=== PATIENT | male | born 1945 | race Caucasian/White ===

== ENCOUNTER 2016-07-19 15:25 | Emergency (ER) | payer MEDICARE, OTHER ==
[2016-07-19] MEDS ORDERED: Hydromorphone 1 mg/ml Ampule IV ONE (15:50)
[2016-07-19] MEDS ORDERED: DUONEB 0.5-3 MG/3 ml Neb IH ONE ×2 (15:51→15:59)
--- NOTE | 2016-07-19 15:55 | ERPHSYRPT ---
- History of Present Illness Time Seen by Provider: 07/19/16 15:41 Source: patient, family (jerrell) Patient Subjective Stated Complaint: Pt states he fell onto his back 3 days ago. Ever since, he has been more short of breath than normal and it is continuing to get worse. He is complaining of pain in the entire right side of his body. He states that the pain moves all over the right side from the upper side to the lower side. Denies hitting his head or any neck pain. Triage Nursing Assessment: Pt alert and oriented x3. skin pink warm and dry. afebrile. no bruising noted to right side. pt moans in pain with movement. expiratory wheezes noted throughout Physician History: CC: right rib injury Hx: 70 y/o patient of Dr Bradshaw on coumadin for prior PE and DVT. He fell a couple of days ago. No head or neck injury. Pain in right posterior lateral ribs. More short of breath than normal. No cough. No hematuria. No abd pain. He has used nebs without help. Worried he has another blood clot or injury. Timing/Duration: day(s) (3) Severity: moderate Allergies/Adverse Reactions: pineapple [Pineapple] Adverse Reaction (Verified 11/20/15 07:22) VOMITING clothe tape Allergy (Uncoded 11/20/15 07:22) Home Medications: Atorvastatin Calcium 80 mg PO HS 10/30/14 [History] Bumetanide 1 mg [Bumex 1 mg] 1 mg PO DAILY 10/30/14 [History] Carvedilol 3.125 mg [Coreg 3.125 MG] 3.125 mg PO BID 10/30/14 [History] Insulin Detemir [Levemir] 50 unit SQ HS 10/30/14 [History] Isosorbide Mononitrate 30 mg [Imdur 30 MG] 30 mg PO DAILY 10/30/14 [History ] Metformin HCl 500 mg [Glucophage 500 MG] 1,000 mg PO BIDAC 10/30/14 [ History] Nitroglycerin 0.4 mg Tablet [Nitrostat 0.4 MG Tablet] 0.4 mg SL UD PRN [History] Lisinopril 5 mg [Zestril 5 MG] 5 mg PO DAILY 10/29/15 [History] Pantoprazole 20 mg [Protonix 20MG Tablet] 40 mg PO DAILY 10/29/15 [History ] Aspirin 81 gm Chew [Baby Aspirin 81 mg Chew] 81 mg PO DAILY 12/08/15 [ History] Magnesium Oxide 400 mg [Mag-Ox 400] 400 mg PO DAILY 12/08/15 [History] Oxycodone HCl/Acetaminophen [Percocet 10-325 mg Tablet] 1 each PO Q6H 12/08/15 [ History] Sucralfate 1 gm [Carafate 1 GM] 1 tab PO DAILY 12/08/15 [History] Warfarin Sodium 5 mg [Coumadin 5 MG] 7.5 mg PO 1800 02/22/16 [History] Hx Tetanus, Diphtheria Vaccination/Date Given: Yes Hx Influenza Vaccination/Date Given: Yes Hx Pneumococcal Vaccination/Date Given: Yes - Review of Systems Constitutional: No Symptoms Respiratory: Dyspnea, No Cough Cardiac: Chest Pain (right ribs) Abdominal/Gastrointestinal: No Abdominal Pain, No Nausea, No Vomiting, No Diarrhea Genitourinary Symptoms: No Hematuria Musculoskeletal: Back Pain, No Neck Pain Neurological: No Focal Weakness, No Headache, No Parasthesia All Other Systems: Reviewed and Negative - Past Medical History Pertinent Past Medical History: Yes Neurological History: No Pertinent History ENT History: No Pertinent History Cardiac History: Coronary Artery Disease, Deep Vein Thrombosis, High Cholesterol , Hypertension, Myocardial Infarction ([place]) Respiratory History: CHF, COPD, Pulmonary Embolism Endocrine Medical History: Diabetes Type II Musculoskeletal History: Osteoarthritis GI Medical History: Gallbladder Disease History: No Pertinent History Psycho-Social History: No Pertinent History Male Reproductive Disorders: No Pertinent History Other Medical History: 4 VESSEL BYPAS. MULTIPLE STENTS SINCE THE BYPASS. hx of DVT - Past Surgical History Past Surgical History: Yes Neuro Surgical History: No Pertinent History Cardiac: CABG, Cardiac Catheterization, Cardiac Stent Respiratory: No Pertinent History Gastrointestinal: Cholecystectomy Genitourinary: No Pertinent History Musculoskeletal: Joint Replacement, Orthopedic Surgery Male Surgical History: No Pertinent History Other Surgical History: LEFT HIP REPLACEMENT. LITTLE FINGER RIGHT HAND-STATES HAD SURGERY AND IT FROZE UP. 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 SEVERAL HEART CATHS AND 4 STEND PLACED. 4 BIPASS - Social History Smoking Status: Former smoker How long have you smoked: 10 Exposure to second hand smoke: No Drug Use: none Patient Lives Alone: No - Nursing Vital Signs Nursing Vital Signs: Initial Vital Signs Temperature 98.4 F Temperature Source Oral Pulse Rate 80 Respiratory Rate 18 Blood Pressure [Right Arm] 149/93 Pain Intensity 5 - Physical Exam General Appearance: alert, obese Eye Exam: PERRL/EOMI Ears, Nose, Throat Exam: moist mucous membranes Neck Exam: normal inspection, non-tender, supple, No midline tenderness Respiratory Exam: diminished breath sounds, other (tender right lateral ribs) Cardiovascular Exam: regular rate/rhythm Gastrointestinal/Abdomen Exam: soft, No tenderness, No distention, No mass, No guarding Male Genitalia Exam: normal genitalia Back Exam: CVA tenderness (right) Extremity Exam: normal range of motion, pedal edema Neurologic Exam: alert, oriented x 3, cooperative, No motor deficits Skin Exam: warm, dry, No rash SpO2 Interpretation: normal SpO2: 96 Oxygen Delivery: Room Air - Course Nursing assessment & vital signs reviewed: Yes EKG Interpreted by Me: RATE (74), Sinus Rhythm, NORMAL AXIS, NORMAL INTERVALS, Non-specific ST Changes - CT Exams chest CT Interpretation: Tele-radiologist Report (No PE, nondisplaced right 5th rib fracture) Ordered Tests: Active Orders 24 hr Category Date Time Status Clean Catch Urine Specimen STAT Care 07/19/16 15:50 Active EKG-ER Only STAT Care 07/19/16 15:50 Active IV Insertion STAT Care 07/19/16 15:50 Active CHEST WITH CONTRAST [CT] Stat Exams 07/19/16 15:51 Completed CBC W DIFF Stat Lab 07/19/16 16:04 Completed CMP Stat Lab 07/19/16 16:04 Completed Manual Differential NC Stat Lab 07/19/16 16:04 Completed PROTIME WITH INR Stat Lab 07/19/16 16:04 Completed UA W/ MICROSCOPIC Stat Lab 07/19/16 15:23 Completed Respiratory Nebulizer STAT RT 07/19/16 15:52 Completed Medication Summary Discontinued Medications Generic Name Dose Route Start Last Admin Trade Name Freq PRN Reason Stop Dose Admin Albuterol/Ipratropium 3 ml 07/19/16 15:51 07/19/16 16:02 Duoneb 0.5-3 Mg/3 Ml Neb IH 07/19/16 15:52 3 ml STAT ONE Administration Albuterol/Ipratropium Confirm 07/19/16 15:59 Duoneb 0.5-3 Mg/3 Ml Neb Administered 07/19/16 16:00 Dose 3 ml IH .STK-MED ONE Hydromorphone HCl 0.5 mg 07/19/16 15:50 07/19/16 16:08 Hydromorphone 1 Mg/Ml Ampule IV 07/19/16 15:51 0.5 mg STAT ONE Administration Hydromorphone HCl Confirm 07/19/16 16:07 Hydromorphone 1 Mg/Ml Ampule Administered 07/19/16 16:08 Dose 1 mg .ROUTE .STK-MED ONE Lab/Rad Data: Laboratory Result Diagrams 07/19/16 16:04 07/19/16 16:04 Laboratory Results 07/19/16 07/19/16 07/19/16 Range/Units 16:04 16:04 16:04 WBC 8.4 (4.0-10.5) K/mm3 RBC 4.82 (4.1-5.6) M/mm3 Hgb 14.3 (12.5-18.0) gm/dl Hct 42.4 (42-50) % MCV 88.0 (78-100) fl MCH 29.7 (26-32) pg MCHC 33.7 (32-36) g/dl RDW 13.1 (11.5-14.0) % Plt Count 206 (150-450) K/mm3 MPV 9.9 H (6-9.5) fl Segmented Neutrophils 74 H (36.-66.) % Lymphocytes (Manual) 18 L (24-44) % Monocytes (Manual) 3 (0.0-12.0) % Eosinophils (Manual) 4 H (0.00-3.0) % Basophils (Manual) 1 (0.0-1.0) % Differential Comment ABNORMAL Platelet Estimate NORMAL (NORMAL) Anisocytosis 1+ INR 2.80 (0.8-3.0) Sodium 136 (136-145) mEq/L Potassium 4.1 (3.5-5.1) mEq/L Chloride 100 (98-107) mEq/L Carbon Dioxide 24.3 (21-32) mEq/L Anion Gap 15.3 H (5-15) MEQ/L BUN 26 H (9-20) mg/dL Creatinine 1.10 (0.55-1.30) mg/dl Estimated GFR > 60 ML/MIN Glucose 292 H (70-110) MG/DL Calcium 8.5 (8.5-10.1) mg/dL Total Bilirubin 0.5 (0.2-1.0) mg/dL AST 19 (15-37) U/L ALT 35 (12-78) U/L Alkaline Phosphatase 114 (46-116) U/L Serum Total Protein 6.8 (6.4-8.2) gm/dL Albumin 3.3 L (3.4-5.0) g/dL Ur Collection Type Urine Color (YELLOW) Urine Appearance (CLEAR) Urine pH (5-6) Ur Specific [place] (1.005-1.025) Urine Protein (Negative) Urine Glucose (UA) (NEGATIVE) mg/dL Urine Ketones (NEGATIVE) Urine Nitrite (NEGATIVE) Urine Bilirubin (NEGATIVE) Urine Urobilinogen (0-1) mg/dL Urine WBC (Auto) (NEGATIVE) Urine RBC (Auto) (0-5) Miguel A/ul Urine Microscopic RBC (0-2) /HPF Urine Microscopic WBC (0-5) /HPF Ur Epithelial Cells (FEW) /HPF Urine Bacteria (NEGATIVE) /HPF Specimen Received 07/19/16 Range/Units 15:23 WBC (4.0-10.5) K/mm3 RBC (4.1-5.6) M/mm3 Hgb (12.5-18.0) gm/dl Hct (42-50) % MCV (78-100) fl MCH (26-32) pg MCHC (32-36) g/dl RDW (11.5-14.0) % Plt Count (150-450) K/mm3 MPV (6-9.5) fl Segmented Neutrophils (36.-66.) % Lymphocytes (Manual) (24-44) % Monocytes (Manual) (0.0-12.0) % Eosinophils (Manual) (0.00-3.0) % Basophils (Manual) (0.0-1.0) % Differential Comment Platelet Estimate (NORMAL) Anisocytosis INR (0.8-3.0) Sodium (136-145) mEq/L Potassium (3.5-5.1) mEq/L Chloride (98-107) mEq/L Carbon Dioxide (21-32) mEq/L Anion Gap (5-15) MEQ/L BUN (9-20) mg/dL Creatinine (0.55-1.30) mg/dl Estimated GFR ML/MIN Glucose (70-110) MG/DL Calcium (8.5-10.1) mg/dL Total Bilirubin (0.2-1.0) mg/dL AST (15-37) U/L ALT (12-78) U/L Alkaline Phosphatase (46-116) U/L Serum Total Protein (6.4-8.2) gm/dL Albumin (3.4-5.0) g/dL Ur Collection Type CLEAN CATCH Urine Color YELLOW (YELLOW) Urine Appearance CLEAR (CLEAR) Urine pH 5.0 (5-6) Ur Specific [place] 1.025 (1.005-1.025) Urine Protein >=300 (Negative) Urine Glucose (UA) >=1000 (NEGATIVE) mg/dL Urine Ketones TRACE (NEGATIVE) Urine Nitrite NEGATIVE (NEGATIVE) Urine Bilirubin NEGATIVE (NEGATIVE) Urine Urobilinogen 0.2 (0-1) mg/dL Urine WBC (Auto) NEGATIVE (NEGATIVE) Urine RBC (Auto) TRACE-LYSED (0-5) Miguel A/ul Urine Microscopic RBC 0-2 (0-2) /HPF Urine Microscopic WBC 2-5 (0-5) /HPF Ur Epithelial Cells FEW (FEW) /HPF Urine Bacteria RARE (NEGATIVE) /HPF Specimen Received 07/19/16 1551 - Progress Progress Note: 07/19/16 17:47 Pt stable. He has percocet at home for pain in addition to oxygen and nebs. Will release to follow up with Dr Bradshaw. He was advised no metformin for 48 hours. Counseled pt/family regarding: lab results, diagnosis, need for follow-up, rad results - Departure Time of Disposition: 17:48 Departure Disposition: Home Clinical Impression: Warfarin anticoagulation Rib fracture Qualifiers: Encounter type: initial encounter Rib fracture type: single rib Fracture type: closed Laterality: right Qualified Code(s): S22.31XA - Fracture of one rib, right side, initial encounter for closed fracture Condition: Stable Critical Care Time: No Referrals: SATINDER ACEVEDO [Primary Care Provider] - MONSE BRADSHAW MD [ACTIVE STAFF] - Instructions: Prevent Falls, Rib Fracture Additional Instructions: Ice packs off and on. Use your percocet as already directed for pain. Use your nebs, deep breathing, and oxygen. Follow up this week with Dr Bradshaw.
[2016-07-19 16:07] LABS: Mean Corpuscular Hemoglobin 29.7 pg (26-32); Mean Platelet Volume 9.9 fl (6-9.5); Platelet Count 206 K/mm3 (150-450); Red Blood Count 4.82 M/mm3 (4.1-5.6); Red Cell Distribution Width 13.1 % (11.5-14.0); White Blood Count 8.4 K/mm3 (4.0-10.5)
[2016-07-19] MEDS ORDERED: Hydromorphone 1 mg/ml Ampule ONE (16:07)
[2016-07-19 16:20] LABS: INR 2.8 (0.8-3.0); PROTIME 30.4 SECONDS (8.83-12.87)
[2016-07-19 16:30] LABS: ALBUMIN 3.3 g/dL (3.4-5.0); ALKALINE PHOSPHATASE 114 U/L (46-116); ANION GAP 15.3 MEQ/L (5-15); BILIRUBIN,TOTAL 0.5 mg/dL (0.2-1.0); BLOOD UREA NITROGEN 26 mg/dL (9-20); CHLORIDE 100 mEq/L (98-107); Carbon Dioxide 24.3 mEq/L (21-32); Glucose 292 MG/DL (70-110); Potassium 4.1 mEq/L (3.5-5.1); SGOT/AST 19 U/L (15-37); SGPT/ALT 35 U/L (12-78); SODIUM 136 mEq/L (136-145); Total Protein 6.8 gm/dL (6.4-8.2)
[2016-07-19 16:54] LABS: Collection Type CLEAN CATCH
[2016-07-19 16:55] LABS: Bacteria RARE /HPF (NEGATIVE); COMPLETE URINE MICROSCOPIC? YES; Epithelial Cells FEW /HPF (FEW)
[2016-07-19 17:07] LABS: Basophil 1 % (0.0-1.0); Eosinophil 4 % (0.00-3.0); Total Cells Counted 100
[2016-07-19 17:09] LABS: ANISOCYTOSIS 1+; Platelet Estimate NORMAL (NORMAL)
--- NOTE | 2016-07-19 17:21 | XRAY ---
Indication: Right-sided pain following fall. History of PE. Multiple contiguous axial images obtained through the chest using 80 cc Isovue-370 contrast and PE protocol. Comparison: August 21, 2014 There is good opacification of the pulmonary arteries to include the lobar and segmental branches. Again no filling defect or pulmonary embolus. Heart is not enlarged and again demonstrates previous CABG surgery. Aorta is normal in course and caliber. No pathologic mediastinal/hilar lymphadenopathy. Examination of the lung parenchyma again demonstrates chronic right hemidiaphragm elevation with right base subsegmental atelectasis/scarring. Stable left upper lobe fibrosis/scarring and calcified granuloma. No new pulmonary mass/nodule, infiltrate, consolidation, or effusion. Bony thorax intact again demonstrates mild degenerative changes throughout the spine. New nondisplaced right lateral 5th rib fracture Limited upper abdomen again demonstrates fatty liver, subcentimeter right adrenal adenoma, and previous cholecystectomy. Impression: 1. Again negative for pulmonary embolus. 2. Stable chronic right hemidiaphragm elevation with adjacent atelectasis. 3. No new/acute cardiopulmonary abnormalities. 4. New nondisplaced right 5th rib fracture without pneumo/hemothorax. 5. Stable fatty liver and right adrenal adenoma. CTDI 27.99
[2016-07-19 17:57] VITALS: BP 140/72; PULSE 88; O2SAT 95
== END 2016-07-19 17:57 | disposition home or self-care (01) ==
LOC: ED 15:25
DX: S22.31XA Fracture of one rib, right side, initial encounter for closed fracture (principal); Z79.01 Long term (current) use of anticoagulants; R07.9 Chest pain, unspecified; W19.XXXA Unspecified fall, initial encounter; Z79.899 Other long term (current) drug therapy; Z79.82 Long term (current) use of aspirin; Z79.84 Long term (current) use of oral hypoglycemic drugs; I25.10 Atherosclerotic heart disease of native coronary artery without angina pectoris; E78.00 Pure hypercholesterolemia, unspecified; I10 Essential (primary) hypertension; I50.9 Heart failure, unspecified; J44.9 Chronic obstructive pulmonary disease, unspecified; Z86.711 Personal history of pulmonary embolism; I25.2 Old myocardial infarction
CPT/HCPCS: 36000; 36415; 71260; 80053; 81000; 85025; 85610; 93005; 94640; 96374; 99283; 99284; J1170

== ENCOUNTER 2016-09-19 17:13 | Observation (INO) | payer MEDICARE, OTHER ==
--- NOTE | 2016-09-19 17:34 | ERPHSYRPT ---
- History of Present Illness Time Seen by Provider: 09/19/16 17:27 Historian: patient Exam Limitations: no limitations Patient Subjective Stated Complaint: pt arrived per amb for chest pain to center of chest since 2pm today nonradiating, no vomiting sob but pt states is normal for him, Triage Nursing Assessment: pt alert, resp easy,skin w/d elaina renya in er 251, cheast clear, no edema noted, Physician History: The patient is a 71-year-old male with his complaining of central chest pain without shortness of breath, nausea, or sweating. That began about 4 hours ago when the patient was mowing the yard. He has known cardiac history with several CABG surgeries. He did not take nitroglycerin. He's had several MIs in the past. He states his usual heart problems such as MIs do not produce any abnormal EKGs that do have chest pain on the left side. This has chest pain in this middle. He states he's had a cough all day. He's had reflux before. His past medical history is significant for DC. Hypertension. Diabetes. Pulmonary embolism. COPD. Palpitations. And cholecystitis. Timing/Duration: today, hour(s) (4) Activities at Onset: activity Quality: sharpness Location: central Chest Pain Radiation: no radiation Severity of Pain-Max: moderate Severity of Pain-Current: moderate Modifying Factors: Improves With: nothing Associated Symptoms: cough Prior Chest Pain/Cardiac Workup: cardiac cath, heart attack, pulmonary embolism Nitro Today/Relief: no nitro taken today Aspirin Treatment Today: 81 mg x 1 Allergies/Adverse Reactions: pineapple [Pineapple] Adverse Reaction (Verified 09/19/16 17:25) VOMITING clothe tape Allergy (Uncoded 09/19/16 17:25) Home Medications: Atorvastatin Calcium 80 mg PO HS 10/30/14 [History] Bumetanide 1 mg [Bumex 1 mg] 1 mg PO DAILY 10/30/14 [History] Carvedilol 3.125 mg [Coreg 3.125 MG] 3.125 mg PO BID 10/30/14 [History] Insulin Detemir [Levemir] 50 unit SQ HS 10/30/14 [History] Isosorbide Mononitrate 30 mg [Imdur 30 MG] 30 mg PO DAILY 10/30/14 [History ] Metformin HCl 500 mg [Glucophage 500 MG] 1,000 mg PO BIDAC 10/30/14 [ History] Nitroglycerin 0.4 mg Tablet [Nitrostat 0.4 MG Tablet] 0.4 mg SL UD PRN [History] Lisinopril 5 mg [Zestril 5 MG] 5 mg PO DAILY 10/29/15 [History] Pantoprazole 20 mg [Protonix 20MG Tablet] 40 mg PO DAILY 10/29/15 [History ] Aspirin 81 gm Chew [Baby Aspirin 81 mg Chew] 81 mg PO DAILY 12/08/15 [ History] Magnesium Oxide 400 mg [Mag-Ox 400] 400 mg PO DAILY 12/08/15 [History] Oxycodone HCl/Acetaminophen [Percocet 10-325 mg Tablet] 1 each PO Q6H 12/08/15 [ History] Sucralfate 1 gm [Carafate 1 GM] 1 tab PO DAILY 12/08/15 [History] Warfarin Sodium 5 mg [Coumadin 5 MG] 7.5 mg PO 1800 02/22/16 [History] Hx Tetanus, Diphtheria Vaccination/Date Given: Yes Hx Influenza Vaccination/Date Given: Yes Hx Pneumococcal Vaccination/Date Given: Yes - Review of Systems Constitutional: No Fever, No Chills Eyes: No Symptoms Ears, Nose, & Throat: No Symptoms Respiratory: No Cough, No Dyspnea Cardiac: No Chest Pain, No Edema, No Syncope Abdominal/Gastrointestinal: No Abdominal Pain, No Nausea, No Vomiting, No Diarrhea Genitourinary Symptoms: No Symptoms Musculoskeletal: No Back Pain, No Neck Pain Skin: No Rash Neurological: No Dizziness, No Focal Weakness, No Sensory Changes Psychological: No Symptoms Endocrine: No Symptoms Hematologic/Lymphatic: No Symptoms Immunological/Allergic: No Symptoms All Other Systems: Reviewed and Negative - Past Medical History Pertinent Past Medical History: Yes Neurological History: No Pertinent History ENT History: No Pertinent History Cardiac History: Coronary Artery Disease, Deep Vein Thrombosis, High Cholesterol , Hypertension, Myocardial Infarction ([place]) Respiratory History: CHF, COPD, Pulmonary Embolism Endocrine Medical History: Diabetes Type II Musculoskeletal History: Osteoarthritis GI Medical History: Gallbladder Disease History: No Pertinent History Psycho-Social History: No Pertinent History Male Reproductive Disorders: No Pertinent History Other Medical History: 4 VESSEL BYPAS. MULTIPLE STENTS SINCE THE BYPASS. hx of DVT - Past Surgical History Past Surgical History: Yes Neuro Surgical History: No Pertinent History Cardiac: CABG, Cardiac Catheterization, Cardiac Stent Respiratory: No Pertinent History Gastrointestinal: Cholecystectomy Genitourinary: No Pertinent History Musculoskeletal: Joint Replacement, Orthopedic Surgery Male Surgical History: No Pertinent History Other Surgical History: LEFT HIP REPLACEMENT. LITTLE FINGER RIGHT HAND-STATES HAD SURGERY AND IT FROZE UP. 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 SEVERAL HEART CATHS AND 4 STEND PLACED. 4 BIPASS - Social History Smoking Status: Former smoker How long have you smoked: 10 Exposure to second hand smoke: No Drug Use: none Patient Lives Alone: No - Nursing Vital Signs Temperature: 97 F Temperature Source: Oral Pulse Rate: 104 Respiratory Rate: 16 Pain Intensity: 7 - Physical Exam General Appearance: moderate distress Eye Exam: PERRL/EOMI, eyes nml inspection Ears, Nose, Throat Exam: normal ENT inspection, moist mucous membranes Neck Exam: normal inspection, non-tender, supple, full range of motion Respiratory Exam: normal breath sounds, lungs clear, No respiratory distress Cardiovascular Exam: regular rate/rhythm, normal heart sounds Gastrointestinal/Abdomen Exam: soft, No tenderness, No mass Rectal Exam: not done Back Exam: normal inspection, No CVA tenderness, No vertebral tenderness Extremity Exam: normal inspection, normal range of motion Neurologic Exam: alert, oriented x 3, cooperative, normal mood/affect, sensation nml, No motor deficits Skin Exam: normal color, warm, dry SpO2 Interpretation: normal SpO2: 94 Oxygen Delivery: Room Air - Course EKG Interpreted by Me: Sinus Rhythm, NORMAL AXIS, NORMAL INTERVALS, NORMAL ST-T - Radiology Exams Chest X-ray Interpretation: Interpreted by me, Negative (nonacute chest. comp cxr 05/19) Ordered Tests: Active Orders 24 hr Category Date Time Status Assistant Media Buyer STAT Care 09/19/16 17:36 Active EKG-ER Only STAT Care 09/19/16 17:34 Active IV Insertion STAT Care 09/19/16 17:34 Active Oxygen-ED Only NASAL CANNULA 2 lpm Care 09/19/16 17:36 Active Pulse Oximetry (ED) STAT Care 09/19/16 17:36 Active CHEST 2 VIEWS (PA AND LAT) Stat Exams 09/19/16 17:35 Taken CBC W DIFF Stat Lab 09/19/16 17:39 Completed CMP Stat Lab 09/19/16 17:39 Completed Manual Differential NC Stat Lab 09/19/16 17:39 Completed TROPONIN Stat Lab 09/19/16 17:39 Completed Medication Summary Discontinued Medications Generic Name Dose Route Start Last Admin Trade Name Freq PRN Reason Stop Dose Admin Al Hydrox/Mg Hydrox/Simethicone Confirm 09/19/16 18:20 Maalox Es 30 Ml Unit Dose Administered 09/19/16 18:21 Dose 30 ml .ROUTE .STK-MED ONE Aspirin 324 mg 09/19/16 17:41 09/19/16 17:46 Baby Aspirin 81 Mg Chew PO 09/19/16 17:42 324 mg STAT ONE Administration Aspirin Confirm 09/19/16 17:49 Baby Aspirin 81 Mg Chew Administered 09/19/16 17:50 Dose 324 mg .ROUTE .STK-MED ONE Belladonna Alkaloids/Phenobarbital 60 ml 09/19/16 18:16 09/19/16 18:22 Gi Cocktail 60ml (Belladonn/Phenobarb/Lidoc* PO 09/19/16 18:17 60 ml STAT ONE Administration Belladonna Alkaloids/Phenobarbital Confirm 09/19/16 18:20 Donnatol Liquid Administered 09/19/16 18:21 Dose 64.8 mg .ROUTE .STK-MED ONE Lidocaine HCl Confirm 09/19/16 18:20 Xylocaine Hcl Viscous * Administered 09/19/16 18:21 Dose 20 ml .ROUTE .STK-MED ONE Nitroglycerin 0.4 mg 09/19/16 17:36 09/19/16 17:47 Nitrostat 0.4 Mg (Ed) SL 09/19/16 17:37 0.4 mg STAT ONE Administration Nitroglycerin Confirm 09/19/16 17:49 Nitrostat 0.4 Mg (Ed) Administered 09/19/16 17:50 Dose 0.4 mg SL .STK-MED ONE Nitroglycerin 0.4 mg 09/19/16 18:38 09/19/16 18:46 Nitrostat 0.4 Mg (Ed) SL 09/19/16 18:39 0.4 mg STAT ONE Administration Nitroglycerin Confirm 09/19/16 18:44 Nitrostat 0.4 Mg (Ed) Administered 09/19/16 18:45 Dose 0.4 mg SL .STK-MED ONE Nitroglycerin 0.4 mg 09/19/16 18:51 09/19/16 18:57 Nitrostat 0.4 Mg (Ed) SL 09/19/16 18:52 0.4 mg STAT ONE Administration Nitroglycerin Confirm 09/19/16 18:52 Nitrostat 0.4 Mg (Ed) Administered 09/19/16 18:53 Dose 0.4 mg SL .STK-MED ONE Lab/Rad Data: Laboratory Result Diagrams 09/19/16 17:39 09/19/16 17:39 Laboratory Results 09/19/16 09/19/16 Range/Units 17:39 17:39 WBC 10.4 (4.0-10.5) K/mm3 RBC 5.24 (4.1-5.6) M/mm3 Hgb 15.6 (12.5-18.0) gm/dl Hct 45.7 (42-50) % MCV 87.2 (78-100) fl MCH 29.8 (26-32) pg MCHC 34.1 (32-36) g/dl RDW 12.9 (11.5-14.0) % Plt Count 231 (150-450) K/mm3 MPV 9.9 H (6-9.5) fl Segmented Neutrophils 85 H (36.-66.) % Band Neutrophils 1 (0.0-2.0) % Lymphocytes (Manual) 11 L (24-44) % Monocytes (Manual) 3 (0.0-12.0) % Differential Comment NORMAL Platelet Estimate NORMAL (NORMAL) Sodium 135 L (136-145) mEq/L Potassium 4.3 (3.5-5.1) mEq/L Chloride 99 (98-107) mEq/L Carbon Dioxide 23.6 (21-32) mEq/L Anion Gap 16.4 H (5-15) MEQ/L BUN 29 H (9-20) mg/dL Creatinine 1.37 H (0.55-1.30) mg/dl Estimated GFR 54 ML/MIN Glucose 259 H (70-110) MG/DL Calcium 8.8 (8.5-10.1) mg/dL Total Bilirubin 0.5 (0.2-1.0) mg/dL AST 34 (15-37) U/L ALT 54 (12-78) U/L Alkaline Phosphatase 118 H (46-116) U/L Troponin I < 0.017 (0.000-0.056) ng/ml Serum Total Protein 7.1 (6.4-8.2) gm/dL Albumin 3.6 (3.4-5.0) g/dL - Progress Progress: unchanged Air Movement: good Progress Note: 09/19/16 19:05 The patient was given nitroglycerin 0.4 mg sublingual 3 and a GI cocktail without any change in the chest pain. Blood Culture(s) Obtained: No Antibiotics given: No Discussed with : Ruth Will see patient in: hospital (observation) Counseled pt/family regarding: lab results, diagnosis, rad results - Departure Time of Disposition: 19:17 Departure Disposition: Observation Clinical Impression: Chest pain Condition: Stable Critical Care Time: No
[2016-09-19] MEDS ORDERED: Nitrostat 0.4 MG (ED) SL ONE ×6 (17:36→18:52)
[2016-09-19] MEDS ORDERED: BABY ASPIRIN 81 MG CHEW PO ONE (17:41)
[2016-09-19 17:43] LABS: Mean Cell Volume 87.2 fl (78-100); Mean Corpuscular Hemoglobin 29.8 pg (26-32); Mean Platelet Volume 9.9 fl (6-9.5); Platelet Count 231 K/mm3 (150-450); Red Blood Count 5.24 M/mm3 (4.1-5.6); Red Cell Distribution Width 12.9 % (11.5-14.0); White Blood Count 10.4 K/mm3 (4.0-10.5)
[2016-09-19] MEDS ORDERED: BABY ASPIRIN 81 MG CHEW ONE (17:49)
[2016-09-19 17:58] LABS: ALBUMIN 3.6 g/dL (3.4-5.0); ALKALINE PHOSPHATASE 118 U/L (46-116); ANION GAP 16.4 MEQ/L (5-15); BILIRUBIN,TOTAL 0.5 mg/dL (0.2-1.0); BLOOD UREA NITROGEN 29 mg/dL (9-20); CHLORIDE 99 mEq/L (98-107); Carbon Dioxide 23.6 mEq/L (21-32); Glucose 259 MG/DL (70-110); Potassium 4.3 mEq/L (3.5-5.1); SGOT/AST 34 U/L (15-37); SGPT/ALT 54 U/L (12-78); SODIUM 135 mEq/L (136-145); Total Protein 7.1 gm/dL (6.4-8.2)
[2016-09-19 18:00] LABS: TROPONIN < 0.017 ng/ml (0.000-0.056)
[2016-09-19] MEDS ORDERED: GI COCKTAIL 60ML (Belladonn/Phenobarb/Lidoc PO ONE (18:16)
[2016-09-19] MEDS ORDERED: XYLOCAINE HCl Viscous ONE (18:20)
[2016-09-19] MEDS ORDERED: Donnatol Liquid ONE (18:20)
[2016-09-19] MEDS ORDERED: MAALOX ES 30 ML UNIT DOSE ONE (18:20)
[2016-09-19 18:42] LABS: BAND 1 % (0.0-2.0); Total Cells Counted 100
[2016-09-19 18:43] LABS: Platelet Estimate NORMAL (NORMAL)
[2016-09-19] MEDS ORDERED: MILK OF MAGNESIA 30 ML PO PRN (20:09)
[2016-09-19] MEDS ORDERED: TYLENOL 325 MG PO PRN (20:09)
[2016-09-19] MEDS ORDERED: Senokot-S Tablet PO PRN (20:09)
[2016-09-19] MEDS ORDERED: MAALOX ES 30 ML UNIT DOSE PO PRN (20:09)
[2016-09-19] MEDS ORDERED: Zofran 4 MG/2 ML VIAL IV PRN (20:09)
[2016-09-19] MEDS ORDERED: PROVENTIL 2.5 MG/3 ML NEB IH ONE (20:12)
[2016-09-19 20:16] LABS: INR 3.02 (0.8-3.0); PROTIME 32.7 SECONDS (8.83-12.87)
[2016-09-19] MEDS: PROVENTIL 2.5 MG/3 ML NEB IH SCH (20:38)
[2016-09-19] MEDS ORDERED: PROVENTIL 2.5 MG/3 ML NEB IH PRN (20:59)
[2016-09-19] MEDS: MORPHINE SULFATE 2 MG INJ IV PRN (21:28)
[2016-09-19] MEDS ORDERED: Nitrostat 0.4 MG Tablet SL PRN (21:39)
[2016-09-19] MEDS ORDERED: OXYCODONE-ACETAMINOPHEN 10-325 PO PRN (21:42)
[2016-09-19] MEDS ORDERED: Coumadin 5 MG*** 5 MG, Coumadin 2.5 MG*** 2.5 MG PO SCH ×2 (22:00)
[2016-09-19] MEDS ORDERED: BUMEX 1 MG PO SCH (22:00)
[2016-09-19] MEDS ORDERED: LIPITOR 40MG PO SCH (22:00)
[2016-09-19] MEDS ORDERED: ZOCOR 20MG PO SCH (22:00)
[2016-09-19] MEDS ORDERED: Protonix 40MG Tablet PO SCH (22:00)
[2016-09-19] MEDS ORDERED: Lantus Insulin ONE (22:15)
[2016-09-19] MEDS ORDERED: Coumadin 2.5 MG ONE (22:16)
[2016-09-19] MEDS ORDERED: Coumadin 5 MG ONE (22:16)
[2016-09-19] MEDS ORDERED: ZOCOR 20MG ONE (22:16)
[2016-09-19] MEDS ORDERED: BUMEX 1 MG ONE (22:16)
[2016-09-19] MEDS: Coreg 3.125 MG PO SCH (22:19)
[2016-09-19] MEDS: Glucophage 500 MG PO SCH (22:30)
[2016-09-20] MEDS: MORPHINE SULFATE 2 MG INJ IV PRN (02:18)
[2016-09-20] MEDS ORDERED: PROVENTIL 2.5 MG/3 ML NEB IH ONE (06:28)
[2016-09-20] MEDS: PROVENTIL 2.5 MG/3 ML NEB IH SCH ×2 (06:30→10:40)
[2016-09-20] MEDS ORDERED: Carafate 1 GM PO SCH (07:30)
[2016-09-20] MEDS: Glucophage 500 MG PO SCH (07:36)
--- NOTE | 2016-09-20 08:45 | XRAY ---
Indication: Chest pain. Comparison: May 19, 2016. 2 view chest unchanged again demonstrating chronic right hemidiaphragm elevation with adjacent atelectasis/scarring, CABG surgery, osteopenia, and bony degenerative changes. Heart is not enlarged. No new/acute findings.
[2016-09-20 08:47] LABS: ANION GAP 13.3 MEQ/L (5-15); BLOOD UREA NITROGEN 24 mg/dL (9-20); CHLORIDE 95 mEq/L (98-107); Carbon Dioxide 28.4 mEq/L (21-32); Glucose 233 MG/DL (70-110); Potassium 3.2 mEq/L (3.5-5.1); SODIUM 134 mEq/L (136-145)
[2016-09-20] MEDS: Coreg 3.125 MG PO SCH (09:14)
[2016-09-20] MEDS ORDERED: MAG-OX 400 PO SCH (10:00)
[2016-09-20] MEDS ORDERED: BABY ASPIRIN 81 MG CHEW PO SCH (10:00)
[2016-09-20] MEDS ORDERED: Ecotrin 325 MG PO SCH (10:00)
[2016-09-20] MEDS ORDERED: DELTASONE 5 MG PO SCH (10:00)
[2016-09-20] MEDS ORDERED: BUMEX 1 MG PO SCH (10:00)
[2016-09-20] MEDS ORDERED: Imdur 30 MG PO SCH (10:00)
[2016-09-20] MEDS ORDERED: Zestril 5 MG PO SCH (10:00)
[2016-09-20] MEDS ORDERED: ECOTRIN 81 MG PO SCH (10:00)
[2016-09-20 10:47] VITALS: O2SAT 95
[2016-09-20 11:12] VITALS: BP 138/85; PULSE 78
--- NOTE | 2016-09-20 11:40 | PCM.SSS ---
History of Present Illness - Chief Complaint Chief Complaint: chest pain for 1 day History of Present Illness: The patient is a 71-year-old male with his complaining of central chest pain without shortness of breath, nausea, or sweating. That began about 4 hours ago when the patient was mowing the yard. He has known cardiac history with several CABG surgeries. He did not take nitroglycerin. He's had several MIs in the past. He states his usual heart problems such as MIs do not produce any abnormal EKGs that do have chest pain on the left side. This has chest pain in this middle. He states he's had a cough all day. He's had reflux before. His past medical history is significant for [place]. Hypertension. Diabetes. Pulmonary embolism. COPD. Palpitations. And cholecystitis. - Review of Systems Constitutional: No Fever, No Chills Eyes: No Symptoms Ears, Nose, & Throat: No Symptoms Respiratory: No Cough, No Short Of Breath Cardiac: Chest Pain, No Edema, No Syncope Abdominal/Gastrointestinal: No Abdominal Pain, No Nausea, No Vomiting, No Diarrhea Genitourinary Symptoms: No Dysuria Musculoskeletal: No Back Pain, No Neck Pain Skin: No Rash Neurological: No Dizziness, No Focal Weakness, No Sensory Changes Psychological: No Symptoms Endocrine: No Symptoms Hematologic/Lymphatic: No Symptoms Immunological/Allergic: No Symptoms Medications & Allergies Home Medications: Home Medication List Atorvastatin Calcium 80 mg PO HS 10/30/14 [History Confirmed 09/19/16] Bumetanide 1 mg [Bumex 1 mg] 0.5 mg PO BID 10/30/14 [History Confirmed 04/28] Carvedilol 3.125 mg [Coreg 3.125 MG] 3.125 mg PO BID 10/30/14 [History Confirmed 09/19/16] Insulin Detemir [Levemir] 50 unit SQ HS 10/30/14 [History Confirmed 09/19/16] Isosorbide Mononitrate 30 mg [Imdur 30 MG] 30 mg PO DAILY 10/30/14 [ History Confirmed 09/19/16] Metformin HCl 500 mg [Glucophage 500 MG] 1,000 mg PO BIDAC 10/30/14 [ History Confirmed 09/19/16] Nitroglycerin 0.4 mg Tablet [Nitrostat 0.4 MG Tablet] 0.4 mg SL UD PRN [History Confirmed 09/19/16] Lisinopril 5 mg [Zestril 5 MG] 5 mg PO DAILY 10/29/15 [History Confirmed 09/19/16] Pantoprazole 20 mg [Protonix 20MG Tablet] 40 mg PO HS 10/29/15 [History Confirmed 09/19/16] Aspirin 81 gm Chew [Baby Aspirin 81 mg Chew] 81 mg PO DAILY 12/08/15 [ History Confirmed 09/19/16] Magnesium Oxide 400 mg [Mag-Ox 400] 400 mg PO DAILY 12/08/15 [History Confirmed 09/19/16] Oxycodone HCl/Acetaminophen [Percocet 10-325 mg Tablet] 1 each PO Q6H 12/08/15 [ History Confirmed 09/19/16] Sucralfate 1 gm [Carafate 1 GM] 1 tab PO DAILY 12/08/15 [History Confirmed 09/19/16] Albuterol 2.5 mg/3 ml Neb [Proventil 2.5 mg/3 ml Neb] 1 aer IH Q4H #0 [Rx Confirmed 09/19/16] Warfarin Sodium 5 mg [Coumadin 5 MG] 7.5 mg PO 1800 02/22/16 [History Confirmed 09/19/16] Prednisone 5 mg PO DAILY #30 tablet 05/20/16 [Rx Confirmed 09/19/16] Allergies/Adverse Reactions: Allergies Allergy/AdvReac Type Severity Reaction Status Date / Time pineapple [Pineapple] AdvReac Verified 09/19/16 17:25 clothe tape Allergy Uncoded 09/19/16 17:25 - Past Medical History Past Medical History: Yes Neurological History: No Pertinent History ENT History: No Pertinent History Cardiac History: Coronary Artery Disease, Deep Vein Thrombosis, High Cholesterol , Hypertension, Myocardial Infarction ([place]) Respiratory History: CHF, COPD, Pulmonary Embolism Endocrine Medical History: Diabetes Type II Musculoskelatal History: Osteoarthritis GI Medical History: GERD, Gallbladder Disease History: No Pertinent History Pyscho-Social History: No Pertinent History Male Reproductive Disorders: No Pertinent History Comment: 4 VESSEL BYPAS. MULTIPLE STENTS SINCE THE [place]PASS. hx of DVT - Past Surgical History Past Surgical History: Yes Neuro Surgical History: No Pertinent History Cardiac History: CABG, Cardiac Catheterization, Cardiac Stent Respiratory Surgery: No Pertinent History GI Surgical History: Cholecystectomy Genitourinary Surgical Hx: No Pertinent History Musculskeletal Surgical Hx: Joint Replacement, Orthopedic Surgery Male Surgical History: No Pertinent History Other Surgical History: LEFT HIP REPLACEMENT. L[place]ING[place] RIGHT [employer]-STATES HAD SURGERY AND IT FROZE UP. 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 SEVERAL HEART CATHS AND 4 STEND PLACED. 4 BIPASS - Social History Smoking Status: Former smoker How long have you smoked: 10 Exposure to second hand smoke: No Alcohol: None Drug Use: none - Physical Exam Vital Signs: Vital Signs - 24 hr Temp Pulse Pulse Resp BP Pulse Ox 09/20/16 11:10 97.9 F 78 20 138/85 95 09/20/16 10:44 86 18 95 09/20/16 07:39 97.7 F 82 19 140/88 92 L 09/20/16 06:30 78 20 97 09/20/16 04:00 97.7 F 82 20 123/89 94 L 09/20/16 00:00 98.1 F 85 20 139/84 95 09/19/16 20:38 78 20 95 09/19/16 20:25 97.9 F 91 H 18 145/66 92 L 09/19/16 19:21 97 F 104 H 16 94 L 09/19/16 18:27 90 16 129/73 97 09/19/16 17:40 97 09/19/16 17:24 100 H 09/19/16 17:14 97 F 104 H 16 118/80 94 L Oxygen-Last 24 hours O2 Percentage 2 Liters = 28% O2 Percentage 2 Liters = 28% O2 Percentage 2 Liters = 28% General Appearance: no apparent distress, alert Neurologic Exam: alert, oriented x 3, cooperative, normal mood/affect, nml cerebellar function, nml station & gait, sensation nml, No motor deficits Eye Exam: PERRL/EOMI, eyes nml inspection Ears, Nose, Throat Exam: normal ENT inspection, TMs normal, pharynx normal, moist mucous membranes Neck Exam: normal inspection, non-tender, supple, full range of motion Respiratory Exam: normal breath sounds, lungs clear, No respiratory distress Cardiovascular Exam: regular rate/rhythm, normal heart sounds, normal peripheral pulses Gastrointestinal/Abdomen Exam: soft, normal bowel sounds, No tenderness, No mass Back Exam: normal inspection, normal range of motion, No CVA tenderness, No vertebral tenderness Extremity Exam: normal inspection, normal range of motion, pelvis stable Skin Exam: normal color, warm, dry, No rash Lymphatic Exam: No adenopathy Results - Labs Lab/Micro Results: Accuchecks Date 09/20/16 Time 07:07 Accucheck Value: 258 Accucheck Value: 195 Lab Results-Last 24 Hours 09/19/16 09/20/16 09/20/16 Range/Units 20:20 05:00 05:16 Sodium (136-145) mEq/L Potassium (3.5-5.1) mEq/L Chloride (98-107) mEq/L Carbon Dioxide (21-32) mEq/L Anion Gap (5-15) MEQ/L BUN (9-20) mg/dL Creatinine (0.55-1.30) mg/dl Estimated GFR ML/MIN Glucose (70-110) MG/DL Hemoglobin A1c 8.7 H (4.5-6.2) Calcium (8.5-10.1) mg/dL Troponin I < 0.017 (0.000-0.056) ng/ml Triglycerides 545 H (30-200) mg/dL Cholesterol 231 H (100-200) mg/dL LDL Cholesterol 111 H (5-99) mg/dL HDL Cholesterol 46 (35-60) mg/dL Heart Disease Risk Ratio 5.0 09/20/16 Range/Units 08:16 Sodium 134 L (136-145) mEq/L Potassium 3.2 L (3.5-5.1) mEq/L Chloride 95 L (98-107) mEq/L Carbon Dioxide 28.4 (21-32) mEq/L Anion Gap 13.3 (5-15) MEQ/L BUN 24 H (9-20) mg/dL Creatinine 1.24 (0.55-1.30) mg/dl Estimated GFR > 60 ML/MIN Glucose 233 H (70-110) MG/DL Hemoglobin A1c (4.5-6.2) Calcium 8.5 (8.5-10.1) mg/dL Troponin I (0.000-0.056) ng/ml Triglycerides (30-200) mg/dL Cholesterol (100-200) mg/dL LDL Cholesterol (5-99) mg/dL HDL Cholesterol (35-60) mg/dL Heart Disease Risk Ratio Accuchecks Date 09/20/16 Time 07:07 Accucheck Value: 258 Accucheck Value: 195 - Other Procedures and Tests Respiratory Therapy 09/19/16 19:00 Respiratory Nebulizer QID 09/19/16 21:00 Oxygen NASAL CANNULA 2 lpm Respiratory Nebulizer 09/21/16 05:00 EKG DAILY 09/22/16 05:00 EKG DAILY 09/23/16 05:00 EKG DAILY Assessment/Plan (1) Chest pain Current Visit: Yes Status: Acute Qualifiers: Ischemic chest pain type: stable angina pectoris Code(s): R07.9 - CHEST PAIN, UNSPECIFIED (2) COPD (chronic obstructive pulmonary disease) Current Visit: Yes Status: Chronic Qualifiers: COPD type: chronic bronchitis Chronic bronchitis type: simple Qualified Code(s): J41.0 - Simple chronic bronchitis (3) Coronary artery disease Current Visit: Yes Status: Chronic Qualifiers: Coronary Disease-Associated Artery/Lesion type: bypass graft [place] vs. transplanted heart: [place] heart Associated angina: with stable angina Qualified Code(s): I25.708 - Atherosclerosis of coronary artery bypass graft(s) , unspecified, with other forms of angina pectoris Code(s): I25.10 - ATHSCL HEART DISEASE OF [place] CORONARY ARTERY W/O ANG PCTRS (4) Diabetes Current Visit: Yes Status: Chronic Qualifiers: Diabetes mellitus type: type 2 Diabetes mellitus complication status: with diabetic arthropathy Diabetes mellitus complication detail: with neuropathic arthropathy Diabetes mellitus [place] insulin use: without fpc use Qualified Code(s): E11.610 - Type 2 diabetes mellitus with diabetic neuropathic arthropathy Code(s): E11.9 - TYPE 2 DIABETES MELLITUS WITHOUT COMPLICATIONS (5) History of DVT (deep vein thrombosis) Current Visit: No Status: Chronic Code(s): Z86.718 - PERSONAL HISTORY OF OTHER VENOUS THROMBOSIS AND EMBOLISM (6) Hypertension Current Visit: No Status: Chronic Code(s): I10 - ESSENTIAL (PRIMARY) HYPERTENSION (7) Pulmonary hypertension Current Visit: No Status: Chronic Code(s): I27.2 - OTHER SECONDARY PULMONARY HYPERTENSION (8) Warfarin anticoagulation Current Visit: No Status: Chronic Code(s): Z79.01 - [employer] (CURRENT) USE OF ANTICOAGULANTS Hospital Summary - Hospital Course Hospital Course: Chief Complaint Diagnosis chest pain for 1 day Allergies Allergy/AdvReac Type Severity Reaction Status Date / Time pineapple [Pineapple] AdvReac Verified 09/19/16 17:25 clothe tape Allergy Uncoded 09/19/16 17:25 Vital Signs (Last 24 hours) Temp Pulse Pulse Resp BP Pulse Ox 09/20/16 11:10 97.9 F 78 20 138/85 95 09/20/16 10:44 86 18 95 09/20/16 07:39 97.7 F 82 19 140/88 92 L 09/20/16 06:30 78 20 97 09/20/16 04:00 97.7 F 82 20 123/89 94 L 09/20/16 00:00 98.1 F 85 20 139/84 95 09/19/16 20:38 78 20 95 09/19/16 20:25 97.9 F 91 H 18 145/66 92 L 09/19/16 19:21 97 F 104 H 16 94 L 09/19/16 18:27 90 16 129/73 97 09/19/16 17:40 97 09/19/16 17:24 100 H 09/19/16 17:14 97 F 104 H 16 118/80 94 L Current Medications Generic Name Dose Route Start Last Admin Trade Name Freq PRN Reason Stop Dose Admin Acetaminophen 650 mg 09/19/16 20:09 Tylenol 325 Mg PO 10/19/16 20:08 Q4H PRN PRN PAIN AND/OR FEVER Al Hydrox/Mg Hydrox/Simethicone 30 ml 09/19/16 20:09 Maalox Es 30 Ml Unit Dose PO 10/19/16 20:08 Q4H PRN PRN INDIGESTION Albuterol Sulfate 2.5 mg 09/19/16 19:00 09/20/16 10:40 Proventil 2.5 Mg/3 Ml Neb IH 10/19/16 18:59 2.5 mg QIDRT BENJA Administration Albuterol Sulfate 2.5 mg 09/19/16 20:59 Proventil 2.5 Mg/3 Ml Neb IH 10/19/16 20:58 Q4H PRN PRN SHORTNESS OF BREATH/WHEEZING Aspirin 81 mg 09/20/16 10:00 09/20/16 09:14 Ecotrin 81 Mg PO 10/20/16 09:59 81 mg DAILY BENJA Administration Bumetanide 0.5 mg 09/20/16 10:00 09/20/16 09:09 Bumex 1 Mg PO 10/20/16 09:59 Not Given BID DIURETIC [facility] Carvedilol 3.125 mg 09/19/16 22:00 09/20/16 09:14 Coreg 3.125 Mg PO 10/19/16 21:59 3.125 mg BID BENJA Administration Insulin Glargine 50 unit 09/20/16 22:00 09/19/16 22:20 Lantus Insulin SQ 10/20/16 21:59 50 unit HS BENJA Administration Isosorbide Mononitrate 30 mg 09/20/16 10:00 09/20/16 09:14 Imdur 30 Mg PO 10/20/16 09:59 30 mg DAILY BENJA Administration Lisinopril 5 mg 09/20/16 10:00 09/20/16 09:14 Zestril 5 Mg PO 10/20/16 09:59 5 mg DAILY BENJA Administration Magnesium Hydroxide 30 - 60 ml 09/19/16 20:09 Milk Of Magnesia 30 Ml PO 10/19/16 20:08 QDP PRN CONSTIPATION Magnesium Oxide 400 mg 09/20/16 10:00 09/20/16 09:14 Mag-Ox 400 PO 10/20/16 09:59 400 mg DAILY BENJA Administration Metformin HCl 1,000 mg 09/19/16 22:00 09/20/16 07:36 Glucophage 500 Mg PO 10/19/16 21:59 1,000 mg BIDAC BENJA Administration Morphine Sulfate 2 mg 09/19/16 21:11 09/20/16 02:18 Morphine Sulfate 2 Mg Inj IV 09/24/16 21:10 2 mg Q4H PRN PRN Administration PAIN Nitroglycerin 0.4 mg 09/19/16 21:39 Nitrostat 0.4 Mg Tablet SL 10/19/16 21:38 Q5MIN PRN MR X 3 PRN CHEST PAIN Ondansetron HCl 4 mg 09/19/16 20:09 Zofran 4 Mg/2 Ml Vial IV 10/19/16 20:08 Q4H PRN PRN NAUSEA/VOMITING Oxycodone/Acetaminophen 1 tab 09/19/16 21:42 Oxycodone-Acetaminophen 10-325 PO 09/24/16 21:41 Q6H PRN PRN PAIN Pantoprazole Sodium 40 mg 09/19/16 22:00 09/19/16 22:19 Protonix 40mg Tablet PO 10/19/16 21:59 40 mg HS BENJA Administration Prednisone 5 mg 09/20/16 10:00 09/20/16 09:14 Deltasone 5 Mg PO 10/20/16 09:59 5 mg DAILY BENJA Administration Senna/Docusate Sodium 2 udtab 09/19/16 20:09 Senokot-S Tablet PO 10/19/16 20:08 BID PRN PRN CONSTIPATION Simvastatin 80 mg 09/19/16 22:00 09/19/16 22:34 Zocor 20mg PO 10/19/16 21:59 80 mg HS BENJA Administration Sucralfate 1 g 09/20/16 07:30 09/20/16 07:36 Carafate 1 Gm PO 10/20/16 07:29 1 g QDAC BENJA Administration Warfarin Sodium 5 mg/ Warfarin 7.5 mg 09/19/16 22:00 09/19/16 22:19 Sodium 2.5 mg PO 10/19/16 21:59 7.5 mg COU BENJA Administration Discontinued Medications Generic Name Dose Route Start Last Admin Trade Name Freq PRN Reason Stop Dose Admin Al Hydrox/Mg Hydrox/Simethicone Confirm 09/19/16 18:20 Maalox Es 30 Ml Unit Dose Administered 09/19/16 18:21 Dose 30 ml .ROUTE .STK-MED ONE Albuterol Sulfate Confirm 09/19/16 20:12 Proventil 2.5 Mg/3 Ml Neb Administered 09/19/16 20:13 Dose 2.5 mg IH .STK-MED ONE Albuterol Sulfate Confirm 09/20/16 06:28 Proventil 2.5 Mg/3 Ml Neb Administered 09/20/16 06:29 Dose 2.5 mg IH .STK-MED ONE Aspirin 324 mg 09/19/16 17:41 09/19/16 17:46 Baby Aspirin 81 Mg Chew PO 09/19/16 17:42 324 mg STAT ONE Administration Aspirin Confirm 09/19/16 17:49 Baby Aspirin 81 Mg Chew Administered 09/19/16 17:50 Dose 324 mg .ROUTE .STK-MED ONE Aspirin 325 mg 09/20/16 10:00 Ecotrin 325 Mg PO 10/20/16 09:59 DAILY BENJA Atorvastatin Calcium 80 mg 09/19/16 22:00 09/19/16 23:53 Lipitor 40mg PO 10/19/16 21:59 Not Given HS BENJA Belladonna Alkaloids/Phenobarbital 60 ml 09/19/16 18:16 09/19/16 18:22 Gi Cocktail 60ml (Belladonn/Phenobarb/Lidoc* PO 09/19/16 18:17 60 ml STAT ONE Administration Belladonna Alkaloids/Phenobarbital Confirm 09/19/16 18:20 Donnatol Liquid Administered 09/19/16 18:21 Dose 64.8 mg .ROUTE .STK-MED ONE Bumetanide 5 mg 09/19/16 22:00 09/19/16 22:19 Bumex 1 Mg PO 10/19/16 21:59 5 mg BID DIURETIC BENJA Administration Bumetanide Confirm 09/19/16 22:16 Bumex 1 Mg Administered 09/19/16 22:17 Dose 5 mg .ROUTE .STK-MED ONE Insulin Glargine Confirm 09/19/16 22:15 Lantus Insulin Administered 09/19/16 22:16 Dose 50 unit .ROUTE .STK-MED ONE Lidocaine HCl Confirm 09/19/16 18:20 Xylocaine Hcl Viscous * Administered 09/19/16 18:21 Dose 20 ml .ROUTE .STK-MED ONE Nitroglycerin 0.4 mg 09/19/16 17:36 09/19/16 17:47 Nitrostat 0.4 Mg (Ed) SL 09/19/16 17:37 0.4 mg STAT ONE Administration Nitroglycerin Confirm 09/19/16 17:49 Nitrostat 0.4 Mg (Ed) Administered 09/19/16 17:50 Dose 0.4 mg SL .STK-MED ONE Nitroglycerin 0.4 mg 09/19/16 18:38 09/19/16 18:46 Nitrostat 0.4 Mg (Ed) SL 09/19/16 18:39 0.4 mg STAT ONE Administration Nitroglycerin Confirm 09/19/16 18:44 Nitrostat 0.4 Mg (Ed) Administered 09/19/16 18:45 Dose 0.4 mg SL .STK-MED ONE Nitroglycerin 0.4 mg 09/19/16 18:51 09/19/16 18:57 Nitrostat 0.4 Mg (Ed) SL 09/19/16 18:52 0.4 mg STAT ONE Administration Nitroglycerin Confirm 09/19/16 18:52 Nitrostat 0.4 Mg (Ed) Administered 09/19/16 18:53 Dose 0.4 mg SL .STK-MED ONE Simvastatin Confirm 09/19/16 22:16 Zocor 20mg Administered 09/19/16 22:17 Dose 80 mg .ROUTE .STK-MED ONE Warfarin Sodium Confirm 09/19/16 22:16 Coumadin 2.5 Mg Administered 09/19/16 22:17 Dose 2.5 mg .ROUTE .STK-MED ONE Warfarin Sodium Confirm 09/19/16 22:16 Coumadin 5 Mg Administered 09/19/16 22:17 Dose 5 mg .ROUTE .STK-MED ONE Intake & Output (Last 24 hours) 09/17/16 09/18/16 09/19/16 09/20/16 11:59 11:59 11:59 11:59 Intake Total 2580 Balance 2580 Weight 103.963 kg Laboratory Results (Last 24 hours) 09/20/16 09/20/16 09/20/16 08:16 05:16 05:00 WBC RBC Hgb Hct MCV MCH MCHC RDW Plt Count MPV Segmented Neutrophils Band Neutrophils Lymphocytes (Manual) Monocytes (Manual) Differential Comment Platelet Estimate INR Sodium 134 L Potassium 3.2 L Chloride 95 L Carbon Dioxide 28.4 Anion Gap 13.3 BUN 24 H Creatinine 1.24 Estimated GFR > 60 Glucose 233 H Hemoglobin A1c 8.7 H Calcium 8.5 Total Bilirubin AST ALT Alkaline Phosphatase Troponin I Serum Total Protein Albumin Triglycerides 545 H Cholesterol 231 H LDL Cholesterol 111 H HDL Cholesterol 46 Heart Disease Risk Ratio 5.0 09/19/16 09/19/16 09/19/16 20:20 17:39 17:39 WBC RBC Hgb Hct MCV MCH MCHC RDW Plt Count MPV Segmented Neutrophils Band Neutrophils Lymphocytes (Manual) Monocytes (Manual) Differential Comment Platelet Estimate INR 3.02 H Sodium 135 L Potassium 4.3 Chloride 99 Carbon Dioxide 23.6 Anion Gap 16.4 H BUN 29 H Creatinine 1.37 H Estimated GFR 54 Glucose 259 H Hemoglobin A1c Calcium 8.8 Total Bilirubin 0.5 AST 34 ALT 54 Alkaline Phosphatase 118 H Troponin I < 0.017 < 0.017 Serum Total Protein 7.1 Albumin 3.6 Triglycerides Cholesterol LDL Cholesterol HDL Cholesterol Heart Disease Risk Ratio 09/19/16 17:39 WBC 10.4 RBC 5.24 Hgb 15.6 Hct 45.7 MCV 87.2 MCH 29.8 MCHC 34.1 RDW 12.9 Plt Count 231 MPV 9.9 H Segmented Neutrophils 85 H Band Neutrophils 1 Lymphocytes (Manual) 11 L Monocytes (Manual) 3 Differential Comment NORMAL Platelet Estimate NORMAL INR Sodium Potassium Chloride Carbon Dioxide Anion Gap BUN Creatinine Estimated GFR Glucose Hemoglobin A1c Calcium Total Bilirubin AST ALT Alkaline Phosphatase Troponin I Serum Total Protein Albumin Triglycerides Cholesterol LDL Cholesterol HDL Cholesterol Heart Disease Risk Ratio Orders (Last 24 hours) Category Date Time Status Bedrest with BRP/BSC ROUTINE Activity 09/19/16 20:09 Active Admission/Status Order ROUTINE Care 09/19/16 20:09 Active Chemistry Tutor STAT Care 09/19/16 17:36 Active Code Status Order ROUTINE Care 09/19/16 20:09 Active EKG-ER Only STAT Care 09/19/16 17:34 Completed IV Care Q6H Care 09/19/16 20:09 Active IV Insertion STAT Care 09/19/16 17:34 Active Implement Chest Pain Pathway ROUTINE Care 09/19/16 20:09 Active Oxygen-ED Only NASAL CANNULA 2 lpm Care 09/19/16 17:36 Active Pulse Oximetry (ED) STAT Care 09/19/16 17:36 Completed [place], Apply ROUTINE Care 09/19/16 20:09 Active Telemetry ROUTINE Care 09/19/16 20:09 Completed Weight,Daily 0600 Care 09/19/16 20:09 Active Cardio-Pulmonary Rehab .as ordered Cons 09/19/16 20:25 Active Nutritional Admission Screen Diet 09/19/16 20:48 Active CHEST 2 VIEWS (PA AND LAT) Stat Exams 09/19/16 17:35 Completed BMP Stat Lab 09/20/16 08:16 Completed BMP Urgent Lab 09/20/16 12:00 Ordered CBC W DIFF Stat Lab 09/19/16 17:39 Completed CMP Stat Lab 09/19/16 17:39 Completed HEMOGLOBIN A1C Routine Lab 09/20/16 05:00 Completed LIPID PROFILE AM.LAB Lab 09/20/16 05:16 Completed Manual Differential NC Stat Lab 09/19/16 17:39 Completed PT INR [PROTIME WITH INR] Stat Lab 09/19/16 17:39 Completed TROPONIN Routine Lab 09/19/16 20:20 Completed TROPONIN Stat Lab 09/19/16 17:39 Completed Acetaminophen 325 mg [Tylenol 325 mg] Med 09/19/16 20:09 Active 650 mg PO Q4H PRN PRN Albuterol 2.5 mg/3 ml Neb [Proventil 2.5 mg/3 ml Neb Med 09/19/16 20:12 Discontinued ] 2.5 mg IH .STK-MED ONE Albuterol 2.5 mg/3 ml Neb [Proventil 2.5 mg/3 ml Neb Med 09/20/16 06:28 Discontinued ] 2.5 mg IH .STK-MED ONE Albuterol 2.5 mg/3 ml Neb [Proventil 2.5 mg/3 ml Neb Med 09/19/16 20:59 Active ] 2.5 mg IH Q4H PRN PRN Albuterol 2.5 mg/3 ml Neb [Proventil 2.5 mg/3 ml Neb Med 09/19/16 19:00 Active ] 2.5 mg IH QIDRT Aspirin 81 gm Chew [Baby Aspirin 81 mg Chew] Med 09/19/16 17:49 Discontinued 324 mg .ROUTE .STK-MED ONE Aspirin 81 gm Chew [Baby Aspirin 81 mg Chew] Med 09/19/16 17:41 Discontinued 324 mg PO STAT ONE Aspirin EC 325 mg [Ecotrin 325 MG] Med 09/20/16 10:00 Discontinued 325 mg PO DAILY Aspirin EC 81 mg [Ecotrin 81 mg] Med 09/20/16 10:00 Active 81 mg PO DAILY Atorvastatin Calcium [Lipitor 40Mg] Med 09/19/16 22:00 Discontinued 80 mg PO HS Belladonna Alkaloids/Phenobar* [Donnatol Liquid] Med 09/19/16 18:20 Discontinued 64.8 mg .ROUTE .STK-MED ONE Bumetanide 1 mg [Bumex 1 mg] Med 09/20/16 10:00 Active 0.5 mg PO BID DIURETIC Bumetanide 1 mg [Bumex 1 mg] Med 09/19/16 22:16 Discontinued 5 mg .ROUTE .STK-MED ONE Bumetanide 1 mg [Bumex 1 mg] Med 09/19/16 22:00 Discontinued 5 mg PO BID DIURETIC Carvedilol 3.125 mg [Coreg 3.125 MG] Med 09/19/16 22:00 Active 3.125 mg PO BID GI COCKTAIL 60 ml [GI COCKTAIL 60ML (Belladonn/ Med 09/19/16 18:16 Discontinued Phenobarb/Lidoc*] 60 ml PO STAT ONE Insulin Glargine [Lantus Insulin] Med 09/19/16 22:15 Discontinued 50 unit .ROUTE .STK-MED ONE Insulin Glargine [Lantus Insulin] Med 09/20/16 22:00 Active 50 unit SQ HS Isosorbide Mononitrate 30 mg [Imdur 30 MG] Med 09/20/16 10:00 Active 30 mg PO DAILY Lidocaine HCl Viscous [XYLOCAINE HCl Viscous *] Med 09/19/16 18:20 Discontinued 20 ml .ROUTE .STK-MED ONE Lisinopril 5 mg [Zestril 5 MG] Med 09/20/16 10:00 Active 5 mg PO DAILY Mag Hydrox/Al Hydrox/Simeth [Maalox Es 30 ml Unit Med 09/19/16 18:20 Discontinued Dose] 30 ml .ROUTE .STK-MED ONE Mag Hydrox/Al Hydrox/Simeth [Maalox Es 30 ml Unit Med 09/19/16 20:09 Active Dose] 30 ml PO Q4H PRN PRN Magnesium Hydroxide 30 ml [Milk of Magnesia 30 ml Med 09/19/16 20:09 Active ] 30 - 60 ml PO QDP PRN Magnesium Oxide 400 mg [Mag-Ox 400] Med 09/20/16 10:00 Active 400 mg PO DAILY Metformin HCl 500 mg [Glucophage 500 MG] Med 09/19/16 22:00 Active 1,000 mg PO BIDAC Morphine Sulfate 2 mg Inj Med 09/19/16 21:11 Active 2 mg IV Q4H PRN PRN Nitroglycerin 0.4 mg (Ed) [Nitrostat 0.4 MG (ED)] Med 09/19/16 17:49 Discontinued 0.4 mg SL .STK-MED ONE Nitroglycerin 0.4 mg (Ed) [Nitrostat 0.4 MG (ED)] Med 09/19/16 18:44 Discontinued 0.4 mg SL .STK-MED ONE Nitroglycerin 0.4 mg (Ed) [Nitrostat 0.4 MG (ED)] Med 09/19/16 18:52 Discontinued 0.4 mg SL .STK-MED ONE Nitroglycerin 0.4 mg (Ed) [Nitrostat 0.4 MG (ED)] Med 09/19/16 17:36 Discontinued 0.4 mg SL STAT ONE Nitroglycerin 0.4 mg (Ed) [Nitrostat 0.4 MG (ED)] Med 09/19/16 18:38 Discontinued 0.4 mg SL STAT ONE Nitroglycerin 0.4 mg (Ed) [Nitrostat 0.4 MG (ED)] Med 09/19/16 18:51 Discontinued 0.4 mg SL STAT ONE Nitroglycerin 0.4 mg Tablet [Nitrostat 0.4 MG Tablet Med 09/19/16 21:39 Active ] 0.4 mg SL Q5MIN PRN MR X 3 PRN Ondansetron HCl 4 mg/2 ml [Zofran 4 MG/2 ML VIAL] Med 09/19/16 20:09 Active 4 mg IV Q4H PRN PRN Oxycodone / APAP 10/325 mg [Oxycodone-Acetaminophen Med 09/19/16 21:42 Active 10-325] 1 tab PO Q6H PRN PRN PANTOPRAZOLE 40 mg Tablet [Protonix 40MG Tablet] Med 09/19/16 22:00 Active 40 mg PO HS Prednisone 5 mg [Deltasone 5 mg] Med 09/20/16 10:00 Active 5 mg PO DAILY Senna/Docusate Sodium Tab [Senokot-S Tablet] Med 09/19/16 20:09 Active 2 udtab PO BID PRN PRN Simvastatin 20Mg [Zocor 20Mg] Med 09/19/16 22:16 Discontinued 80 mg .ROUTE .STK-MED ONE Simvastatin 20Mg [Zocor 20Mg] Med 09/19/16 22:00 Active 80 mg PO HS Sucralfate 1 gm [Carafate 1 GM] Med 09/20/16 07:30 Active 1 g PO QDAC WARFARIN SODIUM 5 MG 7.5 MG Med 09/19/16 22:00 Active 7.5 mg PO COU Warfarin Sodium 2.5 mg [Coumadin 2.5 MG] Med 09/19/16 22:16 Discontinued 2.5 mg .ROUTE .STK-MED ONE Warfarin Sodium 5 mg [Coumadin 5 MG] Med 09/19/16 22:16 Discontinued 5 mg .ROUTE .STK-MED ONE EKG DAILY RT 09/21/16 05:00 Active EKG DAILY RT 09/22/16 05:00 Active EKG DAILY RT 09/23/16 05:00 Active EKG Q8HX2,QAMX3,PRN RT 09/19/16 20:09 Completed EKG ROUTINE RT 09/20/16 01:16 Completed Oxygen NASAL CANNULA 2 lpm RT 09/19/16 21:00 Active Pulse Oximetry Q4H RT 09/19/16 20:09 Completed RT Screen per Nursing Assess ONCE RT 09/19/16 20:48 Completed Respiratory Nebulizer RT 09/19/16 21:00 Active Respiratory Nebulizer QID RT 09/19/16 19:00 Active Respiratory Therapy Consult ROUTINE RT 09/19/16 21:00 Completed Transfer Order Routine Transfer 09/19/16 19:17 Completed Patient Care Notes (Last 24 hours) 09/20/16 08:55 Nursing Note by Neris Kruger dr. made aware of patient's bumex dose last pm and this am's lab results.given orders to hold bumex this am. Initialized on 09/20/16 08:55 - END OF NOTE - Vitals & Intake/Output Vital Signs: Vital Signs Temperature 97.9 F 09/20/16 11:10 Pulse Rate 78 09/20/16 11:10 Respiratory Rate 20 09/20/16 11:10 Blood Pressure 138/85 09/20/16 11:10 O2 Sat by Pulse Oximetry 95 09/20/16 11:10 Oxygen-Last Documented O2 Percentage 2 Liters = 28% Intake & Output: Intake & Output 09/17/16 09/18/16 09/19/16 09/20/16 11:59 11:59 11:59 11:59 Intake Total 2580 Balance 2580 Weight 103.963 kg - Lab Result Diagrams: 09/19/16 17:39 09/20/16 08:16 Lab Results-Last 24 Hrs: Accuchecks Date 09/20/16 Time 07:07 Accucheck Value: 258 Accucheck Value: 195 Lab Results-Last 24 Hours 09/19/16 09/20/16 09/20/16 Range/Units 20:20 05:00 05:16 Sodium (136-145) mEq/L Potassium (3.5-5.1) mEq/L Chloride (98-107) mEq/L Carbon Dioxide (21-32) mEq/L Anion Gap (5-15) MEQ/L BUN (9-20) mg/dL Creatinine (0.55-1.30) mg/dl Estimated GFR ML/MIN Glucose (70-110) MG/DL Hemoglobin A1c 8.7 H (4.5-6.2) Calcium (8.5-10.1) mg/dL Troponin I < 0.017 (0.000-0.056) ng/ml Triglycerides 545 H (30-200) mg/dL Cholesterol 231 H (100-200) mg/dL LDL Cholesterol 111 H (5-99) mg/dL HDL Cholesterol 46 (35-60) mg/dL Heart Disease Risk Ratio 5.0 09/20/16 Range/Units 08:16 Sodium 134 L (136-145) mEq/L Potassium 3.2 L (3.5-5.1) mEq/L Chloride 95 L (98-107) mEq/L Carbon Dioxide 28.4 (21-32) mEq/L Anion Gap 13.3 (5-15) MEQ/L BUN 24 H (9-20) mg/dL Creatinine 1.24 (0.55-1.30) mg/dl Estimated GFR > 60 ML/MIN Glucose 233 H (70-110) MG/DL Hemoglobin A1c (4.5-6.2) Calcium 8.5 (8.5-10.1) mg/dL Troponin I (0.000-0.056) ng/ml Triglycerides (30-200) mg/dL Cholesterol (100-200) mg/dL LDL Cholesterol (5-99) mg/dL HDL Cholesterol (35-60) mg/dL Heart Disease Risk Ratio Micro Results-Entire Visit: Accuchecks Date 09/20/16 Time 07:07 Accucheck Value: 258 Accucheck Value: 195 - Procedures and Test Procedures and Tests throughout Hospitalization: Therapy Orders & Screens 09/19/16 19:00 Respiratory Nebulizer QID Comment: ALBUTEROL QID Diagnosis: chest pain rule out 09/19/16 20:48 RT Screen per Nursing Assess ONCE Comment: Protocol Order Physician Instructions: Greater than 3 points order RT Admission Screen Reason For Exam: Triggered on Admission Diagnosis: chest pain rule out Diagnosis: chest pain rule out Pneumonia: No Home O2: Yes Asthma: No CHF: Yes Home CPAP/BIPAP: No Home Nebs/MDI: No Total Points: 8 09/19/16 21:00 Oxygen NASAL CANNULA 2 lpm Comment: 2L PER PT'S HOME USE Diagnosis: chest pain rule out Respiratory Nebulizer Comment: ALBUTEROL Q4PRN FOR SOB/WHEEZING Diagnosis: chest pain rule out Respiratory Therapy Consult ROUTINE Comment: Reason For Exam: Diagnosis: chest pain rule out 09/20/16 01:16 EKG ROUTINE Comment: Diagnosis: chest pain rule out 09/21/16 05:00 EKG DAILY Comment: Diagnosis: chest pain rule out 09/22/16 05:00 EKG DAILY Comment: Diagnosis: chest pain rule out 09/23/16 05:00 EKG DAILY Comment: Diagnosis: chest pain rule out - Discharge Discharge Date: 09/20/16 Disposition: Home, Self-Care Condition: Stable Prescriptions: No Action Nitroglycerin 0.4 mg Tablet [Nitrostat 0.4 MG Tablet] 0.4 mg SL UD PRN PRN Reason: Chest Pain Metformin HCl 500 mg [Glucophage 500 MG] 1,000 mg PO BIDAC Isosorbide Mononitrate 30 mg [Imdur 30 MG] 30 mg PO DAILY Insulin Detemir [Levemir] 50 unit SQ HS Carvedilol 3.125 mg [Coreg 3.125 MG] 3.125 mg PO BID Bumetanide 1 mg [Bumex 1 mg] 0.5 mg PO BID Atorvastatin Calcium 80 mg PO HS Pantoprazole 20 mg [Protonix 20MG Tablet] 40 mg PO HS Lisinopril 5 mg [Zestril 5 MG] 5 mg PO DAILY Sucralfate 1 gm [Carafate 1 GM] 1 tab PO DAILY Oxycodone HCl/Acetaminophen [Percocet 10-325 mg Tablet] 1 each PO Q6H Aspirin 81 gm Chew [Baby Aspirin 81 mg Chew] 81 mg PO DAILY Magnesium Oxide 400 mg [Mag-Ox 400] 400 mg PO DAILY Albuterol 2.5 mg/3 ml Neb [Proventil 2.5 mg/3 ml Neb] 1 aer IH Q4H #0 Warfarin Sodium 5 mg [Coumadin 5 MG] 7.5 mg PO 1800 Prednisone 5 mg PO DAILY #30 tablet Follow up with: MONSE BRADSHAW MD [ACTIVE STAFF] - 1 Week
[2016-09-20] MEDS ORDERED: Klor Con 10 MEQ PO SCH (12:00)
[2016-09-20 12:23] LABS: ANION GAP 16.3 MEQ/L (5-15); Carbon Dioxide 27.5 mEq/L (21-32); Potassium 4.5 mEq/L (3.5-5.1)
[2016-09-20] MEDS ORDERED: Lantus Insulin SQ SCH (22:00)
[2016-09-21] MEDS ORDERED: BUMEX 1 MG PO SCH (10:00)
== END 2016-09-20 12:25 | disposition home or self-care (01) ==
LOC: ED 17:13 → MED SURG 20:08
PROVIDERS: ADMIT General Practice; ATTEND General Practice
DX: R07.9 Chest pain, unspecified (principal); J41.0 Simple chronic bronchitis; I25.709 Atherosclerosis of coronary artery bypass graft(s), unspecified, with unspecified angina pectoris; I10 Essential (primary) hypertension; J44.9 Chronic obstructive pulmonary disease, unspecified; E11.9 Type 2 diabetes mellitus without complications; Z79.4 Long term (current) use of insulin; Z79.01 Long term (current) use of anticoagulants; Z79.899 Other long term (current) drug therapy; I25.2 Old myocardial infarction; Z86.711 Personal history of pulmonary embolism
CPT/HCPCS: 36000; 36415; 71020; 80048; 80053; 80061; 82962; 83036; 83721; 84484; 85025; 85610; 93005; 93041; 93268; 94640; 94760; 99285; G0378; J2270; A9270-GY; J7506

== ENCOUNTER 2017-04-18 17:32 | Emergency (ER) | payer MEDICARE, OTHER ==
[2017-04-18] MEDS ORDERED: MORPHINE SULFATE 2 MG INJ IV ONE (17:40)
[2017-04-18] MEDS ORDERED: Nitrostat 0.4 MG (ED) SL ONE ×4 (17:40→18:04)
--- NOTE | 2017-04-18 17:40 | ERPHSYRPT ---
- History of Present Illness Time Seen by Provider: 04/18/17 17:35 Historian: patient, family Exam Limitations: no limitations Physician History: The patient is a 71-year-old male with his complaining of the sudden onset of chest pain that began 45 minutes ago. The pain was a 6 out of 10. He took his first nitroglycerin and the pain reduced to a 2 out of 10. Within 10 minutes the pain came back to a once again 6 out of 10. He took the second nitroglycerin and the pain reduced to a 2 out of 10. Within a few more minutes the pain returned and he took the third nitroglycerin without any relief. He has been having short episodes of chest pain over the last several weeks that has not required nitroglycerin for resolution. He has mild shortness of breath. He denies nausea or vomiting. He has a past medical history of CABG, cardiac stents, coronary artery disease, pulmonary hypertension, hypertension, high cholesterol, diabetes, DVT, pulmonary embolism, and COPD. Timing/Duration: today, hour(s) (3/4), sudden Activities at Onset: none Quality: stabbing Location: substernal Chest Pain Radiation: no radiation Severity of Pain-Max: moderate Severity of Pain-Current: moderate Modifying Factors: Improves With: nitroglycerin Associated Symptoms: shortness of breath Prior Chest Pain/Cardiac Workup: angina, cardiac cath, pulmonary embolism Nitro Today/Relief: 0.4 mg x 3, provided at home, mild relief Aspirin Treatment Today: 81 mg x 1, provided at home Allergies/Adverse Reactions: pineapple [Pineapple] Adverse Reaction (Verified 04/18/17 17:50) VOMITING clothe tape Allergy (Uncoded 09/19/16 17:25) Home Medications: Atorvastatin Calcium 80 mg PO HS 10/30/14 [History] Carvedilol 3.125 mg [Coreg 3.125 MG] 3.125 mg PO BID 10/30/14 [History] Insulin Detemir [Levemir] 50 unit SQ HS 10/30/14 [History] Isosorbide Mononitrate 30 mg [Imdur 30 MG] 30 mg PO DAILY 10/30/14 [History ] Metformin HCl 500 mg [Glucophage 500 MG] 1,000 mg PO BIDAC 10/30/14 [ History] Nitroglycerin 0.4 mg Tablet [Nitrostat 0.4 MG Tablet] 0.4 mg SL UD PRN [History] Lisinopril 5 mg [Zestril 5 MG] 5 mg PO DAILY 10/29/15 [History] Pantoprazole 20 mg [Protonix 20MG Tablet] 40 mg PO HS 10/29/15 [History] Aspirin 81 gm Chew [Baby Aspirin 81 mg Chew] 81 mg PO DAILY 12/08/15 [ History] Magnesium Oxide 400 mg [Mag-Ox 400] 400 mg PO DAILY 12/08/15 [History] Oxycodone HCl/Acetaminophen [Percocet 10-325 mg Tablet] 1 each PO Q6H 12/08/15 [ History] Sucralfate 1 gm [Carafate 1 GM] 1 tab PO DAILY 12/08/15 [History] Warfarin Sodium 5 mg [Coumadin 5 MG] 7.5 mg PO 1800 02/22/16 [History] Amlodipine Besylate 5 mg [Norvasc 5 mg] 5 mg PO DAILY 04/18/17 [History] Famotidine [Pepcid] 40 mg PO HS 04/18/17 [History] Tamsulosin HCl 0.4 mg [Flomax 0.4 MG] 0.4 mg PO DAILY 04/18/17 [History] Hx Tetanus, Diphtheria Vaccination/Date Given: Yes Hx Influenza Vaccination/Date Given: Yes Hx Pneumococcal Vaccination/Date Given: Yes - Review of Systems Constitutional: No Fever, No Chills Eyes: No Symptoms Ears, Nose, & Throat: No Symptoms Respiratory: Dyspnea, No Cough Cardiac: Chest Pain Abdominal/Gastrointestinal: No Abdominal Pain, No Nausea, No Vomiting, No Diarrhea Genitourinary Symptoms: No Dysuria Musculoskeletal: No Back Pain, No Neck Pain Skin: No Rash Neurological: No Dizziness, No Focal Weakness, No Sensory Changes Psychological: No Symptoms Endocrine: No Symptoms Hematologic/Lymphatic: No Symptoms Immunological/Allergic: No Symptoms All Other Systems: Reviewed and Negative - Past Medical History Pertinent Past Medical History: Yes Neurological History: No Pertinent History ENT History: No Pertinent History Cardiac History: Coronary Artery Disease, Deep Vein Thrombosis, High Cholesterol , Hypertension, Myocardial Infarction ([place]) Respiratory History: CHF, COPD, Pulmonary Embolism Endocrine Medical History: Diabetes Type II Musculoskeletal History: Osteoarthritis GI Medical History: GERD, Gallbladder Disease History: No Pertinent History Psycho-Social History: No Pertinent History Male Reproductive Disorders: No Pertinent History Other Medical History: 4 VESSEL BYPAS. MULTIPLE STENTS SINCE THE [place]PASS. hx of DVT - Past Surgical History Past Surgical History: Yes Neuro Surgical History: No Pertinent History Cardiac: CABG, Cardiac Catheterization, Cardiac Stent Respiratory: No Pertinent History Gastrointestinal: Cholecystectomy Genitourinary: No Pertinent History Musculoskeletal: Joint Replacement, Orthopedic Surgery Male Surgical History: No Pertinent History Other Surgical History: LEFT HIP REPLACEMENT. LITTLE FINGER RIGHT HAND-STATES HAD SURGERY AND IT FROZE UP. 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 SEVERAL HEART CATHS AND 4 STEND PLACED. 4 BIPASS - Social History Smoking Status: Former smoker How long have you smoked: 10 Exposure to second hand smoke: No Drug Use: none Patient Lives Alone: No - Nursing Vital Signs Nursing Vital Signs: Initial Vital Signs Temperature 98.5 F 04/18/17 17:33 Pulse Rate 96 H 04/18/17 17:33 Respiratory Rate 18 04/18/17 17:33 Blood Pressure 115/76 04/18/17 17:33 O2 Sat by Pulse Oximetry 93 L 04/18/17 17:33 Pain Scale Pain Intensity 4 - Physical Exam General Appearance: mild distress, anxiety Eye Exam: PERRL/EOMI, eyes nml inspection Ears, Nose, Throat Exam: normal ENT inspection, moist mucous membranes Neck Exam: normal inspection, non-tender, supple, full range of motion Respiratory Exam: normal breath sounds, lungs clear, No respiratory distress Cardiovascular Exam: regular rate/rhythm, normal heart sounds Gastrointestinal/Abdomen Exam: soft, No tenderness, No mass Rectal Exam: not done Back Exam: normal inspection, No CVA tenderness, No vertebral tenderness Extremity Exam: normal inspection, normal range of motion Neurologic Exam: alert, oriented x 3, cooperative, normal mood/affect, sensation nml, No motor deficits Skin Exam: normal color, warm, dry SpO2 Interpretation: normal - Course EKG Interpreted by Me: RATE, Sinus Rhythm, NORMAL AXIS, NORMAL INTERVALS, NORMAL QRS, NORMAL ST-T Ordered Tests: Active Orders 24 hr Category Date Time Status 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 Care 04/18/17 17:41 Active EKG-ER Only STAT Care 04/18/17 17:40 Active IV Insertion STAT Care 04/18/17 17:40 Active Oxygen-ED Only NASAL CANNULA 2 lpm Care 04/18/17 17:40 Active Pulse Oximetry (ED) STAT Care 04/18/17 17:40 Active CHEST 2 VIEWS (PA AND LAT) Stat Exams 04/18/17 17:40 Taken CBC W DIFF Stat Lab 04/18/17 17:56 Completed CMP Stat Lab 04/18/17 17:56 Completed PROTIME WITH INR Stat Lab 04/18/17 17:56 Completed PTT Stat Lab 04/18/17 17:56 Completed TROPONIN Q3H Lab 04/18/17 18:12 Completed TROPONIN Q3H Lab 04/18/17 20:45 Ordered TROPONIN Q3H Lab 04/18/17 23:45 Ordered TROPONIN Q3H Lab 04/19/17 02:45 Ordered TROPONIN Q3H Lab 04/19/17 05:45 Ordered Medication Summary Discontinued Medications Generic Name Dose Route Start Last Admin Trade Name Tamirq PRN Reason Stop Dose Admin Morphine Sulfate 2 mg 04/18/17 17:40 04/18/17 17:52 Morphine Sulfate 2 Mg Inj IV 04/18/17 17:41 2 mg STAT ONE Administration Morphine Sulfate Confirm 04/18/17 17:50 Morphine Sulfate 2 Mg Inj Administered 04/18/17 17:51 Dose 2 mg .ROUTE .STK-MED ONE Nitroglycerin 0.4 mg 04/18/17 17:40 04/18/17 17:40 Nitrostat 0.4 Mg (Ed) SL 04/18/17 17:41 0.4 mg STAT ONE Administration Nitroglycerin Confirm 04/18/17 17:50 Nitrostat 0.4 Mg (Ed) Administered 04/18/17 17:51 Dose 0.4 mg SL .STK-MED ONE Nitroglycerin 0.4 mg 04/18/17 17:53 04/18/17 17:54 Nitrostat 0.4 Mg (Ed) SL 04/18/17 17:54 0.4 mg STAT ONE Administration Nitroglycerin 0.4 mg 04/18/17 18:04 04/18/17 18:05 Nitrostat 0.4 Mg (Ed) SL 04/18/17 18:05 0.4 mg STAT ONE Administration Lab/Rad Data: Laboratory Result Diagrams 04/18/17 17:56 04/18/17 17:56 Laboratory Results 04/18/17 04/18/17 04/18/17 Range/Units 18:12 17:56 17:56 WBC (4.0-10.5) K/mm3 RBC (4.1-5.6) M/mm3 Hgb (12.5-18.0) gm/dl Hct (42-50) % MCV (78-100) fl MCH (26-32) pg MCHC (32-36) g/dl RDW (11.5-14.0) % Plt Count (150-450) K/mm3 MPV (6-9.5) fl Gran % (36.0-66.0) % Lymphocytes % (24.0-44.0) % Monocytes % (0.0-12.0) % Eosinophils % (0.00-5.0) % Basophils % (0.0-0.4) % Basophils # (0-0.4) INR 2.86 (0.8-3.0) APTT 46.2 H (24.1-36.1) SECONDS Sodium 135 L (136-145) mEq/L Potassium 4.4 (3.5-5.1) mEq/L Chloride 97 L (98-107) mEq/L Carbon Dioxide 26.3 (21-32) mEq/L Anion Gap 15.8 H (5-15) MEQ/L BUN 29 H (9-20) mg/dL Creatinine 1.50 H (0.55-1.30) mg/dl Estimated GFR 49 ML/MIN Glucose 360 H (70-110) MG/DL Calcium 8.7 (8.5-10.1) mg/dL Total Bilirubin 0.40 (0.2-1.0) mg/dL AST 19 (15-37) U/L ALT 39 (12-78) U/L Alkaline Phosphatase 109 (46-116) U/L Troponin I < 0.017 (0.000-0.056) ng/ml Serum Total Protein 7.0 (6.4-8.2) gm/dL Albumin 3.5 (3.4-5.0) g/dL 04/18/17 Range/Units 17:56 WBC 8.4 (4.0-10.5) K/mm3 RBC 4.89 (4.1-5.6) M/mm3 Hgb 14.6 (12.5-18.0) gm/dl Hct 43.1 (42-50) % MCV 88.1 (78-100) fl MCH 29.9 (26-32) pg MCHC 33.9 (32-36) g/dl RDW 12.9 (11.5-14.0) % Plt Count 251 (150-450) K/mm3 MPV 10.1 H (6-9.5) fl Gran % 69.6 H (36.0-66.0) % Lymphocytes % 21.2 L (24.0-44.0) % Monocytes % 7.3 (0.0-12.0) % Eosinophils % 1.4 (0.00-5.0) % Basophils % 0.5 (0.0-0.4) % Basophils # 0.04 (0-0.4) INR (0.8-3.0) APTT (24.1-36.1) SECONDS Sodium (136-145) mEq/L Potassium (3.5-5.1) mEq/L Chloride (98-107) mEq/L Carbon Dioxide (21-32) mEq/L Anion Gap (5-15) MEQ/L BUN (9-20) mg/dL Creatinine (0.55-1.30) mg/dl Estimated GFR ML/MIN Glucose (70-110) MG/DL Calcium (8.5-10.1) mg/dL Total Bilirubin (0.2-1.0) mg/dL AST (15-37) U/L ALT (12-78) U/L Alkaline Phosphatase (46-116) U/L Troponin I (0.000-0.056) ng/ml Serum Total Protein (6.4-8.2) gm/dL Albumin (3.4-5.0) g/dL - Progress Progress: improved Blood Culture(s) Obtained: No Antibiotics given: No Discussed with : Other (Dr Smith at [facility]) Counseled pt/family regarding: lab results, diagnosis, rad results - Departure Time of Disposition: 19:22 Departure Disposition: Transfer (Transfer to [facility] ER per Dr Smith) Clinical Impression: Chest pain Condition: Stable Critical Care Time: No Referrals: SATINDER ACEVEDO [ACTIVE STAFF] -
[2017-04-18] MEDS ORDERED: MORPHINE SULFATE 2 MG INJ ONE (17:50)
[2017-04-18 18:04] LABS: BASOPHIL % 0.5 % (0.0-0.4); Eosinophil % 1.4 % (0.00-5.0); Granulocytes % 69.6 % (36.0-66.0); Lymphocytes % 21.2 % (24.0-44.0); Mean Cell Volume 88.1 fl (78-100); Mean Corpuscular Hemoglobin 29.9 pg (26-32); Mean Platelet Volume 10.1 fl (6-9.5); Monocytes % 7.3 % (0.0-12.0); Platelet Count 251 K/mm3 (150-450); Red Blood Count 4.89 M/mm3 (4.1-5.6); Red Cell Distribution Width 12.9 % (11.5-14.0); White Blood Count 8.4 K/mm3 (4.0-10.5)
[2017-04-18 18:20] VITALS: BP 110/74; PULSE 83; O2SAT 95
[2017-04-18 18:24] LABS: ALBUMIN 3.5 g/dL (3.4-5.0); ANION GAP 15.8 MEQ/L (5-15); BILIRUBIN,TOTAL 0.4 mg/dL (0.2-1.0); Carbon Dioxide 26.3 mEq/L (21-32); Potassium 4.4 mEq/L (3.5-5.1)
[2017-04-18 18:46] LABS: INR 2.86 (0.8-3.0); PROTIME 32.1 SECONDS (8.83-12.87)
[2017-04-18 18:49] LABS: PTT 46.2 SECONDS (24.1-36.1)
[2017-04-19] MEDS ORDERED: Nitrostat 0.4 MG (ED) SL ONE (00:54)
--- NOTE | 2017-04-19 08:42 | XRAY ---
Indication: Chest pain. Comparison: September 19, 2016. PA/lateral chest unchanged again demonstrating chronic right hemidiaphragm elevation with bibasilar atelectasis/scarring. No focal infiltrate, consolidation, or large effusion. Heart is not enlarged again demonstrating CABG surgery. Bony thorax intact again with mild osteopenia and degenerative changes. Impression: Stable nonacute chest with chronic features.
== END 2017-04-18 20:14 | disposition short-term general hospital (02) ==
LOC: ED 17:32
DX: R07.89 Other chest pain (principal); Z95.1 Presence of aortocoronary bypass graft; I25.10 Atherosclerotic heart disease of native coronary artery without angina pectoris; I27.20 Pulmonary hypertension, unspecified; E78.00 Pure hypercholesterolemia, unspecified; I10 Essential (primary) hypertension; Z86.711 Personal history of pulmonary embolism; Z86.718 Personal history of other venous thrombosis and embolism; Z79.01 Long term (current) use of anticoagulants; Z79.84 Long term (current) use of oral hypoglycemic drugs; Z79.82 Long term (current) use of aspirin
CPT/HCPCS: 36000; 36415; 71020; 80053; 84484; 85025; 85610; 85730; 93005; 93041; 96374; 99285; J2270; A9270-GY

== ENCOUNTER 2017-06-26 15:38 | Observation (INO) | payer MEDICARE, OTHER ==
[2017-06-26] MEDS: PROVENTIL 2.5 MG/3 ML NEB IH SCH ×2 (17:18→22:41)
[2017-06-26] MEDS ORDERED: PROVENTIL 2.5 MG/3 ML NEB IH ONE (17:49)
[2017-06-26] MEDS ORDERED: Nitrostat 0.4 MG Tablet SL PRN (17:59)
[2017-06-26] MEDS ORDERED: OXYCODONE-ACETAMINOPHEN 10-325 PO PRN (18:00)
[2017-06-26 18:03] LABS: Granulocyte Absolute (ANC) 3.68 (1.4-6.9); Hematocrit 42.3 % (42-50); Hemoglobin 13.8 gm/dl (12.5-18.0); Mean Cell Volume 89.4 fl (78-100); Mean Corpuscular Hemoglobin 29.2 pg (26-32); Mean Corpuscular Hgb Concent. 32.6 g/dl (32-36); Mean Platelet Volume 9.5 fl (6-9.5); Platelet Count 223 K/mm3 (150-450); Red Blood Count 4.73 M/mm3 (4.1-5.6); Red Cell Distribution Width 13.3 % (11.5-14.0); White Blood Count 5.9 K/mm3 (4.0-10.5)
[2017-06-26] MEDS: solu-MEDROL 40 MG IV SCH (18:03)
[2017-06-26] MEDS: ROCEPHIN 1 Gm-D5w 50 ml Bag** 1 G/50 ML IVPB IV SCH (18:03)
[2017-06-26] MEDS: Sodium Chloride 0.9% 1000 ML 1,000 ML IV SCH (18:03)
[2017-06-26] MEDS: NovoLOG Insulin SQ PRN ×2 (18:04→22:57)
[2017-06-26] MEDS ORDERED: Coumadin 5 MG ONE (18:07)
[2017-06-26] MEDS ORDERED: Coumadin 2.5 MG ONE (18:07)
[2017-06-26] MEDS ORDERED: BUMEX 1 MG ONE (18:08)
[2017-06-26] MEDS: BUMEX 1 MG PO SCH (18:12)
[2017-06-26 18:33] LABS: ALBUMIN 3.6 g/dL (3.4-5.0); ANION GAP 15.2 MEQ/L (5-15); BILIRUBIN,TOTAL 0.3 mg/dL (0.2-1.0); Calcium 8.9 mg/dL (8.5-10.1); Carbon Dioxide 24.5 mEq/L (21-32); Creatinine 1 1.3 mg/dl (0.55-1.30); Potassium 3.8 mEq/L (3.5-5.1); Total Protein 7.1 gm/dL (6.4-8.2)
[2017-06-26] MEDS: Zithromax 500 MG/ 250 ML NaCl Premix 500 MG/250 ML IVPB IV SCH (18:48)
[2017-06-26 19:40] LABS: INFLUENZA A NEGATIVE (NEGATIVE); INFLUENZA B NEGATIVE (NEGATIVE); RESPIRATORY SYNCTIAL VIRUS NEGATIVE (Negative)
[2017-06-26] MEDS: OXYCODONE-ACETAMINOPHEN 10-325 PO SCH (20:06)
[2017-06-26] MEDS ORDERED: ZOCOR 20MG ONE (21:32)
[2017-06-26] MEDS: Lantus Insulin SQ SCH (21:57)
[2017-06-26] MEDS: Klor Con 10 MEQ PO SCH (21:59)
[2017-06-26] MEDS: Pepcid 20 MG PO SCH (21:59)
[2017-06-26] MEDS: Ambien 10 MG PO SCH (21:59)
[2017-06-26] MEDS: Coreg 3.125 MG PO SCH (21:59)
[2017-06-26] MEDS ORDERED: LIPITOR 40MG PO SCH (22:00)
[2017-06-26 23:52] LABS: Total Cells Counted 100
[2017-06-26 23:53] LABS: BAND 1 % (0.0-2.0); Eosinophil 3 % (0.00-3.0); Lymphocytes 23 % (24-44); Monocyte 7 % (0.0-12.0); Neutrophils 66 % (36.-66.); Platelet Estimate NORMAL (NORMAL)
[2017-06-27] MEDS: solu-MEDROL 40 MG IV SCH ×3 (02:30→22:17)
[2017-06-27] MEDS: OXYCODONE-ACETAMINOPHEN 10-325 PO SCH ×5 (02:31→23:11)
[2017-06-27] MEDS: PROVENTIL 2.5 MG/3 ML NEB IH SCH ×3 (02:59→11:15)
[2017-06-27] MEDS ORDERED: PROVENTIL Solution 2.5 MG/0.5 ML IH ONE (06:43)
[2017-06-27] MEDS ORDERED: Atrovent 0.5MG NEBULE IH SCH (07:00)
[2017-06-27] MEDS: Sodium Chloride 0.9% 1000 ML 1,000 ML IV SCH (07:26)
[2017-06-27] MEDS: NovoLOG Insulin SQ PRN ×3 (07:28→16:40)
[2017-06-27] MEDS ORDERED: Coumadin 5 MG PO SCH ×2 (07:45)
[2017-06-27] MEDS ORDERED: NON-FORMULARY ITEM (Cholecalciferol (Vitamin D3) [Vitamin D3] 5,000 UNIT) PO SCH (07:45)
--- NOTE | 2017-06-27 08:59 | XRAY ---
Indication: Pneumonia. Cough. COPD exacerbation. Comparison: April 18, 2017. PA/lateral chest again demonstrates chronic right hemidiaphragm elevation with adjacent atelectasis. Remaining lungs clear. Heart is not enlarged again demonstrating previous CABG surgery. Bony thorax intact. Impression: Stable nonacute chest with chronic features.
[2017-06-27] MEDS: ROCEPHIN 1 Gm-D5w 50 ml Bag** 1 G/50 ML IVPB IV SCH (09:09)
[2017-06-27] MEDS: NORVASC 5 MG PO SCH (09:10)
[2017-06-27] MEDS: BUMEX 1 MG PO SCH ×2 (09:10→16:41)
[2017-06-27] MEDS: Glucophage 500 MG PO SCH ×2 (09:10→16:41)
[2017-06-27] MEDS: Imdur 30 MG PO SCH (09:10)
[2017-06-27] MEDS: PLAVIX 75 MG Tablet PO SCH (09:10)
[2017-06-27] MEDS: ECOTRIN 81 MG PO SCH (09:11)
[2017-06-27] MEDS: Lantus Insulin SQ SCH ×2 (09:11→21:20)
[2017-06-27] MEDS: Zestril 5 MG PO SCH (09:11)
[2017-06-27] MEDS: DELTASONE 5 MG PO SCH (09:11)
[2017-06-27] MEDS: Flomax 0.4 MG PO SCH (09:11)
[2017-06-27] MEDS: Klor Con 10 MEQ PO SCH ×2 (09:11→21:20)
[2017-06-27] MEDS: Coreg 3.125 MG PO SCH ×2 (09:11→21:20)
[2017-06-27 10:16] LABS: INR 2.64 (0.8-3.0)
[2017-06-27] MEDS ORDERED: NovoLOG Insulin SQ ONE (11:45)
--- NOTE | 2017-06-27 11:50 | PCM.NOTE ---
Date and Time: 06/27/17 1147 Subjective Assessment: doing better - Review of Systems Constitutional: No Fever, No Chills Eyes: No Symptoms Ears, Nose, & Throat: No Symptoms Respiratory: No Cough, No Short Of Breath Cardiac: No Chest Pain, No Edema, No Syncope Abdominal/Gastrointestinal: No Abdominal Pain, No Nausea, No Vomiting, No Diarrhea Genitourinary Symptoms: No Dysuria Musculoskeletal: No Back Pain, No Neck Pain Skin: No Rash Neurological: No Dizziness, No Focal Weakness, No Sensory Changes Psychological: No Symptoms Endocrine: No Symptoms Hematologic/Lymphatic: No Symptoms Immunological/Allergic: No Symptoms Objective Exam General Appearance: no apparent distress, alert Neurologic Exam: alert, oriented x 3, cooperative, normal mood/affect, nml cerebellar function, sensation nml, No motor deficits Skin Exam: normal color, warm, dry Eye Exam: PERRL, EOMI, eyes nml inspection Ears, Nose, Throat Exam: normal ENT inspection, pharynx normal, moist mucous membranes Neck Exam: normal inspection, non-tender, supple, full range of motion Respiratory Exam: normal breath sounds, lungs clear, No respiratory distress Cardiovascular Exam: regular rate/rhythm, normal heart sounds Gastrointestinal/Abdomen Exam: soft, No tenderness, No mass Extremity Exam: normal inspection, normal range of motion Back Exam: normal inspection, normal range of motion, No CVA tenderness, No vertebral tenderness Male Genitalia Exam: deferred Rectal Exam: deferred OBJECTIVE DATA Vital Signs: Vital Signs - 24 hr Temp Pulse Resp BP BP BP Pulse Ox 06/27/17 11:16 98.6 F 85 20 139/71 95 06/27/17 11:15 80 22 06/27/17 06:55 98.4 F 73 24 125/60 94 L 06/27/17 04:00 98.3 F 86 20 144/87 95 06/27/17 02:59 19 06/27/17 00:00 98.3 F 73 16 117/67 94 L 06/26/17 22:41 91 H 22 98 06/26/17 20:34 97 06/26/17 20:00 97.7 F 80 22 138/99 24 L 06/26/17 17:18 94 H 20 94 L 06/26/17 16:46 97.6 F 77 22 142/81 142/81 96 Oxygen-Last 24 hours O2 Percentage 3 Liters = 32% O2 Percentage 3 Liters = 32% O2 Percentage 2 Liters = 28% O2 Percentage 2 Liters = 28% O2 Percentage 2 Liters = 28% O2 Percentage 3 Liters = 32% O2 Percentage 2 Liters = 28% Pain Assessment - Last Documented Pain Intensity 2 Pain Scale Used 0-10 Pain Scale Intake and Output: Intake & Output 06/24/17 06/25/17 06/26/17 06/27/17 11:59 11:59 11:59 11:59 Intake Total 1493 Output Total 1700 Balance -207 Weight 102.5 kg Lab Results: Accuchecks Date 06/27/17 Date 06/26/17 Time 07:30 Time 22:00 Accucheck Value: 301 Accucheck Value: 295 Lab Results-Last 24 Hours 06/26/17 06/26/17 06/26/17 Range/Units 17:45 17:45 17:45 WBC 5.9 (4.0-10.5) K/mm3 RBC 4.73 (4.1-5.6) M/mm3 Hgb 13.8 (12.5-18.0) gm/dl Hct 42.3 (42-50) % MCV 89.4 (78-100) fl MCH 29.2 (26-32) pg MCHC 32.6 (32-36) g/dl RDW 13.3 (11.5-14.0) % Plt Count 223 (150-450) K/mm3 MPV 9.5 (6-9.5) fl Segmented Neutrophils 66 (36.-66.) % Band Neutrophils 1 (0.0-2.0) % Lymphocytes (Manual) 23 L (24-44) % Monocytes (Manual) 7 (0.0-12.0) % Eosinophils (Manual) 3 (0.00-3.0) % Differential Comment NORMAL Platelet Estimate NORMAL (NORMAL) INR (0.8-3.0) D-Dimer < 215 (0-500) ng/mL Sodium (136-145) mEq/L Potassium (3.5-5.1) mEq/L Chloride (98-107) mEq/L Carbon Dioxide (21-32) mEq/L Anion Gap (5-15) MEQ/L BUN (9-20) mg/dL Creatinine (0.55-1.30) mg/dl Estimated GFR ML/MIN Glucose (70-110) MG/DL Hemoglobin A1c (4.5-6.2) Calcium (8.5-10.1) mg/dL Total Bilirubin (0.2-1.0) mg/dL AST (15-37) U/L ALT (12-78) U/L Alkaline Phosphatase (46-116) U/L Serum Total Protein (6.4-8.2) gm/dL Albumin (3.4-5.0) g/dL Influenza Type A Ag NEGATIVE (NEGATIVE) Influenza Type B Ag NEGATIVE (NEGATIVE) RSV (PCR) NEGATIVE (Negative) 06/26/17 06/26/17 06/27/17 Range/Units 17:45 17:45 09:56 WBC (4.0-10.5) K/mm3 RBC (4.1-5.6) M/mm3 Hgb (12.5-18.0) gm/dl Hct (42-50) % MCV (78-100) fl MCH (26-32) pg MCHC (32-36) g/dl RDW (11.5-14.0) % Plt Count (150-450) K/mm3 MPV (6-9.5) fl Segmented Neutrophils (36.-66.) % Band Neutrophils (0.0-2.0) % Lymphocytes (Manual) (24-44) % Monocytes (Manual) (0.0-12.0) % Eosinophils (Manual) (0.00-3.0) % Differential Comment Platelet Estimate (NORMAL) INR 2.64 (0.8-3.0) D-Dimer (0-500) ng/mL Sodium 139 (136-145) mEq/L Potassium 3.8 (3.5-5.1) mEq/L Chloride 103 (98-107) mEq/L Carbon Dioxide 24.5 (21-32) mEq/L Anion Gap 15.2 H (5-15) MEQ/L BUN 28 H (9-20) mg/dL Creatinine 1.30 (0.55-1.30) mg/dl Estimated GFR 58 ML/MIN Glucose 232 H (70-110) MG/DL Hemoglobin A1c 9.3 H (4.5-6.2) Calcium 8.9 (8.5-10.1) mg/dL Total Bilirubin 0.30 (0.2-1.0) mg/dL AST 29 (15-37) U/L ALT 50 (12-78) U/L Alkaline Phosphatase 102 (46-116) U/L Serum Total Protein 7.1 (6.4-8.2) gm/dL Albumin 3.6 (3.4-5.0) g/dL Influenza Type A Ag (NEGATIVE) Influenza Type B Ag (NEGATIVE) RSV (PCR) (Negative) 06/27/17 Range/Units 11:23 WBC (4.0-10.5) K/mm3 RBC (4.1-5.6) M/mm3 Hgb (12.5-18.0) gm/dl Hct (42-50) % MCV (78-100) fl MCH (26-32) pg MCHC (32-36) g/dl RDW (11.5-14.0) % Plt Count (150-450) K/mm3 MPV (6-9.5) fl Segmented Neutrophils (36.-66.) % Band Neutrophils (0.0-2.0) % Lymphocytes (Manual) (24-44) % Monocytes (Manual) (0.0-12.0) % Eosinophils (Manual) (0.00-3.0) % Differential Comment Platelet Estimate (NORMAL) INR (0.8-3.0) D-Dimer (0-500) ng/mL Sodium (136-145) mEq/L Potassium (3.5-5.1) mEq/L Chloride (98-107) mEq/L Carbon Dioxide (21-32) mEq/L Anion Gap (5-15) MEQ/L BUN (9-20) mg/dL Creatinine (0.55-1.30) mg/dl Estimated GFR ML/MIN Glucose 503 H* (70-110) MG/DL Hemoglobin A1c (4.5-6.2) Calcium (8.5-10.1) mg/dL Total Bilirubin (0.2-1.0) mg/dL AST (15-37) U/L ALT (12-78) U/L Alkaline Phosphatase (46-116) U/L Serum Total Protein (6.4-8.2) gm/dL Albumin (3.4-5.0) g/dL Influenza Type A Ag (NEGATIVE) Influenza Type B Ag (NEGATIVE) RSV (PCR) (Negative) Radiology Exams: Radiology Procedures Category Date Time Status CHEST 2 VIEWS (PA AND LAT) Stat Exams 06/26/17 17:18 Completed Assessment/Plan (1) COPD exacerbation Current Visit: Yes Status: Acute Code(s): J44.1 - CHRONIC OBSTRUCTIVE PULMONARY DISEASE W (ACUTE) EXACERBATION (2) Coronary artery disease Current Visit: Yes Status: Chronic Qualifiers: Code(s): I25.10 - ATHSCL HEART DISEASE OF [place] CORONARY ARTERY W/O ANG PCTRS (3) Diabetes Current Visit: Yes Status: Chronic Qualifiers: Diabetes mellitus type: type 2 Diabetes mellitus complication status: with unspecified complications Diabetes mellitus skilled nursing insulin use: with skilled nursing use Qualified Code(s): E11.8 - Type 2 diabetes mellitus with unspecified complications; Z79.4 - director long term care (current) use of insulin; Z79.4 - alf ( current) use of insulin; Z79.4 - director long term care (current) use of insulin; Z79.4 - alf (current) use of insulin Code(s): E11.9 - TYPE 2 DIABETES MELLITUS WITHOUT COMPLICATIONS (4) Hx of pulmonary embolus Current Visit: No Status: Chronic (5) Hypertension Current Visit: No Status: Chronic Code(s): I10 - ESSENTIAL (PRIMARY) HYPERTENSION (6) Pulmonary hypertension Current Visit: No Status: Chronic Code(s): I27.2 - OTHER SECONDARY PULMONARY HYPERTENSION * DO NOT USE *
[2017-06-27] MEDS: DUONEB 0.5-3 MG/3 ml Neb IH SCH ×2 (15:12→19:10)
[2017-06-27] MEDS: Zithromax 500 MG/ 250 ML NaCl Premix 500 MG/250 ML IVPB IV SCH (16:44)
[2017-06-27] MEDS ORDERED: Coumadin 5 MG*** 5 MG, Coumadin 2.5 MG*** 2.5 MG PO SCH ×2 (18:00)
[2017-06-27] MEDS ORDERED: Coumadin 5 MG*** 5 MG, Coumadin 2.5 MG*** 2.5 MG PO ONE ×2 (18:30)
[2017-06-27] MEDS: Ambien 10 MG PO SCH (21:20)
[2017-06-27] MEDS: Pepcid 20 MG PO SCH (21:20)
[2017-06-27] MEDS ORDERED: ZOCOR 20MG PO SCH (22:00)
[2017-06-28] MEDS: DUONEB 0.5-3 MG/3 ml Neb IH SCH ×4 (00:21→10:28)
[2017-06-28] MEDS: Sodium Chloride 0.9% 1000 ML 1,000 ML IV SCH (04:30)
[2017-06-28] MEDS: OXYCODONE-ACETAMINOPHEN 10-325 PO SCH ×2 (06:17→11:18)
[2017-06-28] MEDS: Glucophage 500 MG PO SCH (08:08)
[2017-06-28] MEDS: NovoLOG Insulin SQ PRN ×2 (08:08→11:18)
[2017-06-28] MEDS: ROCEPHIN 1 Gm-D5w 50 ml Bag** 1 G/50 ML IVPB IV SCH (10:02)
[2017-06-28] MEDS: Coreg 3.125 MG PO SCH (10:04)
[2017-06-28] MEDS: PLAVIX 75 MG Tablet PO SCH (10:04)
[2017-06-28] MEDS: Flomax 0.4 MG PO SCH (10:04)
[2017-06-28] MEDS: Lantus Insulin SQ SCH (10:05)
[2017-06-28] MEDS: ECOTRIN 81 MG PO SCH (10:05)
[2017-06-28] MEDS: Klor Con 10 MEQ PO SCH (10:05)
[2017-06-28] MEDS: Zestril 5 MG PO SCH (10:05)
[2017-06-28] MEDS: Imdur 30 MG PO SCH (10:05)
[2017-06-28] MEDS: NORVASC 5 MG PO SCH (10:05)
[2017-06-28] MEDS: DELTASONE 5 MG PO SCH (10:05)
[2017-06-28] MEDS: BUMEX 1 MG PO SCH (10:05)
[2017-06-28] MEDS: solu-MEDROL 40 MG IV SCH (10:08)
[2017-06-28 11:20] VITALS: BP 143/68; PULSE 70; O2SAT 99
[2017-06-29] MEDS ORDERED: Coumadin 5 MG PO SCH (18:00)
[2017-07-02] MEDS ORDERED: VITAMIN D PO SCH (10:00)
== END 2017-06-28 12:00 | disposition home or self-care (01) ==
LOC: MED SURG 16:19
PROVIDERS: ADMIT General Practice; ATTEND General Practice
DX: J44.1 Chronic obstructive pulmonary disease with (acute) exacerbation (principal); I25.10 Atherosclerotic heart disease of native coronary artery without angina pectoris; E11.8 Type 2 diabetes mellitus with unspecified complications; Z79.4 Long term (current) use of insulin; Z86.711 Personal history of pulmonary embolism; I10 Essential (primary) hypertension; I27.20 Pulmonary hypertension, unspecified
CPT/HCPCS: 36415; 71046; 80053; 82947; 82962; 83036; 85025; 85379; 85610; 87040; 87631; 94640; 94760; G0378; J0456; J0696; J2920; A9270-GY; J7506

== ENCOUNTER 2017-07-04 08:30 | Inpatient (IN) | payer MEDICARE, OTHER ==
[2017-07-04] MEDS ORDERED: Zofran 4 MG/2 ML VIAL IV ONE (08:35)
[2017-07-04] MEDS ORDERED: Zofran 4 MG/2 ML VIAL ONE (08:40)
--- NOTE | 2017-07-04 08:42 | ERPHSYRPT ---
- History of Present Illness Time Seen by Provider: 07/04/17 08:35 Source: patient Exam Limitations: no limitations Patient Subjective Stated Complaint: pt here for a cough, nausea, shortness of breath, chills,aches all over for a couple days Triage Nursing Assessment: pt arrived per ambulance, alert, resp easy, cough, vomitedx1 , chest with wheezes, had solumederol and duo neb in ambulance Physician History: 71 year old male reports to the ER by ambulance complaining of cough productive of green sputum, shortness of breath and generally feeling poorly. His was diagnosed with influenza last week. he has a cardiac history and is on warfarin. He started vomiting and wheezing more severely this morning so called for ambulance. He has had subjective fever and chills. Allergies/Adverse Reactions: gemfibrozil Allergy (Verified 07/04/17 08:38) pineapple [Pineapple] Adverse Reaction (Verified 07/04/17 08:38) VOMITING Home Medications: Atorvastatin Calcium 80 mg PO HS 10/30/14 [History] Carvedilol 3.125 mg [Coreg 3.125 MG] 3.125 mg PO BID 10/30/14 [History] Isosorbide Mononitrate 30 mg [Imdur 30 MG] 30 mg PO DAILY 10/30/14 [History ] Metformin HCl 500 mg [Glucophage 500 MG] 1,000 mg PO BIDAC 10/30/14 [ History] Nitroglycerin 0.4 mg Tablet [Nitrostat 0.4 MG Tablet] 0.4 mg SL UD PRN [History] Lisinopril 5 mg [Zestril 5 MG] 5 mg PO DAILY 10/29/15 [History] Oxycodone HCl/Acetaminophen [Percocet 10-325 mg Tablet] 1 each PO Q6H 12/08/15 [ History] Warfarin Sodium 5 mg [Coumadin 5 MG] 7.5 mg PO UD 02/22/16 [History] Amlodipine Besylate 5 mg [Norvasc 5 mg] 5 mg PO DAILY 04/18/17 [History] Famotidine [Pepcid] 40 mg PO HS 04/18/17 [History] Tamsulosin HCl 0.4 mg [Flomax 0.4 MG] 0.4 mg PO DAILY 04/18/17 [History] Aspirin EC 81 mg [Ecotrin 81 mg] 81 mg PO DAILY 06/26/17 [History] Cholecalciferol (Vitamin D3) [Vitamin D3] 5,000 unit PO WEEKLY 06/26/17 [History ] Clopidogrel Bisulfate 75 mg [PLAVIX 75 MG Tablet] 75 mg PO DAILY 06/26/17 [History] Insulin Glargine [Lantus Insulin] 20 unit SQ BID 06/26/17 [History] Ipratropium [place] 0.5 mg [Atrovent 0.5MG NEBULE] 1 neb IH QID 06/26/17 [ History] Warfarin Sodium 5 mg [Coumadin 5 MG] 5 mg PO UD 06/26/17 [History] Zolpidem Tartrate [Ambien] 10 mg PO HS 06/26/17 [History] Hx Tetanus, Diphtheria Vaccination/Date Given: Yes Hx Influenza Vaccination/Date Given: Yes Hx Pneumococcal Vaccination/Date Given: Yes Immunizations Up to Date: Yes - Review of Systems Constitutional: Fever, Chills Respiratory: Cough, Dyspnea Cardiac: No Chest Pain, No Edema, No Syncope Genitourinary Symptoms: No Dysuria Skin: No Rash All Other Systems: Reviewed and Negative - Past Medical History Pertinent Past Medical History: Yes Neurological History: No Pertinent History ENT History: No Pertinent History Cardiac History: Coronary Artery Disease, Deep Vein Thrombosis, High Cholesterol , Hypertension, Myocardial Infarction ([place]) Respiratory History: CHF, COPD, Pulmonary Embolism Endocrine Medical History: Diabetes Type II Musculoskeletal History: Osteoarthritis GI Medical History: GERD History: No Pertinent History Psycho-Social History: No Pertinent History Male Reproductive Disorders: No Pertinent History Other Medical History: 4 VESSEL BYPAS. MULTIPLE STENTS SINCE THE [place]PASS. hx of DVT - Past Surgical History Past Surgical History: Yes Neuro Surgical History: No Pertinent History Cardiac: CABG, Cardiac Catheterization, Cardiac Stent Respiratory: No Pertinent History Gastrointestinal: Cholecystectomy Genitourinary: No Pertinent History Musculoskeletal: Joint Replacement, Orthopedic Surgery Male Surgical History: No Pertinent History Other Surgical History: LEFT HIP REPLACEMENT. LITTLE FINGER RIGHT HAND-STATES HAD SURGERY AND IT FROZE UP. 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 SEVERAL HEART CATHS AND 4 STEND PLACED. 4 BIPASS - Social History Smoking Status: Never smoker How long have you smoked: 10 Exposure to second hand smoke: Yes Drug Use: none Patient Lives Alone: No - Nursing Vital Signs Nursing Vital Signs: Initial Vital Signs Temperature 97.6 F 07/04/17 08:32 Pulse Rate 111 H 07/04/17 08:32 Respiratory Rate 22 07/04/17 08:32 O2 Sat by Pulse Oximetry 94 L 07/04/17 08:32 Pain Scale Pain Intensity 8 - Physical Exam General Appearance: no apparent distress, alert Respiratory Exam: rhonchi, wheezing Cardiovascular/Chest Exam: normal heart sounds, regular rate/rhythm Abdominal/Gastrointestinal Exam: soft, No tenderness, No distention, No mass Extremity Exam: non-tender, normal range of motion, normal inspection, no calf tenderness, no pedal edema Skin Exam: normal color, warm, No dry SpO2 Interpretation: normal SpO2: 94 Oxygen Delivery: Room Air - Course EKG Interpreted by Me: RATE (100), Sinus Tach, NORMAL AXIS, NORMAL INTERVALS, NORMAL QRS, Non-specific ST Changes Ordered Tests: Active Orders 24 hr Category Date Time Status Certified Orthotist/Pedorthist STAT Care 07/04/17 08:37 Active EKG-ER Only STAT Care 07/04/17 08:35 Active IV Insertion STAT Care 07/04/17 08:35 Active Oxygen-ED Only NASAL CANNULA 2 lpm Care 07/04/17 08:35 Active CHEST 1 VIEW (PORTABLE) Stat Exams 07/04/17 08:36 Completed BLOOD CULTURE Stat Lab 07/04/17 08:45 Received CBC W DIFF Stat Lab 07/04/17 08:35 Completed CMP Stat Lab 07/04/17 08:45 Completed Lactic Acid Stat Lab 07/04/17 09:20 Completed Lactic Acid Stat Lab 07/04/17 11:20 Ordered Manual Differential NC Stat Lab 07/04/17 08:35 Completed PROTIME WITH INR Stat Lab 07/04/17 08:45 Completed Respiratory Nebulizer STAT RT 07/04/17 09:54 Active Medication Summary Generic Name Dose Route Start Last Admin Trade Name Freq PRN Reason Stop Dose Admin Lactated Ringer's 1,000 mls @ 999 mls/hr 07/04/17 10:00 07/04/17 10:06 Lactated Ringers IV 07/04/17 12:00 999 mls/hr .Q1H1M BENJA Administration Discontinued Medications Generic Name Dose Route Start Last Admin Trade Name Juan Pablo PRN Reason Stop Dose Admin Albuterol/Ipratropium 3 ml 07/04/17 09:54 07/04/17 10:35 Duoneb 0.5-3 Mg/3 Ml Neb IH 07/04/17 09:55 3 ml STAT ONE Administration Albuterol/Ipratropium Confirm 07/04/17 09:57 Duoneb 0.5-3 Mg/3 Ml Neb Administered 07/04/17 09:58 Dose 3 ml IH .STK-MED ONE Ceftriaxone Sodium/Dextrose 1 g in 50 mls @ 100 mls/hr 07/04/17 09:47 10:07 Rocephin 1 Gm-D5w 50 Ml Bag IV 07/04/17 10:16 100 mls/hr STAT STA Administration Azithromycin 500 mg in 250 mls @ 250 mls/hr 07/04/17 09:47 07/04/17 10:06 Zithromax 500 Mg/ 250 Ml Nacl Premix IV 07/04/17 10:46 250 mls/hr STAT STA Administration Azithromycin Confirm 07/04/17 09:58 Zithromax 500 Mg/ 250 Ml Nacl Premix Administered 07/04/17 09:59 Dose 500 mg in 250 mls @ ud IV .STK-MED ONE Ceftriaxone Sodium/Dextrose Confirm 07/04/17 09:59 Rocephin 1 Gm-D5w 50 Ml Bag Administered 07/04/17 10:00 Dose 1 g in 50 mls @ ud IV .STK-MED ONE Ondansetron HCl 4 mg 07/04/17 08:35 07/04/17 08:42 Zofran 4 Mg/2 Ml Vial IV 07/04/17 08:36 4 mg STAT ONE Administration Ondansetron HCl Confirm 07/04/17 08:40 Zofran 4 Mg/2 Ml Vial Administered 07/04/17 08:41 Dose 4 mg .ROUTE .STK-MED ONE Lab/Rad Data: Laboratory Result Diagrams 07/04/17 08:35 07/04/17 08:45 Laboratory Results 07/04/17 07/04/17 07/04/17 Range/Units 09:20 08:45 08:45 WBC (4.0-10.5) K/mm3 RBC (4.1-5.6) M/mm3 Hgb (12.5-18.0) gm/dl Hct (42-50) % MCV (78-100) fl MCH (26-32) pg MCHC (32-36) g/dl RDW (11.5-14.0) % Plt Count (150-450) K/mm3 MPV (6-9.5) fl Segmented Neutrophils (36.-66.) % Band Neutrophils (0.0-2.0) % Lymphocytes (Manual) (24-44) % Monocytes (Manual) (0.0-12.0) % Eosinophils (Manual) (0.00-3.0) % Metamyelocytes % Differential Comment Platelet Estimate (NORMAL) INR 2.66 (0.8-3.0) Sodium (136-145) mEq/L Potassium (3.5-5.1) mEq/L Chloride (98-107) mEq/L Carbon Dioxide (21-32) mEq/L Anion Gap (5-15) MEQ/L BUN (9-20) mg/dL Creatinine (0.55-1.30) mg/dl Estimated GFR ML/MIN Glucose (70-110) MG/DL Lactic Acid 3.0 H (0.4-2.0) Calcium (8.5-10.1) mg/dL Total Bilirubin (0.2-1.0) mg/dL AST (15-37) U/L ALT (12-78) U/L Alkaline Phosphatase (46-116) U/L Serum Total Protein (6.4-8.2) gm/dL Albumin (3.4-5.0) g/dL Influenza Type A Ag NEGATIVE (NEGATIVE) Influenza Type B Ag NEGATIVE (NEGATIVE) RSV (PCR) NEGATIVE (Negative) 07/04/17 07/04/17 Range/Units 08:45 08:35 WBC 19.4 H (4.0-10.5) K/mm3 RBC 5.43 (4.1-5.6) M/mm3 Hgb 15.8 (12.5-18.0) gm/dl Hct 47.9 (42-50) % MCV 88.2 (78-100) fl MCH 29.1 (26-32) pg MCHC 33.0 (32-36) g/dl RDW 13.0 (11.5-14.0) % Plt Count 275 (150-450) K/mm3 MPV 9.7 H (6-9.5) fl Segmented Neutrophils 75 H (36.-66.) % Band Neutrophils 7 H (0.0-2.0) % Lymphocytes (Manual) 11 L (24-44) % Monocytes (Manual) 5 (0.0-12.0) % Eosinophils (Manual) 1 (0.00-3.0) % Metamyelocytes 1 % Differential Comment NORMAL Platelet Estimate NORMAL (NORMAL) INR (0.8-3.0) Sodium 135 L (136-145) mEq/L Potassium 4.8 (3.5-5.1) mEq/L Chloride 99 (98-107) mEq/L Carbon Dioxide 26.0 (21-32) mEq/L Anion Gap 14.6 (5-15) MEQ/L BUN 34 H (9-20) mg/dL Creatinine 1.34 H (0.55-1.30) mg/dl Estimated GFR 56 ML/MIN Glucose 325 H (70-110) MG/DL Lactic Acid (0.4-2.0) Calcium 8.6 (8.5-10.1) mg/dL Total Bilirubin 0.80 (0.2-1.0) mg/dL AST 31 (15-37) U/L ALT 47 (12-78) U/L Alkaline Phosphatase 101 (46-116) U/L Serum Total Protein 7.5 (6.4-8.2) gm/dL Albumin 3.6 (3.4-5.0) g/dL Influenza Type A Ag (NEGATIVE) Influenza Type B Ag (NEGATIVE) RSV (PCR) (Negative) - Progress Progress: improved, re-examined Air Movement: fair Progress Note: 07/04/17 09:55 patient rechecked, breathing more comfortably. still wheezing audibly, will give another duoneb elevated white blood cell count and lactic acid noted, initiated sepsis protocol. has had blood cultures drawn, will start IV abx and bolus 2L due to cardiac history then re-evaluate at this time. his bp is stable at this time. 07/04/17 11:26 patient feeling better, no more nausea and breathing comfortably now. discussed with Dr Bradshaw, will admit for COPD exacerbation and repeat lactic acid after fluids - Departure Time of Disposition: 11:26 Departure Disposition: In-patient Admission Clinical Impression: COPD with exacerbation, Sepsis Condition: Fair Critical Care Time: Yes Critical Care Time(excluding separately billable procedures): 30-74 minutes Referrals: MONSE BRADSHAW MD [Primary Care Provider] - Instructions: Chronic Obstructive Pulmonary Disease
[2017-07-04 09:06] LABS: Hematocrit 47.9 % (42-50); Hemoglobin 15.8 gm/dl (12.5-18.0); Mean Cell Volume 88.2 fl (78-100); Mean Corpuscular Hemoglobin 29.1 pg (26-32); Mean Platelet Volume 9.7 fl (6-9.5); Platelet Count 275 K/mm3 (150-450); Red Blood Count 5.43 M/mm3 (4.1-5.6); White Blood Count 19.4 K/mm3 (4.0-10.5)
[2017-07-04 09:16] LABS: INR 2.66 (0.8-3.0)
--- NOTE | 2017-07-04 09:24 | XRAY ---
Indication: Cough and short of breath. Comparison: June 26, 2017. Portable chest unchanged again with chronic right hemidiaphragm elevation and adjacent discoid atelectasis. Remaining lungs clear. Heart and mediastinal structures within normal limits for portable technique again demonstrating CABG surgery. No new/acute findings. Impression: Stable nonacute chest with chronic features.
[2017-07-04 09:25] LABS: ALBUMIN 3.6 g/dL (3.4-5.0); ANION GAP 14.6 MEQ/L (5-15); BILIRUBIN,TOTAL 0.8 mg/dL (0.2-1.0); Calcium 8.6 mg/dL (8.5-10.1); Creatinine 1 1.34 mg/dl (0.55-1.30); Potassium 4.8 mEq/L (3.5-5.1); Total Protein 7.5 gm/dL (6.4-8.2)
[2017-07-04 09:28] LABS: BAND 7 % (0.0-2.0); Eosinophil 1 % (0.00-3.0); Lymphocytes 11 % (24-44); Metamyelocyte 1 %; Monocyte 5 % (0.0-12.0); Neutrophils 75 % (36.-66.); Platelet Estimate NORMAL (NORMAL); Total Cells Counted 100
[2017-07-04] MEDS ORDERED: Zithromax 500 MG/ 250 ML NaCl Premix 500 MG/250 ML IVPB IV STA (09:47)
[2017-07-04] MEDS ORDERED: ROCEPHIN 1 Gm-D5w 50 ml Bag** 1 G/50 ML IVPB IV STA (09:47)
[2017-07-04] MEDS ORDERED: DUONEB 0.5-3 MG/3 ml Neb IH ONE ×2 (09:54→09:57)
[2017-07-04] MEDS ORDERED: Zithromax 500 MG/ 250 ML NaCl Premix 500 MG/250 ML IVPB IV ONE (09:58)
[2017-07-04] MEDS ORDERED: ROCEPHIN 1 Gm-D5w 50 ml Bag** 1 G/50 ML IVPB IV ONE (09:59)
[2017-07-04] MEDS: Lactated Ringers 1,000 ML IV SCH ×2 (10:06→11:48)
[2017-07-04 10:48] LABS: INFLUENZA A NEGATIVE (NEGATIVE); INFLUENZA B NEGATIVE (NEGATIVE); RESPIRATORY SYNCTIAL VIRUS NEGATIVE (Negative)
[2017-07-04] MEDS: solu-MEDROL 125 MG IV SCH ×3 (13:21→23:44)
[2017-07-04 14:33] LABS: Lactic Acid 2.9 (0.4-2.0)
[2017-07-04] MEDS: DUONEB 0.5-3 MG/3 ml Neb IH SCH ×3 (15:25→23:17)
[2017-07-04] MEDS ORDERED: Nitrostat 0.4 MG Tablet SL PRN (15:34)
[2017-07-04] MEDS ORDERED: NON-FORMULARY ITEM (Cholecalciferol (Vitamin D3) [Vitamin D3] 5,000 UNIT) PO SCH (15:45)
[2017-07-04] MEDS ORDERED: KEFLEX 500 MG PO SCH (17:00)
[2017-07-04] MEDS: Glucophage 500 MG PO SCH (18:00)
[2017-07-04] MEDS: BUMEX 1 MG PO SCH ×2 (18:00→18:31)
[2017-07-04] MEDS: OXYCODONE-ACETAMINOPHEN 10-325 PO SCH ×2 (18:01→23:48)
[2017-07-04] MEDS: ECOTRIN 81 MG PO SCH (18:29)
[2017-07-04] MEDS: PLAVIX 75 MG Tablet PO SCH (18:30)
[2017-07-04] MEDS: Flomax 0.4 MG PO SCH (18:30)
[2017-07-04] MEDS: Zestril 5 MG PO SCH (18:30)
[2017-07-04] MEDS: Imdur 30 MG PO SCH (18:30)
[2017-07-04] MEDS: WARFARIN PO SCH ×2 (18:30)
[2017-07-04] MEDS: NORVASC 5 MG PO SCH (18:30)
[2017-07-04] MEDS ORDERED: NON-FORMULARY ITEM (Atorvastatin Calcium [Atorvastatin Calcium] 80 MG) PO SCH (22:00)
[2017-07-04] MEDS ORDERED: NON-FORMULARY ITEM (Famotidine [Pepcid] 40 MG) PO SCH (22:00)
[2017-07-04] MEDS: Lantus Insulin SQ SCH (23:46)
[2017-07-04] MEDS: NovoLOG Insulin SQ PRN (23:47)
[2017-07-04] MEDS: Pepcid 20 MG PO SCH (23:51)
[2017-07-04] MEDS: Coreg 3.125 MG PO SCH (23:51)
[2017-07-04] MEDS: Ambien 10 MG PO SCH (23:51)
[2017-07-04] MEDS: ZOCOR 20MG PO SCH (23:51)
[2017-07-04] MEDS: Klor Con 10 MEQ PO SCH (23:52)
[2017-07-05] MEDS: DUONEB 0.5-3 MG/3 ml Neb IH SCH ×6 (03:33→22:59)
[2017-07-05] MEDS: OXYCODONE-ACETAMINOPHEN 10-325 PO SCH ×3 (05:36→18:10)
[2017-07-05] MEDS: solu-MEDROL 125 MG IV SCH ×3 (05:37→18:11)
[2017-07-05] MEDS: Glucophage 500 MG PO SCH ×2 (08:20→17:00)
[2017-07-05] MEDS: Zestril 5 MG PO SCH (08:21)
[2017-07-05] MEDS: Imdur 30 MG PO SCH (08:21)
[2017-07-05] MEDS: Flomax 0.4 MG PO SCH (08:21)
[2017-07-05] MEDS: PLAVIX 75 MG Tablet PO SCH (08:21)
[2017-07-05] MEDS: Coreg 3.125 MG PO SCH ×2 (08:21→21:58)
[2017-07-05] MEDS: NORVASC 5 MG PO SCH (08:21)
[2017-07-05] MEDS: Klor Con 10 MEQ PO SCH ×2 (08:21→21:59)
[2017-07-05] MEDS: ECOTRIN 81 MG PO SCH (08:21)
[2017-07-05] MEDS: ROCEPHIN 1 Gm-D5w 50 ml Bag** 1 G/50 ML IVPB IV SCH (08:22)
[2017-07-05] MEDS: Zithromax 500 MG/ 250 ML NaCl Premix 500 MG/250 ML IVPB IV SCH (08:22)
[2017-07-05] MEDS: NovoLOG Insulin SQ PRN ×4 (08:30→22:01)
[2017-07-05] MEDS: Lantus Insulin SQ SCH ×2 (08:30→21:59)
[2017-07-05 09:54] LABS: Hematocrit 38.6 % (42-50); Hemoglobin 12.7 gm/dl (12.5-18.0); Mean Cell Volume 88.9 fl (78-100); Mean Corpuscular Hemoglobin 29.3 pg (26-32); Mean Corpuscular Hgb Concent. 32.9 g/dl (32-36); Mean Platelet Volume 10.1 fl (6-9.5); Platelet Count 213 K/mm3 (150-450); Red Blood Count 4.34 M/mm3 (4.1-5.6); Red Cell Distribution Width 12.9 % (11.5-14.0); White Blood Count 15.4 K/mm3 (4.0-10.5)
[2017-07-05] MEDS ORDERED: Coumadin 5 MG PO SCH (10:00)
[2017-07-05] MEDS ORDERED: DELTASONE 5 MG PO SCH (10:00)
[2017-07-05 10:10] LABS: INR 2.82 (0.8-3.0)
[2017-07-05 10:17] LABS: ANION GAP 14.1 MEQ/L (5-15); BLOOD UREA NITROGEN 30 mg/dL (9-20); CHLORIDE 99 mEq/L (98-107); Calcium 7.6 mg/dL (8.5-10.1); Carbon Dioxide 23.8 mEq/L (21-32); Creatinine 1 1.23 mg/dl (0.55-1.30); EST GLOMERULAR FILTRATION RATE > 60 ML/MIN; Glucose 411 MG/DL (70-110); Potassium 4.2 mEq/L (3.5-5.1); SODIUM 133 mEq/L (136-145)
--- NOTE | 2017-07-05 12:12 | PCM.HP ---
History of Present Illness - Chief Complaint Chief Complaint: COPD Exac./Sepsis History of Present Illness: 71 year old male reports to the ER by ambulance complaining of cough productive of green sputum, shortness of breath and generally feeling poorly. His was diagnosed with influenza last week. he has a cardiac history and is on warfarin. He started vomiting and wheezing more severely this morning so called for ambulance. He has had subjective fever and chills. . - Review of Systems Constitutional: No Fever, No Chills Eyes: No Symptoms Ears, Nose, & Throat: No Symptoms Respiratory: No Cough, No Short Of Breath Cardiac: No Chest Pain, No Edema, No Syncope Abdominal/Gastrointestinal: No Abdominal Pain, No Nausea, No Vomiting, No Diarrhea Genitourinary Symptoms: No Dysuria Musculoskeletal: No Back Pain, No Neck Pain Skin: No Rash Neurological: No Dizziness, No Focal Weakness, No Sensory Changes Psychological: No Symptoms Endocrine: No Symptoms Hematologic/Lymphatic: No Symptoms Immunological/Allergic: No Symptoms Medications & Allergies Home Medications: Home Medication List Atorvastatin Calcium 80 mg PO HS 10/30/14 [History Confirmed 07/04/17] Carvedilol 3.125 mg [Coreg 3.125 MG] 3.125 mg PO BID 10/30/14 [History Confirmed 07/04/17] Isosorbide Mononitrate 30 mg [Imdur 30 MG] 30 mg PO DAILY 10/30/14 [ History Confirmed 07/04/17] Metformin HCl 500 mg [Glucophage 500 MG] 1,000 mg PO BIDAC 10/30/14 [ History Confirmed 07/04/17] Nitroglycerin 0.4 mg Tablet [Nitrostat 0.4 MG Tablet] 0.4 mg SL UD PRN [History Confirmed 07/04/17] Lisinopril 5 mg [Zestril 5 MG] 5 mg PO DAILY 10/29/15 [History Confirmed 07/04/17] Oxycodone HCl/Acetaminophen [Percocet 10-325 mg Tablet] 1 each PO Q6H 12/08/15 [ History Confirmed 07/04/17] Warfarin Sodium 5 mg [Coumadin 5 MG] 7.5 mg PO DAILY 02/22/16 [History Confirmed 07/04/17] Prednisone 5 mg PO DAILY #30 tablet 05/20/16 [Rx Confirmed 07/04/17] Bumetanide 1 mg [Bumex 1 mg] 1 mg PO BID DIURETIC #0 tablet 09/20/16 [Rx Confirmed 07/04/17] Potassium Chloride 10 Meq Tab* [Klor Con 10 MEQ] 10 meq PO BID #0 tab [Rx Confirmed 07/04/17] Amlodipine Besylate 5 mg [Norvasc 5 mg] 5 mg PO DAILY 04/18/17 [History Confirmed 07/04/17] Famotidine [Pepcid] 40 mg PO HS 04/18/17 [History Confirmed 07/04/17] Tamsulosin HCl 0.4 mg [Flomax 0.4 MG] 0.4 mg PO DAILY 04/18/17 [History Confirmed 07/04/17] Aspirin EC 81 mg [Ecotrin 81 mg] 81 mg PO DAILY 06/26/17 [History Confirmed 07/04/17] Cholecalciferol (Vitamin D3) [Vitamin D3] 5,000 unit PO WEEKLY 06/26/17 [ History Confirmed 07/04/17] Clopidogrel Bisulfate 75 mg [PLAVIX 75 MG Tablet] 75 mg PO DAILY 06/26/17 [History Confirmed 07/04/17] Insulin Glargine [Lantus Insulin] 20 unit SQ BID 06/26/17 [History Confirmed 07/04/17] Ipratropium [place] 0.5 mg [Atrovent 0.5MG NEBULE] 1 neb IH QID 06/26/17 [ History Confirmed 07/04/17] Zolpidem Tartrate [Ambien] 10 mg PO HS 06/26/17 [History Confirmed 07/04/17] Cephalexin Mh 500 mg [Keflex 500 mg] 500 mg PO QID 7 Days #28 capsule [Rx Confirmed 07/04/17] Allergies/Adverse Reactions: Allergies Allergy/AdvReac Type Severity Reaction Status Date / Time gemfibrozil Allergy Verified 07/04/17 08:38 pineapple [Pineapple] AdvReac Verified 07/04/17 08:38 - Past Medical History Past Medical History: Yes Neurological History: No Pertinent History ENT History: No Pertinent History Cardiac History: Coronary Artery Disease, Deep Vein Thrombosis, High Cholesterol , Hypertension, Myocardial Infarction ([place]) Respiratory History: CHF, COPD, Pulmonary Embolism Endocrine Medical History: Diabetes Type II Musculoskelatal History: Osteoarthritis GI Medical History: GERD History: No Pertinent History Pyscho-Social History: No Pertinent History Male Reproductive Disorders: No Pertinent History Comment: 4 VESSEL BYPAS. MULTIPLE STENTS SINCE THE [place]. hx of DVT - Past Surgical History Past Surgical History: Yes Neuro Surgical History: No Pertinent History Cardiac History: CABG, Cardiac Catheterization, Cardiac Stent Respiratory Surgery: No Pertinent History GI Surgical History: Cholecystectomy Genitourinary Surgical Hx: No Pertinent History Musculskeletal Surgical Hx: Joint Replacement, Orthopedic Surgery Male Surgical History: No Pertinent History Other Surgical History: LEFT HIP REPLACEMENT. LITTLE FINGER RIGHT HAND-STATES HAD SURGERY AND IT FROZE UP. 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 SEVERAL HEART CATHS AND 4 STEND PLACED. 4 BIPASS - Social History Smoking Status: Former smoker How long have you smoked: 10 yrs Exposure to second hand smoke: Yes ( - pack a day) Alcohol: None Drug Use: none - Physical Exam Vital Signs: Vital Signs - 24 hr Temp Pulse Resp BP Pulse Ox 07/05/17 11:35 97.8 F 98 H 22 114/64 94 L 07/05/17 10:39 95 H 18 93 L 07/05/17 07:46 97.9 F 98 H 20 131/67 94 L 07/05/17 07:13 85 16 94 L 07/05/17 04:00 98.4 F 99 H 22 139/72 93 L 07/05/17 03:33 99 H 22 93 L 07/05/17 00:00 97.5 F 95 H 17 122/77 94 L 07/04/17 23:17 95 H 17 94 L 07/04/17 20:00 97.5 F 96 H 26 H 116/67 94 L 07/04/17 19:50 87 22 94 L 07/04/17 16:33 99 F 88 18 145/81 95 07/04/17 15:15 88 20 95 07/04/17 13:30 98.4 F 96 H 22 160/80 96 Oxygen-Last 24 hours O2 Percentage 2 Liters = 28% O2 Percentage 2 Liters = 28% O2 Percentage 2 Liters = 28% O2 Percentage 3 Liters = 32% O2 Percentage 2 Liters = 28% O2 Percentage 2 Liters = 28% General Appearance: no apparent distress, alert Neurologic Exam: alert, oriented x 3, cooperative, normal mood/affect, nml cerebellar function, nml station & gait, sensation nml, No motor deficits Eye Exam: PERRL/EOMI, eyes nml inspection Ears, Nose, Throat Exam: normal ENT inspection, TMs normal, pharynx normal, moist mucous membranes Neck Exam: normal inspection, non-tender, supple, full range of motion Respiratory Exam: diminished breath sounds, crackles/rales, rhonchi, No respiratory distress Cardiovascular Exam: tachycardia Gastrointestinal/Abdomen Exam: soft, normal bowel sounds, No tenderness, No mass Back Exam: normal inspection, normal range of motion, No CVA tenderness, No vertebral tenderness Extremity Exam: normal inspection, normal range of motion, pelvis stable Skin Exam: normal color, warm, dry, No rash Lymphatic Exam: No adenopathy Results - Labs Lab/Micro Results: Accuchecks Date 07/04/17 Date 07/04/17 Time 22:00 Time 16:30 Accucheck Value: 334 Accucheck Value: 282 Lab Results-Last 24 Hours 07/04/17 07/05/17 07/05/17 Range/Units 14:29 09:25 09:25 WBC 15.4 H (4.0-10.5) K/mm3 RBC 4.34 (4.1-5.6) M/mm3 Hgb 12.7 (12.5-18.0) gm/dl Hct 38.6 L (42-50) % MCV 88.9 (78-100) fl MCH 29.3 (26-32) pg MCHC 32.9 (32-36) g/dl RDW 12.9 (11.5-14.0) % Plt Count 213 (150-450) K/mm3 MPV 10.1 H (6-9.5) fl INR (0.8-3.0) Sodium 133 L (136-145) mEq/L Potassium 4.2 (3.5-5.1) mEq/L Chloride 99 (98-107) mEq/L Carbon Dioxide 23.8 (21-32) mEq/L Anion Gap 14.1 (5-15) MEQ/L BUN 30 H (9-20) mg/dL Creatinine 1.23 (0.55-1.30) mg/dl Estimated GFR > 60 ML/MIN Glucose 411 H (70-110) MG/DL Lactic Acid 2.9 H (0.4-2.0) Calcium 7.6 L (8.5-10.1) mg/dL 07/05/17 Range/Units 09:25 WBC (4.0-10.5) K/mm3 RBC (4.1-5.6) M/mm3 Hgb (12.5-18.0) gm/dl Hct (42-50) % MCV (78-100) fl MCH (26-32) pg MCHC (32-36) g/dl RDW (11.5-14.0) % Plt Count (150-450) K/mm3 MPV (6-9.5) fl INR 2.82 (0.8-3.0) Sodium (136-145) mEq/L Potassium (3.5-5.1) mEq/L Chloride (98-107) mEq/L Carbon Dioxide (21-32) mEq/L Anion Gap (5-15) MEQ/L BUN (9-20) mg/dL Creatinine (0.55-1.30) mg/dl Estimated GFR ML/MIN Glucose (70-110) MG/DL Lactic Acid (0.4-2.0) Calcium (8.5-10.1) mg/dL Accuchecks Date 07/04/17 Date 07/04/17 Time 22:00 Time 16:30 Accucheck Value: 334 Accucheck Value: 282 - Other Procedures and Tests Respiratory Therapy 07/04/17 19:00 Respiratory Nebulizer Q4H Assessment/Plan (1) COPD with exacerbation Current Visit: Yes Status: Acute Code(s): J44.1 - CHRONIC OBSTRUCTIVE PULMONARY DISEASE W (ACUTE) EXACERBATION (2) Failure of outpatient treatment Current Visit: Yes Status: Acute Code(s): Z78.9 - OTHER SPECIFIED HEALTH STATUS (3) Coronary artery disease Current Visit: No Status: Chronic Qualifiers: Code(s): I25.10 - ATHSCL HEART DISEASE OF [place] CORONARY ARTERY W/O ANG PCTRS (4) Diabetes Current Visit: No Status: Chronic Qualifiers: Code(s): E11.9 - TYPE 2 DIABETES MELLITUS WITHOUT COMPLICATIONS (5) History of DVT (deep vein thrombosis) Current Visit: No Status: Chronic Code(s): Z86.718 - PERSONAL HISTORY OF OTHER VENOUS THROMBOSIS AND EMBOLISM
[2017-07-05] MEDS: BUMEX 1 MG PO SCH (17:00)
[2017-07-05] MEDS: WARFARIN PO SCH ×2 (18:10)
[2017-07-05] MEDS: Ambien 10 MG PO SCH (21:58)
[2017-07-05] MEDS: ZOCOR 20MG PO SCH (21:59)
[2017-07-06] MEDS: Pepcid 20 MG PO SCH (00:50)
[2017-07-06] MEDS: OXYCODONE-ACETAMINOPHEN 10-325 PO SCH ×3 (00:51→11:57)
[2017-07-06] MEDS: solu-MEDROL 125 MG IV SCH ×4 (00:51→11:57)
[2017-07-06] MEDS: DUONEB 0.5-3 MG/3 ml Neb IH SCH ×3 (03:35→10:46)
[2017-07-06] MEDS: Glucophage 500 MG PO SCH (08:30)
[2017-07-06] MEDS: Flomax 0.4 MG PO SCH (08:31)
[2017-07-06] MEDS: NORVASC 5 MG PO SCH (08:31)
[2017-07-06] MEDS: ECOTRIN 81 MG PO SCH (08:31)
[2017-07-06] MEDS: BUMEX 1 MG PO SCH (08:31)
[2017-07-06] MEDS: Coreg 3.125 MG PO SCH (08:31)
[2017-07-06] MEDS: Klor Con 10 MEQ PO SCH (08:32)
[2017-07-06] MEDS: Zestril 5 MG PO SCH (08:32)
[2017-07-06] MEDS: PLAVIX 75 MG Tablet PO SCH (08:32)
[2017-07-06] MEDS: Imdur 30 MG PO SCH (08:32)
[2017-07-06] MEDS: NovoLOG Insulin SQ PRN ×2 (08:33→12:44)
[2017-07-06] MEDS: Lantus Insulin SQ SCH (08:34)
[2017-07-06] MEDS: Zithromax 500 MG/ 250 ML NaCl Premix 500 MG/250 ML IVPB IV SCH (09:24)
[2017-07-06 09:54] LABS: Hematocrit 37.9 % (42-50); Hemoglobin 12.4 gm/dl (12.5-18.0); Mean Cell Volume 89.8 fl (78-100); Mean Corpuscular Hgb Concent. 32.7 g/dl (32-36); Platelet Count 223 K/mm3 (150-450); Red Blood Count 4.22 M/mm3 (4.1-5.6); Red Cell Distribution Width 13.1 % (11.5-14.0); White Blood Count 18.7 K/mm3 (4.0-10.5)
[2017-07-06 10:01] LABS: Mean Corpuscular Hemoglobin 29.3 pg (26-32)
[2017-07-06 10:03] LABS: ANION GAP 14.9 MEQ/L (5-15); BLOOD UREA NITROGEN 33 mg/dL (9-20); CHLORIDE 103 mEq/L (98-107); Calcium 7.9 mg/dL (8.5-10.1); Carbon Dioxide 23.9 mEq/L (21-32); Creatinine 1 1.16 mg/dl (0.55-1.30); EST GLOMERULAR FILTRATION RATE > 60 ML/MIN; Glucose 368 MG/DL (70-110); Potassium 4.8 mEq/L (3.5-5.1); SODIUM 137 mEq/L (136-145)
[2017-07-06] MEDS: ROCEPHIN 1 Gm-D5w 50 ml Bag** 1 G/50 ML IVPB IV SCH (11:52)
[2017-07-06 11:58] VITALS: BP 138/75; PULSE 90; O2SAT 95
[2017-07-09] MEDS ORDERED: VITAMIN D PO SCH (10:00)
== END 2017-07-06 13:55 | disposition home or self-care (01) | DRG 191 ==
LOC: ED 08:30 → OBSVTOIN 12:22 → MED SURG 12:22
PROVIDERS: ADMIT General Practice; ATTEND General Practice
DX: J44.1 Chronic obstructive pulmonary disease with (acute) exacerbation (principal); A41.9 Sepsis, unspecified organism; I25.810 Atherosclerosis of coronary artery bypass graft(s) without angina pectoris; Z78.9 Other specified health status; E11.9 Type 2 diabetes mellitus without complications; Z79.4 Long term (current) use of insulin; I10 Essential (primary) hypertension; I25.2 Old myocardial infarction; E78.00 Pure hypercholesterolemia, unspecified; I50.9 Heart failure, unspecified; M19.90 Unspecified osteoarthritis, unspecified site; K21.9 Gastro-esophageal reflux disease without esophagitis; Z86.718 Personal history of other venous thrombosis and embolism; Z86.711 Personal history of pulmonary embolism; Z79.01 Long term (current) use of anticoagulants; Z79.899 Other long term (current) drug therapy; Z87.891 Personal history of nicotine dependence
CPT/HCPCS: 36000; 36415; 71045; 80048; 80053; 82962; 83605; 85025; 85027; 85610; 87040; 87631; 93005; 93041; 94640; 94760; 96374; 99285; J0456; J0696; J2405; J2930; A9270-GY

== ENCOUNTER 2017-08-01 09:33 | Emergency (ER) | payer MEDICARE, OTHER ==
--- NOTE | 2017-08-01 09:51 | ERPHSYRPT ---
- History of Present Illness Time Seen by Provider: 08/01/17 09:42 Source: patient Physician History: CC: right hip pain Hx: 71 y/o patient of Dr Bradshaw with right hip pain for a week. Severe. No fall or injury. He can not walk but drove himself here. Taking hydrcocodone without relief. No abd pain. No back pain. Lives in a trailer and using a walker. Timing/Duration: week(s) (1) Hip Pain Location: hip (R) Severity of Pain-Max: severe Severity of Pain-Current: severe Allergies/Adverse Reactions: gemfibrozil Allergy (Verified 07/04/17 08:38) pineapple [Pineapple] Adverse Reaction (Verified 07/04/17 08:38) VOMITING Home Medications: Atorvastatin Calcium 80 mg PO HS 10/30/14 [History] Carvedilol 3.125 mg [Coreg 3.125 MG] 3.125 mg PO BID 10/30/14 [History] Isosorbide Mononitrate 30 mg [Imdur 30 MG] 30 mg PO DAILY 10/30/14 [History ] Metformin HCl 500 mg [Glucophage 500 MG] 1,000 mg PO BIDAC 10/30/14 [ History] Nitroglycerin 0.4 mg Tablet [Nitrostat 0.4 MG Tablet] 0.4 mg SL UD PRN [History] Lisinopril 5 mg [Zestril 5 MG] 5 mg PO DAILY 10/29/15 [History] Oxycodone HCl/Acetaminophen [Percocet 10-325 mg Tablet] 1 each PO Q6H 12/08/15 [ History] Warfarin Sodium 5 mg [Coumadin 5 MG] 7.5 mg PO DAILY 02/22/16 [History] Amlodipine Besylate 5 mg [Norvasc 5 mg] 5 mg PO DAILY 04/18/17 [History] Famotidine [Pepcid] 40 mg PO HS 04/18/17 [History] Tamsulosin HCl 0.4 mg [Flomax 0.4 MG] 0.4 mg PO DAILY 04/18/17 [History] Aspirin EC 81 mg [Ecotrin 81 mg] 81 mg PO DAILY 06/26/17 [History] Cholecalciferol (Vitamin D3) [Vitamin D3] 5,000 unit PO WEEKLY 06/26/17 [History ] Clopidogrel Bisulfate 75 mg [PLAVIX 75 MG Tablet] 75 mg PO DAILY 06/26/17 [History] Insulin Glargine [Lantus Insulin] 20 unit SQ BID 06/26/17 [History] Ipratropium Noble 0.5 mg [Atrovent 0.5MG NEBULE] 1 neb IH QID 06/26/17 [ History] Zolpidem Tartrate [Ambien] 10 mg PO HS 06/26/17 [History] Hx Tetanus, Diphtheria Vaccination/Date Given: Yes Hx Influenza Vaccination/Date Given: Yes Hx Pneumococcal Vaccination/Date Given: Yes - Review of Systems Constitutional: No Fever, No Chills Respiratory: No Dyspnea Cardiac: No Chest Pain Abdominal/Gastrointestinal: No Abdominal Pain Genitourinary Symptoms: No Dysuria Musculoskeletal: Joint Pain (right hip), No Back Pain, No Injury, No Joint Redness Skin: No Rash Neurological: No Focal Weakness, No Headache, No Parasthesia All Other Systems: Reviewed and Negative - Past Medical History Pertinent Past Medical History: Yes Neurological History: No Pertinent History ENT History: No Pertinent History Cardiac History: Coronary Artery Disease, Deep Vein Thrombosis, High Cholesterol , Hypertension, Myocardial Infarction ([place]) Respiratory History: CHF, COPD, Pulmonary Embolism Endocrine Medical History: Diabetes Type II Musculoskeletal History: Osteoarthritis GI Medical History: GERD History: No Pertinent History Psycho-Social History: No Pertinent History Male Reproductive Disorders: No Pertinent History Other Medical History: CABG. Coronary stenting. DVT - Past Surgical History Past Surgical History: Yes Neuro Surgical History: No Pertinent History Cardiac: CABG, Cardiac Catheterization, Cardiac Stent Respiratory: No Pertinent History Gastrointestinal: Cholecystectomy Genitourinary: No Pertinent History Musculoskeletal: Joint Replacement, Orthopedic Surgery Male Surgical History: No Pertinent History Other Surgical History: LEFT HIP REPLACEMENT. LITTLE FINGER RIGHT HAND-STATES HAD SURGERY AND IT FROZE UP. 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 CABG and Coronary Stenting - Social History Smoking Status: Former smoker How long have you smoked: 10 yrs Exposure to second hand smoke: Yes ( - pack a day) Drug Use: none Patient Lives Alone: No - Nursing Vital Signs Nursing Vital Signs: Initial Vital Signs Temperature 97.1 F 08/01/17 09:40 Pulse Rate 82 08/01/17 09:40 Respiratory Rate 20 08/01/17 09:40 Blood Pressure 120/72 08/01/17 09:40 O2 Sat by Pulse Oximetry 92 L 08/01/17 09:40 Pain Scale Pain Intensity 10 - Physical Exam General Appearance: alert, other (pleasant man, talkative) Eye Exam: PERRL/EOMI Ears, Nose, Throat Exam: moist mucous membranes Neck Exam: normal inspection, non-tender, supple Respiratory Exam: normal breath sounds Cardiovascular Exam: regular rate/rhythm Gastrointestinal Exam: soft, No tenderness, No distention Male Genetalia Exam: normal genitalia Extremity Exam: normal inspection, limited range of motion (right hip painful to palpation laterally and he can not raise due to pain, some right inguinal area pain.) Neurologic Exam: alert, oriented x 3, cooperative, No motor deficits Skin Exam: warm, dry, No rash Procedures - Additional Procedures Progress: Right trochanteric bursitis: injected right trachanteric bursa with 30mg depo medrol and 3ml 1% plain lidocaine. Tolerated well. - Course Nursing assessment & vital signs reviewed: Yes - Radiology Exams right hip/pelvis X-ray Interpretation: Teleradiologist Report, No Fracture (osteopenia, advanced DJD) Ordered Tests: Active Orders 24 hr Category Date Time Status HIP UNI (2V) INCL PEL IF DONE Stat Exams 08/01/17 09:46 Completed Medication Summary Discontinued Medications Generic Name Dose Route Start Last Admin Trade Name Juan Pablo PRN Reason Stop Dose Admin Lidocaine HCl Confirm 08/01/17 10:26 Xylocaine 1% Hcl 20 Ml Mdv Administered 08/01/17 10:27 Dose 1 ml .ROUTE .STK-MED ONE Methylprednisolone Acetate Confirm 08/01/17 10:26 Depo-Medrol 80 Mg/Ml Administered 08/01/17 10:27 Dose 80 mg .ROUTE .STK-MED ONE - Progress Progress Note: 08/01/17 10:35 Xray neg for fracture. He chose trochanteric bursitis injection. He has hydrocodone at home. He has a walker. He takes warfarin but gets [facility] and does not want it checked today. Will release with instr. Counseled pt/family regarding: diagnosis, need for follow-up, rad results - Departure Time of Disposition: 10:36 Departure Disposition: Home Clinical Impression: Trochanteric bursitis of right hip Condition: Stable Critical Care Time: No Referrals: MONSE BRADSHAW MD [Primary Care Provider] - Instructions: Hip Bursitis Exercises, Bursitis Additional Instructions: Follow up with Dr bradshaw. Use walker and take care not to fall. Ice packs or warm packs.
--- NOTE | 2017-08-01 10:19 | XRAY ---
Indication: Pain 3 days. No known injury. Comparison: None AP pelvis and 2 views of the right hip demonstrates osteopenia, moderate/advanced right hip degenerative changes, left hip arthroplasty with intact bipolar prosthesis, and moderate lumbar degenerative changes. No other bony, articular, or soft tissue abnormalities.
[2017-08-01] MEDS ORDERED: Depo-Medrol 80 MG/ML ONE (10:26)
[2017-08-01] MEDS ORDERED: XYLOCAINE 1% HCL 20 ML MDV ONE (10:26)
[2017-08-01 10:43] VITALS: BP 116/68; PULSE 76; O2SAT 98
== END 2017-08-01 10:56 | disposition home or self-care (01) ==
LOC: ED 09:33
DX: M70.61 Trochanteric bursitis, right hip (principal); I25.810 Atherosclerosis of coronary artery bypass graft(s) without angina pectoris; Z86.718 Personal history of other venous thrombosis and embolism; E78.00 Pure hypercholesterolemia, unspecified; I10 Essential (primary) hypertension; I50.9 Heart failure, unspecified; J44.9 Chronic obstructive pulmonary disease, unspecified; Z86.711 Personal history of pulmonary embolism; E11.9 Type 2 diabetes mellitus without complications; Z79.4 Long term (current) use of insulin; M19.90 Unspecified osteoarthritis, unspecified site; K21.9 Gastro-esophageal reflux disease without esophagitis
CPT/HCPCS: 73502; 99284; J1040

== ENCOUNTER 2017-09-13 12:27 | Day surgery (SDC) | payer MEDICARE, OTHER ==
[~2017-09-13 12:27] MED LIST: XYLOCAINE-MPF 1% 5ML SDV ONE
[2017-09-13] MEDS ORDERED: Marcaine 0.5% SDV 10 ML IJ ONE (12:28)
[2017-09-13] MEDS ORDERED: XYLOCAINE-MPF 1% 5ML SDV IJ ONE (12:28)
--- NOTE | 2017-09-13 14:19 | XRAY ---
Indication: Right SI joint injection. Intraoperative fluoroscopy was provided for 16 seconds. Single digital spot image submitted for interpretation demonstrates single posterior spinal needle tip projecting over the inferior right SI joint. Correlate with intraoperative findings/report.
--- NOTE | 2017-09-13 15:04 | XRAY ---
Indication: Progressive worsening right hip pain. Multiple contiguous axial images obtained through the pelvis with special attention to the osseous structures. Two-dimensional sagittal and coronal reformatted images obtained. Comparison: None Age-related osteopenia. There has been left total hip arthroplasty with intact bipolar prosthesis and 2 acetabular screws. The more anterior screw tip penetrates through the bony cortex into the left pelvic cavity. Right hip demonstrates advanced degenerative changes as evidenced by weightbearing joint space loss, femoral head remodeling, and acetabular spurring with subcortical cysts. Mild degenerative changes of both SI joints and moderate degenerative changes of the visualized lower lumbar spine. No acute fracture or suspicious bony lesions. Visualized noncontrasted soft tissues demonstrates heavy aortoiliac calcifications, prostate calcifications, and small fatty umbilical hernia. No intrapelvic free fluid/air. Impression: 1. Osteopenia and advanced right hip degenerative osteoarthritis. 2. Lower lumbar degenerative spondylosis. 3. Total left hip arthroplasty with intact prosthesis as detailed. 4. Incidental soft tissue findings. CT DI 50.33
--- NOTE | 2017-09-13 15:18 | XRAY ---
16 seconds fluoroscopy time in surgery for SI joint injection
[2017-09-13 15:23] LABS: BASOPHIL % 0.3 % (0.0-0.4); Basophil (Absolute #) 0.03 (0-0.4); Eosinophil % 0.4 % (0.00-5.0); Eosinophil (Absolute #) 0.04 (0-0.5); Granulocyte Absolute (ANC) 8.05 (1.4-6.9); Granulocytes % 76.7 % (36.0-66.0); Hematocrit 44.3 % (42-50); Hemoglobin 14.8 gm/dl (12.5-18.0); Lymphocyte (Absolute #) 1.64 (1.0-4.6); Lymphocytes % 15.6 % (24.0-44.0); Mean Cell Volume 88.8 fl (78-100); Mean Corpuscular Hemoglobin 29.7 pg (26-32); Mean Corpuscular Hgb Concent. 33.4 g/dl (32-36); Mean Platelet Volume 9.5 fl (6-9.5); Monocyte (Absolute #) 0.73 (0.0-1.3); Platelet Count 311 K/mm3 (150-450); Red Blood Count 4.99 M/mm3 (4.1-5.6); Red Cell Distribution Width 13.9 % (11.5-14.0); White Blood Count 10.5 K/mm3 (4.0-10.5)
--- NOTE | 2017-09-15 11:01 | OP ---
DATE OF PROCEDURE: 09/13/2017 SURGEON: Tenzin Chávez D.O. 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 Status post peripheral joint of hip injection three weeks ago. 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 Status post peripheral joint of hip injection three weeks ago. 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 PROCEDURES PERFORMED: Right sacroiliac joint non-steroid injection with lidocaine and Marcaine under fluoroscopic guidance. DESCRIPTION OF PROCEDURE: The patient was taken to the operating room and laid in the prone position on the table. The skin over the injection site was prepped and draped in sterile fashion. Under fluoroscope bony anatomy at the targeted injection site was visualized. Local anesthesia agent was given by me (Dr. Chávez). This procedure was done under fluoroscopic guidance. This injection was not given steroid. Vital signs were monitored. Local anesthetic agent was introduced to anesthetize the skin in the subcutaneous tissue through injection site. Under fluoroscopic guidance a standard spinal needle was advanced into the target SI joint through an oblique approach and 0.5 cc of 1% lidocaine plus 0.5% Marcaine 0.5 cc without steroid was injected into the SI joint accordingly. While the needle was being removed normal saline was simultaneously infiltrated to avoid sterile needle tract. Skin was cleansed with alcohol and then a bandage was applied. No complications or adverse consequences were observed. The patient was returned to the holding area until stabilized before discharge to home. The preoperative pain level was 9 to 10 out of 10 and postoperative pain level was 1 to 2 out of 10. The patient will be followed up within ten days after the injection for re-evaluation. This is a 71 year-old gentleman who was seen by nurse practitioner today with severe right side low back pain with right hip pain with severe tenderness at right hip joint and right sacroiliac joint area. The patient stated when he saw his doctor in [place] three weeks ago, he was given steroid injection for right hip, and since then the patient stated his right hip pain did not get better. 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 The patient's right hip and right low back appears to be slightly swollen with discoloration at the injection site. The injection site appeared to be at hip joint, right sacroiliac joint. Due to the high risk of bleeding based on the medications of Coumadin and Plavix that the patient is currently taking, it is possible that the patient's severe right hip and right low back pain is due to hematoma. The patient stated he does not have acute muscle strength changes. No saddle anesthesia. No abdominal pain. Denies fever or chills. No chest pain, headache, muscle paralysis. The patient underwent right sacroiliac joint non-steroid injection today. The patient stated his low back pain level has sharply dropped from 9 to 10 out of 10 to currently 1 to 2 out of 10. The patient will have a STAT CT of the right hip and right pelvis to rule out hematoma. The patient will need to follow up as soon as the CT imaging results become available.
== END 2017-09-13 14:06 | disposition home or self-care (01) ==
LOC: SDC-PAIN 12:27
PROVIDERS: ATTEND Internal Medicine
DX: M46.1 Sacroiliitis, not elsewhere classified (principal); M46.96 Unspecified inflammatory spondylopathy, lumbar region; M47.817 Spondylosis without myelopathy or radiculopathy, lumbosacral region; M51.36 Other intervertebral disc degeneration, lumbar region
CPT/HCPCS: 27096; 36415; 72020; 72192; 76000; 85025; G0260

== ENCOUNTER 2017-10-11 07:50 | Day surgery (SDC) | payer MEDICARE, OTHER ==
[2017-10-11] MEDS ORDERED: Marcaine 0.5% SDV 10 ML IJ ONE (07:51)
[2017-10-11] MEDS ORDERED: solu-MEDROL 40 MG IV ONE (07:51)
[2017-10-11] MEDS ORDERED: LIDOCAINE HCL 1% AMPUL 5 ML IJ ONE (07:51)
[2017-10-11] MEDS ORDERED: Sodium Chloride 0.9(Preservative Free) 10 ML IJ ONE (07:51)
[2017-10-11] MEDS ORDERED: DIPRIVAN 200 MG/20 ML IV ONE (07:51)
[2017-10-11] MEDS ORDERED: Xylocaine-Mpf 2% 5 Ml Vial IJ ONE (07:51)
[2017-10-11] MEDS ORDERED: Lactated Ringers 1,000 ML IV ONE (10:27)
--- NOTE | 2017-10-11 11:20 | XRAY ---
Indication: Right hip articular branch block. Intraoperative fluoroscopy was provided for 29 seconds. 3 digital spot images submitted for interpretation with last image demonstrating single spinal needle tip projecting over the subcapital femur. Correlate with intraoperative findings/report.
--- NOTE | 2017-10-12 09:51 | OP ---
DATE: 10/11/2017929 SURGEON: Tenzin Chávez D.O. PREOPERATIVE DIAGNOSIS: Right hip joint degenerative changes, osteoarthritis, right hip pain. POSTOPERATIVE DIAGNOSIS: Right hip joint degenerative changes, osteoarthritis, right hip pain. PROCEDURES PERFORMED: Right hip joint steroid injection under fluoroscopic guidance with anesthesia. DESCRIPTION OF PROCEDURE: After consent was obtained, the patient was taken to the procedure room and laid in the prone position on the table. The skin over the injection site was prepped and draped in sterile fashion. And bony anatomy at the targeted injection site was visualized. Local anesthetic agent was introduced to anesthetize the skin in the subcutaneous tissue through injection site. A standard 25 Gauge needle was advanced into the target site with preservative-free medication of Solu-Medrol 40 mg was injected. Skin was cleansed with alcohol and then a bandage was applied. No complications or adverse consequences were observed. Preoperative pain level 10 out of 10 and postoperative pain level 0 out of 10. The patient will be followed up at the next visit for reevaluation.
== END 2017-10-11 10:20 | disposition home or self-care (01) ==
LOC: SDC-PAIN 07:50
PROVIDERS: ATTEND Internal Medicine
DX: M16.11 Unilateral primary osteoarthritis, right hip (principal); M46.1 Sacroiliitis, not elsewhere classified; M47.817 Spondylosis without myelopathy or radiculopathy, lumbosacral region; M51.36 Other intervertebral disc degeneration, lumbar region
CPT/HCPCS: 20610; 73501; 77002; 77003; 82962; J2704; J2920

== ENCOUNTER 2018-08-06 05:20 | Emergency (ER) | payer MEDICARE, OTHER ==
[2018-08-06] MEDS ORDERED: Sodium Chloride 0.9% 1000 ML 1,000 ML IV STA (05:46)
--- NOTE | 2018-08-06 06:14 | ERPHSYRPT ---
- History of Present Illness Source: patient Exam Limitations: no limitations Patient Subjective Stated Complaint: pt is alert and oriented. pt comes in with c/o hematuria. pt states he started having blood in his urine on monday night. pt states he has "pain not burning" with urination, frequency. pt states it looks like "watered down urine". pt states he has right groin tenderness but that it is chronic. pt denies any flank pain. no tenderness until palpation. Triage Nursing Assessment: see above Timing/Duration: day(s) Activites at Onset: none Quality: cramping Onset Location: RLQ, urethral Pain Radiation: none Severity of Pain-Max: moderate Severity of Pain-Current: moderate Modifying Factors: Improves With: nothing, analgesics, urinating Associated Symptoms: denies symptoms Prior abdominal problems: none Hx Tetanus, Diphtheria Vaccination/Date Given: Yes Hx Influenza Vaccination/Date Given: Yes Hx Pneumococcal Vaccination/Date Given: Yes Immunizations Up to Date: Yes <CHEYENNE DAVID - Last Filed: 08/06/18 06:54> <FAUSTINA JUAREZ - Last Filed: 08/06/18 08:18> - History of Present Illness Time Seen by Provider: 08/06/18 08:10 Physician History: Pt is a 72 y/o male that had a couple of days pain in the right groin with urinatiion. Pt states, he did not have any hematuria, so he never thought about coming to the ER. Tonight he had several episodes of hematuria, so he decided to come to the ED. Pt denies F/C/S. No cough or SOB. No chest pain or palpitations. No N/V/D. No CVA pain. (CHEYENNE DAVID) Allergies/Adverse Reactions: gemfibrozil Allergy (Verified 07/04/17 08:38) pineapple [Pineapple] Adverse Reaction (Verified 07/04/17 08:38) VOMITING Home Medications: Atorvastatin Calcium 80 mg PO HS 10/30/14 [History] Isosorbide Mononitrate 30 mg [Imdur 30 MG] 30 mg PO DAILY 10/30/14 [History ] Metformin HCl 500 mg [Glucophage 500 MG] 1,000 mg PO BIDAC 10/30/14 [ History] Lisinopril 5 mg [Zestril 5 MG] 5 mg PO DAILY 10/29/15 [History] Amlodipine Besylate 5 mg [Norvasc 5 mg] 5 mg PO DAILY 04/18/17 [History] Famotidine [Pepcid] 40 mg PO HS 04/18/17 [History] Tamsulosin HCl 0.4 mg [Flomax 0.4 MG] 0.4 mg PO DAILY 04/18/17 [History] Aspirin EC 81 mg [Ecotrin 81 mg] 81 mg PO DAILY 06/26/17 [History] Cholecalciferol (Vitamin D3) [Vitamin D3] 5,000 unit PO WEEKLY 06/26/17 [History ] Insulin Glargine [Lantus Insulin] 20 unit SQ BID 06/26/17 [History] Zolpidem Tartrate [Ambien] 10 mg PO HS 06/26/17 [History] Gabapentin [Neurontin] 300 mg PO TID 10/03/17 [History] Apixaban [Eliquis 2.5 mg Tablet] 2.5 mg PO BID 08/06/18 [History] Bumetanide 1 mg [Bumex 1 mg] 1 mg PO DAILY 08/06/18 [History] Magnesium Oxide [Magnesium] 400 mg PO DAILY 08/06/18 [History] Oxybutynin Chloride [Oxybutynin Chloride ER] 10 mg PO DAILY 08/06/18 [History] Oxycodone HCl/Acetaminophen [Oxycodone-Acetaminophen 5-325] 1 each PO Q6H PRN [History] Potassium Chloride 10 Meq Tab* [Klor Con 10 MEQ] 10 meq PO DAILY 08/06/18 [ History] - Past Medical History Pertinent Past Medical History: Yes Neurological History: No Pertinent History ENT History: No Pertinent History Cardiac History: Coronary Artery Disease, Deep Vein Thrombosis, High Cholesterol , Hypertension, Myocardial Infarction ([place]) Respiratory History: CHF, COPD, Pulmonary Embolism Endocrine Medical History: Diabetes Type II Musculoskeletal History: Osteoarthritis GI Medical History: GERD History: No Pertinent History Psycho-Social History: No Pertinent History Male Reproductive Disorders: No Pertinent History Other Medical History: CABG. Coronary stenting. DVT - Past Surgical History Past Surgical History: Yes Neuro Surgical History: No Pertinent History Cardiac: CABG, Cardiac Catheterization, Cardiac Stent Respiratory: No Pertinent History Gastrointestinal: Cholecystectomy Genitourinary: No Pertinent History Musculoskeletal: Joint Replacement, Orthopedic Surgery Male Surgical History: No Pertinent History Other Surgical History: LEFT HIP REPLACEMENT. [employer] RIGHT [employer]-STATES HAD SURGERY AND IT FROZE UP. 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 CABG and Coronary Stenting - Social History Smoking Status: Former smoker How long have you smoked: 10 yrs Exposure to second hand smoke: Yes ( - pack a day) Drug Use: none Patient Lives Alone: No <CHEYENNE DAVID - Last Filed: 08/06/18 06:54> - Review of Systems Constitutional: No Fever, No Chills Eyes: No Symptoms Ears, Nose, & Throat: No Symptoms Respiratory: No Cough, No Dyspnea Cardiac: No Chest Pain, No Edema, No Syncope Abdominal/Gastrointestinal: No Abdominal Pain, No Nausea, No Vomiting, No Diarrhea Genitourinary Symptoms: Dysuria, Hematuria Musculoskeletal: No Back Pain, No Neck Pain Neurological: No Dizziness, No Focal Weakness, No Sensory Changes Psychological: No Symptoms <CHEYENNE DAVID - Last Filed: 08/06/18 06:54> - Physical Exam General Appearance: no apparent distress, alert Eye Exam: PERRL/EOMI Ears, Nose, Throat Exam: pharynx normal, moist mucous membranes Neck Exam: normal inspection, supple Respiratory Exam: normal breath sounds, lungs clear Cardiovascular Exam: regular rate/rhythm, No edema Gastrointestinal/Abdomen Exam: soft, No tenderness Male Genital Exam: inguinal tenderness (On the R) Extremity Exam: normal inspection, normal range of motion, No pedal edema Neurologic Exam: alert, oriented x 3, cooperative, sensation nml, No motor deficits SpO2: 96 <CHEYENNE DAVID - Last Filed: 08/06/18 06:54> - Nursing Vital Signs Nursing Vital Signs: Initial Vital Signs Temperature 97.8 F 08/06/18 05:27 Pulse Rate 81 08/06/18 05:27 Respiratory Rate 24 08/06/18 05:27 Blood Pressure 140/87 08/06/18 05:27 O2 Sat by Pulse Oximetry 96 08/06/18 05:27 Pain Scale Pain Intensity 0 - Course Nursing assessment & vital signs reviewed: Yes - CT Exams Abdomen/Pelvis CT Interpretation: Tele-radiologist Report (No hydronephrosis, No uretral calculi. Avascular necrosis of the R femoral head.) <CHEYENNE DAVID - Last Filed: 08/06/18 06:54> Ordered Tests: Active Orders 24 hr Category Date Time Status IV Insertion STAT Care 08/06/18 05:46 Active ABDOMEN AND PELVIS W/0 CONTRAS [CT] Stat Exams 08/06/18 05:46 Taken CBC W DIFF Stat Lab 08/06/18 06:45 Completed CMP Stat Lab 08/06/18 06:45 Completed CULTURE,URINE Stat Lab 08/06/18 Received UA W/RFX UR CULTURE Stat Lab 08/06/18 Completed Medication Summary Discontinued Medications Generic Name Dose Route Start Last Admin Trade Name Freq PRN Reason Stop Dose Admin Sodium Chloride 1,000 mls @ 999 mls/hr 08/06/18 05:46 08/06/18 07:06 Sodium Chloride 0.9% 1000 Ml IV 08/06/18 06:46 999 mls/hr .Q1H1M STA Administration Sodium Chloride Confirm 08/06/18 06:56 Sodium Chloride 0.9% 1000 Ml Administered 08/06/18 06:57 Dose 1,000 mls @ ud .ROUTE .STK-MED ONE Lab/Rad Data: Laboratory Result Diagrams 08/06/18 06:45 08/06/18 06:45 Laboratory Results 08/06/18 08/06/18 08/06/18 Range/Units Unknown 06:45 06:45 WBC 8.3 (4.0-10.5) K/mm3 RBC 4.34 (4.1-5.6) M/mm3 Hgb 12.3 L (12.5-18.0) gm/dl Hct 37.9 L (42-50) % MCV 87.3 (78-100) fl MCH 28.3 (26-32) pg MCHC 32.5 (32-36) g/dl RDW 13.4 (11.5-14.0) % Plt Count 177 (150-450) K/mm3 MPV 10.3 H (6-9.5) fl Gran % 71.9 H (36.0-66.0) % Eos # (Auto) 0.16 (0-0.5) Absolute Lymphs (auto) 1.43 (1.0-4.6) Absolute Monos (auto) 0.71 (0.0-1.3) Lymphocytes % 17.2 L (24.0-44.0) % Monocytes % 8.6 (0.0-12.0) % Eosinophils % 1.9 (0.00-5.0) % Basophils % 0.4 (0.0-0.4) % Absolute Granulocytes 5.96 (1.4-6.9) Basophils # 0.03 (0-0.4) Sodium 138 (137-145) mmol/L Potassium 4.3 (3.5-5.1) mmol/L Chloride 103 (98-107) mmol/L Carbon Dioxide 26 (22-30) mmol/L Anion Gap 13.0 (5-15) MEQ/L BUN 24 H (9-20) mg/dL Creatinine 0.82 (0.66-1.25) mg/dL Estimated GFR > 60.0 ML/MIN Glucose 213 H (74-106) mg/dL Calcium 8.9 (8.4-10.2) mg/dL Total Bilirubin 0.50 (0.2-1.3) mg/dL AST 23 (17-59) U/L ALT 27 (0-50) U/L Alkaline Phosphatase 109 (38-126) U/L Serum Total Protein 6.6 (6.3-8.2) g/dL Albumin 3.9 (3.5-5.0) g/dL Urine Color BROWN (YELLOW) Urine Appearance CLOUDY (CLEAR) Urine pH 6.0 (5-6) Ur Specific [place] 1.023 (1.005-1.025) Urine Protein >=500 (Negative) Urine Ketones NEGATIVE (NEGATIVE) Urine Blood LARGE (0-5) Miguel A/ul Urine Nitrite NEGATIVE (NEGATIVE) Urine Bilirubin NEGATIVE (NEGATIVE) Urine Urobilinogen NEGATIVE (0-1) mg/dL Ur Leukocyte Esterase SMALL (NEGATIVE) Urine WBC (Auto) 11-15 (0-5) /HPF Urine RBC (Auto) >101 (0-2) /HPF U Epithel Cells (Auto) FEW (FEW) /HPF Urine Bacteria (Auto) FEW (NEGATIVE) /HPF Unidentified Crystals 10-25 (NEGATIVE) /HPF Urine Culture Reflexed YES (NO) Urine Glucose >=500 (NEGATIVE) mg/dL - Progress Progress: unchanged <CHEYENNE DAVID - Last Filed: 08/06/18 06:54> <RAULFAUSTINA ENCARNACION - Last Filed: 08/06/18 08:18> - Progress Progress Note: 08/06/18 06:14 Pt presented to the ED with pain and hematuria. Labs, UA and CT were ordered. CT showes no ureteral calculi, or hydronephrosis. 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 Pt was signed out to Dr Juarez. 08/06/18 06:55 (CHEYENNE DAVID) 08/06/18 08:10 This is a 72-year-old white male initially seen by Dr. David with history of coronary artery disease, DVT, hyperlipidemia, hypertension, myocardial infarction, congestive heart failure, COPD, pulmonary embolism, diabetes type 2 , osteoarthritis, GERD, CABG, coronary artery stent, DVT who is on Elaquis 2.5 mg orally twice a day as well as aspirin 81 mg a day, He arrives with complaint of dysuria hematuria and chronic right groin tenderness he states his dysuria and hematuria has been since yesterday. He has no fevers Patient is at this time in no acute distress he had received 1 L of normal saline patient's vitals are stable with temperature of 97 8 pulse 81 respiration 24 blood pressure 140/87 saturation are 96% Patient's labs CBC White blood cell 8.3 hemoglobin 12.3 hematocrit 37.9 platelets 177 Chemistry sodium 138 potassium 4.3 chloride 103 bicarbonate 26 BUN 24 creatinine 0.82, glucose 213 Urine specific gravity 1.023 protein greater than 500 negative ketones negative nitrites there are 11-15 white cells per high-power field and greater than 101 red cells per high-power field urine is brown. Patient's CT abdomen and pelvis impression 1. Advanced degenerative changes in the right hip with evidence of avascular necrosis of the right femoral head with progression compared to prior examination. 2. No ureteral calculi, no hydronephrosis 3. 1.6 probably minimally complex cyst with minimal peripheral calcification in the upper pole of the left kidney. 4. Normal appendix Impression 1 dysuria 2. hematuria 3 chronic right hip pain with avascular necrosis, 4. UTI Plan I've discussed the patient's avascular necrosis he states he is aware of this and he states that he cannot do any surgery secondary to the patient being on chronic anticoagulations for his heart. I went ahead and contacted Dr. Morse the patient's urologist he would like to leave the patient on Beatrice Ji as prescribed as well as aspirin at this time. He does however want to place the patient on Levaquin 500 mg orally daily for 7 days patient is to follow-up with Dr. Morse he is to call his office for an appointment, Patient is to return for acute distress or for severe symptoms, (FAUSTINA JUAREZ) <CHEYENNE DAVID - Last Filed: 08/06/18 06:54> - Departure Time of Disposition: 08:16 Departure Disposition: Home Critical Care Time: No <FAUSTINA JUAREZ - Last Filed: 08/06/18 08:18> - Departure Clinical Impression: avascular necrosis right hip chronic UTI (urinary tract infection) Qualifiers: Urinary tract infection type: acute cystitis Hematuria presence: with hematuria Qualified Code(s): N30.01 - Acute cystitis with hematuria Hematuria Qualifiers: Hematuria type: unspecified type Qualified Code(s): R31.9 - Hematuria, unspecified Condition: Fair Referrals: MONSE BRADSHAW MD [Primary Care Provider] - Additional Instructions: Return home, Continue current medications and treatment, Levaquin 500 mg orally daily 7 days, Follow-up with , call and schedule an appointment. Return for acute distress or for severe symptoms. Prescriptions: Levofloxacin [Levaquin] 500 mg PO DAILY #7 tablet
[2018-08-06] MEDS ORDERED: Sodium Chloride 0.9% 1000 ML 1,000 ML ONE (06:56)
[2018-08-06 07:00] LABS: BASOPHIL % 0.4 % (0.0-0.4); Basophil (Absolute #) 0.03 (0-0.4); Eosinophil % 1.9 % (0.00-5.0); Eosinophil (Absolute #) 0.16 (0-0.5); Granulocyte Absolute (ANC) 5.96 (1.4-6.9); Granulocytes % 71.9 % (36.0-66.0); Hematocrit 37.9 % (42-50); Hemoglobin 12.3 gm/dl (12.5-18.0); Lymphocyte (Absolute #) 1.43 (1.0-4.6); Lymphocytes % 17.2 % (24.0-44.0); Mean Cell Volume 87.3 fl (78-100); Mean Corpuscular Hemoglobin 28.3 pg (26-32); Mean Corpuscular Hgb Concent. 32.5 g/dl (32-36); Mean Platelet Volume 10.3 fl (6-9.5); Monocyte (Absolute #) 0.71 (0.0-1.3); Monocytes % 8.6 % (0.0-12.0); Platelet Count 177 K/mm3 (150-450); Red Blood Count 4.34 M/mm3 (4.1-5.6); Red Cell Distribution Width 13.4 % (11.5-14.0); White Blood Count 8.3 K/mm3 (4.0-10.5)
[2018-08-06 07:10] LABS: ALBUMIN 3.9 g/dL (3.5-5.0); ALKALINE PHOSPHATASE 109 U/L (38-126); BLOOD UREA NITROGEN 24 mg/dL (9-20); CHLORIDE 103 mmol/L (98-107); Calcium 8.9 mg/dL (8.4-10.2); Carbon Dioxide 26 mmol/L (22-30); Creatinine 1 0.82 mg/dL (0.66-1.25); Glucose 213 mg/dL (74-106); Potassium 4.3 mmol/L (3.5-5.1); SGOT/AST 23 U/L (17-59); SGPT/ALT 27 U/L (0-50); SODIUM 138 mmol/L (137-145); Total Protein 6.6 g/dL (6.3-8.2)
[2018-08-06 07:52] LABS: Appearance CLOUDY (CLEAR); Bacteria FEW /HPF (NEGATIVE); Bilirubin NEGATIVE (NEGATIVE); Blood LARGE Ery/ul (0-5); Glucose >=500 mg/dL (NEGATIVE); Ketones NEGATIVE (NEGATIVE); Leukocyte Esterase SMALL (NEGATIVE); Nitrite NEGATIVE (NEGATIVE); Protein,Urine Dip >=500 (Negative); Specific Gravity 1.023 (1.005-1.025); Urobilinogen NEGATIVE mg/dL (0-1)
[2018-08-06 07:53] LABS: Epithelial Cells FEW /HPF (FEW); RBC >101 /HPF (0-2)
[2018-08-06] MEDS ORDERED: Flagyl 500 MG PO ONE (08:18)
[2018-08-06 08:25] VITALS: BP 149/88; PULSE 84; O2SAT 97
[2018-08-06] MEDS ORDERED: Flagyl 500 MG ONE (08:28)
--- NOTE | 2018-08-06 09:15 | XRAY ---
Indication: Right groin/hip pain 2 days. Hematuria. Multiple contiguous axial images obtained through the abdomen and pelvis without contrast using renal stone protocol. Comparison: September 23, 2015. Lung bases again demonstrates scattered bibasilar atelectasis/scarring. Heart is not enlarged. No calculus or evidence for obstructive uropathy in either system. Stable left renal cysts. Noncontrasted stomach and bowel loops appear nonobstructed. Normal appendix. No free fluid/air. There is mild diffuse scattered colonic fecal debris throughout. Stable minimal scattered colonic diverticulosis without diverticulitis and previous cholecystectomy. Remaining liver, pancreas, spleen, adrenal glands, kidneys, ureters, and bladder appear unremarkable. Stable moderate scattered aortoiliac calcifications without AAA. Osseous structures again demonstrates moderate/advanced degenerative changes throughout the spine and left total hip arthroplasty. Progressive worsening advanced degenerative changes of the right hip. Stable small fatty umbilical hernia. Impression: 1. Again negative renal calculus or evidence for obstructive uropathy. Stable left renal cysts. 2. New fecal stasis without obstruction. 3. Again incidental colonic diverticulosis and small fatty umbilical hernia. 4. Progressive worsening advanced degenerative changes of the right hip. Comment: Preliminary interpretation was made by [facility]. No critical discrepancy. CT DI 26.28
== END 2018-08-06 08:40 | disposition home or self-care (01) ==
LOC: ED 05:20
DX: M87.9 Osteonecrosis, unspecified (principal); N30.01 Acute cystitis with hematuria; I50.9 Heart failure, unspecified; J44.9 Chronic obstructive pulmonary disease, unspecified; Z86.711 Personal history of pulmonary embolism; E11.9 Type 2 diabetes mellitus without complications; M19.90 Unspecified osteoarthritis, unspecified site; I25.810 Atherosclerosis of coronary artery bypass graft(s) without angina pectoris; E78.00 Pure hypercholesterolemia, unspecified; I10 Essential (primary) hypertension; E78.5 Hyperlipidemia, unspecified; I25.2 Old myocardial infarction
CPT/HCPCS: 36000; 36415; 74176; 80053; 81001; 85025; 87086; 96360; 99284; A9270-GY

== ENCOUNTER 2019-04-14 15:58 | Emergency (ER) | payer MEDICARE, OTHER ==
--- NOTE | 2019-04-14 16:24 | ERPHSYRPT ---
<FABIAN SEXTON - Last Filed: 04/14/19 20:13> - History of Present Illness Source: patient Exam Limitations: no limitations Patient Subjective Stated Complaint: pt here for pain to chest and left shoulder for weeks now, with increase sob and cough,sweating, no fever Triage Nursing Assessment: pt alert, resp easy, o2 3 l nc at home, skin w/d/ p.edema to lower legs that is normal for pt, Timing/Duration: week(s) (2), intermittent, worse (over past two days) Cough Quality/Degree: moderate, productive cough Possible Cause: occasional episodes Modifying Factors: Worsens With: coughing Associated Symptoms: fever, chest pain/soreness, cough, shortness of breath, wheezing, No dizziness, No earache, No facial pain, No headache, No lightheadedness, No muscle aches, No nasal congestion, No nasal drainage, No sinus infection, No sore throat International travel in last 2 weeks: No Hx Tetanus, Diphtheria Vaccination/Date Given: No Hx Influenza Vaccination/Date Given: No Hx Pneumococcal Vaccination/Date Given: Yes Immunizations Up to Date: Yes <LOREN SHARPE - Last Filed: 04/16/19 01:49> - History of Present Illness Time Seen by Provider: 04/14/19 16:05 Physician History: Cough for 2 weeks with increasing sputum production, dyspnea and chest pain over the past two days. (LOREN SHARPE) Allergies/Adverse Reactions: gemfibrozil Allergy (Verified 04/14/19 16:13) pineapple [Pineapple] Adverse Reaction (Verified 04/14/19 16:13) VOMITING Home Medications: Atorvastatin Calcium 80 mg PO HS 10/30/14 [History] Isosorbide Mononitrate 30 mg [Imdur 30 MG] 30 mg PO DAILY 10/30/14 [History ] Metformin HCl 500 mg [Glucophage 500 MG] 1,000 mg PO BIDAC 10/30/14 [ History] Lisinopril 5 mg [Zestril 5 MG] 5 mg PO DAILY 10/29/15 [History] Amlodipine Besylate 5 mg [Norvasc 5 mg] 5 mg PO DAILY 04/18/17 [History] Famotidine [Pepcid] 40 mg PO HS 04/18/17 [History] Tamsulosin HCl 0.4 mg [Flomax 0.4 MG] 0.4 mg PO DAILY 04/18/17 [History] Aspirin EC 81 mg [Ecotrin 81 mg] 81 mg PO DAILY 06/26/17 [History] Cholecalciferol (Vitamin D3) [Vitamin D3] 5,000 unit PO WEEKLY 06/26/17 [History ] Insulin Glargine [Lantus Insulin] 20 unit SQ BID 06/26/17 [History] Zolpidem Tartrate [Ambien] 10 mg PO HS 06/26/17 [History] Apixaban [Eliquis 2.5 mg Tablet] 2.5 mg PO BID 08/06/18 [History] Bumetanide 1 mg [Bumex 1 mg] 1 mg PO DAILY 08/06/18 [History] Magnesium Oxide [Magnesium] 400 mg PO DAILY 08/06/18 [History] Oxybutynin Chloride [Oxybutynin Chloride ER] 10 mg PO DAILY 08/06/18 [History] Potassium Chloride 10 Meq Tab* [Klor Con 10 MEQ] 10 meq PO DAILY 08/06/18 [ History] Oxycodone / APAP 10/325 mg [Oxycodone-Acetaminophen 10-325] 1 tab QID 08/28 [History] - Review of Systems Constitutional: Fever, No Chills, No Fatigue Eyes: No Eye Pain, No Vision Changes Ears, Nose, & Throat: No Ear Pain, No Sinus Drainage, No Mouth Swelling, No Throat Pain, No Painful Swallowing Respiratory: Cough, Dyspnea, Wheezing Cardiac: Chest Pain, No Edema, No Palpitations, No Syncope Abdominal/Gastrointestinal: No Abdominal Pain, No Nausea, No Vomiting, No Hematemesis, No Hematochezia, No Melena Genitourinary Symptoms: No Dysuria, No Frequency, No Hematuria, No Urinary Retention, No Flank Pain Musculoskeletal: No Back Pain, No Neck Pain, No Joint Swelling Skin: No Pruritis, No Rash Neurological: No Dizziness, No Focal Weakness, No Headache, No Lethargy, No Paralysis, No Parasthesia Psychological: No Anxiety Endocrine: No Excessive Sweating Hematologic/Lymphatic: No Easy Bleeding, No Easy Bruising All Other Systems: Reviewed and Negative <DELLINOGODWINBARAK VAMSI - Last Filed: 04/16/19 01:49> - Past Medical History Pertinent Past Medical History: Yes Neurological History: No Pertinent History ENT History: No Pertinent History Cardiac History: Coronary Artery Disease, Deep Vein Thrombosis, High Cholesterol , Hypertension, Myocardial Infarction ([place]) Respiratory History: CHF, COPD, Pulmonary Embolism Endocrine Medical History: Diabetes Type II Musculoskeletal History: Osteoarthritis GI Medical History: GERD History: No Pertinent History Psycho-Social History: No Pertinent History Male Reproductive Disorders: No Pertinent History Other Medical History: CABG. Coronary stenting. DVT - Past Surgical History Past Surgical History: Yes Neuro Surgical History: No Pertinent History Cardiac: CABG, Cardiac Catheterization, Cardiac Stent Respiratory: No Pertinent History Gastrointestinal: Cholecystectomy Genitourinary: No Pertinent History Musculoskeletal: Joint Replacement, Orthopedic Surgery Male Surgical History: No Pertinent History Other Surgical History: LEFT HIP REPLACEMENT. LITTLE FINGER RIGHT HAND-STATES HAD SURGERY AND IT FROZE UP. 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 CABG and Coronary Stenting - Social History Smoking Status: Former smoker How long have you smoked: 10 yrs Exposure to second hand smoke: Yes ( - pack a day) Drug Use: none Patient Lives Alone: No <DELLINOGODWINBARAK VAMSI - Last Filed: 04/16/19 01:49> - Physical Exam General Appearance: no apparent distress, alert Eye Exam: PERRL/EOMI, eyes nml inspection, No scleral icterus, No pale conjunctivae Ears, Nose, Throat Exam: normal ENT inspection, TMs normal, pharynx normal, moist mucous membranes Neck Exam: normal inspection, non-tender, supple, full range of motion, No meningismus, No Brudzinski, No lymphadenopathy Respiratory Exam: airway intact, diminished breath sounds, No chest tenderness, No respiratory distress, No accessory muscle use, No prolonged expirations, No crackles/rales, No rhonchi, No wheezing, No stridor, No pleural rub Cardiovascular Exam: regular rate/rhythm, normal heart sounds, normal peripheral pulses, capillary refill <2 sec Gastrointestinal/Abdomen Exam: soft, normal bowel sounds, No tenderness, No distention, No rebound Back Exam: normal inspection, normal range of motion, No CVA tenderness, No vertebral tenderness, No rash Extremity Exam: normal inspection, normal range of motion, pelvis stable, No calf tenderness, No sergio's sign, No pedal edema Neurologic Exam: alert, oriented x 3, cooperative, 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, normal mood/affect, No sensation nml, No motor deficits Skin Exam: normal color, warm, dry, No rash, No petechiae, No jaundice, No cyanosis SpO2 Interpretation: normal SpO2: 98 O2 Delivery: Nasal Cannula (2Liters, home oxygen) <LOREN SHARPE VAMSI - Last Filed: 04/16/19 01:49> - Nursing Vital Signs Nursing Vital Signs: Initial Vital Signs Temperature 98.2 F 04/14/19 16:01 Pulse Rate 95 H 04/14/19 16:01 Respiratory Rate 18 04/14/19 16:01 Blood Pressure 159/96 04/14/19 16:01 O2 Sat by Pulse Oximetry 98 04/14/19 16:01 Pain Scale Pain Intensity 2 - Course Nursing assessment & vital signs reviewed: Yes EKG Interpreted by Me: RATE (86), Sinus Rhythm, NORMAL AXIS, NORMAL INTERVALS, NORMAL QRS, NORMAL ST-T, Other (no change in comparison to EKG from 07/04/2017) <LOREN SHARPE VAMSI - Last Filed: 04/16/19 01:49> Ordered Tests: Active Orders 24 hr Category Date Time Status Respiratory Therapy Assessment DAILY RT 04/15/19 07:00 Active Medication Summary Discontinued Medications Generic Name Dose Route Start Last Admin Trade Name Freq PRN Reason Stop Dose Admin Albuterol/Ipratropium 3 ml 04/14/19 16:01 04/14/19 17:00 Duoneb 0.5-3 Mg/3 Ml Neb IH 04/14/19 16:02 3 ml STAT ONE Administration Albuterol/Ipratropium Confirm 04/14/19 16:55 Duoneb 0.5-3 Mg/3 Ml Neb Administered 04/14/19 16:56 Dose 3 ml IH .STK-MED ONE Sodium Chloride 1,000 mls @ 999 mls/hr 04/14/19 16:01 04/14/19 18:40 Sodium Chloride 0.9% 1000 Ml IV 04/14/19 17:01 Infused .Q1H1M STA Infusion Sodium Chloride Confirm 04/14/19 16:51 Sodium Chloride 0.9% 1000 Ml Administered 04/14/19 16:52 Dose 1,000 mls @ ud .ROUTE .STK-MED ONE Magnesium Sulfate/Dextrose 100 mls @ 200 mls/hr 04/14/19 17:23 04/14/19 17:47 Magnesium 1 Gm / 100 Ml D5w IV 04/14/19 17:52 200 mls/hr STAT ONE Administration Sodium Chloride 1,000 mls @ 999 mls/hr 04/14/19 17:40 Sodium Chloride 0.9% 1000 Ml IV 04/14/19 18:40 .Q1H1M STA Magnesium Sulfate/Dextrose Confirm 04/14/19 17:45 Magnesium 1 Gm / 100 Ml D5w Administered 04/14/19 17:46 Dose 100 mls @ ud IV .STK-MED ONE Levalbuterol HCl 1.25 mg 04/14/19 16:01 04/14/19 17:01 Xopenex 1.25 Mg/0.5 Ml Ud Nebule IH 04/14/19 16:02 1.25 mg STAT ONE Administration Levalbuterol HCl Confirm 04/14/19 16:55 Xopenex 1.25 Mg/0.5 Ml Ud Nebule Administered 04/14/19 16:56 Dose 1.25 mg IH .STK-MED ONE Methylprednisolone Sodium Succinate 125 mg 04/14/19 16:01 04/14/19 16:56 Solu-Medrol 125 Mg IV 04/14/19 16:02 125 mg STAT ONE Administration Methylprednisolone Sodium Succinate Confirm 04/14/19 16:51 Solu-Medrol 125 Mg Administered 04/14/19 16:52 Dose 125 mg .ROUTE .STK-MED ONE Lab/Rad Data: Laboratory Result Diagrams 04/14/19 16:42 04/14/19 16:42 Laboratory Results 04/14/19 04/14/19 04/14/19 Range/Units 19:16 19:16 19:08 WBC (4.0-10.5) K/mm3 RBC (4.1-5.6) M/mm3 Hgb (12.5-18.0) gm/dl Hct (42-50) % MCV (78-100) fl MCH (26-32) pg MCHC (32-36) g/dl RDW (11.5-14.0) % Plt Count (150-450) K/mm3 MPV (6-9.5) fl Gran % (36.0-66.0) % Eos # (Auto) (0-0.5) Absolute Lymphs (auto) (1.0-4.6) Absolute Monos (auto) (0.0-1.3) Lymphocytes % (24.0-44.0) % Monocytes % (0.0-12.0) % Eosinophils % (0.00-5.0) % Basophils % (0.0-0.4) % Absolute Granulocytes (1.4-6.9) Basophils # (0-0.4) PT (8.83-12.87) SECONDS INR (0.8-3.0) APTT (24.1-36.1) SECONDS pO2/FiO2 Ratio % VBG pH (7.32-7.42) VBG pCO2 at Pat Temp (42-55) mm/Hg VBG pO2 at Pat Temp (25-40) mm/Hg VBG HCO3 (22-28) meq/L VBG O2 Sat (Rossy) (95-100) VBG Base Excess (-2.0-2.0) VBG Hemoglobin VBG Carboxyhemoglobin (0.0-6.9) % T HGB POC Potassium (3.5-5.1) Sodium (137-145) mmol/L Potassium (3.5-5.1) mmol/L Chloride (98-107) mmol/L Carbon Dioxide (22-30) mmol/L Anion Gap (5-15) MEQ/L BUN (9-20) mg/dL Creatinine (0.66-1.25) mg/dL Estimated GFR ML/MIN Glucose (74-106) mg/dL Lactic Acid 1.5 (0.4-2.0) Calcium (8.4-10.2) mg/dL Magnesium (1.6-2.3) mg/dL Total Bilirubin (0.2-1.3) mg/dL AST (17-59) U/L ALT (0-50) U/L Alkaline Phosphatase (38-126) U/L Troponin I < 0.012 (0.000-0.034) ng/mL NT-Pro-B Natriuret Pep (0-900) pg/mL Serum Total Protein (6.3-8.2) g/dL Albumin (3.5-5.0) g/dL Amylase (30-110) U/L Lipase (23-300) U/L Urine Color YELLOW (YELLOW) Urine Appearance CLEAR (CLEAR) Urine pH 5.0 (5-6) Ur Specific [place] 1.029 (1.005-1.025) Urine Protein 100 (Negative) Urine Ketones TRACE (NEGATIVE) Urine Blood NEGATIVE (0-5) Miguel A/ul Urine Nitrite NEGATIVE (NEGATIVE) Urine Bilirubin NEGATIVE (NEGATIVE) Urine Urobilinogen NEGATIVE (0-1) mg/dL Ur Leukocyte Esterase NEGATIVE (NEGATIVE) Urine WBC (Auto) 0-2 (0-5) /HPF Urine RBC (Auto) 0-2 (0-2) /HPF U Hyaline Cast (Auto) 0-2 (0-2) /LPF U Epithel Cells (Auto) NONE (FEW) /HPF Urine Bacteria (Auto) NONE SEEN (NEGATIVE) /HPF Urine Mucus (Auto) SLIGHT (NEGATIVE) /HPF Urine Culture Reflexed NO (NO) Urine Glucose >=500 (NEGATIVE) mg/dL Influenza Type A Ag (NEGATIVE) Influenza Type B Ag (NEGATIVE) RSV (PCR) (Negative) 04/14/19 04/14/19 04/14/19 Range/Units 17:00 16:42 16:42 WBC (4.0-10.5) K/mm3 RBC (4.1-5.6) M/mm3 Hgb (12.5-18.0) gm/dl Hct (42-50) % MCV (78-100) fl MCH (26-32) pg MCHC (32-36) g/dl RDW (11.5-14.0) % Plt Count (150-450) K/mm3 MPV (6-9.5) fl Gran % (36.0-66.0) % Eos # (Auto) (0-0.5) Absolute Lymphs (auto) (1.0-4.6) Absolute Monos (auto) (0.0-1.3) Lymphocytes % (24.0-44.0) % Monocytes % (0.0-12.0) % Eosinophils % (0.00-5.0) % Basophils % (0.0-0.4) % Absolute Granulocytes (1.4-6.9) Basophils # (0-0.4) PT (8.83-12.87) SECONDS INR (0.8-3.0) APTT (24.1-36.1) SECONDS pO2/FiO2 Ratio 21.0 % VBG pH 7.41 (7.32-7.42) VBG pCO2 at Pat Temp 43 (42-55) mm/Hg VBG pO2 at Pat Temp 58 H (25-40) mm/Hg VBG HCO3 27.3 (22-28) meq/L VBG O2 Sat (Rossy) 91.7 L (95-100) VBG Base Excess 2.2 H (-2.0-2.0) VBG Hemoglobin 13.6 VBG Carboxyhemoglobin 2.8 (0.0-6.9) % T HGB POC Potassium 4.5 (3.5-5.1) Sodium (137-145) mmol/L Potassium (3.5-5.1) mmol/L Chloride (98-107) mmol/L Carbon Dioxide (22-30) mmol/L Anion Gap (5-15) MEQ/L BUN (9-20) mg/dL Creatinine (0.66-1.25) mg/dL Estimated GFR ML/MIN Glucose (74-106) mg/dL Lactic Acid 3.2 H (0.4-2.0) Calcium (8.4-10.2) mg/dL Magnesium (1.6-2.3) mg/dL Total Bilirubin (0.2-1.3) mg/dL AST (17-59) U/L ALT (0-50) U/L Alkaline Phosphatase (38-126) U/L Troponin I < 0.012 (0.000-0.034) ng/mL NT-Pro-B Natriuret Pep (0-900) pg/mL Serum Total Protein (6.3-8.2) g/dL Albumin (3.5-5.0) g/dL Amylase (30-110) U/L Lipase (23-300) U/L Urine Color (YELLOW) Urine Appearance (CLEAR) Urine pH (5-6) Ur Specific [place] (1.005-1.025) Urine Protein (Negative) Urine Ketones (NEGATIVE) Urine Blood (0-5) Miguel A/ul Urine Nitrite (NEGATIVE) Urine Bilirubin (NEGATIVE) Urine Urobilinogen (0-1) mg/dL Ur Leukocyte Esterase (NEGATIVE) Urine WBC (Auto) (0-5) /HPF Urine RBC (Auto) (0-2) /HPF U Hyaline Cast (Auto) (0-2) /LPF U Epithel Cells (Auto) (FEW) /HPF Urine Bacteria (Auto) (NEGATIVE) /HPF Urine Mucus (Auto) (NEGATIVE) /HPF Urine Culture Reflexed (NO) Urine Glucose (NEGATIVE) mg/dL Influenza Type A Ag NEGATIVE (NEGATIVE) Influenza Type B Ag NEGATIVE (NEGATIVE) RSV (PCR) NEGATIVE (Negative) 04/14/19 04/14/19 04/14/19 Range/Units 16:42 16:42 16:42 WBC 7.3 (4.0-10.5) K/mm3 RBC 4.39 (4.1-5.6) M/mm3 Hgb 13.0 (12.5-18.0) gm/dl Hct 38.8 L (42-50) % MCV 88.4 (78-100) fl MCH 29.6 (26-32) pg MCHC 33.5 (32-36) g/dl RDW 13.3 (11.5-14.0) % Plt Count 232 (150-450) K/mm3 MPV 10.7 H (6-9.5) fl Gran % 64.7 (36.0-66.0) % Eos # (Auto) 0.28 (0-0.5) Absolute Lymphs (auto) 1.70 (1.0-4.6) Absolute Monos (auto) 0.56 (0.0-1.3) Lymphocytes % 23.4 L (24.0-44.0) % Monocytes % 7.7 (0.0-12.0) % Eosinophils % 3.8 (0.00-5.0) % Basophils % 0.4 (0.0-0.4) % Absolute Granulocytes 4.71 (1.4-6.9) Basophils # 0.03 (0-0.4) PT 12.1 (8.83-12.87) SECONDS INR 1.07 (0.8-3.0) APTT 32.6 (24.1-36.1) SECONDS pO2/FiO2 Ratio % VBG pH (7.32-7.42) VBG pCO2 at Pat Temp (42-55) mm/Hg VBG pO2 at Pat Temp (25-40) mm/Hg VBG HCO3 (22-28) meq/L VBG O2 Sat (Rossy) (95-100) VBG Base Excess (-2.0-2.0) VBG Hemoglobin VBG Carboxyhemoglobin (0.0-6.9) % T HGB POC Potassium (3.5-5.1) Sodium 140 (137-145) mmol/L Potassium 4.4 (3.5-5.1) mmol/L Chloride 102 (98-107) mmol/L Carbon Dioxide 26 (22-30) mmol/L Anion Gap 15.8 H (5-15) MEQ/L BUN 24 H (9-20) mg/dL Creatinine 0.81 (0.66-1.25) mg/dL Estimated GFR > 60.0 ML/MIN Glucose 244 H (74-106) mg/dL Lactic Acid (0.4-2.0) Calcium 9.7 (8.4-10.2) mg/dL Magnesium 1.5 L (1.6-2.3) mg/dL Total Bilirubin 0.50 (0.2-1.3) mg/dL AST 34 (17-59) U/L ALT 30 (0-50) U/L Alkaline Phosphatase 113 (38-126) U/L Troponin I (0.000-0.034) ng/mL NT-Pro-B Natriuret Pep 122 (0-900) pg/mL Serum Total Protein 7.3 (6.3-8.2) g/dL Albumin 4.3 (3.5-5.0) g/dL Amylase 83 (30-110) U/L Lipase 198 (23-300) U/L Urine Color (YELLOW) Urine Appearance (CLEAR) Urine pH (5-6) Ur Specific [place] (1.005-1.025) Urine Protein (Negative) Urine Ketones (NEGATIVE) Urine Blood (0-5) Miguel A/ul Urine Nitrite (NEGATIVE) Urine Bilirubin (NEGATIVE) Urine Urobilinogen (0-1) mg/dL Ur Leukocyte Esterase (NEGATIVE) Urine WBC (Auto) (0-5) /HPF Urine RBC (Auto) (0-2) /HPF U Hyaline Cast (Auto) (0-2) /LPF U Epithel Cells (Auto) (FEW) /HPF Urine Bacteria (Auto) (NEGATIVE) /HPF Urine Mucus (Auto) (NEGATIVE) /HPF Urine Culture Reflexed (NO) Urine Glucose (NEGATIVE) mg/dL Influenza Type A Ag (NEGATIVE) Influenza Type B Ag (NEGATIVE) RSV (PCR) (Negative) <FABIAN SEXTON - Last Filed: 04/14/19 20:13> - Progress Progress: improved, re-examined Air Movement: good Blood Culture(s) Obtained: Yes Antibiotics given: No Counseled pt/family regarding: lab results, diagnosis, need for follow-up, rad results <LOREN SHARPE - Last Filed: 04/16/19 01:49> - Progress Progress Note: 04/14/19 20:13 no cp, soa improved 04/14/19 20:13 cxr- no acute process (FABIAN SEXTON) 04/14/19 19:[address] Sexton, [facility] Emergency Department Attending. Care transfer to Dr. Sexton. Dr. Sexton will determine final disposition the patient after evaluation labs, imaging studies, and reevaluation of patient. (LOREN SHARPE) - Departure Departure Disposition: Home Critical Care Time: No <FABIAN SEXTON - Last Filed: 04/14/19 20:13> <LOREN SHARPE - Last Filed: 04/16/19 01:49> - Departure Clinical Impression: COPD exacerbation, Elevated lactic acid level Hypertension Qualifiers: Hypertension type: essential hypertension Qualified Code(s): I10 - Essential ( primary) hypertension Condition: Good Referrals: MONSE BRADSHAW MD [Primary Care Provider] - 04/15/19 Instructions: Chronic Obstructive Pulmonary Disease, Atypical Chest Pain Additional Instructions: continue medications as prescribed. follow up with primary doctor for further management Prescriptions: Fluticasone/Salmeterol Disc [Advair 250-50 Diskus 14 Dose] 1 each IH BID # 1 disk.w.dev Prednisone 20 mg [Deltasone 20 mg] 60 mg PO DAILY #12 tablet
[2019-04-14 16:49] LABS: INR 1.07 (0.8-3.0); PROTIME 12.1 SECONDS (8.83-12.87)
[2019-04-14 16:51] LABS: PTT 32.6 SECONDS (24.1-36.1)
[2019-04-14] MEDS ORDERED: solu-MEDROL 125 MG ONE (16:51)
[2019-04-14] MEDS ORDERED: Sodium Chloride 0.9% 1000 ML 1,000 ML ONE (16:51)
[2019-04-14] MEDS ORDERED: Xopenex 1.25 MG/0.5 ML UD NEBULE IH ONE (16:55)
[2019-04-14] MEDS ORDERED: DUONEB 0.5-3 MG/3 ml Neb IH ONE (16:55)
[2019-04-14] MEDS: Sodium Chloride 0.9% 1000 ML 1,000 ML IV STA (16:56)
[2019-04-14] MEDS: solu-MEDROL 125 MG IV ONE (16:56)
[2019-04-14] MEDS: DUONEB 0.5-3 MG/3 ml Neb IH ONE (17:00)
[2019-04-14] MEDS: Xopenex 1.25 MG/0.5 ML UD NEBULE IH ONE (17:01)
[2019-04-14 17:02] LABS: ALBUMIN 4.3 g/dL (3.5-5.0); ALKALINE PHOSPHATASE 113 U/L (38-126); AMYLASE 83 U/L (30-110); ANION GAP 15.8 MEQ/L (5-15); BLOOD UREA NITROGEN 24 mg/dL (9-20); CHLORIDE 102 mmol/L (98-107); Calcium 9.7 mg/dL (8.4-10.2); Carbon Dioxide 26 mmol/L (22-30); Creatinine 1 0.81 mg/dL (0.66-1.25); Glucose 244 mg/dL (74-106); LIPASE 198 U/L (23-300); MAGNESIUM 1.5 mg/dL (1.6-2.3); NT PRO BNP 122 pg/mL (0-900); Potassium 4.4 mmol/L (3.5-5.1); SGOT/AST 34 U/L (17-59); SGPT/ALT 30 U/L (0-50); SODIUM 140 mmol/L (137-145); Total Protein 7.3 g/dL (6.3-8.2)
[2019-04-14 17:12] LABS: Absolute Neutrophil Ct (ANC) 4.71 (1.4-6.9); BASOPHIL % 0.4 % (0.0-0.4); Basophil (Absolute #) 0.03 (0-0.4); Eosinophil % 3.8 % (0.00-5.0); Eosinophil (Absolute #) 0.28 (0-0.5); Hematocrit 38.8 % (42-50); Lymphocytes % 23.4 % (24.0-44.0); Mean Cell Volume 88.4 fl (78-100); Mean Corpuscular Hemoglobin 29.6 pg (26-32); Mean Corpuscular Hgb Concent. 33.5 g/dl (32-36); Mean Platelet Volume 10.7 fl (6-9.5); Monocyte (Absolute #) 0.56 (0.0-1.3); Monocytes % 7.7 % (0.0-12.0); Neutrophil % 64.7 % (36.0-66.0); Platelet Count 232 K/mm3 (150-450); Red Blood Count 4.39 M/mm3 (4.1-5.6); Red Cell Distribution Width 13.3 % (11.5-14.0); White Blood Count 7.3 K/mm3 (4.0-10.5)
[2019-04-14 17:21] LABS: INFLUENZA A NEGATIVE (NEGATIVE); INFLUENZA B NEGATIVE (NEGATIVE); RESPIRATORY SYNCTIAL VIRUS NEGATIVE (Negative)
[2019-04-14 17:35] LABS: Lactic Acid 3.2 (0.4-2.0); VBG BASE EXCESS 2.2 (-2.0-2.0); VBG CARBOXYHEMOGLOBIN 2.8 % T HGB (0.0-6.9); VBG HCO3- 27.3 meq/L (22-28); VBG HEMOGLOBIN 13.6; VBG O2 SATURATION 91.7 (95-100); VBG PCO2 43 mm/Hg (42-55); VBG PO2 58 mm/Hg (25-40); VBG POTASSIUM 4.5 (3.5-5.1); VBG pH 7.41 (7.32-7.42)
[2019-04-14] MEDS ORDERED: Sodium Chloride 0.9% 1000 ML 1,000 ML IV STA (17:40)
[2019-04-14] MEDS ORDERED: Magnesium 1 Gm / 100 Ml D5W*** 100 ML IV ONE (17:45)
[2019-04-14] MEDS: Magnesium 1 Gm / 100 Ml D5W*** 100 ML IV ONE (17:47)
[2019-04-14 19:40] LABS: Appearance CLEAR (CLEAR); Bilirubin NEGATIVE (NEGATIVE); Blood NEGATIVE Ery/ul (0-5); Glucose >=500 mg/dL (NEGATIVE); Hyaline Casts 0-2 /LPF (0-2); Ketones TRACE (NEGATIVE); Leukocyte Esterase NEGATIVE (NEGATIVE); Mucus SLIGHT /HPF (NEGATIVE); Nitrite NEGATIVE (NEGATIVE); Protein,Urine Dip 100 (Negative); RBC 0-2 /HPF (0-2); Specific Gravity 1.029 (1.005-1.025); Urobilinogen NEGATIVE mg/dL (0-1); WBC 0-2 /HPF (0-5)
[2019-04-14 19:41] LABS: Bacteria NONE SEEN /HPF (NEGATIVE)
--- NOTE | 2019-04-14 20:03 | XRAY ---
Indication: Cough 2 weeks. Comparison: April 18, 2017. Portable chest again demonstrates chronic right hemidiaphragm elevation with right base atelectasis/scarring. No focal infiltrate, consolidation, or large effusion. Heart is not enlarged again demonstrating CABG surgery. New left single lead pacemaker. Bony thorax intact again with mild osteopenia and degenerative changes. Impression: Nonacute chest with chronic features.
[2019-04-14 20:41] VITALS: BP 135/78; PULSE 76
[2019-04-16 01:50] VITALS: O2SAT 98
== END 2019-04-14 20:47 | disposition home or self-care (01) ==
LOC: ED 15:58
DX: J44.1 Chronic obstructive pulmonary disease with (acute) exacerbation (principal); R74.0 Nonspecific elevation of levels of transaminase and lactic acid dehydrogenase [LDH]; I10 Essential (primary) hypertension
CPT/HCPCS: 36000; 36415; 71045; 80053; 81001; 82150; 82805; 83605; 83690; 83735; 83880; 84484; 85025; 85610; 85730; 87040; 87631; 93005; 93041; 94150; 94640; 94760; 96360; 96365; 96374; 99285; J2930; J3475; A9270-GY

== ENCOUNTER 2019-05-01 08:56 | Emergency (ER) | payer MEDICARE, OTHER ==
[2019-05-01] MEDS ORDERED: MORPHINE SULFATE 4 MG INJ IV ONE (09:23)
[2019-05-01] MEDS ORDERED: Zofran 4 MG/2 ML VIAL IV ONE (09:23)
[2019-05-01] MEDS ORDERED: Zofran 4 MG/2 ML VIAL ONE (09:27)
[2019-05-01] MEDS ORDERED: MORPHINE SULFATE 4 MG INJ ONE (09:27)
--- NOTE | 2019-05-01 09:31 | ERPHSYRPT ---
- History of Present Illness Time Seen by Provider: 05/01/19 09:15 Source: patient Exam Limitations: no limitations Patient Subjective Stated Complaint: Pt c/o of nita upper thigh pain on the lateral side just below the buttocks, pt is on blood thinners and states that he clots easily, denies any new exercises or anyting strenuous Triage Nursing Assessment: Pt brought into the ER via a wheelchair, walks with a cane, denies pain to legs with palpatation, states that the pain is a throbbing pain like a toothache, hypertensive, pulses normal, skin on legs is cool to touch, no deformities, rates pain 01/19 Physician History: 73 years old male with history of DVT on anticoagulants present in the ER with bilateral posterior thigh/hamstring pain for almost 2 days. Patient describes this as dull constant ache without any significant aggravating or relieving factors, moderate intensity, not associated with any swelling of thighs, redness or direct fall/trauma. Does have chronic hip and knee pain which is different than this pain. Patient does have a history of hypokalemia/ hypomagnesemia and takes oral replacements. Denies any back pain, exertional activities recently. No loss of bowel or bladder control. No numbness tingling or weakness of her lower extremities. Timing/Duration: day(s) (2) Severity: moderate Allergies/Adverse Reactions: gemfibrozil Allergy (Verified 05/01/19 09:13) pineapple [Pineapple] Adverse Reaction (Verified 05/01/19 09:13) VOMITING Home Medications: Atorvastatin Calcium 80 mg PO HS 10/30/14 [History] Isosorbide Mononitrate 30 mg [Imdur 30 MG] 30 mg PO DAILY 10/30/14 [History ] Metformin HCl 500 mg [Glucophage 500 MG] 1,000 mg PO BIDAC 10/30/14 [ History] Lisinopril 5 mg [Zestril 5 MG] 5 mg PO DAILY 10/29/15 [History] Amlodipine Besylate 5 mg [Norvasc 5 mg] 5 mg PO DAILY 04/18/17 [History] Famotidine [Pepcid] 40 mg PO HS 04/18/17 [History] Tamsulosin HCl 0.4 mg [Flomax 0.4 MG] 0.4 mg PO DAILY 04/18/17 [History] Aspirin EC 81 mg [Ecotrin 81 mg] 81 mg PO DAILY 06/26/17 [History] Cholecalciferol (Vitamin D3) [Vitamin D3] 5,000 unit PO WEEKLY 06/26/17 [History ] Insulin Glargine [Lantus Insulin] 20 unit SQ BID 06/26/17 [History] Zolpidem Tartrate [Ambien] 10 mg PO HS 06/26/17 [History] Apixaban [Eliquis 2.5 mg Tablet] 2.5 mg PO BID 08/06/18 [History] Bumetanide 1 mg [Bumex 1 mg] 1 mg PO DAILY 08/06/18 [History] Magnesium Oxide [Magnesium] 400 mg PO DAILY 08/06/18 [History] Oxybutynin Chloride [Oxybutynin Chloride ER] 10 mg PO DAILY 08/06/18 [History] Potassium Chloride 10 Meq Tab* [Klor Con 10 MEQ] 10 meq PO DAILY 08/06/18 [ History] Oxycodone / APAP 10/325 mg [Oxycodone-Acetaminophen 10-325] 1 tab QID 08/28 [History] Hx Tetanus, Diphtheria Vaccination/Date Given: No Hx Influenza Vaccination/Date Given: No Hx Pneumococcal Vaccination/Date Given: Yes - Review of Systems Constitutional: No Symptoms Eyes: No Symptoms Ears, Nose, & Throat: No Symptoms Respiratory: Cough Cardiac: No Symptoms Abdominal/Gastrointestinal: No Symptoms Genitourinary Symptoms: No Symptoms Musculoskeletal: Joint Pain Skin: No Symptoms Neurological: No Symptoms Psychological: No Symptoms Endocrine: No Symptoms Immunological/Allergic: No Symptoms - Past Medical History Pertinent Past Medical History: Yes Neurological History: No Pertinent History ENT History: No Pertinent History Cardiac History: Coronary Artery Disease, Deep Vein Thrombosis, High Cholesterol , Hypertension, Myocardial Infarction ([place]) Respiratory History: CHF, COPD, Pulmonary Embolism Endocrine Medical History: Diabetes Type II Musculoskeletal History: Osteoarthritis GI Medical History: GERD History: No Pertinent History Psycho-Social History: No Pertinent History Male Reproductive Disorders: No Pertinent History Other Medical History: CABG. Coronary stenting. DVT - Past Surgical History Past Surgical History: Yes Neuro Surgical History: No Pertinent History Cardiac: CABG, Cardiac Catheterization, Cardiac Stent Respiratory: No Pertinent History Gastrointestinal: Cholecystectomy Genitourinary: No Pertinent History Musculoskeletal: Joint Replacement, Orthopedic Surgery Male Surgical History: No Pertinent History Other Surgical History: LEFT HIP REPLACEMENT. LITTLE [employer]ING[employer] RIGHT HAND-STATES HAD SURGERY AND IT FROZE UP. 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 CABG and Coronary Stenting - Social History Smoking Status: Former smoker How long have you smoked: 10 yrs Exposure to second hand smoke: Yes ( - pack a day) Drug Use: none Patient Lives Alone: No - Nursing Vital Signs Nursing Vital Signs: Initial Vital Signs Temperature 97.4 F 05/01/19 09:02 Pulse Rate 90 05/01/19 09:02 Blood Pressure 151/83 05/01/19 09:02 O2 Sat by Pulse Oximetry 98 05/01/19 09:02 Pain Scale Pain Intensity [Right Lateral 8 Thigh] Pain Intensity [Left Lateral 8 Thigh] Pain Intensity 6 - Physical Exam General Appearance: no apparent distress Eye Exam: eyes nml inspection Ears, Nose, Throat Exam: normal ENT inspection Neck Exam: normal inspection, non-tender, supple Respiratory Exam: normal breath sounds, chest tenderness, lungs clear, No respiratory distress Cardiovascular Exam: regular rate/rhythm, normal heart sounds Gastrointestinal/Abdomen Exam: soft, normal bowel sounds, No tenderness Back Exam: normal inspection, normal range of motion, No CVA tenderness, No vertebral tenderness, No point tenderness Extremity Exam: normal inspection, normal range of motion, pelvis stable, tenderness (bilateral hamstrings wwithout any erythema/redness. No bony tenderness. Intact range of motion. hip and knees) Neurologic Exam: alert, oriented x 3, cooperative, normal mood/affect Skin Exam: normal color, warm SpO2: 98 - Course Nursing assessment & vital signs reviewed: Yes Ordered Tests: Active Orders 24 hr Category Date Time Status VENOUS BILATERAL EXTREMITY [US] Stat Exams 05/01/19 10:46 Completed CBC W DIFF Stat Lab 05/01/19 09:30 Completed CMP Stat Lab 05/01/19 09:30 Completed MAG [MAGNESIUM] Stat Lab 05/01/19 09:30 Completed Medication Summary Discontinued Medications Generic Name Dose Route Start Last Admin Trade Name Freq PRN Reason Stop Dose Admin Morphine Sulfate 4 mg 05/01/19 09:23 05/01/19 09:35 Morphine Sulfate 4 Mg Inj IV 05/01/19 09:24 4 mg STAT ONE Administration Morphine Sulfate Confirm 05/01/19 09:27 Morphine Sulfate 4 Mg Inj Administered 05/01/19 09:28 Dose 4 mg .ROUTE .STK-MED ONE Ondansetron HCl 4 mg 05/01/19 09:23 05/01/19 09:35 Zofran 4 Mg/2 Ml Vial IV 05/01/19 09:24 4 mg STAT ONE Administration Ondansetron HCl Confirm 05/01/19 09:27 Zofran 4 Mg/2 Ml Vial Administered 05/01/19 09:28 Dose 4 mg .ROUTE .STK-MED ONE Lab/Rad Data: Laboratory Result Diagrams 05/01/19 09:30 05/01/19 09:30 Laboratory Results 05/01/19 05/01/19 05/01/19 Range/Units 09:30 09:30 09:30 WBC 6.1 (4.0-10.5) K/mm3 RBC 4.45 (4.1-5.6) M/mm3 Hgb 12.9 (12.5-18.0) gm/dl Hct 39.9 L (42-50) % MCV 89.7 (78-100) fl MCH 29.0 (26-32) pg MCHC 32.3 (32-36) g/dl RDW 13.4 (11.5-14.0) % Plt Count 194 (150-450) K/mm3 MPV 9.7 H (6-9.5) fl Gran % 62.9 (36.0-66.0) % Eos # (Auto) 0.21 (0-0.5) Absolute Lymphs (auto) 1.34 (1.0-4.6) Absolute Monos (auto) 0.65 (0.0-1.3) Lymphocytes % 22.0 L (24.0-44.0) % Monocytes % 10.7 (0.0-12.0) % Eosinophils % 3.4 (0.00-5.0) % Basophils % 1.0 (0.0-0.4) % Absolute Granulocytes 3.84 (1.4-6.9) Basophils # 0.06 (0-0.4) Sodium 142 (137-145) mmol/L Potassium 4.4 (3.5-5.1) mmol/L Chloride 103 (98-107) mmol/L Carbon Dioxide 28 (22-30) mmol/L Anion Gap 15.5 H (5-15) MEQ/L BUN 17 (9-20) mg/dL Creatinine 0.84 (0.66-1.25) mg/dL Estimated GFR > 60.0 ML/MIN Glucose 281 H (74-106) mg/dL Calcium 9.4 (8.4-10.2) mg/dL Magnesium 1.7 (1.6-2.3) mg/dL Total Bilirubin 0.50 (0.2-1.3) mg/dL AST 26 (17-59) U/L ALT 25 (0-50) U/L Alkaline Phosphatase 88 (38-126) U/L Serum Total Protein 7.2 (6.3-8.2) g/dL Albumin 4.1 (3.5-5.0) g/dL - Progress Progress: improved, re-examined Progress Note: 05/01/19 11:22 72 years old is evaluated for bilateral hamstring area pain with some tenderness in muscles. No signs of cellulitis. Normal white count. Rule out DVT. No bony tenderness. Chemistries grossly unremarkable. I believe patient has muscle strain. Recommended continue with pain medication and outpatient followup. Discussed signs and symptoms are worsening he can return to the ER she seems understanding. He has negative neuro exam and lower extremities. Do not think he needs any further workup and is stable for discharge. - Departure Departure Disposition: Home Clinical Impression: Hamstring muscle strain Qualifiers: Encounter type: initial encounter Laterality: unspecified laterality Qualified Code(s): S76.319A - Strain of muscle, fascia and tendon of the posterior muscle group at thigh level, unspecified thigh, initial encounter Condition: Stable Critical Care Time: No Referrals: MONSE BRADSHAW MD [Primary Care Provider] - Follow Up with PCP/3 days Instructions: Lower Extremity Muscle Strain (DC), Hamstring Muscle Strain (DC) Additional Instructions: Take pain medications which you have at home as needed.followup with primary care physician for reevaluation. Return to ER for any worsening pain/swelling/ redness et cetera.
[2019-05-01 09:39] LABS: Absolute Neutrophil Ct (ANC) 3.84 (1.4-6.9); Basophil (Absolute #) 0.06 (0-0.4); Eosinophil % 3.4 % (0.00-5.0); Eosinophil (Absolute #) 0.21 (0-0.5); Hematocrit 39.9 % (42-50); Hemoglobin 12.9 gm/dl (12.5-18.0); Lymphocyte (Absolute #) 1.34 (1.0-4.6); Mean Cell Volume 89.7 fl (78-100); Mean Corpuscular Hgb Concent. 32.3 g/dl (32-36); Mean Platelet Volume 9.7 fl (6-9.5); Monocyte (Absolute #) 0.65 (0.0-1.3); Monocytes % 10.7 % (0.0-12.0); Neutrophil % 62.9 % (36.0-66.0); Platelet Count 194 K/mm3 (150-450); Red Blood Count 4.45 M/mm3 (4.1-5.6); Red Cell Distribution Width 13.4 % (11.5-14.0); White Blood Count 6.1 K/mm3 (4.0-10.5)
[2019-05-01 09:56] LABS: ALBUMIN 4.1 g/dL (3.5-5.0); ALKALINE PHOSPHATASE 88 U/L (38-126); ANION GAP 15.5 MEQ/L (5-15); BLOOD UREA NITROGEN 17 mg/dL (9-20); CHLORIDE 103 mmol/L (98-107); Calcium 9.4 mg/dL (8.4-10.2); Carbon Dioxide 28 mmol/L (22-30); Creatinine 1 0.84 mg/dL (0.66-1.25); Glucose 281 mg/dL (74-106); Potassium 4.4 mmol/L (3.5-5.1); SGOT/AST 26 U/L (17-59); SGPT/ALT 25 U/L (0-50); SODIUM 142 mmol/L (137-145); Total Protein 7.2 g/dL (6.3-8.2)
--- NOTE | 2019-05-01 10:54 | XRAY ---
Indication: Bilateral leg pain. Two-dimensional sonogram and color Doppler imaging of the major venous vessels of the left and right leg was performed. Comparison: None No thrombus seen in the examined deep venous vessels of the left and right leg including greater saphenous vein. Veins demonstrate normal compressibility. Venous waveforms are normal with and without augmentation. Impression: Left and right legs negative for DVT.
[2019-05-01 12:46] VITALS: PULSE 83
[2019-05-01 13:06] VITALS: BP 118/63; O2SAT 97
== END 2019-05-01 12:59 | disposition home or self-care (01) ==
LOC: ED 08:56
DX: S76.319A Strain of muscle, fascia and tendon of the posterior muscle group at thigh level, unspecified thigh, initial encounter (principal); E87.6 Hypokalemia; E83.42 Hypomagnesemia; Z79.899 Other long term (current) drug therapy; Z79.891 Long term (current) use of opiate analgesic; I50.9 Heart failure, unspecified; J44.9 Chronic obstructive pulmonary disease, unspecified; I26.99 Other pulmonary embolism without acute cor pulmonale; I25.10 Atherosclerotic heart disease of native coronary artery without angina pectoris; E78.00 Pure hypercholesterolemia, unspecified; I10 Essential (primary) hypertension; I25.2 Old myocardial infarction; E11.9 Type 2 diabetes mellitus without complications; Z95.1 Presence of aortocoronary bypass graft
CPT/HCPCS: 36000; 36415; 80053; 83735; 85025; 93970; 96374; 96375; 99284; J2270; J2405

== ENCOUNTER 2019-07-08 11:25 | Inpatient (IN) | payer MEDICARE, OTHER ==
[2019-07-08] MEDS ORDERED: TYLENOL 325 MG PO PRN (12:44)
--- NOTE | 2019-07-08 12:44 | PCM.HP.ADD ---
Addendum to History & Physical - History & Physical Addendum Addendum to History & Physical: This certifies that the History & Physical in the electronic chart reflects the current health status of the patient. If there are changes in the H&P these changes/exceptions are listed as follows.
[2019-07-08] MEDS: DUONEB 0.5-3 MG/3 ml Neb IH SCH ×2 (13:12→20:14)
[2019-07-08 13:24] LABS: BASOPHIL % 0.5 % (0.0-0.4); Basophil (Absolute #) 0.03 (0-0.4); Eosinophil % 4.4 % (0.00-5.0); Eosinophil (Absolute #) 0.29 (0-0.5); Hematocrit 38.5 % (42-50); Hemoglobin 12.3 gm/dl (12.5-18.0); Lymphocyte (Absolute #) 1.57 (1.0-4.6); Lymphocytes % 24.1 % (24.0-44.0); Mean Cell Volume 88.7 fl (78-100); Mean Corpuscular Hemoglobin 28.3 pg (26-32); Mean Corpuscular Hgb Concent. 31.9 g/dl (32-36); Mean Platelet Volume 9.9 fl (7.5-11.0); Monocyte (Absolute #) 0.83 (0.0-1.3); Monocytes % 12.7 % (0.0-12.0); Neutrophil % 58.3 % (36.0-66.0); Platelet Count 206 K/mm3 (150-450); Red Blood Count 4.34 M/mm3 (4.1-5.6); Red Cell Distribution Width 13.2 % (11.5-14.0); White Blood Count 6.5 K/mm3 (4.0-10.5)
[2019-07-08 13:41] LABS: ALKALINE PHOSPHATASE 114 U/L (38-126); ANION GAP 16.1 MEQ/L (5-15); BLOOD UREA NITROGEN 24 mg/dL (9-20); CHLORIDE 99 mmol/L (98-107); Calcium 9.2 mg/dL (8.4-10.2); Carbon Dioxide 28 mmol/L (22-30); Creatinine 1 1.08 mg/dL (0.66-1.25); Glucose 280 mg/dL (74-106); NT PRO BNP 93.9 pg/mL (0-900); Potassium 4.3 mmol/L (3.5-5.1); SGOT/AST 29 U/L (17-59); SGPT/ALT 23 U/L (0-50); SODIUM 139 mmol/L (137-145); Total Protein 6.9 g/dL (6.3-8.2)
[2019-07-08] MEDS: ROCEPHIN 1 Gm-D5w 50 ml Bag** 1 G/50 ML IVPB IV SCH (13:49)
[2019-07-08] MEDS: Sodium Chloride 0.9% 1000 ML 1,000 ML IV SCH (13:51)
[2019-07-08] MEDS: Zithromax 500 MG/ 250 ML NaCl Premix 500 MG/250 ML IVPB IV SCH (14:41)
[2019-07-08] MEDS ORDERED: NON-FORMULARY ITEM (Cholecalciferol (Vitamin D3) [Vitamin D3] 5,000 UNIT) PO SCH (14:45)
[2019-07-08] MEDS: Neurontin 400 MG PO SCH ×2 (15:14→22:39)
[2019-07-08 15:17] LABS: INFLUENZA A NEGATIVE (NEGATIVE); INFLUENZA B NEGATIVE (NEGATIVE); RESPIRATORY SYNCTIAL VIRUS POSITIVE (Negative)
[2019-07-08 15:35] LABS: Appearance SLIGHTLY CLOUDY (CLEAR); Bacteria MODERATE /HPF (NEGATIVE); Bilirubin NEGATIVE (NEGATIVE); Blood NEGATIVE Ery/ul (0-5); Glucose 150 mg/dL (NEGATIVE); Ketones NEGATIVE (NEGATIVE); Leukocyte Esterase MODERATE (NEGATIVE); Mucus MODERATE /HPF (NEGATIVE); Nitrite POSITIVE (NEGATIVE); Protein,Urine Dip 100 (Negative); Urobilinogen NEGATIVE mg/dL (0-1); WBC 26-50 /HPF (0-5)
[2019-07-08] MEDS: Glucophage 500 MG PO SCH (17:14)
[2019-07-08] MEDS: OXYCODONE-ACETAMINOPHEN 10-325 PO SCH ×2 (17:14→22:39)
[2019-07-08] MEDS: ADVAIR 500-50 DISKUS IH SCH (20:15)
[2019-07-08] MEDS ORDERED: NON-FORMULARY ITEM (Famotidine [Pepcid] 40 MG) PO SCH (22:00)
[2019-07-08] MEDS ORDERED: NON-FORMULARY ITEM (Magnesium Oxide [Magnesium] 400 MG) PO SCH (22:00)
[2019-07-08] MEDS ORDERED: NON-FORMULARY ITEM (Atorvastatin Calcium [Atorvastatin Calcium] 80 MG) PO SCH (22:00)
[2019-07-08] MEDS: Lantus Insulin SQ SCH (22:38)
[2019-07-08] MEDS: Ambien 10 MG PO SCH (22:38)
[2019-07-08] MEDS: MAG-OX 400 PO SCH (22:39)
[2019-07-08] MEDS: ELIQUIS 2.5 MG TABLET PO SCH (22:39)
[2019-07-08] MEDS: ZOCOR 20MG PO SCH (22:40)
[2019-07-08] MEDS: Pepcid 20 MG PO SCH (22:40)
[2019-07-09] MEDS: DUONEB 0.5-3 MG/3 ml Neb IH SCH ×4 (01:32→18:50)
[2019-07-09] MEDS: ADVAIR 500-50 DISKUS IH SCH ×2 (06:55→18:51)
[2019-07-09] MEDS: Glucophage 500 MG PO SCH ×2 (08:27→17:01)
[2019-07-09] MEDS: Lantus Insulin SQ SCH ×2 (08:28→20:55)
[2019-07-09] MEDS ORDERED: NON-FORMULARY ITEM (Oxybutynin Chloride [Oxybutynin Chloride Er] 10 MG) PO SCH (10:00)
[2019-07-09] MEDS: ROCEPHIN 1 Gm-D5w 50 ml Bag** 1 G/50 ML IVPB IV SCH (10:27)
[2019-07-09] MEDS: Neurontin 400 MG PO SCH ×3 (10:28→20:53)
[2019-07-09] MEDS: BUMEX 1 MG PO SCH (10:28)
[2019-07-09] MEDS: OXYCODONE-ACETAMINOPHEN 10-325 PO SCH ×4 (10:28→20:54)
[2019-07-09] MEDS: Ditropan XL 5 MG PO SCH (10:28)
[2019-07-09] MEDS: Klor Con 10 MEQ PO SCH (10:29)
[2019-07-09] MEDS: ELIQUIS 2.5 MG TABLET PO SCH ×2 (10:29→20:56)
[2019-07-09] MEDS: Sodium Chloride 0.9% 1000 ML 1,000 ML IV SCH (10:29)
[2019-07-09] MEDS: Flomax 0.4 MG PO SCH (10:29)
[2019-07-09] MEDS: Zestril 5 MG PO SCH (10:29)
[2019-07-09] MEDS: NORVASC 5 MG PO SCH (10:29)
[2019-07-09] MEDS: MAG-OX 400 PO SCH ×2 (10:29→20:54)
[2019-07-09] MEDS: ECOTRIN 81 MG PO SCH (10:29)
[2019-07-09] MEDS: Imdur 30 MG PO SCH (10:29)
[2019-07-09] MEDS: Zithromax 500 MG/ 250 ML NaCl Premix 500 MG/250 ML IVPB IV SCH (10:30)
--- NOTE | 2019-07-09 12:13 | PCM.NOTE ---
Date and Time: 07/09/19 1210 Subjective Assessment: doing ok - Review of Systems Constitutional: No Fever, No Chills Eyes: No Symptoms Ears, Nose, & Throat: No Symptoms Respiratory: Short Of Breath, No Cough Cardiac: No Chest Pain, No Edema, No Syncope Abdominal/Gastrointestinal: No Abdominal Pain, No Nausea, No Vomiting, No Diarrhea Genitourinary Symptoms: No Dysuria Musculoskeletal: No Back Pain, No Neck Pain Skin: No Rash Neurological: No Dizziness, No Focal Weakness, No Sensory Changes Psychological: No Symptoms Endocrine: No Symptoms Hematologic/Lymphatic: No Symptoms Immunological/Allergic: No Symptoms Objective Exam General Appearance: no apparent distress, alert Neurologic Exam: alert, oriented x 3, cooperative, normal mood/affect, nml cerebellar function, sensation nml, No motor deficits Skin Exam: normal color, warm, dry Eye Exam: PERRL, EOMI, eyes nml inspection Ears, Nose, Throat Exam: normal ENT inspection, pharynx normal, moist mucous membranes Neck Exam: normal inspection, non-tender, supple, full range of motion Respiratory Exam: normal breath sounds, lungs clear, No respiratory distress Cardiovascular Exam: regular rate/rhythm, normal heart sounds Gastrointestinal/Abdomen Exam: soft, No tenderness, No mass Extremity Exam: normal inspection, normal range of motion Back Exam: normal inspection, normal range of motion, No CVA tenderness, No vertebral tenderness Male Genitalia Exam: deferred Rectal Exam: deferred OBJECTIVE DATA Vital Signs: Vital Signs - 24 hr Temp Pulse Resp BP Pulse Ox 07/09/19 11:53 98.2 F 104 H 18 149/82 95 07/09/19 07:38 98.5 F 65 18 163/82 95 07/09/19 04:00 97.4 F 77 22 162/86 99 07/09/19 01:36 69 18 98 07/09/19 00:00 97.7 F 72 20 130/72 97 07/08/19 20:36 68 16 97 07/08/19 20:00 97.4 F 92 H 18 130/85 98 07/08/19 16:00 98.4 F 85 20 140/71 95 07/08/19 13:34 96 H 18 95 07/08/19 12:28 98.2 F 101 H 18 128/90 96 Pain Assessment - Last Documented Pain Intensity 8 Pain Scale Used 0-10 Pain Scale Intake and Output: Intake & Output 07/07/19 07/08/19 07/09/19 07/10/19 11:59 11:59 11:59 11:59 Intake Total 2499 Output Total 650 Balance 1849 Weight 103.3 kg Lab Results: Accuchecks Date 07/09/19 Date 07/08/19 Date 07/08/19 Time 08:41 Time 21:30 Time 16:30 Accucheck Value: 276 Accucheck Value: 126 Accucheck Value: 172 Lab Results-Last 24 Hours 07/08/19 07/08/19 07/08/19 Range/Units 13:00 13:00 13:00 WBC 6.5 (4.0-10.5) K/mm3 RBC 4.34 (4.1-5.6) M/mm3 Hgb 12.3 L (12.5-18.0) gm/dl Hct 38.5 L (42-50) % MCV 88.7 (78-100) fl MCH 28.3 (26-32) pg MCHC 31.9 L (32-36) g/dl RDW 13.2 (11.5-14.0) % Plt Count 206 (150-450) K/mm3 MPV 9.9 (7.5-11.0) fl Gran % 58.3 (36.0-66.0) % Eos # (Auto) 0.29 (0-0.5) Absolute Lymphs (auto) 1.57 (1.0-4.6) Absolute Monos (auto) 0.83 (0.0-1.3) Lymphocytes % 24.1 (24.0-44.0) % Monocytes % 12.7 H (0.0-12.0) % Eosinophils % 4.4 (0.00-5.0) % Basophils % 0.5 (0.0-0.4) % Absolute Granulocytes 3.80 (1.4-6.9) Basophils # 0.03 (0-0.4) Sodium 139 (137-145) mmol/L Potassium 4.3 (3.5-5.1) mmol/L Chloride 99 (98-107) mmol/L Carbon Dioxide 28 (22-30) mmol/L Anion Gap 16.1 H (5-15) MEQ/L BUN 24 H (9-20) mg/dL Creatinine 1.08 (0.66-1.25) mg/dL Estimated GFR > 60.0 ML/MIN Glucose 280 H (74-106) mg/dL Hemoglobin A1c 8.23 H (4.5-6.0) % Calcium 9.2 (8.4-10.2) mg/dL Total Bilirubin 0.40 (0.2-1.3) mg/dL AST 29 (17-59) U/L ALT 23 (0-50) U/L Alkaline Phosphatase 114 (38-126) U/L NT-Pro-B Natriuret Pep 93.9 (0-900) pg/mL Serum Total Protein 6.9 (6.3-8.2) g/dL Albumin 4.0 (3.5-5.0) g/dL Urine Color (YELLOW) Urine Appearance (CLEAR) Urine pH (5-6) Ur Specific [place] (1.005-1.025) Urine Protein (Negative) Urine Ketones (NEGATIVE) Urine Blood (0-5) Miguel A/ul Urine Nitrite (NEGATIVE) Urine Bilirubin (NEGATIVE) Urine Urobilinogen (0-1) mg/dL Ur Leukocyte Esterase (NEGATIVE) Urine WBC (Auto) (0-5) /HPF Urine RBC (Auto) (0-2) /HPF U Hyaline Cast (Auto) (0-2) /LPF U Epithel Cells (Auto) (FEW) /HPF Urine Bacteria (Auto) (NEGATIVE) /HPF Other Casts (Auto) (NEGATIVE) /LPF Urine Mucus (Auto) (NEGATIVE) /HPF Urine Culture Reflexed (NO) Urine Glucose (NEGATIVE) mg/dL Influenza Type A Ag (NEGATIVE) Influenza Type B Ag (NEGATIVE) RSV (PCR) (Negative) 07/08/19 07/08/19 Range/Units 14:45 15:27 WBC (4.0-10.5) K/mm3 RBC (4.1-5.6) M/mm3 Hgb (12.5-18.0) gm/dl Hct (42-50) % MCV (78-100) fl MCH (26-32) pg MCHC (32-36) g/dl RDW (11.5-14.0) % Plt Count (150-450) K/mm3 MPV (7.5-11.0) fl Gran % (36.0-66.0) % Eos # (Auto) (0-0.5) Absolute Lymphs (auto) (1.0-4.6) Absolute Monos (auto) (0.0-1.3) Lymphocytes % (24.0-44.0) % Monocytes % (0.0-12.0) % Eosinophils % (0.00-5.0) % Basophils % (0.0-0.4) % Absolute Granulocytes (1.4-6.9) Basophils # (0-0.4) Sodium (137-145) mmol/L Potassium (3.5-5.1) mmol/L Chloride (98-107) mmol/L Carbon Dioxide (22-30) mmol/L Anion Gap (5-15) MEQ/L BUN (9-20) mg/dL Creatinine (0.66-1.25) mg/dL Estimated GFR ML/MIN Glucose (74-106) mg/dL Hemoglobin A1c (4.5-6.0) % Calcium (8.4-10.2) mg/dL Total Bilirubin (0.2-1.3) mg/dL AST (17-59) U/L ALT (0-50) U/L Alkaline Phosphatase (38-126) U/L NT-Pro-B Natriuret Pep (0-900) pg/mL Serum Total Protein (6.3-8.2) g/dL Albumin (3.5-5.0) g/dL Urine Color YELLOW (YELLOW) Urine Appearance SLIGHTLY CLOUDY (CLEAR) Urine pH 5.0 (5-6) Ur Specific [place] 1.020 (1.005-1.025) Urine Protein 100 (Negative) Urine Ketones NEGATIVE (NEGATIVE) Urine Blood NEGATIVE (0-5) Miguel A/ul Urine Nitrite POSITIVE (NEGATIVE) Urine Bilirubin NEGATIVE (NEGATIVE) Urine Urobilinogen NEGATIVE (0-1) mg/dL Ur Leukocyte Esterase MODERATE (NEGATIVE) Urine WBC (Auto) 26-50 (0-5) /HPF Urine RBC (Auto) 6-10 (0-2) /HPF U Hyaline Cast (Auto) 3-5 (0-2) /LPF U Epithel Cells (Auto) NONE (FEW) /HPF Urine Bacteria (Auto) MODERATE (NEGATIVE) /HPF Other Casts (Auto) 2-5 (NEGATIVE) /LPF Urine Mucus (Auto) MODERATE (NEGATIVE) /HPF Urine Culture Reflexed YES (NO) Urine Glucose 150 (NEGATIVE) mg/dL Influenza Type A Ag NEGATIVE (NEGATIVE) Influenza Type B Ag NEGATIVE (NEGATIVE) RSV (PCR) POSITIVE (Negative) Assessment/Plan (1) RSV (respiratory syncytial virus pneumonia) Current Visit: Yes Status: Acute Assessment & Plan: Last Vital Signs Temp 98.2 F 07/09/19 11:53 Pulse 104 H 07/09/19 11:53 Resp 18 07/09/19 11:53 BP 149/82 07/09/19 11:53 Pulse Ox 95 07/09/19 11:53 Allergies gemfibrozil Allergy (Verified 05/01/19 09:13) pineapple [Pineapple] Adverse Reaction (Verified 05/01/19 09:13) VOMITING Active Medications Acetaminophen (Tylenol 325 Mg) 325 mg PO Q4H PRN PRN PRN Reason: PAIN, FEVER, HEADACHE Stop: 08/07/19 12:43 Albuterol/Ipratropium (Duoneb 0.5-3 Mg/3 Ml Neb) 3 ml IH Q6HRT [facility] Stop: 08/07/19 12:59 Last Admin: 07/09/19 06:55 Dose: 3 ml Amlodipine Besylate (Norvasc 5 Mg) 5 mg PO DAILY [facility] Stop: 08/08/19 09:59 Last Admin: 07/09/19 10:29 Dose: 5 mg Apixaban (Eliquis 2.5 Mg Tablet) 2.5 mg PO BID [facility] Stop: 08/07/19 21:59 Last Admin: 07/09/19 10:29 Dose: 2.5 mg Aspirin (Ecotrin 81 Mg) 81 mg PO DAILY [facility] Stop: 08/08/19 09:59 Last Admin: 07/09/19 10:29 Dose: 81 mg Bumetanide (Bumex 1 Mg) 1 mg PO DAILY [facility] Stop: 08/08/19 09:59 Last Admin: 07/09/19 10:28 Dose: 1 mg Cholecalciferol (Vitamin D) 5,000 unit PO East@1000 [facility] Stop: 08/13/19 09:59 Famotidine (Pepcid 20 Mg) 40 mg PO HS [facility] Stop: 08/07/19 21:59 Last Admin: 07/08/19 22:40 Dose: 40 mg Gabapentin (Neurontin 400 Mg) 800 mg PO TID [facility] Stop: 08/07/19 14:59 Last Admin: 07/09/19 10:28 Dose: 800 mg Azithromycin (Zithromax 500 Mg/ 250 Ml Nacl Premix) 500 mg in 250 mls @ 250 mls /hr IV Q24H10 [facility] Stop: 08/07/19 13:59 Last Admin: 07/09/19 10:30 Dose: 250 mls/hr Ceftriaxone Sodium/Dextrose (Rocephin 1 Gm-D5w 50 Ml Bag) 1 g in 50 mls @ 100 mls/hr IV Q24H10 [facility] Stop: 08/07/19 12:59 Last Admin: 07/09/19 10:27 Dose: 100 mls/hr Sodium Chloride (Sodium Chloride 0.9% 1000 Ml) 1,000 mls @ 50 mls/hr IV .Q20H [facility] Stop: 08/07/19 12:44 Last Admin: 07/09/19 10:29 Dose: 50 mls/hr Insulin Aspart (Novolog Insulin) 0 unit SQ UD PRN PRN Reason: Accuchek Stop: 08/07/19 12:43 Insulin Glargine (Lantus Insulin) 40 unit SQ BID@0800,2100 [facility] Stop: 08/07/19 20:59 Last Admin: 07/09/19 08:28 Dose: 40 unit Isosorbide Mononitrate (Imdur 30 Mg) 30 mg PO DAILY [facility] Stop: 08/08/19 09:59 Last Admin: 07/09/19 10:29 Dose: 30 mg Lisinopril (Zestril 5 Mg) 5 mg PO DAILY [facility] Stop: 08/08/19 09:59 Last Admin: 07/09/19 10:29 Dose: 5 mg Magnesium Oxide (Mag-Ox 400) 400 mg PO BID [facility] Stop: 08/07/19 21:59 Last Admin: 07/09/19 10:29 Dose: 400 mg Metformin HCl (Glucophage 500 Mg) 1,000 mg PO BIDAC [facility] Stop: 08/07/19 16:29 Last Admin: 07/09/19 08:27 Dose: 1,000 mg Oxybutynin Chloride (Ditropan Xl 5 Mg) 10 mg PO DAILY [facility] Stop: 08/08/19 09:59 Last Admin: 07/09/19 10:28 Dose: 10 mg Oxycodone/Acetaminophen (Oxycodone-Acetaminophen 10-325) 1 tab PO QID [facility] Stop: 07/13/19 16:59 Last Admin: 07/09/19 10:28 Dose: 1 tab Potassium Chloride (Klor Con 10 Meq) 10 meq PO DAILY [facility] Stop: 08/08/19 09:59 Last Admin: 07/09/19 10:29 Dose: 10 meq Fluticasone/Salmeterol (Advair 500-50 Diskus) 1 each IH BIDRT [facility] Stop: 08/07/19 18:59 Last Admin: 07/09/19 06:55 Dose: 1 each Simvastatin (Zocor 20mg) 40 mg PO HS [facility] Stop: 08/07/19 21:59 Last Admin: 07/08/19 22:40 Dose: 40 mg Tamsulosin HCl (Flomax 0.4 Mg) 0.4 mg PO DAILY [facility] Stop: 08/08/19 09:59 Last Admin: 07/09/19 10:29 Dose: 0.4 mg Zolpidem Tartrate (Ambien 10 Mg) 10 mg PO HS [facility] Stop: 08/07/19 21:59 Last Admin: 07/08/19 22:38 Dose: 10 mg Intake & Output 07/09/19 07/10/19 11:59 11:59 Intake Total 2499 Output Total 650 Balance 1849 Weight 103.3 kg Orders 07/08/19 12:03 Isolation, Initiate & Maintain Q4H 07/08/19 12:44 Place in Observation ROUTINE Acetaminophen 325 mg [Tylenol 325 mg] 325 mg PO Q4H PRN PRN Insulin Aspart [NovoLOG Insulin] See Dose Instructions SQ UD PRN Oxygen NASAL CANNULA 3 lpm Pulse Oximetry .spot check 07/08/19 12:45 Up Ad Mitzi TOLERATED Accucheck ACHS NaCl 0.9% 1000 ml [Sodium Chloride 0.9% 1000 ML] 1,000 ml IV 50 mls/hr 07/08/19 12:47 Respiratory Therapy Assessment DAILY 07/08/19 12:48 Peak Expiratory Flow Rate ONCE 07/08/19 13:00 Albuterol/Ipratropium 3ml Neb* [DUONEB 0.5-3 MG/3 ml Neb] 3 ml IH Q6HRT Ceftriaxone 1 GM/50 ML PREMIX* [ROCEPHIN 1 Gm-D5w 50 ml Bag] 1 g in 50 ml IV Q24H10 07/08/19 14:00 Azithromycin 500 mg/250 ml [Zithromax 500 MG/ 250 ML NaCl Premix] 500 mg in 250 ml IV Q24H10 07/08/19 15:00 Gabapentin 400 mg [Neurontin 400 MG] 800 mg PO TID 07/08/19 15:27 CULTURE,URINE Stat 07/08/19 16:30 Metformin HCl 500 mg [Glucophage 500 MG] 1,000 mg PO BIDAC 07/08/19 17:00 Oxycodone / APAP 10/325 mg [Oxycodone-Acetaminophen 10-325] 1 tab PO QID 07/08/19 19:00 Fluticasone/Salmeterol 500/50* [Advair 500-50 Diskus] 1 each IH BIDRT 07/08/19 20:51 Respiratory MDI BID 07/08/19 21:00 Insulin Glargine [Lantus Insulin] 40 unit SQ BID@0800,2100 07/08/19 22:00 Apixaban [Eliquis 2.5 mg Tablet] 2.5 mg PO BID Famotidine 20 mg [Pepcid 20 MG] 40 mg PO HS Magnesium Oxide 400 mg [Mag-Ox 400] 400 mg PO BID Simvastatin 20Mg [Zocor 20Mg] 40 mg PO HS Zolpidem Tartrate 10 mg [Ambien 10 MG] 10 mg PO HS 07/08/19 Dinner Cardiac Diet 07/09/19 10:00 Amlodipine Besylate 5 mg [Norvasc 5 mg] 5 mg PO DAILY Aspirin EC 81 mg [Ecotrin 81 mg] 81 mg PO DAILY Bumetanide 1 mg [Bumex 1 mg] 1 mg PO DAILY Isosorbide Mononitrate 30 mg [Imdur 30 MG] 30 mg PO DAILY Lisinopril 5 mg [Zestril 5 MG] 5 mg PO DAILY Oxybutynin Chloride Xl 5 mg [Ditropan XL 5 MG] 10 mg PO DAILY Potassium Chloride 10 Meq Tab* [Klor Con 10 MEQ] 10 meq PO DAILY Tamsulosin HCl 0.4 mg [Flomax 0.4 MG] 0.4 mg PO DAILY 07/14/19 10:00 Cholecalciferol (Vitamin D3) [Vitamin D] 5,000 unit PO East@1000 Lab Tests 07/08/19 07/08/19 07/08/19 13:00 13:00 13:00 WBC 6.5 RBC 4.34 Hgb 12.3 L Hct 38.5 L MCV 88.7 MCH 28.3 MCHC 31.9 L RDW 13.2 Plt Count 206 MPV 9.9 Gran % 58.3 Eos # (Auto) 0.29 Absolute Lymphs (auto) 1.57 Absolute Monos (auto) 0.83 Lymphocytes % 24.1 Monocytes % 12.7 H Eosinophils % 4.4 Basophils % 0.5 Absolute Granulocytes 3.80 Basophils # 0.03 Sodium 139 Potassium 4.3 Chloride 99 Carbon Dioxide 28 Anion Gap 16.1 H BUN 24 H Creatinine 1.08 Estimated GFR > 60.0 Glucose 280 H Hemoglobin A1c 8.23 H Calcium 9.2 Total Bilirubin 0.40 AST 29 ALT 23 Alkaline Phosphatase 114 NT-Pro-B Natriuret Pep 93.9 Serum Total Protein 6.9 Albumin 4.0 Urine Color Urine Appearance Urine pH Ur Specific [place] Urine Protein Urine Ketones Urine Blood Urine Nitrite Urine Bilirubin Urine Urobilinogen Ur Leukocyte Esterase Urine WBC (Auto) Urine RBC (Auto) U Hyaline Cast (Auto) U Epithel Cells (Auto) Urine Bacteria (Auto) Other Casts (Auto) Urine Mucus (Auto) Urine Culture Reflexed Urine Glucose Influenza Type A Ag Influenza Type B Ag RSV (PCR) 07/08/19 07/08/19 14:45 15:27 WBC RBC Hgb Hct MCV MCH MCHC RDW Plt Count MPV Gran % Eos # (Auto) Absolute Lymphs (auto) Absolute Monos (auto) Lymphocytes % Monocytes % Eosinophils % Basophils % Absolute Granulocytes Basophils # Sodium Potassium Chloride Carbon Dioxide Anion Gap BUN Creatinine Estimated GFR Glucose Hemoglobin A1c Calcium Total Bilirubin AST ALT Alkaline Phosphatase NT-Pro-B Natriuret Pep Serum Total Protein Albumin Urine Color YELLOW Urine Appearance SLIGHTLY CLOUDY Urine pH 5.0 Ur Specific [place] 1.020 Urine Protein 100 Urine Ketones NEGATIVE Urine Blood NEGATIVE Urine Nitrite POSITIVE Urine Bilirubin NEGATIVE Urine Urobilinogen NEGATIVE Ur Leukocyte Esterase MODERATE Urine WBC (Auto) 26-50 Urine RBC (Auto) 6-10 U Hyaline Cast (Auto) 3-5 U Epithel Cells (Auto) NONE Urine Bacteria (Auto) MODERATE Other Casts (Auto) 2-5 Urine Mucus (Auto) MODERATE Urine Culture Reflexed YES Urine Glucose 150 Influenza Type A Ag NEGATIVE Influenza Type B Ag NEGATIVE RSV (PCR) POSITIVE Microbiology 07/08/19 15:27 Urine, Void Urine Culture - Preliminary GRAM NEGATIVE ID AND SENSITIVITY PENDING Code(s): J12.1 - RESPIRATORY SYNCYTIAL VIRUS PNEUMONIA (2) COPD exacerbation Current Visit: No Status: Acute Code(s): J44.1 - CHRONIC OBSTRUCTIVE PULMONARY DISEASE W (ACUTE) EXACERBATION (3) Diabetes Current Visit: No Status: Chronic Code(s): E11.9 - TYPE 2 DIABETES MELLITUS WITHOUT COMPLICATIONS (4) History of DVT (deep vein thrombosis) Current Visit: No Status: Chronic Code(s): Z86.718 - PERSONAL HISTORY OF OTHER VENOUS THROMBOSIS AND EMBOLISM (5) Hx of pulmonary embolus Current Visit: No Status: Chronic (6) Hypertension Current Visit: No Status: Chronic Code(s): I10 - ESSENTIAL (PRIMARY) HYPERTENSION (7) Pulmonary hypertension Current Visit: No Status: Chronic Code(s): I27.2 - OTHER SECONDARY PULMONARY HYPERTENSION * DO NOT USE *
[2019-07-09] MEDS: NovoLOG Insulin SQ PRN (12:35)
[2019-07-09] MEDS: Pepcid 20 MG PO SCH (20:53)
[2019-07-09] MEDS: ZOCOR 20MG PO SCH (20:53)
[2019-07-09] MEDS: Ambien 10 MG PO SCH (20:54)
[2019-07-10] MEDS: DUONEB 0.5-3 MG/3 ml Neb IH SCH ×4 (01:23→18:46)
[2019-07-10] MEDS: ADVAIR 500-50 DISKUS IH SCH ×2 (06:47→18:51)
[2019-07-10] MEDS: Glucophage 500 MG PO SCH ×2 (08:09→16:59)
[2019-07-10] MEDS: Sodium Chloride 0.9% 1000 ML 1,000 ML IV SCH (08:10)
[2019-07-10] MEDS: Lantus Insulin SQ SCH ×2 (08:11→22:07)
[2019-07-10] MEDS: ROCEPHIN 1 Gm-D5w 50 ml Bag** 1 G/50 ML IVPB IV SCH (09:18)
[2019-07-10] MEDS: BUMEX 1 MG PO SCH (09:19)
[2019-07-10] MEDS: Imdur 30 MG PO SCH (09:19)
[2019-07-10] MEDS: Zithromax 500 MG/ 250 ML NaCl Premix 500 MG/250 ML IVPB IV SCH (09:19)
[2019-07-10] MEDS: Neurontin 400 MG PO SCH ×3 (09:19→22:02)
[2019-07-10] MEDS: Flomax 0.4 MG PO SCH ×2 (09:19→09:21)
[2019-07-10] MEDS: Zestril 5 MG PO SCH (09:19)
[2019-07-10] MEDS: OXYCODONE-ACETAMINOPHEN 10-325 PO SCH ×4 (09:21→22:02)
[2019-07-10] MEDS: Ditropan XL 5 MG PO SCH (09:22)
[2019-07-10] MEDS: MAG-OX 400 PO SCH ×2 (09:23→22:02)
[2019-07-10] MEDS: ELIQUIS 2.5 MG TABLET PO SCH ×2 (09:23→22:02)
[2019-07-10] MEDS: Klor Con 10 MEQ PO SCH (09:23)
[2019-07-10] MEDS: ECOTRIN 81 MG PO SCH (09:24)
[2019-07-10] MEDS: NORVASC 5 MG PO SCH (09:31)
[2019-07-10] MEDS: NovoLOG Insulin SQ PRN (12:22)
--- NOTE | 2019-07-10 13:00 | PCM.NOTE ---
Date and Time: 07/10/19 1259 Subjective Assessment: doing ok - Review of Systems Constitutional: No Fever, No Chills Eyes: No Symptoms Ears, Nose, & Throat: No Symptoms Respiratory: No Cough, No Short Of Breath Cardiac: No Chest Pain, No Edema, No Syncope Abdominal/Gastrointestinal: No Abdominal Pain, No Nausea, No Vomiting, No Diarrhea Genitourinary Symptoms: No Dysuria Musculoskeletal: No Back Pain, No Neck Pain Skin: No Rash Neurological: No Dizziness, No Focal Weakness, No Sensory Changes Psychological: No Symptoms Endocrine: No Symptoms Hematologic/Lymphatic: No Symptoms Immunological/Allergic: No Symptoms Objective Exam General Appearance: no apparent distress, alert Neurologic Exam: alert, oriented x 3, cooperative, normal mood/affect, nml cerebellar function, sensation nml, No motor deficits Skin Exam: normal color, warm, dry Eye Exam: PERRL, EOMI, eyes nml inspection Ears, Nose, Throat Exam: normal ENT inspection, pharynx normal, moist mucous membranes Neck Exam: normal inspection, non-tender, supple, full range of motion Respiratory Exam: diminished breath sounds, crackles/rales, rhonchi, No respiratory distress Cardiovascular Exam: regular rate/rhythm, normal heart sounds Gastrointestinal/Abdomen Exam: soft, No tenderness, No mass Extremity Exam: normal inspection, normal range of motion Back Exam: normal inspection, normal range of motion, No CVA tenderness, No vertebral tenderness Male Genitalia Exam: deferred Rectal Exam: deferred OBJECTIVE DATA Vital Signs: Vital Signs - 24 hr Temp Pulse Resp BP Pulse Ox 07/10/19 12:54 94 H 24 96 07/10/19 12:00 98.5 F 104 H 20 167/85 94 L 07/10/19 07:55 98.6 F 83 20 110/62 96 07/10/19 06:53 91 H 16 97 07/10/19 04:00 97.9 F 89 19 141/76 93 L 07/10/19 01:40 90 20 99 07/10/19 00:00 97.9 F 87 22 143/70 98 07/09/19 20:00 98.6 F 105 H 20 119/73 97 07/09/19 18:55 88 20 97 07/09/19 16:00 98.3 F 82 18 128/69 93 L 07/09/19 13:15 20 Pain Assessment - Last Documented Pain Intensity 8 Pain Scale Used FLACC Intake and Output: Intake & Output 07/08/19 07/09/19 07/10/19 07/11/19 11:59 11:59 11:59 11:59 Intake Total 2499 2300 Output Total 650 930 400 Balance 1849 1370 -400 Weight 103.3 kg Lab Results: Accuchecks Date 07/10/19 Date 07/10/19 Date 07/09/19 Time 11:30 Time 07:30 Time 12:30 Accucheck Value: 212 Accucheck Value: 166 Accucheck Value: 175 Accucheck Value: 330 Multi-Disciplinary Progress Notes: Multi-Disciplinary Progress Notes 07/10/19 10:34 Case Management Note by Flavia Schwarz NO CHANGE IN DC PLANS AT THIS TIME. Initialized on 07/10/19 10:34 - END OF NOTE Assessment/Plan (1) RSV (respiratory syncytial virus pneumonia) Current Visit: Yes Status: Acute Code(s): J12.1 - RESPIRATORY SYNCYTIAL VIRUS PNEUMONIA (2) COPD exacerbation Current Visit: Yes Status: Acute Code(s): J44.1 - CHRONIC OBSTRUCTIVE PULMONARY DISEASE W (ACUTE) EXACERBATION (3) Diabetes Current Visit: No Status: Chronic Qualifiers: Diabetes mellitus type: type 2 Diabetes mellitus long term acute care registered nurse insulin use: unspecified long term acute care registered nurse insulin use status Diabetes mellitus complication status : with neurologic complications Diabetes mellitus complication detail: with other neurological complication Qualified Code(s): E11.49 - Type 2 diabetes mellitus with other diabetic neurological complication Code(s): E11.9 - TYPE 2 DIABETES MELLITUS WITHOUT COMPLICATIONS (4) History of DVT (deep vein thrombosis) Current Visit: Yes Status: Chronic Code(s): Z86.718 - PERSONAL HISTORY OF OTHER VENOUS THROMBOSIS AND EMBOLISM (5) Hx of pulmonary embolus Current Visit: Yes Status: Chronic (6) Hypertension Current Visit: Yes Status: Chronic Qualifiers: Hypertension type: essential hypertension Qualified Code(s): I10 - Essential (primary) hypertension Code(s): I10 - ESSENTIAL (PRIMARY) HYPERTENSION (7) Pulmonary hypertension Current Visit: Yes Status: Chronic Code(s): I27.2 - OTHER SECONDARY PULMONARY HYPERTENSION * DO NOT USE *
[2019-07-10] MEDS: Pepcid 20 MG PO SCH (22:02)
[2019-07-10] MEDS: ZOCOR 20MG PO SCH (22:02)
[2019-07-10] MEDS: Ambien 10 MG PO SCH (22:02)
[2019-07-11] MEDS: DUONEB 0.5-3 MG/3 ml Neb IH SCH ×4 (01:21→20:30)
[2019-07-11] MEDS: Sodium Chloride 0.9% 1000 ML 1,000 ML IV SCH (05:25)
[2019-07-11] MEDS: ADVAIR 500-50 DISKUS IH SCH ×2 (06:30→20:30)
[2019-07-11] MEDS: Ditropan XL 5 MG PO SCH (08:27)
[2019-07-11] MEDS: Lantus Insulin SQ SCH ×2 (08:28→21:06)
[2019-07-11] MEDS: BUMEX 1 MG PO SCH (08:28)
[2019-07-11] MEDS: Glucophage 500 MG PO SCH ×2 (08:28→16:59)
[2019-07-11] MEDS: Klor Con 10 MEQ PO SCH (08:30)
[2019-07-11] MEDS: Imdur 30 MG PO SCH (08:30)
[2019-07-11] MEDS: Zestril 5 MG PO SCH (08:31)
[2019-07-11] MEDS: NORVASC 5 MG PO SCH (08:31)
[2019-07-11] MEDS: ECOTRIN 81 MG PO SCH (08:34)
[2019-07-11] MEDS: NovoLOG Insulin SQ PRN (08:35)
--- NOTE | 2019-07-11 09:11 | PCM.NOTE ---
Date and Time: 07/11/19909 Subjective Assessment: still very weak, c/o shortness of breath - Review of Systems Constitutional: No Fever, No Chills Eyes: No Symptoms Ears, Nose, & Throat: No Symptoms Respiratory: Cough, Orthopnea, Short Of Breath, Wheezing Cardiac: No Chest Pain, No Edema, No Syncope Abdominal/Gastrointestinal: No Abdominal Pain, No Nausea, No Vomiting, No Diarrhea Genitourinary Symptoms: No Dysuria Musculoskeletal: No Back Pain, No Neck Pain Skin: No Rash Neurological: No Dizziness, No Focal Weakness, No Sensory Changes Psychological: No Symptoms Endocrine: No Symptoms Hematologic/Lymphatic: No Symptoms Immunological/Allergic: No Symptoms Objective Exam General Appearance: no apparent distress, alert Neurologic Exam: alert, oriented x 3, cooperative, normal mood/affect, nml cerebellar function, sensation nml, No motor deficits Skin Exam: normal color, warm, dry Eye Exam: PERRL, EOMI, eyes nml inspection Ears, Nose, Throat Exam: normal ENT inspection, pharynx normal, moist mucous membranes Neck Exam: normal inspection, non-tender, supple, full range of motion Respiratory Exam: normal breath sounds, diminished breath sounds, prolonged expirations, crackles/rales, rhonchi, wheezing, No respiratory distress Cardiovascular Exam: regular rate/rhythm, normal heart sounds Gastrointestinal/Abdomen Exam: soft, No tenderness, No mass Extremity Exam: normal inspection, normal range of motion Back Exam: normal inspection, normal range of motion, No CVA tenderness, No vertebral tenderness Male Genitalia Exam: deferred Rectal Exam: deferred OBJECTIVE DATA Vital Signs: Vital Signs - 24 hr Temp Pulse Resp BP Pulse Ox 07/11/19 07:29 97.5 F 93 H 24 140/82 97 07/11/19 07:04 101 H 16 95 07/11/19 04:00 99.4 F 106 H 18 141/76 94 L 07/11/19 01:21 94 H 22 96 07/11/19 00:00 98.1 F 97 H 21 145/82 95 07/10/19 20:00 97.4 F 97 H 19 125/76 95 07/10/19 18:51 92 H 20 97 07/10/19 16:59 98.4 F 90 18 121/53 93 L 07/10/19 16:00 98.5 F 94 H 24 167/85 96 07/10/19 12:54 94 H 24 96 07/10/19 12:00 98.5 F 104 H 20 167/85 94 L Pain Assessment - Last Documented Pain Intensity 0 Pain Scale Used 0-10 Pain Scale Intake and Output: Intake & Output 07/08/19 07/09/19 07/10/19 07/11/19 11:59 11:59 11:59 11:59 Intake Total 2499 2300 4364 Output Total 510 094 7551 Balance 1849 1370 2314 Weight 103.3 kg Lab Results: Accuchecks Date 07/11/19 Date 07/10/19 Date 07/10/19 Time 07:30 Time 16:30 Time 11:30 Accucheck Value: 222 Accucheck Value: 150 Accucheck Value: 126 Accucheck Value: 212 Multi-Disciplinary Progress Notes: Multi-Disciplinary Progress Notes 07/10/19 10:34 Case Management Note by Flavia Schwarz NO CHANGE IN DC PLANS AT THIS TIME. Initialized on 07/10/19 10:34 - END OF NOTE Assessment/Plan (1) RSV (respiratory syncytial virus pneumonia) Current Visit: Yes Status: Acute Assessment & Plan: doing better Code(s): J12.1 - RESPIRATORY SYNCYTIAL VIRUS PNEUMONIA (2) COPD exacerbation Current Visit: Yes Status: Acute Code(s): J44.1 - CHRONIC OBSTRUCTIVE PULMONARY DISEASE W (ACUTE) EXACERBATION (3) Diabetes Current Visit: No Status: Chronic Qualifiers: Diabetes mellitus type: type 2 Diabetes mellitus rodent exterminator insulin use: unspecified rodent exterminator insulin use status Diabetes mellitus complication status : with neurologic complications Diabetes mellitus complication detail: with other neurological complication Qualified Code(s): E11.49 - Type 2 diabetes mellitus with other diabetic neurological complication Code(s): E11.9 - TYPE 2 DIABETES MELLITUS WITHOUT COMPLICATIONS (4) History of DVT (deep vein thrombosis) Current Visit: Yes Status: Chronic Code(s): Z86.718 - PERSONAL HISTORY OF OTHER VENOUS THROMBOSIS AND EMBOLISM (5) Hx of pulmonary embolus Current Visit: Yes Status: Chronic (6) Hypertension Current Visit: Yes Status: Chronic Qualifiers: Hypertension type: essential hypertension Qualified Code(s): I10 - Essential (primary) hypertension Code(s): I10 - ESSENTIAL (PRIMARY) HYPERTENSION (7) Pulmonary hypertension Current Visit: Yes Status: Chronic Code(s): I27.2 - OTHER SECONDARY PULMONARY HYPERTENSION * DO NOT USE *
[2019-07-11] MEDS: ROCEPHIN 1 Gm-D5w 50 ml Bag** 1 G/50 ML IVPB IV SCH (09:22)
[2019-07-11] MEDS: OXYCODONE-ACETAMINOPHEN 10-325 PO SCH ×4 (09:22→21:03)
[2019-07-11] MEDS: MAG-OX 400 PO SCH ×2 (09:22→21:03)
[2019-07-11] MEDS: ELIQUIS 2.5 MG TABLET PO SCH ×2 (09:22→21:02)
[2019-07-11] MEDS: Zithromax 500 MG/ 250 ML NaCl Premix 500 MG/250 ML IVPB IV SCH (09:22)
[2019-07-11] MEDS: Neurontin 400 MG PO SCH ×3 (09:22→21:03)
[2019-07-11] MEDS: TORAdol 30 mg Injection IV SCH ×2 (10:15→18:01)
[2019-07-11] MEDS: ZOCOR 20MG PO SCH (21:02)
[2019-07-11] MEDS: Ambien 10 MG PO SCH (21:02)
[2019-07-11] MEDS: Pepcid 20 MG PO SCH (21:02)
[2019-07-12] MEDS: DUONEB 0.5-3 MG/3 ml Neb IH SCH ×4 (01:28→18:47)
[2019-07-12] MEDS: TORAdol 30 mg Injection IV SCH (01:52)
[2019-07-12] MEDS: Sodium Chloride 0.9% 1000 ML 1,000 ML IV SCH (02:06)
[2019-07-12] MEDS: ADVAIR 500-50 DISKUS IH SCH ×2 (06:47→18:47)
[2019-07-12] MEDS: Lantus Insulin SQ SCH ×2 (07:09→21:40)
[2019-07-12] MEDS: Glucophage 500 MG PO SCH ×2 (07:09→16:49)
[2019-07-12] MEDS: NovoLOG Insulin SQ PRN (07:10)
[2019-07-12] MEDS: Neurontin 400 MG PO SCH ×4 (09:10→21:39)
[2019-07-12] MEDS: ROCEPHIN 1 Gm-D5w 50 ml Bag** 1 G/50 ML IVPB IV SCH (09:31)
[2019-07-12] MEDS: Zithromax 500 MG/ 250 ML NaCl Premix 500 MG/250 ML IVPB IV SCH (09:32)
[2019-07-12] MEDS: ECOTRIN 81 MG PO SCH (09:32)
[2019-07-12] MEDS: Zestril 5 MG PO SCH (09:33)
[2019-07-12] MEDS: NORVASC 5 MG PO SCH (09:33)
[2019-07-12] MEDS: MAG-OX 400 PO SCH ×2 (09:33→21:40)
[2019-07-12] MEDS: Ditropan XL 5 MG PO SCH (09:33)
[2019-07-12] MEDS: Klor Con 10 MEQ PO SCH (09:33)
[2019-07-12] MEDS: BUMEX 1 MG PO SCH (09:34)
[2019-07-12] MEDS: OXYCODONE-ACETAMINOPHEN 10-325 PO SCH ×4 (09:35→21:40)
[2019-07-12] MEDS: TORAdol 30 mg Injection IV PRN ×2 (09:36→23:38)
[2019-07-12] MEDS: ELIQUIS 2.5 MG TABLET PO SCH ×2 (09:36→21:40)
[2019-07-12] MEDS: Flomax 0.4 MG PO SCH (09:36)
[2019-07-12] MEDS: Imdur 30 MG PO SCH (09:37)
--- NOTE | 2019-07-12 12:56 | PCM.NOTE ---
Date and Time: 07/12/19 1255 Subjective Assessment: doing better - Review of Systems Constitutional: No Fever, No Chills Eyes: No Symptoms Ears, Nose, & Throat: No Symptoms Respiratory: No Cough, No Short Of Breath Cardiac: No Chest Pain, No Edema, No Syncope Abdominal/Gastrointestinal: No Abdominal Pain, No Nausea, No Vomiting, No Diarrhea Genitourinary Symptoms: No Dysuria Musculoskeletal: No Back Pain, No Neck Pain Skin: No Rash Neurological: No Dizziness, No Focal Weakness, No Sensory Changes Psychological: No Symptoms Endocrine: No Symptoms Hematologic/Lymphatic: No Symptoms Immunological/Allergic: No Symptoms Objective Exam General Appearance: no apparent distress, alert Neurologic Exam: alert, oriented x 3, cooperative, normal mood/affect, nml cerebellar function, sensation nml, No motor deficits Skin Exam: normal color, warm, dry Eye Exam: PERRL, EOMI, eyes nml inspection Ears, Nose, Throat Exam: normal ENT inspection, pharynx normal, moist mucous membranes Neck Exam: normal inspection, non-tender, supple, full range of motion Respiratory Exam: normal breath sounds, lungs clear, No respiratory distress Cardiovascular Exam: regular rate/rhythm, normal heart sounds Gastrointestinal/Abdomen Exam: soft, No tenderness, No mass Extremity Exam: normal inspection, normal range of motion Back Exam: normal inspection, normal range of motion, No CVA tenderness, No vertebral tenderness Male Genitalia Exam: deferred Rectal Exam: deferred OBJECTIVE DATA Vital Signs: Vital Signs - 24 hr Temp Pulse Resp BP Pulse Ox 07/12/19 11:31 96.4 F 83 22 142/88 98 07/12/19 07:52 97.5 F 84 22 136/70 97 07/12/19 06:51 89 20 99 07/12/19 04:00 97.9 F 94 H 20 134/67 97 07/12/19 01:28 99 H 20 95 07/11/19 23:49 97.9 F 93 H 21 124/73 95 07/11/19 20:30 93 H 20 98 07/11/19 19:38 97.9 F 94 H 21 113/75 99 07/11/19 16:00 97.6 F 85 20 138/72 98 07/11/19 13:19 79 18 100 Pain Assessment - Last Documented Pain Intensity 8 Pain Scale Used 0-10 Pain Scale Intake and Output: Intake & Output 07/10/19 07/11/19 07/12/19 07/13/19 11:59 11:59 11:59 11:59 Intake Total 2300 4364 3544 Output Total 930 2600 1200 Balance 1370 1764 2344 Weight 103.3 kg Lab Results: Accuchecks Date 07/12/19 Date 07/12/19 Date 07/11/19 Date 07/11/19 Time 12:09 Time 07:10 Time 21:00 Time 16:30 Accucheck Value: 206 Accucheck Value: 213 Accucheck Value: 176 Accucheck Value: 168 Multi-Disciplinary Progress Notes: Multi-Disciplinary Progress Notes 07/12/19 10:18 Case Management Note by Flavia Schwarz S/W PATIENT- HE CONTINUES TO DENY ANY NEEDS AT HOME REGARDING DISCHARGE. HE REPORTS HE HAS OXYGEN AND CPAP AT HOME ALL IN GOOD WORKING CONDITION. 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 insulin use status Diabetes mellitus complication status : with neurologic complications Diabetes mellitus complication detail: with other neurological complication Qualified Code(s): E11.49 - Type 2 diabetes mellitus with other diabetic neurological complication Code(s): E11.9 - TYPE 2 DIABETES MELLITUS WITHOUT COMPLICATIONS (4) History of DVT (deep vein thrombosis) Current Visit: Yes Status: Chronic Code(s): Z86.718 - PERSONAL HISTORY OF OTHER VENOUS THROMBOSIS AND EMBOLISM (5) Hx of pulmonary embolus Current Visit: Yes Status: Chronic (6) Hypertension Current Visit: Yes Status: Chronic Qualifiers: Hypertension type: essential hypertension Qualified Code(s): I10 - Essential (primary) hypertension Code(s): I10 - ESSENTIAL (PRIMARY) HYPERTENSION (7) Pulmonary hypertension Current Visit: Yes Status: Chronic Code(s): I27.2 - OTHER SECONDARY PULMONARY HYPERTENSION * DO NOT USE *
[2019-07-12] MEDS: Pepcid 20 MG PO SCH (21:39)
[2019-07-12] MEDS: ZOCOR 20MG PO SCH (21:40)
[2019-07-12] MEDS: Ambien 10 MG PO SCH (21:40)
[2019-07-13] MEDS: DUONEB 0.5-3 MG/3 ml Neb IH SCH ×2 (00:58→06:44)
[2019-07-13 04:57] VITALS: PULSE 88
[2019-07-13] MEDS: ADVAIR 500-50 DISKUS IH SCH (06:44)
[2019-07-13 07:13] VITALS: BP 141/77; O2SAT 97
--- NOTE | 2019-07-13 07:41 | PCM.DS ---
Discharge Summary Date of Admission: 07/09/19 12:10 Admitting Physician: MONSE BRADSHAW Primary Care Provider: MONSE BRADSHAW Allergies Allergies gemfibrozil Allergy (Verified 05/01/19 09:13) pineapple [Pineapple] Adverse Reaction (Verified 05/01/19 09:13) VOMITING Hospital Summary - Hospital Course Hospital Course: Chief Complaint Diagnosis EXAC COPD, PYELONEPHRITIS Allergies Allergy/AdvReac Type Severity Reaction Status Date / Time gemfibrozil Allergy Verified 05/01/19 09:13 pineapple [Pineapple] AdvReac Verified 05/01/19 09:13 Vital Signs (Last 24 hours) Temp Pulse Resp BP Pulse Ox 07/13/19 07:12 97.0 F 88 18 141/77 97 07/13/19 06:45 88 18 98 07/13/19 04:00 98.1 F 88 20 131/78 97 07/13/19 00:58 20 L 97 07/12/19 23:50 98.7 F 86 20 134/73 96 07/12/19 20:04 98.4 F 85 20 139/75 95 07/12/19 18:47 85 20 95 07/12/19 17:29 97.6 F 84 24 124/78 97 07/12/19 16:00 97.3 F 84 24 124/78 97 07/12/19 13:03 88 20 98 07/12/19 11:31 96.4 F 83 22 142/88 98 07/12/19 07:52 97.5 F 84 22 136/70 97 Home Medications Medication Instructions Recorded Confirmed Last Taken Type Gabapentin 800 mg PO TID 07/08/19 07/08/19 07/08/19 History Current Medications Generic Name Dose Route Start Last Admin Trade Name Freq PRN Reason Stop Dose Admin Acetaminophen 325 mg 07/08/19 12:44 Tylenol 325 Mg PO 08/07/19 12:43 Q4H PRN PRN PAIN, FEVER, HEADACHE Albuterol/Ipratropium 3 ml 07/08/19 13:00 07/13/19 06:44 Duoneb 0.5-3 Mg/3 Ml Neb IH 08/07/19 12:59 3 ml Q6HRT BENJA Administration Amlodipine Besylate 5 mg 07/09/19 10:00 07/12/19 09:33 Norvasc 5 Mg PO 08/08/19 09:59 5 mg DAILY BENJA Administration Apixaban 2.5 mg 07/08/19 22:00 07/12/19 21:40 Eliquis 2.5 Mg Tablet PO 08/07/19 21:59 2.5 mg BID BENJA Administration Aspirin 81 mg 07/09/19 10:00 07/12/19 09:32 Ecotrin 81 Mg PO 08/08/19 09:59 81 mg DAILY BENJA Administration Bumetanide 1 mg 07/09/19 10:00 07/12/19 09:34 Bumex 1 Mg PO 08/08/19 09:59 1 mg DAILY BENJA Administration Cholecalciferol 5,000 unit 07/14/19 10:00 Vitamin D PO 08/13/19 09:59 East@1000 BENJA Famotidine 40 mg 07/08/19 22:00 07/12/19 21:39 Pepcid 20 Mg PO 08/07/19 21:59 40 mg HS BENJA Administration Gabapentin 800 mg 07/08/19 15:00 07/12/19 21:39 Neurontin 400 Mg PO 08/07/19 14:59 800 mg TID BENJA Administration Insulin Aspart 0 unit 07/08/19 12:44 07/12/19 07:10 Novolog Insulin SQ 08/07/19 12:43 2 unit UD PRN Administration Accuchek Insulin Glargine 40 unit 07/08/19 21:00 07/12/19 21:40 Lantus Insulin SQ 08/07/19 20:59 40 unit BID@0800,2100 BENJA Administration Isosorbide Mononitrate 30 mg 07/09/19 10:00 07/12/19 09:37 Imdur 30 Mg PO 08/08/19 09:59 30 mg DAILY BENJA Administration Ketorolac Tromethamine 30 mg 07/12/19 08:59 07/12/19 23:38 Toradol 30 Mg Injection IV 07/17/19 08:58 30 mg Q6H PRN PRN Administration PAIN Lisinopril 5 mg 07/09/19 10:00 07/12/19 09:33 Zestril 5 Mg PO 08/08/19 09:59 5 mg DAILY BENJA Administration Magnesium Oxide 400 mg 07/08/19 22:00 07/12/19 21:40 Mag-Ox 400 PO 08/07/19 21:59 400 mg BID BENJA Administration Metformin HCl 1,000 mg 07/08/19 16:30 07/12/19 16:49 Glucophage 500 Mg PO 08/07/19 16:29 1,000 mg BIDAC BENJA Administration Oxybutynin Chloride 10 mg 07/09/19 10:00 07/12/19 09:33 Ditropan Xl 5 Mg PO 08/08/19 09:59 10 mg DAILY BENJA Administration Oxycodone/Acetaminophen 1 tab 07/08/19 17:00 07/12/19 21:40 Oxycodone-Acetaminophen 10-325 PO 07/13/19 16:59 1 tab QID BENJA Administration Potassium Chloride 10 meq 07/09/19 10:00 07/12/19 09:33 Klor Con 10 Meq PO 08/08/19 09:59 10 meq DAILY BENJA Administration Fluticasone/Salmeterol 1 each 07/08/19 19:00 07/13/19 06:44 Advair 500-50 Diskus IH 08/07/19 18:59 1 each BIDRT BENJA Administration Simvastatin 40 mg 07/08/19 22:00 07/12/19 21:40 Zocor 20mg PO 08/07/19 21:59 40 mg HS BENJA Administration Tamsulosin HCl 0.4 mg 07/09/19 10:00 07/12/19 09:36 Flomax 0.4 Mg PO 08/08/19 09:59 0.4 mg DAILY BENJA Administration Zolpidem Tartrate 10 mg 07/08/19 22:00 07/12/19 21:40 Ambien 10 Mg PO 08/07/19 21:59 10 mg HS BENJA Administration Discontinued Medications Generic Name Dose Route Start Last Admin Trade Name Freq PRN Reason Stop Dose Admin Azithromycin 500 mg in 250 mls @ 250 mls/hr 07/08/19 14:00 07/12/19 09:32 Zithromax 500 Mg/ 250 Ml Nacl Premix IV 08/07/19 13:59 250 mls/hr Q24H10 BENJA Administration Ceftriaxone Sodium/Dextrose 1 g in 50 mls @ 100 mls/hr 07/08/19 13:00 09:31 Rocephin 1 Gm-D5w 50 Ml Bag IV 08/07/19 12:59 100 mls/hr Q24H10 BENJA Administration Sodium Chloride 1,000 mls @ 50 mls/hr 07/08/19 12:45 07/12/19 02:06 Sodium Chloride 0.9% 1000 Ml IV 08/07/19 12:44 50 mls/hr .Q20H BENJA Administration Ketorolac Tromethamine 30 mg 07/11/19 10:00 07/12/19 01:52 Toradol 30 Mg Injection IV 07/12/19 02:01 30 mg Q8H BENJA Administration Intake & Output (Last 24 hours) 07/10/19 07/11/19 07/12/19 07/13/19 11:59 11:59 11:59 11:59 Intake Total 2300 4364 3544 2026 Output Total 930 2600 1200 800 Balance 1370 1764 2344 1226 Weight 103.3 kg Orders (Last 24 hours) Category Date Time Status Cholecalciferol (Vitamin D3) [Vitamin D] Med 07/14/19 10:00 Active 5,000 unit PO East@1000 KETOROLAC trometh 30 mg Inj [TORAdol 30 mg Injection Med 07/12/19 08:59 Active ] 30 mg IV Q6H PRN PRN Patient Care Notes (Last 24 hours) 07/12/19 17:00 Nursing Note by Jer [address] Dr office called, stated received fax to NATHALIA mendoza MD ordered ok to [place] , no new orders for PO Initialized on 07/12/19 17:00 - END OF NOTE 07/12/19 10:18 Case Management Note by Flavia Schwarz S/Ke PATIENT- HE CONTINUES TO DENY ANY NEEDS AT HOME REGARDING DISCHARGE. HE REPORTS HE HAS OXYGEN AND CPAP AT HOME ALL IN GOOD WORKING CONDITION. 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 Initialized on 07/12/19 10:18 - END OF NOTE - Vitals & Intake/Output Vital Signs: Vital Signs Temperature 97.0 F 07/13/19 07:12 Pulse Rate 88 07/13/19 07:12 Respiratory Rate 18 07/13/19 07:12 Blood Pressure 141/77 07/13/19 07:12 O2 Sat by Pulse Oximetry 97 07/13/19 07:12 Intake & Output: Intake & Output 07/10/19 07/11/19 07/12/19 07/13/19 11:59 11:59 11:59 11:59 Intake Total 2300 4364 3544 2026 Output Total 930 2600 1200 800 Balance 1370 1764 2344 1226 Weight 103.3 kg - Lab Result Diagrams: 07/08/19 13:00 07/08/19 13:00 Lab Results-Last 24 Hrs: Accuchecks Date 07/12/19 Date 07/12/19 Time 17:00 Time 12:09 Accucheck Value: 156 Accucheck Value: 187 Accucheck Value: 206 Micro Results-Entire Visit: Microbiology 07/08/19 15:27 Urine Culture - Final Urine, Void Citrobacter Koseri Accuchecks Date 07/12/19 Date 07/12/19 Time 17:00 Time 12:09 Accucheck Value: 156 Accucheck Value: 187 Accucheck Value: 206 - Procedures and Test Procedures and Tests throughout Hospitalization: Therapy Orders & Screens 07/08/19 12:44 Oxygen NASAL CANNULA 3 lpm Comment: 07/08/19 12:47 Respiratory Therapy Assessment DAILY Comment: 07/08/19 12:48 Peak Expiratory Flow Rate ONCE Comment: Reason For Exam: Diagnosis: copd exacerbation 07/08/19 20:51 Respiratory MDI BID Comment: Diagnosis: copd exacerbation Discharge Exam General Appearance: no apparent distress, alert Neurologic Exam: alert, oriented x 3, cooperative, normal mood/affect, nml cerebellar function, sensation nml, No motor deficits Eye Exam: PERRL, EOMI, eyes nml inspection Ears, Nose, Throat Exam: normal ENT inspection, pharynx normal, moist mucous membranes Neck Exam: normal inspection, non-tender, supple, full range of motion Respiratory Exam: normal breath sounds, lungs clear, No respiratory distress Cardiovascular Exam: regular rate/rhythm, normal heart sounds Gastrointestinal/Abdomen Exam: soft, No tenderness, No mass Male Genitalia Exam: deferred Rectal Exam: deferred Back Exam: normal inspection, normal range of motion, No CVA tenderness, No vertebral tenderness Extremity Exam: normal inspection, normal range of motion Skin Exam: normal color, warm, dry Final Diagnosis/Problem List - Final Discharge Diagnosis/Problem (1) RSV (respiratory syncytial virus pneumonia) Current Visit: Yes Status: Resolved Assessment & Plan: Laboratory Results 07/08/19 07/08/19 07/08/19 Range/Units 15:27 14:45 13:00 WBC (4.0-10.5) K/mm3 RBC (4.1-5.6) M/mm3 Hgb (12.5-18.0) gm/dl Hct (42-50) % MCV (78-100) fl MCH (26-32) pg MCHC (32-36) g/dl RDW (11.5-14.0) % Plt Count (150-450) K/mm3 MPV (7.5-11.0) fl Gran % (36.0-66.0) % Eos # (Auto) (0-0.5) Absolute Lymphs (auto) (1.0-4.6) Absolute Monos (auto) (0.0-1.3) Lymphocytes % (24.0-44.0) % Monocytes % (0.0-12.0) % Eosinophils % (0.00-5.0) % Basophils % (0.0-0.4) % Absolute Granulocytes (1.4-6.9) Basophils # (0-0.4) Sodium (137-145) mmol/L Potassium (3.5-5.1) mmol/L Chloride (98-107) mmol/L Carbon Dioxide (22-30) mmol/L Anion Gap (5-15) MEQ/L BUN (9-20) mg/dL Creatinine (0.66-1.25) mg/dL Estimated GFR ML/MIN Glucose (74-106) mg/dL Hemoglobin A1c 8.23 H (4.5-6.0) % Calcium (8.4-10.2) mg/dL Total Bilirubin (0.2-1.3) mg/dL AST (17-59) U/L ALT (0-50) U/L Alkaline Phosphatase (38-126) U/L NT-Pro-B Natriuret Pep (0-900) pg/mL Serum Total Protein (6.3-8.2) g/dL Albumin (3.5-5.0) g/dL Urine Color YELLOW (YELLOW) Urine Appearance SLIGHTLY CLOUDY (CLEAR) Urine pH 5.0 (5-6) Ur Specific [place] 1.020 (1.005-1.025) Urine Protein 100 (Negative) Urine Ketones NEGATIVE (NEGATIVE) Urine Blood NEGATIVE (0-5) Miguel A/ul Urine Nitrite POSITIVE (NEGATIVE) Urine Bilirubin NEGATIVE (NEGATIVE) Urine Urobilinogen NEGATIVE (0-1) mg/dL Ur Leukocyte Esterase MODERATE (NEGATIVE) Urine WBC (Auto) 26-50 (0-5) /HPF Urine RBC (Auto) 6-10 (0-2) /HPF U Hyaline Cast (Auto) 3-5 (0-2) /LPF U Epithel Cells (Auto) NONE (FEW) /HPF Urine Bacteria (Auto) MODERATE (NEGATIVE) /HPF Other Casts (Auto) 2-5 (NEGATIVE) /LPF Urine Mucus (Auto) MODERATE (NEGATIVE) /HPF Urine Culture Reflexed YES (NO) Urine Glucose 150 (NEGATIVE) mg/dL Influenza Type A Ag NEGATIVE (NEGATIVE) Influenza Type B Ag NEGATIVE (NEGATIVE) RSV (PCR) POSITIVE (Negative) 07/08/19 07/08/19 Range/Units 13:00 13:00 WBC 6.5 (4.0-10.5) K/mm3 RBC 4.34 (4.1-5.6) M/mm3 Hgb 12.3 L (12.5-18.0) gm/dl Hct 38.5 L (42-50) % MCV 88.7 (78-100) fl MCH 28.3 (26-32) pg MCHC 31.9 L (32-36) g/dl RDW 13.2 (11.5-14.0) % Plt Count 206 (150-450) K/mm3 MPV 9.9 (7.5-11.0) fl Gran % 58.3 (36.0-66.0) % Eos # (Auto) 0.29 (0-0.5) Absolute Lymphs (auto) 1.57 (1.0-4.6) Absolute Monos (auto) 0.83 (0.0-1.3) Lymphocytes % 24.1 (24.0-44.0) % Monocytes % 12.7 H (0.0-12.0) % Eosinophils % 4.4 (0.00-5.0) % Basophils % 0.5 (0.0-0.4) % Absolute Granulocytes 3.80 (1.4-6.9) Basophils # 0.03 (0-0.4) Sodium 139 (137-145) mmol/L Potassium 4.3 (3.5-5.1) mmol/L Chloride 99 (98-107) mmol/L Carbon Dioxide 28 (22-30) mmol/L Anion Gap 16.1 H (5-15) MEQ/L BUN 24 H (9-20) mg/dL Creatinine 1.08 (0.66-1.25) mg/dL Estimated GFR > 60.0 ML/MIN Glucose 280 H (74-106) mg/dL Hemoglobin A1c (4.5-6.0) % Calcium 9.2 (8.4-10.2) mg/dL Total Bilirubin 0.40 (0.2-1.3) mg/dL AST 29 (17-59) U/L ALT 23 (0-50) U/L Alkaline Phosphatase 114 (38-126) U/L NT-Pro-B Natriuret Pep 93.9 (0-900) pg/mL Serum Total Protein 6.9 (6.3-8.2) g/dL Albumin 4.0 (3.5-5.0) g/dL Urine Color (YELLOW) Urine Appearance (CLEAR) Urine pH (5-6) Ur Specific [place] (1.005-1.025) Urine Protein (Negative) Urine Ketones (NEGATIVE) Urine Blood (0-5) Miguel A/ul Urine Nitrite (NEGATIVE) Urine Bilirubin (NEGATIVE) Urine Urobilinogen (0-1) mg/dL Ur Leukocyte Esterase (NEGATIVE) Urine WBC (Auto) (0-5) /HPF Urine RBC (Auto) (0-2) /HPF U Hyaline Cast (Auto) (0-2) /LPF U Epithel Cells (Auto) (FEW) /HPF Urine Bacteria (Auto) (NEGATIVE) /HPF Other Casts (Auto) (NEGATIVE) /LPF Urine Mucus (Auto) (NEGATIVE) /HPF Urine Culture Reflexed (NO) Urine Glucose (NEGATIVE) mg/dL Influenza Type A Ag (NEGATIVE) Influenza Type B Ag (NEGATIVE) RSV (PCR) (Negative) Medication Report Albuterol/Ipratropium (Duoneb 0.5-3 Mg/3 Ml Neb) 3 ml IH Q6HRT [facility] Stop: 08/07/19 12:59 Last Admin: 07/13/19 06:44 Dose: 3 ml Nebulizer Treatment Document 07/13/19 06:44 TW (Rec: 07/13/19 06:44 TW [id number]) Therapy Aerosol Therapy Subsequent Aerosol Therapy Treatment Method Nebulizer Mask Treatment Tolerance Good Amlodipine Besylate (Norvasc 5 Mg) 5 mg PO DAILY [facility] Stop: 08/08/19 09:59 Last Admin: 07/12/19 09:33 Dose: 5 mg Apixaban (Eliquis 2.5 Mg Tablet) 2.5 mg PO BID [facility] Stop: 08/07/19 21:59 Last Admin: 07/12/19 21:40 Dose: 2.5 mg Aspirin (Ecotrin 81 Mg) 81 mg PO DAILY [facility] Stop: 08/08/19 09:59 Last Admin: 07/12/19 09:32 Dose: 81 mg Bumetanide (Bumex 1 Mg) 1 mg PO DAILY [facility] Stop: 08/08/19 09:59 Last Admin: 07/12/19 09:34 Dose: 1 mg Famotidine (Pepcid 20 Mg) 40 mg PO HS [facility] Stop: 08/07/19 21:59 Last Admin: 07/12/19 21:39 Dose: 40 mg Gabapentin (Neurontin 400 Mg) 800 mg PO TID [facility] Stop: 08/07/19 14:59 Last Admin: 07/12/19 21:39 Dose: 800 mg Insulin Aspart (Novolog Insulin) 0 unit SQ UD PRN PRN Reason: Accuchek Stop: 08/07/19 12:43 Last Admin: 07/12/19 07:10 Dose: 2 unit MAR Injection Site Document 07/12/19 07:10 BSANTUS (Rec: 07/12/19 07:10 BSANTUS [id number]) Injection Site MAR Injection Site Left Deltoid Insulin Glargine (Lantus Insulin) 40 unit SQ BID@0800,2100 [facility] Stop: 08/07/19 20:59 Last Admin: 07/12/19 21:40 Dose: 40 unit Comments: abd Isosorbide Mononitrate (Imdur 30 Mg) 30 mg PO DAILY [facility] Stop: 08/08/19 09:59 Last Admin: 07/12/19 09:37 Dose: 30 mg Ketorolac Tromethamine (Toradol 30 Mg Injection) 30 mg IV Q6H PRN PRN PRN Reason: PAIN Stop: 07/17/19 08:58 Last Admin: 07/12/19 23:38 Dose: 30 mg MAR PAIN Document 07/12/19 23:38 EG (Rec: 07/12/19 23:38 EG [id number]) Reassesment Location Generalized Pain Scale Used 0-10 Pain Scale Lisinopril (Zestril 5 Mg) 5 mg PO DAILY [facility] Stop: 08/08/19 09:59 Last Admin: 07/12/19 09:33 Dose: 5 mg Magnesium Oxide (Mag-Ox 400) 400 mg PO BID [facility] Stop: 08/07/19 21:59 Last Admin: 07/12/19 21:40 Dose: 400 mg Metformin HCl (Glucophage 500 Mg) 1,000 mg PO BIDAC [facility] Stop: 08/07/19 16:29 Last Admin: 07/12/19 16:49 Dose: 1,000 mg Oxybutynin Chloride (Ditropan Xl 5 Mg) 10 mg PO DAILY [facility] Stop: 08/08/19 09:59 Last Admin: 07/12/19 09:33 Dose: 10 mg Oxycodone/Acetaminophen (Oxycodone-Acetaminophen 10-325) 1 tab PO QID [facility] Stop: 07/13/19 16:59 Last Admin: 07/12/19 21:40 Dose: 1 tab MAR PAIN Document 07/12/19 21:40 EG (Rec: 07/12/19 21:40 EG [id number]) Reassesment Location Generalized Pain Scale Used 0-10 Pain Scale Pain Intensity (0-10) 6 Potassium Chloride (Klor Con 10 Meq) 10 meq PO DAILY [facility] Stop: 08/08/19 09:59 Last Admin: 07/12/19 09:33 Dose: 10 meq Fluticasone/Salmeterol (Advair 500-50 Diskus) 1 each IH BIDRT [facility] Stop: 08/07/19 18:59 Last Admin: 07/13/19 06:44 Dose: 1 each Simvastatin (Zocor 20mg) 40 mg PO [facility] Stop: 08/07/19 21:59 Last Admin: 07/12/19 21:40 Dose: 40 mg Tamsulosin HCl (Flomax 0.4 Mg) 0.4 mg PO DAILY [facility] Stop: 08/08/19 09:59 Last Admin: 07/12/19 09:36 Dose: 0.4 mg Zolpidem Tartrate (Ambien 10 Mg) 10 mg PO HS [facility] Stop: 08/07/19 21:59 Last Admin: 07/12/19 21:40 Dose: 10 mg Discontinued Medications Azithromycin (Zithromax 500 Mg/ 250 Ml Nacl Premix) 500 mg in 250 mls @ 250 mls /hr IV Q24H10 [facility] Stop: 08/07/19 13:59 Last Admin: 07/12/19 09:32 Dose: 250 mls/hr Ceftriaxone Sodium/Dextrose (Rocephin 1 Gm-D5w 50 Ml Bag) 1 g in 50 mls @ 100 mls/hr IV Q24H10 [facility] Stop: 08/07/19 12:59 Last Admin: 07/12/19 09:31 Dose: 100 mls/hr Sodium Chloride (Sodium Chloride 0.9% 1000 Ml) 1,000 mls @ 50 mls/hr IV .Q20H [facility] Stop: 08/07/19 12:44 Last Admin: 07/12/19 02:06 Dose: 50 mls/hr Infusion/Titration Document 07/12/19 02:06 LB (Rec: 07/12/19 02:[address]) Dosing & Rate IV Rate 50 Increase/Decrease Started/Running Cumulative Dose Not Applicable IV Intake Cumulative Intake (Rx) 3,000 Container Volume 1,000 Volume Adjustment/Waste 0 Ketorolac Tromethamine (Toradol 30 Mg Injection) 30 mg IV Q8H [facility] Stop: 07/12/19 02:01 Last Admin: 07/12/19 01:52 Dose: 30 mg MAR PAIN Document 07/12/19 01:52 LB (Rec: 07/12/19 01:[address]) Reassesment Location Back Pain Scale Used 0-10 Pain Scale Pain Intensity (0-10) 8 Re-Assess: Pain Reassessment Document 07/12/19 02:22 GEM (Rec: 07/12/19 10:05 GEM [id number]) Pain Description Pain Scale Used 0-10 Pain Scale Code(s): J12.1 - RESPIRATORY SYNCYTIAL VIRUS PNEUMONIA (2) COPD exacerbation Current Visit: Yes Status: Resolved Code(s): J44.1 - CHRONIC OBSTRUCTIVE PULMONARY DISEASE W (ACUTE) EXACERBATION (3) Diabetes Current Visit: No Status: Chronic Code(s): E11.9 - TYPE 2 DIABETES MELLITUS WITHOUT COMPLICATIONS (4) History of DVT (deep vein thrombosis) Current Visit: Yes Status: Chronic Code(s): Z86.718 - PERSONAL HISTORY OF OTHER VENOUS THROMBOSIS AND EMBOLISM (5) Hx of pulmonary embolus Current Visit: Yes Status: Chronic (6) Hypertension Current Visit: Yes Status: Chronic Code(s): I10 - ESSENTIAL (PRIMARY) HYPERTENSION (7) Pulmonary hypertension Current Visit: Yes Status: Chronic Code(s): I27.2 - OTHER SECONDARY PULMONARY HYPERTENSION * DO NOT USE * - Discharge Discharge Date: 07/13/19 Disposition: Home, Self-Care Condition: Stable Prescriptions: New Methylprednisolone Packet [Medrol Dosepack] 4 mg PO UD #30 packet Continue Metformin HCl 500 mg [Glucophage 500 MG] 1,000 mg PO BIDAC Isosorbide Mononitrate 30 mg [Imdur 30 MG] 30 mg PO DAILY Atorvastatin Calcium 80 mg PO HS Lisinopril 5 mg [Zestril 5 MG] 5 mg PO DAILY Tamsulosin HCl 0.4 mg [Flomax 0.4 MG] 0.4 mg PO DAILY Famotidine [Pepcid] 40 mg PO HS Amlodipine Besylate 5 mg [Norvasc 5 mg] 5 mg PO DAILY Insulin Glargine [Lantus Insulin] 40 unit SQ BID Cholecalciferol (Vitamin D3) [Vitamin D3] 5,000 unit PO WEEKLY Aspirin EC 81 mg [Ecotrin 81 mg] 81 mg PO DAILY Zolpidem Tartrate [Ambien] 10 mg PO HS Apixaban [Eliquis 2.5 mg Tablet] 2.5 mg PO BID Bumetanide 1 mg [Bumex 1 mg] 1 mg PO DAILY Magnesium Oxide [Magnesium] 400 mg PO BID Oxybutynin Chloride [Oxybutynin Chloride ER] 10 mg PO DAILY Potassium Chloride 10 Meq Tab* [Klor Con 10 MEQ] 10 meq PO DAILY Oxycodone / APAP 10/325 mg [Oxycodone-Acetaminophen 10-325] 1 tab QID Fluticasone/Salmeterol Disc [Advair 250-50 Diskus 14 Dose] 1 each IH BID #1 [email or web address] Gabapentin 800 mg PO TID Instructions: Exacerbation of COPD (DC) Follow up with: MONSE BRADSHAW MD [Primary Care Provider] - 5 Days
[2019-07-13] MEDS: Lantus Insulin SQ SCH (07:57)
[2019-07-13] MEDS: Glucophage 500 MG PO SCH (07:57)
[2019-07-13] MEDS: Klor Con 10 MEQ PO SCH (09:31)
[2019-07-13] MEDS: MAG-OX 400 PO SCH (09:31)
[2019-07-13] MEDS: Imdur 30 MG PO SCH (09:31)
[2019-07-13] MEDS: Zestril 5 MG PO SCH (09:31)
[2019-07-13] MEDS: Flomax 0.4 MG PO SCH (09:31)
[2019-07-13] MEDS: ECOTRIN 81 MG PO SCH (09:31)
[2019-07-13] MEDS: Ditropan XL 5 MG PO SCH (09:31)
[2019-07-13] MEDS: NORVASC 5 MG PO SCH (09:31)
[2019-07-13] MEDS: BUMEX 1 MG PO SCH (09:31)
[2019-07-13] MEDS: Neurontin 400 MG PO SCH (09:31)
[2019-07-13] MEDS: ELIQUIS 2.5 MG TABLET PO SCH (09:32)
[2019-07-13] MEDS: TORAdol 30 mg Injection IV PRN (09:37)
[2019-07-13] MEDS: OXYCODONE-ACETAMINOPHEN 10-325 PO SCH (09:40)
[2019-07-14] MEDS ORDERED: VITAMIN D PO SCH (10:00)
== END 2019-07-13 10:10 | disposition home or self-care (01) | DRG 194 ==
LOC: MED SURG 12:03 → OBSVTOIN 07-09 12:10
PROVIDERS: ADMIT General Practice; ATTEND General Practice
DX: J12.1 Respiratory syncytial virus pneumonia (principal); J44.1 Chronic obstructive pulmonary disease with (acute) exacerbation; E11.9 Type 2 diabetes mellitus without complications; Z86.718 Personal history of other venous thrombosis and embolism; I10 Essential (primary) hypertension; I27.20 Pulmonary hypertension, unspecified; Z79.01 Long term (current) use of anticoagulants; Z79.899 Other long term (current) drug therapy
CPT/HCPCS: 36415; 80053; 81001; 82962; 83036; 83880; 85025; 87077; 87086; 87186; 87631; 94150; 94640; 94760; G0378; J0456; J0696; J1885; A9270-GY

== ENCOUNTER 2020-01-24 07:39 | Emergency (ER) | payer MEDICARE, OTHER ==
--- NOTE | 2020-01-24 07:46 | ERPHSYRPT ---
- History of Present Illness Time Seen by Provider: 01/24/20 07:45 Historian: patient Exam Limitations: no limitations Physician History: This is a 74-year-old overweight white male who has a history of DVTs, coronary artery disease with stents in the past, COPD and hypertension. He is taking Eliquis. he is also diabetic. He presents with chest pain that is substernal nonradiating. He describes this as a pressure. Patient chronically has shortness of breath. He has no abdominal pain. He has no nausea vomiting or diarrhea. He has had no fevers. His tanning consultant is Dr. Smith. Timing/Duration: yesterday Activities at Onset: none Quality: pressure Location: substernal, central Chest Pain Radiation: no radiation Severity of Pain-Max: mild Severity of Pain-Current: mild Modifying Factors: Improves With: nothing Associated Symptoms: shortness of breath (Chronic not different than usual.) Prior Chest Pain/Cardiac Workup: cardiac cath, echocardiography Nitro Today/Relief: no nitro taken today Aspirin Treatment Today: 81 mg x 1, provided at home Allergies/Adverse Reactions: gemfibrozil Allergy (Verified 01/24/20 07:52) pineapple [Pineapple] Adverse Reaction (Verified 01/24/20 07:52) VOMITING Home Medications: Atorvastatin Calcium 80 mg PO HS 10/30/14 [History] Isosorbide Mononitrate 30 mg [Imdur 30 MG] 30 mg PO DAILY 10/30/14 [History] Metformin HCl 500 mg [Glucophage 500 MG] 1,000 mg PO BIDAC 10/30/14 [History] Lisinopril 5 mg [Zestril 5 MG] 5 mg PO DAILY 10/29/15 [History] Amlodipine Besylate 5 mg [Norvasc 5 mg] 5 mg PO DAILY 04/18/17 [History] Famotidine [Pepcid] 40 mg PO HS 04/18/17 [History] Tamsulosin HCl 0.4 mg [Flomax 0.4 MG] 0.4 mg PO DAILY 04/18/17 [History] Aspirin EC 81 mg [Ecotrin 81 mg] 81 mg PO DAILY 06/26/17 [History] Cholecalciferol (Vitamin D3) [Vitamin D3] 5,000 unit PO WEEKLY 06/26/17 [History] Insulin Glargine [Lantus Insulin] 40 unit SQ BID 06/26/17 [History] Zolpidem Tartrate [Ambien] 10 mg PO HS 06/26/17 [History] Apixaban [Eliquis 2.5 mg Tablet] 2.5 mg PO BID 08/06/18 [History] Bumetanide 1 mg [Bumex 1 mg] 1 mg PO DAILY 08/06/18 [History] Magnesium Oxide [Magnesium] 400 mg PO BID 08/06/18 [History] Oxybutynin Chloride [Oxybutynin Chloride ER] 10 mg PO DAILY 08/06/18 [History] Potassium Chloride 10 Meq Tab* [Klor Con 10 MEQ] 10 meq PO DAILY 08/06/18 [History] Oxycodone / APAP 10/325 mg [Oxycodone-Acetaminophen 10-325] 1 tab QID 04/14/19 [History] Gabapentin 800 mg PO TID 07/08/19 [History] Hx Tetanus, Diphtheria Vaccination/Date Given: No Hx Influenza Vaccination/Date Given: No Hx Pneumococcal Vaccination/Date Given: Yes Travel Risk - International Travel Have you traveled outside of the country in past 3 weeks: No - Coronavirus Screening Are you exhibiting any of the following symptoms?: No Symptoms: Shortness of Breath (Chronic) - Review of Systems Constitutional: No Symptoms Eyes: No Symptoms Ears, Nose, & Throat: No Symptoms Respiratory: No Symptoms Cardiac: Chest Pain Abdominal/Gastrointestinal: No Symptoms Genitourinary Symptoms: No Symptoms Musculoskeletal: No Symptoms Skin: No Symptoms Neurological: No Symptoms Psychological: No Symptoms Endocrine: No Symptoms Hematologic/Lymphatic: No Symptoms Immunological/Allergic: No Symptoms All Other Systems: Reviewed and Negative - Past Medical History Pertinent Past Medical History: Yes Neurological History: No Pertinent History ENT History: No Pertinent History Cardiac History: Coronary Artery Disease, Deep Vein Thrombosis, High Cholesterol, Hypertension, Myocardial Infarction ([place]) Respiratory History: CHF, COPD, Pulmonary Embolism Endocrine Medical History: Diabetes Type II Musculoskeletal History: Osteoarthritis GI Medical History: GERD History: No Pertinent History Psycho-Social History: No Pertinent History Male Reproductive Disorders: No Pertinent History Other Medical History: CABG. Coronary stenting. DVT - Past Surgical History Past Surgical History: Yes Neuro Surgical History: No Pertinent History Cardiac: CABG, Cardiac Catheterization, Cardiac Stent Respiratory: No Pertinent History Gastrointestinal: Cholecystectomy Genitourinary: No Pertinent History Musculoskeletal: Joint Replacement, Orthopedic Surgery Male Surgical History: No Pertinent History Other Surgical History: LEFT HIP REPLACEMENT. LITTLE FINGER RIGHT HAND-STATES HAD SURGERY AND IT FROZE UP. 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 CABG and Coronary Stenting - Social History Smoking Status: Former smoker How long have you smoked: 10 yrs Exposure to second hand smoke: Yes ( - pack a day) Drug Use: none Patient Lives Alone: No - Nursing Vital Signs Nursing Vital Signs: Initial Vital Signs Temperature 97.6 F 01/24/20 07:43 Pulse Rate 79 01/24/20 07:43 Respiratory Rate 15 01/24/20 07:43 Blood Pressure 147/82 01/24/20 07:43 O2 Sat by Pulse Oximetry 98 01/24/20 07:43 Pain Scale Pain Intensity 2 - Physical Exam General Appearance: no apparent distress, alert, anxiety Eye Exam: PERRL/EOMI, eyes nml inspection Ears, Nose, Throat Exam: normal ENT inspection, moist mucous membranes Neck Exam: normal inspection, non-tender, supple, full range of motion Respiratory Exam: normal breath sounds, chest tenderness, lungs clear, airway intact, No respiratory distress Cardiovascular Exam: regular rate/rhythm, normal heart sounds, normal peripheral pulses Gastrointestinal/Abdomen Exam: soft, normal bowel sounds, No tenderness Rectal Exam: not done Back Exam: normal inspection, normal range of motion, No CVA tenderness, No vertebral tenderness Extremity Exam: normal inspection, normal range of motion, pelvis stable Neurologic Exam: alert, oriented x 3, cooperative, hogshead inspector II-XII nml as tested, normal mood/affect, nml cerebellar function, nml station & gait, sensation nml Skin Exam: normal color, warm, dry Lymphatic Exam: No adenopathy SpO2 Interpretation: normal O2 Delivery: Room Air - Course Nursing assessment & vital signs reviewed: Yes EKG Interpreted by Me: RATE (82), Sinus Rhythm, NORMAL AXIS, NORMAL INTERVALS, NORMAL QRS, Other (On today's EKG there are atrial premature complexes that is new compared to an EKG on 04/14/2019. There is no acute ischemic changes on today's EKG.) Ordered Tests: Active Orders 24 hr Category Date Time Status EKG-ER Only STAT Care 01/24/20 07:58 Active IV Insertion STAT Care 01/24/20 07:58 Active Pulse Oximetry (ED) STAT Care 01/24/20 07:58 Active CHEST 1 VIEW (PORTABLE) Stat Exams 01/24/20 07:59 Completed CBC W DIFF Stat Lab 01/24/20 08:00 Completed CMP Stat Lab 01/24/20 08:00 Completed D-DIMER QUANTITATIVE Stat Lab 01/24/20 08:00 Completed NT PRO BNP Stat Lab 01/24/20 08:00 Completed PROTIME WITH INR Stat Lab 01/24/20 08:00 Completed TROPONIN Q3H Lab 01/24/20 08:00 Completed TROPONIN Q3H Lab 01/24/20 11:00 Completed TROPONIN Q3H Lab 01/24/20 14:00 Ordered TROPONIN Q3H Lab 01/24/20 17:00 Ordered TROPONIN Q3H Lab 01/24/20 20:00 Ordered Medication Summary Discontinued Medications Generic Name Dose Route Start Last Admin Trade Name Freq PRN Reason Stop Dose Admin Aspirin 162 mg 01/24/20 07:58 01/24/20 08:05 Baby Aspirin 81 Mg Chew PO 01/24/20 07:59 162 mg STAT ONE Administration Aspirin Confirm 01/24/20 08:06 Baby Aspirin 81 Mg Chew Administered 01/24/20 08:07 Dose 162 mg .ROUTE .STK-MED ONE Lab/Rad Data: Laboratory Result Diagrams 01/24/20 08:00 01/24/20 08:00 Laboratory Results 01/24/20 01/24/20 01/24/20 Range/Units 11:00 08:00 08:00 WBC (4.0-10.5) K/mm3 RBC (4.1-5.6) M/mm3 Hgb (12.5-18.0) gm/dl Hct (42-50) % MCV (78-100) fl MCH (26-32) pg MCHC (32-36) g/dl RDW (11.5-14.0) % Plt Count (150-450) K/mm3 MPV (7.5-11.0) fl Gran % (36.0-66.0) % Eos # (Auto) (0-0.5) Absolute Lymphs (auto) (1.0-4.6) Absolute Monos (auto) (0.0-1.3) Lymphocytes % (24.0-44.0) % Monocytes % (0.0-12.0) % Eosinophils % (0.00-5.0) % Basophils % (0.0-0.4) % Absolute Granulocytes (1.4-6.9) Basophils # (0-0.4) PT 12.4 (8.83-12.87) SECONDS INR 1.10 (0.8-3.0) D-Dimer 408 (215-500) ng/mL Sodium (137-145) mmol/L Potassium (3.5-5.1) mmol/L Chloride (98-107) mmol/L Carbon Dioxide (22-30) mmol/L Anion Gap (5-15) MEQ/L BUN (9-20) mg/dL Creatinine (0.66-1.25) mg/dL Estimated GFR ML/MIN Glucose (74-106) mg/dL Calcium (8.4-10.2) mg/dL Total Bilirubin (0.2-1.3) mg/dL AST (17-59) U/L ALT (0-50) U/L Alkaline Phosphatase (38-126) U/L Troponin I < 0.012 0.017 (0.000-0.034) ng/mL NT-Pro-B Natriuret Pep (0-900) pg/mL Serum Total Protein (6.3-8.2) g/dL Albumin (3.5-5.0) g/dL 01/24/20 01/24/20 Range/Units 08:00 08:00 WBC 7.5 (4.0-10.5) K/mm3 RBC 4.35 (4.1-5.6) M/mm3 Hgb 12.6 (12.5-18.0) gm/dl Hct 40.6 L (42-50) % MCV 93.3 (78-100) fl MCH 29.0 (26-32) pg MCHC 31.0 L (32-36) g/dl RDW 13.7 (11.5-14.0) % Plt Count 197 (150-450) K/mm3 MPV 9.7 (7.5-11.0) fl Gran % 63.6 (36.0-66.0) % Eos # (Auto) 0.15 (0-0.5) Absolute Lymphs (auto) 1.79 (1.0-4.6) Absolute Monos (auto) 0.75 (0.0-1.3) Lymphocytes % 23.9 L (24.0-44.0) % Monocytes % 10.0 (0.0-12.0) % Eosinophils % 2.0 (0.00-5.0) % Basophils % 0.5 (0.0-0.4) % Absolute Granulocytes 4.77 (1.4-6.9) Basophils # 0.04 (0-0.4) PT (8.83-12.87) SECONDS INR (0.8-3.0) D-Dimer (215-500) ng/mL Sodium 139 (137-145) mmol/L Potassium 4.4 (3.5-5.1) mmol/L Chloride 103 (98-107) mmol/L Carbon Dioxide 28 (22-30) mmol/L Anion Gap 11.7 (5-15) MEQ/L BUN 23 H (9-20) mg/dL Creatinine 0.91 (0.66-1.25) mg/dL Estimated GFR > 60.0 ML/MIN Glucose 154 H (74-106) mg/dL Calcium 9.0 (8.4-10.2) mg/dL Total Bilirubin 0.70 (0.2-1.3) mg/dL AST 26 (17-59) U/L ALT 22 (0-50) U/L Alkaline Phosphatase 79 (38-126) U/L Troponin I (0.000-0.034) ng/mL NT-Pro-B Natriuret Pep 96.8 (0-900) pg/mL Serum Total Protein 6.7 (6.3-8.2) g/dL Albumin 4.1 (3.5-5.0) g/dL - Progress Progress: re-examined, unchanged Air Movement: good Progress Note: 01/24/20 11:04 Chest x-ray reveals no evidence of any acute pulmonary process 01/24/20 11:41 Medical decision making: This patient's work-up does not reveal anything acute. However with the patient symptoms persistent chest pressure and shortness of br eath, I feel it necessary to contact the patient's tanning consultant for possible transfer and further monitoring and management. 01/24/20 11:[address] Smith, the patient's tanning consultant. He feels that the patient should be transferred to [facility] for observation and evaluation. He s tated that the patient has a complex cardiac issue including a complex right coronary artery system that was stented. 01/24/20 12:13 Spoke with emergency room physician Dr. Bolanos at [facility]. I reviewed the patient history, condition, laboratory data and radiographic results as well as EKG findings. He accepts the patient in transfer Blood Culture(s) Obtained: No Antibiotics given: No Counseled pt/family regarding: lab results, diagnosis, need for follow-up, rad results - Departure Departure Disposition: Transfer Clinical Impression: Chest pain, Shortness of breath Condition: Stable Critical Care Time: No Referrals: MONSE BRADSHAW MD [Primary Care Provider] -
[2020-01-24] MEDS ORDERED: BABY ASPIRIN 81 MG CHEW PO ONE (07:58)
[2020-01-24] MEDS ORDERED: BABY ASPIRIN 81 MG CHEW ONE (08:06)
[2020-01-24 08:07] LABS: Absolute Neutrophil Ct (ANC) 4.77 (1.4-6.9); BASOPHIL % 0.5 % (0.0-0.4); Basophil (Absolute #) 0.04 (0-0.4); Eosinophil (Absolute #) 0.15 (0-0.5); Hematocrit 40.6 % (42-50); Hemoglobin 12.6 gm/dl (12.5-18.0); Lymphocyte (Absolute #) 1.79 (1.0-4.6); Lymphocytes % 23.9 % (24.0-44.0); Mean Cell Volume 93.3 fl (78-100); Mean Platelet Volume 9.7 fl (7.5-11.0); Monocyte (Absolute #) 0.75 (0.0-1.3); Neutrophil % 63.6 % (36.0-66.0); Platelet Count 197 K/mm3 (150-450); Red Blood Count 4.35 M/mm3 (4.1-5.6); Red Cell Distribution Width 13.7 % (11.5-14.0); White Blood Count 7.5 K/mm3 (4.0-10.5)
[2020-01-24 08:19] LABS: INR 1.1 (0.8-3.0); PROTIME 12.4 SECONDS (8.83-12.87)
[2020-01-24 08:31] LABS: ALBUMIN 4.1 g/dL (3.5-5.0); ALKALINE PHOSPHATASE 79 U/L (38-126); ANION GAP 11.7 MEQ/L (5-15); BLOOD UREA NITROGEN 23 mg/dL (9-20); CHLORIDE 103 mmol/L (98-107); Carbon Dioxide 28 mmol/L (22-30); Creatinine 1 0.91 mg/dL (0.66-1.25); Glucose 154 mg/dL (74-106); NT PRO BNP 96.8 pg/mL (0-900); Potassium 4.4 mmol/L (3.5-5.1); SGOT/AST 26 U/L (17-59); SGPT/ALT 22 U/L (0-50); SODIUM 139 mmol/L (137-145); Total Protein 6.7 g/dL (6.3-8.2)
--- NOTE | 2020-01-24 09:59 | XRAY ---
Indication: Chest pain. Comparison: April 14, 2019. Portable chest again demonstrates chronic right hemidiaphragm elevation with right base atelectasis/scarring. No focal infiltrate, consolidation, or large effusion. Heart is borderline enlarged again with CABG surgery and left pacemaker. Bony thorax intact again with mild osteopenia and degenerative changes. Impression: Continued nonacute chest with chronic features.
[2020-01-24 12:04] VITALS: PULSE 66
[2020-01-24 12:52] VITALS: BP 125/72; O2SAT 96
== END 2020-01-24 12:51 | disposition short-term general hospital (02) ==
LOC: ED 07:39
DX: R07.9 Chest pain, unspecified (principal); R06.02 Shortness of breath
CPT/HCPCS: 36000; 36415; 71045; 80053; 83880; 84484; 85025; 85379; 85610; 93005; 94760; 99285; A9270-GY

== ENCOUNTER 2020-08-14 04:11 | Observation (INO) | payer MEDICARE, OTHER ==
[2020-08-14] MEDS ORDERED: BABY ASPIRIN 81 MG CHEW PO ONE (04:27)
--- NOTE | 2020-08-14 04:27 | ERPHSYRPT ---
- History of Present Illness Source: patient, EMS Exam Limitations: no limitations Timing/Duration: intermittent, worse Severity: mild Modifying Factors: Improves With: movement Associated Symptoms: shortness of breath, chest pain, weakness Hx Tetanus, Diphtheria Vaccination/Date Given: No Hx Influenza Vaccination/Date Given: No Hx Pneumococcal Vaccination/Date Given: Yes <FABIAN SEXTON - Last Filed: 08/14/20 06:38> <TREVON CASEY - Last Filed: 08/14/20 09:20> - History of Present Illness Time Seen by Provider: 08/14/20 04:27 Physician History: This is a 74-year-old white male who has chronic shortness of breath, weakness and chest pain. Chest pain is typically intermittent but in the last 12 hours his chest pain, which she describes as right-sided anterior and sharp without specific radiation, has been worsening in the last 12 hours. Patient has a pacemaker/defibrillator in place, he has a history of DVTs, pulmonary emboli, coronary artery disease with history of cardiac stents, COPD, hypertension. Patient is on Eliquis. Because of the patient's worsening symptoms he was brought into the emergency department by ambulance service. Patient's pressing department supervisor is Dr. Smith and his primary care physician is Dr. Bradshaw ( FABIAN SEXTON) Allergies/Adverse Reactions: gemfibrozil Allergy (Intermediate, Verified 08/14/20 04:27) Rash pineapple [Pineapple] Adverse Reaction (Intermediate, Verified 08/14/20 04:27) Nausea and Vomiting VOMITING Home Medications: Atorvastatin Calcium 80 mg PO HS 10/30/14 [History] Isosorbide Mononitrate 30 mg [Imdur 30 MG] 120 mg PO DAILY 10/30/14 [History] Metformin HCl 500 mg [Glucophage 500 MG] 1,000 mg PO BIDAC 10/30/14 [History] Lisinopril 5 mg [Zestril 5 MG] 5 mg PO DAILY 10/29/15 [History] Amlodipine Besylate 5 mg [Norvasc 5 mg] 5 mg PO DAILY 04/18/17 [History] Famotidine [Pepcid] 40 mg PO HS 04/18/17 [History] Tamsulosin HCl 0.4 mg [Flomax 0.4 MG] 0.4 mg PO DAILY 04/18/17 [History] Aspirin EC 81 mg [Ecotrin 81 mg] 81 mg PO DAILY 06/26/17 [History] Cholecalciferol (Vitamin D3) [Vitamin D3] 5,000 unit PO WEEKLY 06/26/17 [History] Insulin Glargine [Lantus Insulin] 40 unit SQ BID 06/26/17 [History] Zolpidem Tartrate [Ambien] 10 mg PO HS PRN PRN 06/26/17 [History] Apixaban [Eliquis 2.5 mg Tablet] 5 mg PO BID 08/06/18 [History] Bumetanide 1 mg [Bumex 1 mg] 1 mg PO DAILY 08/06/18 [History] Magnesium Oxide [Magnesium] 400 mg PO BID 08/06/18 [History] Oxybutynin Chloride [Oxybutynin Chloride ER] 5 mg PO DAILY 08/06/18 [History] Potassium Chloride 10 Meq Tab* [Klor Con 10 MEQ] 10 meq PO DAILY 08/06/18 [History] Oxycodone / APAP 10/325 mg [Oxycodone-Acetaminophen 10-325] 1 tab PO QID 04/14/19 [History] Gabapentin 800 mg PO TID 07/08/19 [History] Atorvastatin Calcium [Lipitor] 80 mg PO HS 08/14/20 [History] Carvedilol 3.125 mg [Coreg 3.125 MG] 3.125 mg PO BID 08/14/20 [History] Ergocalciferol (Vitamin D2) [Vitamin D2] 1 cap PO UD 08/14/20 [History] Oxycodone HCl/Acetaminophen [Percocet 10-325 mg Tablet] 1 each PO TIDPRN PRN 08/14/20 [History] Travel Risk - International Travel Have you traveled outside of the country in past 3 weeks: No - Coronavirus Screening Are you exhibiting any of the following symptoms?: No Close contact with a COVID-19 positive Pt in past 14-21 Days: No <FABIAN SEXTON - Last Filed: 08/14/20 06:38> - Review of Systems Constitutional: Weakness Eyes: No Symptoms Ears, Nose, & Throat: No Symptoms Respiratory: Dyspnea Cardiac: Chest Pain Abdominal/Gastrointestinal: No Symptoms Genitourinary Symptoms: No Symptoms Musculoskeletal: No Symptoms Skin: No Symptoms Neurological: No Symptoms Psychological: No Symptoms Endocrine: No Symptoms Hematologic/Lymphatic: No Symptoms Immunological/Allergic: No Symptoms All Other Systems: Reviewed and Negative <FABIAN SEXTON - Last Filed: 08/14/20 06:38> - Past Medical History Pertinent Past Medical History: Yes Neurological History: No Pertinent History ENT History: No Pertinent History Cardiac History: Coronary Artery Disease, Deep Vein Thrombosis, High Cholesterol, Hypertension, Myocardial Infarction ([place]) Respiratory History: CHF, COPD, Pulmonary Embolism Endocrine Medical History: Diabetes Type II Musculoskeletal History: Osteoarthritis GI Medical History: GERD History: No Pertinent History Psycho-Social History: No Pertinent History Male Reproductive Disorders: No Pertinent History Other Medical History: HX CABG. Coronary Stenting. HX DVT - Past Surgical History Past Surgical History: Yes Neuro Surgical History: No Pertinent History Cardiac: CABG, Cardiac Catheterization, Cardiac Stent, Internal Defibrillator, Pacemaker Respiratory: No Pertinent History Gastrointestinal: Cholecystectomy Genitourinary: No Pertinent History Musculoskeletal: Joint Replacement, Orthopedic Surgery Male Surgical History: No Pertinent History Other Surgical History: LEFT HIP REPLACEMENT. LITTLE [employer]ING[employer] RIGHT [employer]-STATES HAD SURGERY AND IT FROZE UP. 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 HX CABG and Coronary Stenting - Social History Smoking Status: Former smoker How long have you smoked: 10 yrs Exposure to second hand smoke: Yes ( - pack a day) Drug Use: none Patient Lives Alone: No <FABIAN SEXTON - Last Filed: 08/14/20 06:38> - Physical Exam General Appearance: no apparent distress, alert, anxiety Eye Exam: PERRL/EOMI, eyes nml inspection Ears, Nose, Throat Exam: normal ENT inspection, moist mucous membranes Neck Exam: normal inspection, non-tender, supple, full range of motion Respiratory Exam: normal breath sounds, chest tenderness, lungs clear, airway intact, No respiratory distress Cardiovascular Exam: regular rate/rhythm, normal heart sounds, normal peripheral pulses Gastrointestinal/Abdomen Exam: soft, normal bowel sounds, No tenderness Rectal Exam: not done Back Exam: normal inspection, normal range of motion, No CVA tenderness, No vertebral tenderness Extremity Exam: normal inspection, normal range of motion, pelvis stable Neurologic Exam: alert, oriented x 3, cooperative, package liner II-XII nml as tested, normal mood/affect, sensation nml Skin Exam: normal color, warm, dry Lymphatic Exam: No adenopathy SpO2 Interpretation: normal SpO2: 99 O2 Delivery: Room Air <FABIAN SEXTON - Last Filed: 08/14/20 06:38> - Nursing Vital Signs Nursing Vital Signs: Initial Vital Signs Temperature 98.1 F 08/14/20 04:22 Pulse Rate 76 08/14/20 04:22 Respiratory Rate 22 08/14/20 04:22 Blood Pressure 126/85 08/14/20 04:22 O2 Sat by Pulse Oximetry 99 08/14/20 04:22 Pain Scale Pain Intensity 0 - Course Nursing assessment & vital signs reviewed: Yes EKG Interpreted by Me: RATE (76), Sinus Rhythm, NORMAL AXIS, NORMAL INTERVALS, NORMAL QRS, NORMAL ST-T, Other (No acute ischemic changes. No change from Rx Systems PF EKG dated 01/24/2020) <FABIAN SEXTON - Last Filed: 08/14/20 06:38> - Radiology Exams Chest X-ray Interpretation: Negative - CT Exams Head CT Interpretation: Tele-radiologist Report <TREVON CASEY - Last Filed: 08/14/20 09:20> Ordered Tests: Active Orders 24 hr Category Date Time Status Drafter Tool Design STAT Care 08/14/20 04:28 Active EKG-ER Only STAT Care 08/14/20 04:27 Active IV Insertion STAT Care 08/14/20 04:27 Active Pulse Oximetry (ED) STAT Care 08/14/20 04:27 Active CHEST 1 VIEW (PORTABLE) Stat Exams 08/14/20 04:28 Completed HEAD WITHOUT CONTRAST [CT] Stat Exams 08/14/20 08:13 Completed HIP UNI (2V) INCL PEL IF DONE Stat Exams 08/14/20 08:48 Taken KNEE (1 OR 2 VIEW) Stat Exams 08/14/20 09:04 Taken CBC W DIFF Stat Lab 08/14/20 04:45 Completed CMP Stat Lab 08/14/20 04:45 Completed CULTURE,URINE Stat Lab 08/14/20 05:30 Received D-DIMER QUANTITATIVE Stat Lab 08/14/20 04:45 Completed MAGNESIUM Stat Lab 08/14/20 04:45 Completed NT PRO BNP Stat Lab 08/14/20 04:45 Completed PROTIME WITH INR Stat Lab 08/14/20 04:45 Completed TROPONIN Q3H Lab 08/14/20 04:45 Completed TROPONIN Q3H Lab 08/14/20 07:30 Completed TROPONIN Q3H Lab 08/14/20 10:30 Ordered TROPONIN Q3H Lab 08/14/20 13:30 Ordered TROPONIN Q3H Lab 08/14/20 16:30 Ordered UA W/RFX UR CULTURE Stat Lab 08/14/20 05:30 Completed Medication Summary Discontinued Medications Generic Name Dose Route Start Last Admin Trade Name Freq PRN Reason Stop Dose Admin Aspirin 324 mg 08/14/20 04:27 08/14/20 04:53 Baby Aspirin 81 Mg Chew PO 08/14/20 04:28 324 mg STAT ONE Administration Ceftriaxone Sodium/Dextrose 1 g in 50 mls @ 100 mls/hr 08/14/20 06:24 08/14/20 07:39 Rocephin 1 Gm-D5w 50 Ml Bag IV 08/14/20 06:53 Infused STAT STA Infusion Ceftriaxone Sodium/Dextrose Confirm 08/14/20 06:26 Rocephin 1 Gm-D5w 50 Ml Bag Administered 08/14/20 06:27 Dose 1 g in 50 mls @ ud IV .STK-MED ONE Lab/Rad Data: Laboratory Result Diagrams 08/14/20 04:45 08/14/20 04:45 Laboratory Results 08/14/20 08/14/20 08/14/20 Range/Units 07:30 05:30 04:45 WBC (4.0-10.5) K/mm3 RBC (4.1-5.6) M/mm3 Hgb (12.5-18.0) gm/dl Hct (42-50) % MCV (78-100) fl MCH (26-32) pg MCHC (32-36) g/dl RDW (11.5-14.0) % Plt Count (150-450) K/mm3 MPV (7.5-11.0) fl Gran % (36.0-66.0) % Eos # (Auto) (0-0.5) Absolute Lymphs (auto) (1.0-4.6) Absolute Monos (auto) (0.0-1.3) Lymphocytes % (24.0-44.0) % Monocytes % (0.0-12.0) % Eosinophils % (0.00-5.0) % Basophils % (0.0-0.4) % Absolute Granulocytes (1.4-6.9) Basophils # (0-0.4) PT (8.83-12.87) SECONDS INR (0.8-3.0) D-Dimer (215-500) ng/mL Sodium (137-145) mmol/L Potassium (3.5-5.1) mmol/L Chloride (98-107) mmol/L Carbon Dioxide (22-30) mmol/L Anion Gap (5-15) MEQ/L BUN (9-20) mg/dL Creatinine (0.66-1.25) mg/dL Estimated GFR ML/MIN Glucose (74-106) mg/dL Calcium (8.4-10.2) mg/dL Magnesium (1.6-2.3) mg/dL Total Bilirubin (0.2-1.3) mg/dL AST (17-59) U/L ALT (0-50) U/L Alkaline Phosphatase (38-126) U/L Troponin I 0.026 0.024 (0.000-0.034) ng/mL NT-Pro-B Natriuret Pep (0-900) pg/mL Serum Total Protein (6.3-8.2) g/dL Albumin (3.5-5.0) g/dL Urine Color YELLOW (YELLOW) Urine Appearance SLIGHTLY CLOUDY (CLEAR) Urine pH 5.0 (5-6) Ur Specific [place] 1.023 (1.005-1.025) Urine Protein 100 (Negative) Urine Ketones NEGATIVE (NEGATIVE) Urine Blood NEGATIVE (0-5) Miguel A/ul Urine Nitrite NEGATIVE (NEGATIVE) Urine Bilirubin NEGATIVE (NEGATIVE) Urine Urobilinogen NEGATIVE (0-1) mg/dL Ur Leukocyte Esterase SMALL (NEGATIVE) Urine WBC (Auto) 26-50 (0-5) /HPF Urine RBC (Auto) NONE (0-2) /HPF U Hyaline Cast (Auto) 11-25 (0-2) /LPF U Epithel Cells (Auto) RARE (FEW) /HPF Urine Bacteria (Auto) RARE (NEGATIVE) /HPF Urine Mucus (Auto) SLIGHT (NEGATIVE) /HPF Urine Culture Reflexed YES (NO) Urine Glucose NEGATIVE (NEGATIVE) mg/dL 08/14/20 08/14/20 08/14/20 Range/Units 04:45 04:45 04:45 WBC 8.3 (4.0-10.5) K/mm3 RBC 4.06 L (4.1-5.6) M/mm3 Hgb 11.5 L (12.5-18.0) gm/dl Hct 37.7 L (42-50) % MCV 92.9 (78-100) fl MCH 28.3 (26-32) pg MCHC 30.5 L (32-36) g/dl RDW 13.5 (11.5-14.0) % Plt Count 187 (150-450) K/mm3 MPV 9.5 (7.5-11.0) fl Gran % 79.1 H (36.0-66.0) % Eos # (Auto) 0.06 (0-0.5) Absolute Lymphs (auto) 1.37 (1.0-4.6) Absolute Monos (auto) 0.30 (0.0-1.3) Lymphocytes % 16.4 L (24.0-44.0) % Monocytes % 3.6 (0.0-12.0) % Eosinophils % 0.7 (0.00-5.0) % Basophils % 0.2 (0.0-0.4) % Absolute Granulocytes 6.58 (1.4-6.9) Basophils # 0.02 (0-0.4) PT 17.3 H (8.83-12.87) SECONDS INR 1.52 (0.8-3.0) D-Dimer 359 (215-500) ng/mL Sodium 140 (137-145) mmol/L Potassium 4.1 (3.5-5.1) mmol/L Chloride 103 (98-107) mmol/L Carbon Dioxide 33 H (22-30) mmol/L Anion Gap 7.8 (5-15) MEQ/L BUN 23 H (9-20) mg/dL Creatinine 1.05 (0.66-1.25) mg/dL Estimated GFR > 60.0 ML/MIN Glucose 152 H (74-106) mg/dL Calcium 8.7 (8.4-10.2) mg/dL Magnesium 1.8 (1.6-2.3) mg/dL Total Bilirubin 0.30 (0.2-1.3) mg/dL AST 24 (17-59) U/L ALT 19 (0-50) U/L Alkaline Phosphatase 87 (38-126) U/L Troponin I (0.000-0.034) ng/mL NT-Pro-B Natriuret Pep 167 (0-900) pg/mL Serum Total Protein 6.5 (6.3-8.2) g/dL Albumin 3.8 (3.5-5.0) g/dL Urine Color (YELLOW) Urine Appearance (CLEAR) Urine pH (5-6) Ur Specific [place] (1.005-1.025) Urine Protein (Negative) Urine Ketones (NEGATIVE) Urine Blood (0-5) Miguel A/ul Urine Nitrite (NEGATIVE) Urine Bilirubin (NEGATIVE) Urine Urobilinogen (0-1) mg/dL Ur Leukocyte Esterase (NEGATIVE) Urine WBC (Auto) (0-5) /HPF Urine RBC (Auto) (0-2) /HPF U Hyaline Cast (Auto) (0-2) /LPF U Epithel Cells (Auto) (FEW) /HPF Urine Bacteria (Auto) (NEGATIVE) /HPF Urine Mucus (Auto) (NEGATIVE) /HPF Urine Culture Reflexed (NO) Urine Glucose (NEGATIVE) mg/dL - Progress Counseled pt/family regarding: lab results, diagnosis, rad results <FABIAN SEXTON - Last Filed: 08/14/20 06:38> - Progress Progress: unchanged Discussed with : Elenita <TREVON CASEY - Last Filed: 08/14/20 09:20> - Progress Progress Note: 08/14/20 06:38 Chest x-ray shows chronically elevated right hemidiaphragm. There is mild cardiomegaly present.? Left left lung atelectasis versus scarring. No significant change from 01/24/2020. 08/14/20 06:41 I transferred care to Dr. Casey at shift change. He will make final disposition on this patient. (FABIAN SEXTON) - Departure Departure Disposition: Home Critical Care Time: No <FABIAN SEXTON - Last Filed: 08/14/20 06:38> - Departure Departure Disposition: Observation Critical Care Time: No <TREVON CASEY - Last Filed: 08/14/20 09:20> - Departure Clinical Impression: Chest pain, Altered mental status, UTI (urinary tract infection), Trochanteric bursitis of right hip Condition: Stable Referrals: MONSE BRADSHAW MD [Primary Care Provider] - Prescriptions: Cephalexin Mh 500 mg [Keflex 500 mg] 500 mg PO TID #21 capsule
[2020-08-14 04:58] LABS: Absolute Neutrophil Ct (ANC) 6.58 (1.4-6.9); BASOPHIL % 0.2 % (0.0-0.4); Basophil (Absolute #) 0.02 (0-0.4); Eosinophil % 0.7 % (0.00-5.0); Eosinophil (Absolute #) 0.06 (0-0.5); Hematocrit 37.7 % (42-50); Hemoglobin 11.5 gm/dl (12.5-18.0); Lymphocyte (Absolute #) 1.37 (1.0-4.6); Lymphocytes % 16.4 % (24.0-44.0); Mean Cell Volume 92.9 fl (78-100); Mean Corpuscular Hemoglobin 28.3 pg (26-32); Mean Corpuscular Hgb Concent. 30.5 g/dl (32-36); Mean Platelet Volume 9.5 fl (7.5-11.0); Monocytes % 3.6 % (0.0-12.0); Neutrophil % 79.1 % (36.0-66.0); Platelet Count 187 K/mm3 (150-450); Red Blood Count 4.06 M/mm3 (4.1-5.6); Red Cell Distribution Width 13.5 % (11.5-14.0); White Blood Count 8.3 K/mm3 (4.0-10.5)
[2020-08-14 05:00] LABS: INR 1.52 (0.8-3.0); PROTIME 17.3 SECONDS (8.83-12.87)
[2020-08-14 05:05] LABS: ALBUMIN 3.8 g/dL (3.5-5.0); ALKALINE PHOSPHATASE 87 U/L (38-126); ANION GAP 7.8 MEQ/L (5-15); BLOOD UREA NITROGEN 23 mg/dL (9-20); CHLORIDE 103 mmol/L (98-107); Calcium 8.7 mg/dL (8.4-10.2); Carbon Dioxide 33 mmol/L (22-30); Creatinine 1 1.05 mg/dL (0.66-1.25); EST GLOMERULAR FILTRATION RATE > 60.0 ML/MIN; Glucose 152 mg/dL (74-106); MAGNESIUM 1.8 mg/dL (1.6-2.3); Potassium 4.1 mmol/L (3.5-5.1); SGOT/AST 24 U/L (17-59); SGPT/ALT 19 U/L (0-50); SODIUM 140 mmol/L (137-145); Total Protein 6.5 g/dL (6.3-8.2)
[2020-08-14 05:15] LABS: NT PRO BNP 167 pg/mL (0-900)
[2020-08-14 05:46] LABS: Appearance SLIGHTLY CLOUDY (CLEAR); Bilirubin NEGATIVE (NEGATIVE); Blood NEGATIVE Ery/ul (0-5); Epithelial Cells RARE /HPF (FEW); Glucose NEGATIVE (NEGATIVE); Ketones NEGATIVE (NEGATIVE); Leukocyte Esterase SMALL (NEGATIVE); Mucus SLIGHT /HPF (NEGATIVE); Nitrite NEGATIVE (NEGATIVE); Protein,Urine Dip 100 (Negative); Specific Gravity 1.023 (1.005-1.025); Urobilinogen NEGATIVE mg/dL (0-1); WBC 26-50 /HPF (0-5)
[2020-08-14 05:47] LABS: Bacteria RARE /HPF (NEGATIVE)
[2020-08-14] MEDS ORDERED: ROCEPHIN 1 Gm-D5w 50 ml Bag** 1 G/50 ML IVPB IV STA (06:24)
[2020-08-14] MEDS ORDERED: ROCEPHIN 1 Gm-D5w 50 ml Bag** 1 G/50 ML IVPB IV ONE (06:26)
--- NOTE | 2020-08-14 08:41 | XRAY ---
Indication: Chest pain. Comparison: January 24, 2020. Portable apical lordotic chest unchanged again demonstrating chronic right hemidiaphragm elevation with adjacent atelectasis, cardiomegaly with CABG surgery/left pacemaker, osteopenia, and mild bony degenerative changes. No new/acute cardiopulmonary abnormalities.
--- NOTE | 2020-08-14 08:45 | XRAY ---
Indication: Altered mental status. Multiple contiguous axial images obtained through the head without contrast. Comparison: August 21, 2011. Progressive age-appropriate global atrophy with mild/moderate periventricular degenerative micro-ischemia bilaterally. New remote lacunar infarct left thalamus. No acute intracranial hemorrhage, abnormal extra-axial fluid collection, or mass effect. Fourth ventricle is midline without hydrocephalus. Again incidental vascular calcifications of both internal carotid and basilar arteries. Bony calvarium intact again with right frontal asymmetric calvarial thickening. New complete opacification of the left sphenoid sinus. Remaining visualized paranasal sinuses and mastoid air cells are clear. Impression: 1. 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 2. Incidental new left sphenoid sinus disease.
--- NOTE | 2020-08-14 09:18 | XRAY ---
Indication: Pain. No known injury. Comparison: February 20, 2018. AP/lateral right knee unchanged again demonstrating osteopenia, mild/moderate tricompartmental degenerative changes, small tibial tuberosity spur, and heavy vascular calcifications. No new/acute abnormalities.
--- NOTE | 2020-08-14 09:20 | XRAY ---
Indication: Pain. No known injury. Comparison: March 31, 2018. 2 view right hip again demonstrates osteopenia and heavy scattered vascular calcifications with progressive worsening markedly advanced degenerative changes including complete joint space loss, bony sclerosis/spurring, and bony remodeling. No other bony, articular, or soft tissue abnormalities.
[2020-08-14] MEDS ORDERED: Hydromorphone 1 mg/ml Injection IV PRN (09:21)
[2020-08-14] MEDS ORDERED: Sodium Chloride 0.9% 1000 ML 1,000 ML ONE (09:37)
[2020-08-14] MEDS ORDERED: XYLOCAINE 1% HCL 20 ML MDV ONE (09:47)
[2020-08-14] MEDS ORDERED: ROCEPHIN 1 Gm-D5w 50 ml Bag** 1 G/50 ML IVPB IV SCH (10:00)
[2020-08-14 10:16] LABS: INFLUENZA A NEGATIVE (NEGATIVE); INFLUENZA B NEGATIVE (NEGATIVE); RESPIRATORY SYNCTIAL VIRUS NEGATIVE (Negative)
[2020-08-14] MEDS: Sodium Chloride 0.9% 1000 ML 1,000 ML IV SCH ×2 (10:39→21:41)
[2020-08-14] MEDS ORDERED: PROVENTIL 2.5 MG/3 ML NEB IH ONE (11:03)
[2020-08-14] MEDS: Advair Hfa 115/21 Common canister IH SCH ×2 (11:07→19:45)
[2020-08-14] MEDS: PROVENTIL 2.5 MG/3 ML NEB IH SCH ×2 (11:07→19:45)
[2020-08-14] MEDS ORDERED: PROVENTIL 2.5 MG/3 ML NEB IH PRN (11:10)
--- NOTE | 2020-08-14 13:30 | PCM.HP ---
History of Present Illness - Chief Complaint Chief Complaint: altered mental status for 1 day History of Present Illness: is a 74-year-old white male who has chronic shortness of breath, weakness and chest pain. Chest pain is typically intermittent but in the last 12 hours his chest pain, which she describes as right-sided anterior and sharp without specific radiation, has been worsening in the last 12 hours. Patient has a pacemaker/defibrillator in place, he has a history of DVTs, pulmonary emboli, coronary artery disease with history of cardiac stents, COPD, hypertension. Patient is on Eliquis. Because of the patient's worsening symptoms he was brought into the emergency department by ambulance service. - Review of Systems Constitutional: Lethargy, Weakness, No Fever, No Chills Eyes: No Symptoms Ears, Nose, & Throat: No Symptoms Respiratory: No Cough, No Short Of Breath Cardiac: Chest Pain, No Edema, No Syncope Abdominal/Gastrointestinal: No Abdominal Pain, No Nausea, No Vomiting, No Diarrhea Genitourinary Symptoms: No Dysuria Musculoskeletal: No Back Pain, No Neck Pain Skin: No Rash Neurological: No Dizziness, No Focal Weakness, No Sensory Changes Psychological: No Symptoms Endocrine: No Symptoms Hematologic/Lymphatic: No Symptoms Immunological/Allergic: No Symptoms Medications & Allergies Home Medications: Home Medication List Isosorbide Mononitrate 30 mg [Imdur 30 MG] 90 mg PO QAM 10/30/14 [History Confirmed 08/14/20] Metformin HCl 500 mg [Glucophage 500 MG] 1,000 mg PO BIDAC 10/30/14 [History Confirmed 08/14/20] Lisinopril 5 mg [Zestril 5 MG] 5 mg PO DAILY 10/29/15 [History Confirmed 08/14/20] Amlodipine Besylate 5 mg [Norvasc 5 mg] 5 mg PO QAM 04/18/17 [History Confirmed 08/14/20] Famotidine [Pepcid] 40 mg PO HS 04/18/17 [History Confirmed 08/14/20] Tamsulosin HCl 0.4 mg [Flomax 0.4 MG] 0.4 mg PO 1800 04/18/17 [History Confirmed 08/14/20] Insulin Glargine [Lantus Insulin] 40 unit SQ BID 06/26/17 [History Confirmed 08/14/20] Zolpidem Tartrate [Ambien] 10 mg PO HS PRN PRN 06/26/17 [History Confirmed ] Apixaban [Eliquis 2.5 mg Tablet] 5 mg PO BID 08/06/18 [History Confirmed 08/14/20] Bumetanide 1 mg [Bumex 1 mg] 1 mg PO DAILY 08/06/18 [History Confirmed 08/14/20] Magnesium Oxide [Magnesium] 400 mg PO BID 08/06/18 [History Confirmed 08/14/20] Oxybutynin Chloride [Oxybutynin Chloride ER] 5 mg PO DAILY 08/06/18 [History Confirmed 08/14/20] Fluticasone/Salmeterol Disc [Advair 250-50 Diskus 14 Dose] 1 each IH BID #1 disk.w.dev 04/14/19 [Rx Confirmed 08/14/20] Gabapentin 800 mg PO TID 07/08/19 [History Confirmed 08/14/20] Atorvastatin Calcium [Lipitor] 80 mg PO HS 08/14/20 [History Confirmed 08/14/20] Carvedilol 3.125 mg [Coreg 3.125 MG] 3.125 mg PO BIDWM 08/14/20 [History Confirmed 08/14/20] Ergocalciferol (Vitamin D2) [Vitamin D2] 1 cap PO WEEKLY 08/14/20 [History Confirmed 08/14/20] Oxycodone HCl/Acetaminophen [Percocet 10-325 mg Tablet] 1 tab PO TIDPRN PRN 08/14/20 [History Confirmed 08/14/20] predniSONE [Prednisone] 10 mg PO DAILY 08/14/20 [History Confirmed 08/14/20] Allergies/Adverse Reactions: Allergies Allergy/AdvReac Type Severity Reaction Status Date / Time gemfibrozil Allergy Intermediate Rash Verified 08/14/20 04:27 pineapple [Pineapple] AdvReac Intermediate Nausea and Verified 08/14/20 04:27 Vomiting - Past Medical History Past Medical History: Yes Neurological History: No Pertinent History ENT History: No Pertinent History Cardiac History: Coronary Artery Disease, Deep Vein Thrombosis, High Cholesterol, Hypertension, Myocardial Infarction (AR) Respiratory History: CHF, COPD, Pulmonary Embolism Endocrine Medical History: Diabetes Type II Musculoskelatal History: Osteoarthritis GI Medical History: No Pertinent History History: No Pertinent History Pyscho-Social History: No Pertinent History Male Reproductive Disorders: No Pertinent History Comment: HX CABG. Coronary Stenting. HX DVT - Past Surgical History Past Surgical History: Yes Neuro Surgical History: No Pertinent History Cardiac History: CABG, Cardiac Catheterization, Cardiac Stent, Internal Defibrillator, Pacemaker Respiratory Surgery: No Pertinent History GI Surgical History: Cholecystectomy Genitourinary Surgical Hx: No Pertinent History Musculskeletal Surgical Hx: Joint Replacement, Orthopedic Surgery Male Surgical History: No Pertinent History Other Surgical History: LEFT HIP REPLACEMENT. [place]ING[place] RIGHT [employer]-STATES HAD SURGERY AND IT FROZE UP. 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 HX CABG and Coronary Stenting - Social History Smoking Status: Former smoker How long have you smoked: 10 yrs Exposure to second hand smoke: Yes ( - pack a day) Alcohol: None Drug Use: none - Physical Exam Vital Signs: Vital Signs - 24 hr Temp Pulse Resp BP Pulse Ox 08/14/20 12:02 99.6 F 70 24 153/84 97 08/14/20 11:10 58 L 18 97 08/14/20 11:00 99.6 F 70 24 153/84 97 08/14/20 07:41 63 18 116/64 98 08/14/20 06:43 99 08/14/20 06:00 63 18 112/69 95 08/14/20 05:15 71 22 124/91 98 08/14/20 04:28 96 08/14/20 04:22 98.1 F 76 22 126/85 99 General Appearance: no apparent distress, alert Neurologic Exam: alert, oriented x 3, cooperative, normal mood/affect, nml cerebellar function, nml station & gait, sensation nml, No motor deficits Eye Exam: PERRL/EOMI, eyes nml inspection Ears, Nose, Throat Exam: normal ENT inspection, TMs normal, pharynx normal, moist mucous membranes Neck Exam: normal inspection, non-tender, supple, full range of motion Respiratory Exam: normal breath sounds, lungs clear, No respiratory distress Cardiovascular Exam: regular rate/rhythm, normal heart sounds, normal peripheral pulses Gastrointestinal/Abdomen Exam: soft, normal bowel sounds, No tenderness, No mass Back Exam: normal inspection, normal range of motion, No CVA tenderness, No vertebral tenderness Extremity Exam: normal inspection, normal range of motion, pelvis stable Skin Exam: normal color, warm, dry, No rash Lymphatic Exam: No adenopathy Results - Labs Lab/Micro Results: Lab Results-Last 24 Hours 08/14/20 08/14/20 08/14/20 Range/Units 04:45 04:45 04:45 WBC 8.3 (4.0-10.5) K/mm3 RBC 4.06 L (4.1-5.6) M/mm3 Hgb 11.5 L (12.5-18.0) gm/dl Hct 37.7 L (42-50) % MCV 92.9 (78-100) fl MCH 28.3 (26-32) pg MCHC 30.5 L (32-36) g/dl RDW 13.5 (11.5-14.0) % Plt Count 187 (150-450) K/mm3 MPV 9.5 (7.5-11.0) fl Gran % 79.1 H (36.0-66.0) % Eos # (Auto) 0.06 (0-0.5) Absolute Lymphs (auto) 1.37 (1.0-4.6) Absolute Monos (auto) 0.30 (0.0-1.3) Lymphocytes % 16.4 L (24.0-44.0) % Monocytes % 3.6 (0.0-12.0) % Eosinophils % 0.7 (0.00-5.0) % Basophils % 0.2 (0.0-0.4) % Absolute Granulocytes 6.58 (1.4-6.9) Basophils # 0.02 (0-0.4) PT 17.3 H (8.83-12.87) SECONDS INR 1.52 (0.8-3.0) D-Dimer 359 (215-500) ng/mL Sodium 140 (137-145) mmol/L Potassium 4.1 (3.5-5.1) mmol/L Chloride 103 (98-107) mmol/L Carbon Dioxide 33 H (22-30) mmol/L Anion Gap 7.8 (5-15) MEQ/L BUN 23 H (9-20) mg/dL Creatinine 1.05 (0.66-1.25) mg/dL Estimated GFR > 60.0 ML/MIN Glucose 152 H (74-106) mg/dL POC Glucometer (74 to 106) mg/dL Calcium 8.7 (8.4-10.2) mg/dL Magnesium 1.8 (1.6-2.3) mg/dL Total Bilirubin 0.30 (0.2-1.3) mg/dL AST 24 (17-59) U/L ALT 19 (0-50) U/L Alkaline Phosphatase 87 (38-126) U/L Troponin I (0.000-0.034) ng/mL NT-Pro-B Natriuret Pep 167 (0-900) pg/mL Serum Total Protein 6.5 (6.3-8.2) g/dL Albumin 3.8 (3.5-5.0) g/dL Urine Color (YELLOW) Urine Appearance (CLEAR) Urine pH (5-6) Ur Specific [place] (1.005-1.025) Urine Protein (Negative) Urine Ketones (NEGATIVE) Urine Blood (0-5) Miguel A/ul Urine Nitrite (NEGATIVE) Urine Bilirubin (NEGATIVE) Urine Urobilinogen (0-1) mg/dL Ur Leukocyte Esterase (NEGATIVE) Urine WBC (Auto) (0-5) /HPF Urine RBC (Auto) (0-2) /HPF U Hyaline Cast (Auto) (0-2) /LPF U Epithel Cells (Auto) (FEW) /HPF Urine Bacteria (Auto) (NEGATIVE) /HPF Urine Mucus (Auto) (NEGATIVE) /HPF Urine Culture Reflexed (NO) Urine Glucose (NEGATIVE) mg/dL Influenza Type A Ag (NEGATIVE) Influenza Type B Ag (NEGATIVE) RSV (PCR) (Negative) SARS-CoV-2 (PCR) (NEGATIVE) 08/14/20 08/14/20 08/14/20 Range/Units 04:45 05:30 07:30 WBC (4.0-10.5) K/mm3 RBC (4.1-5.6) M/mm3 Hgb (12.5-18.0) gm/dl Hct (42-50) % MCV (78-100) fl MCH (26-32) pg MCHC (32-36) g/dl RDW (11.5-14.0) % Plt Count (150-450) K/mm3 MPV (7.5-11.0) fl Gran % (36.0-66.0) % Eos # (Auto) (0-0.5) Absolute Lymphs (auto) (1.0-4.6) Absolute Monos (auto) (0.0-1.3) Lymphocytes % (24.0-44.0) % Monocytes % (0.0-12.0) % Eosinophils % (0.00-5.0) % Basophils % (0.0-0.4) % Absolute Granulocytes (1.4-6.9) Basophils # (0-0.4) PT (8.83-12.87) SECONDS INR (0.8-3.0) D-Dimer (215-500) ng/mL Sodium (137-145) mmol/L Potassium (3.5-5.1) mmol/L Chloride (98-107) mmol/L Carbon Dioxide (22-30) mmol/L Anion Gap (5-15) MEQ/L BUN (9-20) mg/dL Creatinine (0.66-1.25) mg/dL Estimated GFR ML/MIN Glucose (74-106) mg/dL POC Glucometer (74 to 106) mg/dL Calcium (8.4-10.2) mg/dL Magnesium (1.6-2.3) mg/dL Total Bilirubin (0.2-1.3) mg/dL AST (17-59) U/L ALT (0-50) U/L Alkaline Phosphatase (38-126) U/L Troponin I 0.024 0.026 (0.000-0.034) ng/mL NT-Pro-B Natriuret Pep (0-900) pg/mL Serum Total Protein (6.3-8.2) g/dL Albumin (3.5-5.0) g/dL Urine Color YELLOW (YELLOW) Urine Appearance SLIGHTLY CLOUDY (CLEAR) Urine pH 5.0 (5-6) Ur Specific [place] 1.023 (1.005-1.025) Urine Protein 100 (Negative) Urine Ketones NEGATIVE (NEGATIVE) Urine Blood NEGATIVE (0-5) Miguel A/ul Urine Nitrite NEGATIVE (NEGATIVE) Urine Bilirubin NEGATIVE (NEGATIVE) Urine Urobilinogen NEGATIVE (0-1) mg/dL Ur Leukocyte Esterase SMALL (NEGATIVE) Urine WBC (Auto) 26-50 (0-5) /HPF Urine RBC (Auto) NONE (0-2) /HPF U Hyaline Cast (Auto) 11-25 (0-2) /LPF U Epithel Cells (Auto) RARE (FEW) /HPF Urine Bacteria (Auto) RARE (NEGATIVE) /HPF Urine Mucus (Auto) SLIGHT (NEGATIVE) /HPF Urine Culture Reflexed YES (NO) Urine Glucose NEGATIVE (NEGATIVE) mg/dL Influenza Type A Ag (NEGATIVE) Influenza Type B Ag (NEGATIVE) RSV (PCR) (Negative) SARS-CoV-2 (PCR) (NEGATIVE) 08/14/20 08/14/20 08/14/20 Range/Units 09:30 10:34 12:17 WBC (4.0-10.5) K/mm3 RBC (4.1-5.6) M/mm3 Hgb (12.5-18.0) gm/dl Hct (42-50) % MCV (78-100) fl MCH (26-32) pg MCHC (32-36) g/dl RDW (11.5-14.0) % Plt Count (150-450) K/mm3 MPV (7.5-11.0) fl Gran % (36.0-66.0) % Eos # (Auto) (0-0.5) Absolute Lymphs (auto) (1.0-4.6) Absolute Monos (auto) (0.0-1.3) Lymphocytes % (24.0-44.0) % Monocytes % (0.0-12.0) % Eosinophils % (0.00-5.0) % Basophils % (0.0-0.4) % Absolute Granulocytes (1.4-6.9) Basophils # (0-0.4) PT (8.83-12.87) SECONDS INR (0.8-3.0) D-Dimer (215-500) ng/mL Sodium (137-145) mmol/L Potassium (3.5-5.1) mmol/L Chloride (98-107) mmol/L Carbon Dioxide (22-30) mmol/L Anion Gap (5-15) MEQ/L BUN (9-20) mg/dL Creatinine (0.66-1.25) mg/dL Estimated GFR ML/MIN Glucose (74-106) mg/dL POC Glucometer 78 (74 to 106) mg/dL Calcium (8.4-10.2) mg/dL Magnesium (1.6-2.3) mg/dL Total Bilirubin (0.2-1.3) mg/dL AST (17-59) U/L ALT (0-50) U/L Alkaline Phosphatase (38-126) U/L Troponin I 0.015 (0.000-0.034) ng/mL NT-Pro-B Natriuret Pep (0-900) pg/mL Serum Total Protein (6.3-8.2) g/dL Albumin (3.5-5.0) g/dL Urine Color (YELLOW) Urine Appearance (CLEAR) Urine pH (5-6) Ur Specific [place] (1.005-1.025) Urine Protein (Negative) Urine Ketones (NEGATIVE) Urine Blood (0-5) Miguel A/ul Urine Nitrite (NEGATIVE) Urine Bilirubin (NEGATIVE) Urine Urobilinogen (0-1) mg/dL Ur Leukocyte Esterase (NEGATIVE) Urine WBC (Auto) (0-5) /HPF Urine RBC (Auto) (0-2) /HPF U Hyaline Cast (Auto) (0-2) /LPF U Epithel Cells (Auto) (FEW) /HPF Urine Bacteria (Auto) (NEGATIVE) /HPF Urine Mucus (Auto) (NEGATIVE) /HPF Urine Culture Reflexed (NO) Urine Glucose (NEGATIVE) mg/dL Influenza Type A Ag NEGATIVE (NEGATIVE) Influenza Type B Ag NEGATIVE (NEGATIVE) RSV (PCR) NEGATIVE (Negative) SARS-CoV-2 (PCR) NEGATIVE (NEGATIVE) - Radiology Impressions Radiology Exams & Impressions: Radiology Procedures Category Date Time Status CHEST 1 VIEW (PORTABLE) Stat Exams 08/14/20 04:28 Completed HEAD WITHOUT CONTRAST [CT] Stat Exams 08/14/20 08:13 Completed HIP UNI (2V) INCL PEL IF DONE Stat Exams 08/14/20 08:48 Completed KNEE (1 OR 2 VIEW) Stat Exams 08/14/20 09:04 Completed - Other Procedures and Tests Respiratory Therapy 08/14/20 11:09 Oxygen NASAL CANNULA 3 lpm 08/14/20 11:10 Respiratory Therapy Assessment DAILY 08/14/20 21:00 BiPap/CPAP ROUTINE Assessment/Plan (1) Altered mental status Current Visit: Yes Status: Acute Qualifiers: Altered mental status type: somnolence Qualified Code(s): R40.0 - Somnolence Code(s): R41.82 - ALTERED MENTAL STATUS, UNSPECIFIED (2) Chest pain Current Visit: Yes Status: Acute Qualifiers: Chest pain type: precordial pain Qualified Code(s): R07.2 - Precordial pain Code(s): R07.9 - CHEST PAIN, UNSPECIFIED (3) Shortness of breath Current Visit: Yes Status: Acute Code(s): R06.02 - SHORTNESS OF BREATH (4) COPD (chronic obstructive pulmonary disease) Current Visit: Yes Status: Chronic Qualifiers: COPD type: unspecified COPD Qualified Code(s): J44.9 - Chronic obstructive pulmonary disease, unspecified (5) Coronary artery disease Current Visit: Yes Status: Chronic Qualifiers: Coronary Disease-Associated Artery/Lesion type: [place] artery [place] vs. transplanted heart: [place] heart Associated angina: with stable angina Qualified Code(s): I25.118 - Atherosclerotic heart disease of [place] coronary artery with other forms of angina pectoris Code(s): I25.10 - ATHSCL HEART DISEASE OF [place] CORONARY ARTERY W/O ANG PCTRS (6) Diabetes Current Visit: Yes Status: Chronic Qualifiers: Diabetes mellitus type: type 2 Diabetes mellitus intermission coordinator insulin use: with intermission coordinator use Diabetes mellitus complication status: with circulatory complication Code(s): E11.9 - TYPE 2 DIABETES MELLITUS WITHOUT COMPLICATIONS (7) History of DVT (deep vein thrombosis) Current Visit: No Status: Chronic Code(s): Z86.718 - PERSONAL HISTORY OF OTHER VENOUS THROMBOSIS AND EMBOLISM (8) Pulmonary hypertension Current Visit: No Status: Chronic Code(s): I27.2 - OTHER SECONDARY PULMONARY HYPERTENSION * DO NOT USE *
[2020-08-14] MEDS ORDERED: Ambien 10 MG PO PRN (14:35)
[2020-08-14] MEDS ORDERED: HUMALOG SQ PRN (14:50)
[2020-08-14] MEDS: Ditropan XL 5 MG PO SCH (16:02)
[2020-08-14] MEDS: OXYCODONE-ACETAMINOPHEN 10-325 PO PRN ×2 (16:03→21:50)
[2020-08-14] MEDS: DELTASONE 10 MG PO SCH (16:03)
[2020-08-14] MEDS: Imdur 30 MG PO SCH (16:03)
[2020-08-14] MEDS: NORVASC 5 MG PO SCH (16:03)
[2020-08-14] MEDS: Neurontin 400 MG PO SCH ×2 (16:03→21:42)
[2020-08-14] MEDS: Zestril 5 MG PO SCH (16:03)
[2020-08-14] MEDS: BUMEX 1 MG PO SCH (16:32)
[2020-08-14] MEDS: Coreg 3.125 MG PO SCH (17:51)
[2020-08-14] MEDS: Glucophage 500 MG PO SCH (17:51)
[2020-08-14] MEDS ORDERED: Flomax 0.4 MG PO SCH (18:00)
[2020-08-14] MEDS: ELIQUIS 2.5 MG TABLET PO SCH (21:41)
[2020-08-14] MEDS: Lantus Insulin SQ SCH (21:42)
[2020-08-14] MEDS: MAG-OX 400 PO SCH (21:42)
[2020-08-14] MEDS ORDERED: NON-FORMULARY ITEM (Atorvastatin Calcium [Lipitor] 80 MG) PO SCH (22:00)
[2020-08-14] MEDS ORDERED: NON-FORMULARY ITEM (Magnesium Oxide [Magnesium] 400 MG) PO SCH (22:00)
[2020-08-14] MEDS ORDERED: NON-FORMULARY ITEM (Famotidine [Pepcid] 40 MG) PO SCH (22:00)
[2020-08-14] MEDS ORDERED: Pepcid 20 MG PO SCH (22:00)
[2020-08-14] MEDS ORDERED: ZOCOR 20MG PO SCH (22:00)
[2020-08-15 03:33] VITALS: O2SAT 95
[2020-08-15 05:33] LABS: Absolute Neutrophil Ct (ANC) 4.14 (1.4-6.9); BASOPHIL % 0.3 % (0.0-0.4); Basophil (Absolute #) 0.02 (0-0.4); Eosinophil % 1.3 % (0.00-5.0); Eosinophil (Absolute #) 0.08 (0-0.5); Hematocrit 32.9 % (42-50); Hemoglobin 9.9 gm/dl (12.5-18.0); Lymphocytes % 20.2 % (24.0-44.0); Mean Corpuscular Hemoglobin 28.3 pg (26-32); Mean Corpuscular Hgb Concent. 30.1 g/dl (32-36); Mean Platelet Volume 9.5 fl (7.5-11.0); Monocyte (Absolute #) 0.51 (0.0-1.3); Monocytes % 8.6 % (0.0-12.0); Neutrophil % 69.6 % (36.0-66.0); Platelet Count 151 K/mm3 (150-450); Red Cell Distribution Width 13.4 % (11.5-14.0)
[2020-08-15] MEDS: PROVENTIL 2.5 MG/3 ML NEB IH SCH (07:15)
[2020-08-15] MEDS: Advair Hfa 115/21 Common canister IH SCH (07:20)
[2020-08-15 07:32] VITALS: BP 134/83; PULSE 68
[2020-08-15] MEDS: Coreg 3.125 MG PO SCH (08:03)
[2020-08-15] MEDS: OXYCODONE-ACETAMINOPHEN 10-325 PO PRN (08:03)
[2020-08-15] MEDS: Glucophage 500 MG PO SCH (08:03)
--- NOTE | 2020-08-15 09:02 | PCM.DS ---
Discharge Summary Date of Admission: 08/14/20 10:44 Admitting Physician: MONSE BRADSHAW Primary Care Provider: MONSE BRADSHAW Allergies Allergies gemfibrozil Allergy (Intermediate, Verified 08/14/20 04:27) Rash pineapple [Pineapple] Adverse Reaction (Intermediate, Verified 08/14/20 04:27) Nausea and Vomiting VOMITING Hospital Summary - Hospital Course Hospital Course: Chief Complaint Diagnosis altered mental status for 1 day Allergies Allergy/AdvReac Type Severity Reaction Status Date / Time gemfibrozil Allergy Intermediate Rash Verified 08/14/20 04:27 pineapple [Pineapple] AdvReac Intermediate Nausea and Verified 08/14/20 04:27 Vomiting Vital Signs (Last 24 hours) Temp Pulse Resp BP Pulse Ox 08/15/20 07:31 98.3 F 68 20 134/83 95 08/15/20 07:15 58 L 12 94 L 08/15/20 03:31 98.1 F 60 20 134/71 95 08/14/20 23:56 97.9 F 73 18 126/67 98 08/14/20 19:56 98.3 F 79 19 147/70 95 08/14/20 19:45 72 18 94 L 08/14/20 16:00 98.8 F 60 22 163/85 97 08/14/20 13:55 99.6 F 70 24 153/84 97 08/14/20 12:02 99.6 F 70 24 153/84 97 08/14/20 11:10 58 L 18 97 08/14/20 11:00 99.6 F 70 24 153/84 97 Home Medications Medication Instructions Recorded Confirmed Last Taken Type Atorvastatin Calcium [Lipitor] 80 mg PO HS 08/14/20 08/14/20 Unknown History Carvedilol 3.125 mg [Coreg 3.125 mg PO BIDWM 08/14/20 08/14/20 Unknown History 3.125 MG] Ergocalciferol (Vitamin D2) 1 cap PO WEEKLY 08/14/20 08/14/20 Unknown History [Vitamin D2] Oxycodone HCl/Acetaminophen 1 tab PO TIDPRN PRN 08/14/20 08/14/20 Unknown History [Percocet 10-325 mg Tablet] predniSONE [Prednisone] 10 mg PO DAILY 08/14/20 08/14/20 Unknown History Current Medications Generic Name Dose Route Start Last Admin Trade Name Freq PRN Reason Stop Dose Admin Albuterol Sulfate 2.5 mg 08/14/20 13:00 08/15/20 07:15 Proventil 2.5 Mg/3 Ml Neb IH 09/13/20 12:59 2.5 mg TIDRT BENJA Administration Albuterol Sulfate 2.5 mg 08/14/20 11:10 Proventil 2.5 Mg/3 Ml Neb IH 09/13/20 11:09 Q4H PRN PRN SHORTNESS OF BREATH/WHEEZING Amlodipine Besylate 5 mg 08/14/20 15:00 08/14/20 16:03 Norvasc 5 Mg PO 09/13/20 14:59 5 mg QAM BENJA Administration Apixaban 5 mg 08/14/20 22:00 08/14/20 21:41 Eliquis 2.5 Mg Tablet PO 09/13/20 21:59 5 mg BID BENJA Administration Bumetanide 1 mg 08/14/20 15:00 08/14/20 16:32 Bumex 1 Mg PO 09/13/20 14:59 Not Given DAILY BENJA Carvedilol 3.125 mg 08/14/20 17:00 08/15/20 08:03 Coreg 3.125 Mg PO 09/13/20 16:59 3.125 mg BIDWM BENJA Administration Ergocalciferol 50,000 unit 08/16/20 10:00 Vitamin D2 PO 09/15/20 09:59 WEEKLY BENJA Famotidine 40 mg 08/14/20 22:00 08/14/20 21:43 Pepcid 20 Mg PO 09/13/20 21:59 40 mg HS BENJA Administration Gabapentin 800 mg 08/14/20 15:00 08/14/20 21:42 Neurontin 400 Mg PO 09/13/20 14:59 800 mg TID BENJA Administration Hydromorphone HCl 0.5 mg 08/14/20 09:21 Hydromorphone 1 Mg/Ml Injection IV 08/19/20 09:20 Q4H PRN PRN PAIN Sodium Chloride 1,000 mls @ 100 mls/hr 08/14/20 09:30 08/14/20 21:41 Sodium Chloride 0.9% 1000 Ml IV 09/13/20 09:29 100 mls/hr .Q10H BENJA Administration Ceftriaxone Sodium/Dextrose 1 g in 50 mls @ 100 mls/hr 08/15/20 10:00 Rocephin 1 Gm-D5w 50 Ml Bag IV 09/14/20 09:59 Q24H10 BENJA Insulin Glargine 40 unit 08/14/20 22:00 08/14/20 21:42 Lantus Insulin SQ 09/13/20 21:59 40 unit BID BNEJA Administration Insulin Human Lispro 0 unit 08/14/20 14:50 08/14/20 21:43 Humalog SQ 09/13/20 14:49 2 unit UD PRN Administration HYPERGLYCEMIA Isosorbide Mononitrate 90 mg 08/14/20 15:00 08/14/20 16:03 Imdur 30 Mg PO 09/13/20 14:59 90 mg QAM BENJA Administration Lisinopril 5 mg 08/14/20 15:00 08/14/20 16:03 Zestril 5 Mg PO 09/13/20 14:59 5 mg DAILY BENJA Administration Magnesium Oxide 400 mg 08/14/20 22:00 08/14/20 21:42 Mag-Ox 400 PO 09/13/20 21:59 400 mg BID BENJA Administration Metformin HCl 1,000 mg 08/14/20 17:00 08/15/20 08:03 Glucophage 500 Mg PO 09/13/20 16:59 1,000 mg BIDWM BENJA Administration Oxybutynin Chloride 5 mg 08/14/20 15:00 08/14/20 16:02 Ditropan Xl 5 Mg PO 09/13/20 14:59 5 mg DAILY BENJA Administration Oxycodone/Acetaminophen 1 tab 08/14/20 14:35 08/15/20 08:03 Oxycodone-Acetaminophen 10-325 PO 08/19/20 14:34 1 tab TIDPRN PRN Administration PAIN Prednisone 10 mg 08/14/20 15:00 08/14/20 16:03 Deltasone 10 Mg PO 09/13/20 14:59 10 mg DAILY BENJA Administration Fluticasone/Salmeterol 2 puff 03/05/21 19:00 08/15/20 07:20 Advair Hfa 115/21 Common Canister* IH 09/13/20 18:59 2 puff BIDRT BENJA Administration Simvastatin 40 mg 08/14/20 22:00 08/14/20 21:43 Zocor 20mg PO 09/13/20 21:59 40 mg HS BENJA Administration Tamsulosin HCl 0.4 mg 08/14/20 18:00 08/14/20 17:51 Flomax 0.4 Mg PO 09/13/20 17:59 0.4 mg 1800 BENJA Administration Zolpidem Tartrate 10 mg 08/14/20 14:35 Ambien 10 Mg PO 09/13/20 14:34 HS PRN PRN INSOMNIA Discontinued Medications Generic Name Dose Route Start Last Admin Trade Name Freq PRN Reason Stop Dose Admin Albuterol Sulfate Confirm 08/14/20 11:03 Proventil 2.5 Mg/3 Ml Neb Administered 08/14/20 11:04 Dose 2.5 mg IH .STK-MED ONE Aspirin 324 mg 08/14/20 04:27 08/14/20 04:53 Baby Aspirin 81 Mg Chew PO 08/14/20 04:28 324 mg STAT ONE Administration Ceftriaxone Sodium/Dextrose 1 g in 50 mls @ 100 mls/hr 08/14/20 06:24 08/14/20 07:39 Rocephin 1 Gm-D5w 50 Ml Bag IV 08/14/20 06:53 Infused STAT STA Infusion Ceftriaxone Sodium/Dextrose Confirm 08/14/20 06:26 Rocephin 1 Gm-D5w 50 Ml Bag Administered 08/14/20 06:27 Dose 1 g in 50 mls @ ud IV .STK-MED ONE Ceftriaxone Sodium/Dextrose 1 g in 50 mls @ 100 mls/hr 08/14/20 10:00 Rocephin 1 Gm-D5w 50 Ml Bag IV 09/13/20 09:59 Q24H10 BENJA Sodium Chloride Confirm 08/14/20 09:37 Sodium Chloride 0.9% 1000 Ml Administered 08/14/20 09:38 Dose 1,000 mls @ ud .ROUTE .STK-MED ONE Lidocaine HCl Confirm 08/14/20 09:47 Xylocaine 1% Hcl 20 Ml Mdv Administered 08/14/20 09:48 Dose 1 ml .ROUTE .STK-MED ONE Intake & Output (Last 24 hours) 08/12/20 08/13/20 08/14/20 08/15/20 11:59 11:59 11:59 11:59 Intake Total 2731 Output Total 400 Balance 2331 Weight 113.942 kg 113.942 kg Microbiology Results (Last 24 hours) 08/14/20 05:30 Urine, Void Urine Culture - Final NO GROWTH Laboratory Results (Last 24 hours) 08/15/20 08/15/20 08/14/20 06:51 05:22 20:35 WBC 6.0 RBC 3.50 L Hgb 9.9 L Hct 32.9 L MCV 94.0 MCH 28.3 MCHC 30.1 L RDW 13.4 Plt Count 151 MPV 9.5 Gran % 69.6 H Eos # (Auto) 0.08 Absolute Lymphs (auto) 1.20 Absolute Monos (auto) 0.51 Lymphocytes % 20.2 L Monocytes % 8.6 Eosinophils % 1.3 Basophils % 0.3 Absolute Granulocytes 4.14 Basophils # 0.02 POC Glucometer 142 H 242 H Hemoglobin A1c Troponin I Influenza Type A Ag Influenza Type B Ag RSV (PCR) SARS-CoV-2 (PCR) 08/14/20 08/14/20 08/14/20 16:31 16:10 13:24 WBC RBC Hgb Hct MCV MCH MCHC RDW Plt Count MPV Gran % Eos # (Auto) Absolute Lymphs (auto) Absolute Monos (auto) Lymphocytes % Monocytes % Eosinophils % Basophils % Absolute Granulocytes Basophils # POC Glucometer 156 H Hemoglobin A1c Troponin I 0.020 0.014 Influenza Type A Ag Influenza Type B Ag RSV (PCR) SARS-CoV-2 (PCR) 08/14/20 08/14/20 08/14/20 12:17 10:34 09:30 WBC RBC Hgb Hct MCV MCH MCHC RDW Plt Count MPV Gran % Eos # (Auto) Absolute Lymphs (auto) Absolute Monos (auto) Lymphocytes % Monocytes % Eosinophils % Basophils % Absolute Granulocytes Basophils # POC Glucometer 78 Hemoglobin A1c Troponin I 0.015 Influenza Type A Ag NEGATIVE Influenza Type B Ag NEGATIVE RSV (PCR) NEGATIVE SARS-CoV-2 (PCR) NEGATIVE 08/14/20 05:00 WBC RBC Hgb Hct MCV MCH MCHC RDW Plt Count MPV Gran % Eos # (Auto) Absolute Lymphs (auto) Absolute Monos (auto) Lymphocytes % Monocytes % Eosinophils % Basophils % Absolute Granulocytes Basophils # POC Glucometer Hemoglobin A1c 7.31 H Troponin I Influenza Type A Ag Influenza Type B Ag RSV (PCR) SARS-CoV-2 (PCR) Orders (Last 24 hours) Category Date Time Status Up With Assistance ROUTINE Activity 08/14/20 09:21 Active Code Status Order ROUTINE Care 08/14/20 09:21 Active IV Care Q6H Care 08/14/20 09:21 Completed Neuro Checks Q4H Care 08/14/20 09:21 Active POCT Glucose Check ACHS Care 08/14/20 14:[address] in Observation ROUTINE Care 08/14/20 09:21 Active Arleen Magallanes ROUTINE Care 08/14/20 09:21 Active Cardio-Pulmonary Rehab .as ordered Cons 08/14/20 12:03 Active House Regular Diet Diet 08/14/20 Lunch Active HEAD WITHOUT CONTRAST [CT] Stat Exams 08/14/20 08:13 Completed HIP UNI (2V) INCL PEL IF DONE Stat Exams 08/14/20 08:48 Completed KNEE (1 OR 2 VIEW) Stat Exams 08/14/20 09:04 Completed CBC W DIFF AM.LAB Lab 08/15/20 05:22 Completed CMP AM.LAB Lab 08/15/20 05:22 Received POCT GLUCOSE Stat Lab 08/14/20 12:17 Completed POCT GLUCOSE Stat Lab 08/14/20 16:10 Completed POCT GLUCOSE Stat Lab 08/14/20 20:35 Completed POCT GLUCOSE Stat Lab 08/15/20 06:51 Completed TROPONIN Q3H Lab 08/14/20 10:34 Completed TROPONIN Q3H Lab 08/14/20 13:24 Completed TROPONIN Q3H Lab 08/14/20 16:31 Completed Albuterol 2.5 mg/3 ml Neb [Proventil 2.5 mg/3 ml Neb Med 08/14/20 11:03 Discontinued ] 2.5 mg IH .STK-MED ONE Albuterol 2.5 mg/3 ml Neb [Proventil 2.5 mg/3 ml Neb Med 08/14/20 11:10 Active ] 2.5 mg IH Q4H PRN PRN Albuterol 2.5 mg/3 ml Neb [Proventil 2.5 mg/3 ml Neb Med 08/14/20 13:00 Active ] 2.5 mg IH TIDRT Amlodipine Besylate 5 mg [Norvasc 5 mg] Med 08/14/20 15:00 Active 5 mg PO QAM Apixaban [Eliquis 2.5 mg Tablet] Med 08/14/20 22:00 Active 5 mg PO BID Bumetanide 1 mg [Bumex 1 mg] Med 08/14/20 15:00 Active 1 mg PO DAILY Carvedilol 3.125 mg [Coreg 3.125 MG] Med 08/14/20 17:00 Active 3.125 mg PO BIDWM Ceftriaxone 1 GM/50 ML PREMIX* [ROCEPHIN 1 Gm-D5w 50 ml Med 08/14/20 10:00 Discontinued Bag] 1 g in 50 ml IV Q24H10 Ceftriaxone 1 GM/50 ML PREMIX* [ROCEPHIN 1 Gm-D5w 50 ml Med 08/15/20 10:00 Active Bag] 1 g in 50 ml IV Q24H10 Ergocalciferol (Vitamin D2) [Vitamin D2] Med 08/16/20 10:00 Active 50,000 unit PO WEEKLY Famotidine 20 mg [Pepcid 20 MG] Med 08/14/20 22:00 Active 40 mg PO HS Fluticasone/Salmeterol [Advair Hfa Common Med 08/14/20 19:00 Active canister*] 2 puff IH BIDRT Gabapentin 400 mg [Neurontin 400 MG] Med 08/14/20 15:00 Active 800 mg PO TID Hydromorphone 1 mg/1Ml Inj [Hydromorphone 1 mg/ml Med 08/14/20 09:21 Active Injection] 0.5 mg IV Q4H PRN PRN Insulin Glargine [Lantus Insulin] Med 08/14/20 22:00 Active 40 unit SQ BID Insulin Lispro [Humalog] Med 08/14/20 14:50 Active See Dose Instructions SQ UD PRN Isosorbide Mononitrate 30 mg [Imdur 30 MG] Med 08/14/20 15:00 Active 90 mg PO QAM Lidocaine HCl 1% 20 ml Mdv [Xylocaine 1% HCl 20 ml Med 08/14/20 09:47 Discontinued Mdv] 1 ml .ROUTE .STK-MED ONE Lisinopril 5 mg [Zestril 5 MG] Med 08/14/20 15:00 Active 5 mg PO DAILY Magnesium Oxide 400 mg [Mag-Ox 400] Med 08/14/20 22:00 Active 400 mg PO BID Metformin HCl 500 mg [Glucophage 500 MG] Med 08/14/20 17:00 Active 1,000 mg PO BIDWM NaCl 0.9% 1000 ml [Sodium Chloride 0.9% 1000 ML] 1,000 Med 08/14/20 09:37 Dis continued ml .ROUTE UD NaCl 0.9% 1000 ml [Sodium Chloride 0.9% 1000 ML] 1,000 Med 08/14/20 09:30 Active ml IV 100 mls/hr Oxybutynin Chloride Xl 5 mg [Ditropan XL 5 MG] Med 08/14/20 15:00 Active 5 mg PO DAILY Oxycodone / APAP 10/325 mg [Oxycodone-Acetaminophen Med 08/14/20 14:35 Active 10-325] 1 tab PO TIDPRN PRN Prednisone 10 mg [Deltasone 10 mg] Med 08/14/20 15:00 Active 10 mg PO DAILY Simvastatin 20Mg [Zocor 20Mg] Med 08/14/20 22:00 Active 40 mg PO HS Tamsulosin HCl 0.4 mg [Flomax 0.4 MG] Med 08/14/20 18:00 Active 0.4 mg PO 1800 Zolpidem Tartrate 10 mg [Ambien 10 MG] Med 08/14/20 14:35 Active 10 mg PO HS PRN PRN BiPap/CPAP ROUTINE RT 08/14/20 21:00 Active Oxygen NASAL CANNULA 3 lpm RT 08/14/20 11:09 Active Pulse Oximetry .spot check RT 08/14/20 09:23 Active Respiratory Therapy Assessment DAILY RT 08/14/20 11:10 Active Respiratory Therapy Consult ROUTINE RT 08/14/20 09:21 Completed - Vitals & Intake/Output Vital Signs: Vital Signs Temperature 98.3 F 08/15/20 07:31 Pulse Rate 68 08/15/20 07:31 Respiratory Rate 20 08/15/20 07:31 Blood Pressure 134/83 08/15/20 07:31 O2 Sat by Pulse Oximetry 95 08/15/20 07:31 Intake & Output: Intake & Output 08/12/20 08/13/20 08/14/20 08/15/20 11:59 11:59 11:59 11:59 Intake Total 2731 Output Total 400 Balance 2331 Weight 113.942 kg 113.942 kg - Lab Result Diagrams: 08/15/20 05:22 08/14/20 04:45 Lab Results-Last 24 Hrs: Lab Results-Last 24 Hours 08/14/20 08/14/20 08/14/20 Range/Units 05:00 09:30 10:34 WBC (4.0-10.5) K/mm3 RBC (4.1-5.6) M/mm3 Hgb (12.5-18.0) gm/dl Hct (42-50) % MCV (78-100) fl MCH (26-32) pg MCHC (32-36) g/dl RDW (11.5-14.0) % Plt Count (150-450) K/mm3 MPV (7.5-11.0) fl Gran % (36.0-66.0) % Eos # (Auto) (0-0.5) Absolute Lymphs (auto) (1.0-4.6) Absolute Monos (auto) (0.0-1.3) Lymphocytes % (24.0-44.0) % Monocytes % (0.0-12.0) % Eosinophils % (0.00-5.0) % Basophils % (0.0-0.4) % Absolute Granulocytes (1.4-6.9) Basophils # (0-0.4) POC Glucometer (74 to 106) mg/dL Hemoglobin A1c 7.31 H (4.5-6.0) % Troponin I 0.015 (0.000-0.034) ng/mL Influenza Type A Ag NEGATIVE (NEGATIVE) Influenza Type B Ag NEGATIVE (NEGATIVE) RSV (PCR) NEGATIVE (Negative) SARS-CoV-2 (PCR) NEGATIVE (NEGATIVE) 08/14/20 08/14/20 08/14/20 Range/Units 12:17 13:24 16:10 WBC (4.0-10.5) K/mm3 RBC (4.1-5.6) M/mm3 Hgb (12.5-18.0) gm/dl Hct (42-50) % MCV (78-100) fl MCH (26-32) pg MCHC (32-36) g/dl RDW (11.5-14.0) % Plt Count (150-450) K/mm3 MPV (7.5-11.0) fl Gran % (36.0-66.0) % Eos # (Auto) (0-0.5) Absolute Lymphs (auto) (1.0-4.6) Absolute Monos (auto) (0.0-1.3) Lymphocytes % (24.0-44.0) % Monocytes % (0.0-12.0) % Eosinophils % (0.00-5.0) % Basophils % (0.0-0.4) % Absolute Granulocytes (1.4-6.9) Basophils # (0-0.4) POC Glucometer 78 156 H (74 to 106) mg/dL Hemoglobin A1c (4.5-6.0) % Troponin I 0.014 (0.000-0.034) ng/mL Influenza Type A Ag (NEGATIVE) Influenza Type B Ag (NEGATIVE) RSV (PCR) (Negative) SARS-CoV-2 (PCR) (NEGATIVE) 08/14/20 08/14/20 08/15/20 Range/Units 16:31 20:35 05:22 WBC 6.0 (4.0-10.5) K/mm3 RBC 3.50 L (4.1-5.6) M/mm3 Hgb 9.9 L (12.5-18.0) gm/dl Hct 32.9 L (42-50) % MCV 94.0 (78-100) fl MCH 28.3 (26-32) pg MCHC 30.1 L (32-36) g/dl RDW 13.4 (11.5-14.0) % Plt Count 151 (150-450) K/mm3 MPV 9.5 (7.5-11.0) fl Gran % 69.6 H (36.0-66.0) % Eos # (Auto) 0.08 (0-0.5) Absolute Lymphs (auto) 1.20 (1.0-4.6) Absolute Monos (auto) 0.51 (0.0-1.3) Lymphocytes % 20.2 L (24.0-44.0) % Monocytes % 8.6 (0.0-12.0) % Eosinophils % 1.3 (0.00-5.0) % Basophils % 0.3 (0.0-0.4) % Absolute Granulocytes 4.14 (1.4-6.9) Basophils # 0.02 (0-0.4) POC Glucometer 242 H (74 to 106) mg/dL Hemoglobin A1c (4.5-6.0) % Troponin I 0.020 (0.000-0.034) ng/mL Influenza Type A Ag (NEGATIVE) Influenza Type B Ag (NEGATIVE) RSV (PCR) (Negative) SARS-CoV-2 (PCR) (NEGATIVE) 08/15/20 Range/Units 06:51 WBC (4.0-10.5) K/mm3 RBC (4.1-5.6) M/mm3 Hgb (12.5-18.0) gm/dl Hct (42-50) % MCV (78-100) fl MCH (26-32) pg MCHC (32-36) g/dl RDW (11.5-14.0) % Plt Count (150-450) K/mm3 MPV (7.5-11.0) fl Gran % (36.0-66.0) % Eos # (Auto) (0-0.5) Absolute Lymphs (auto) (1.0-4.6) Absolute Monos (auto) (0.0-1.3) Lymphocytes % (24.0-44.0) % Monocytes % (0.0-12.0) % Eosinophils % (0.00-5.0) % Basophils % (0.0-0.4) % Absolute Granulocytes (1.4-6.9) Basophils # (0-0.4) POC Glucometer 142 H (74 to 106) mg/dL Hemoglobin A1c (4.5-6.0) % Troponin I (0.000-0.034) ng/mL Influenza Type A Ag (NEGATIVE) Influenza Type B Ag (NEGATIVE) RSV (PCR) (Negative) SARS-CoV-2 (PCR) (NEGATIVE) Micro Results-Entire Visit: Microbiology 08/14/20 05:30 Urine Culture - Final Urine, Void NO GROWTH Accuchecks Date 08/14/20 Date 08/14/20 Time 22:00 - Radiology Exams Ordered Rad Exams-Entire Visit: Radiology Procedures Category Date Time Status CHEST 1 VIEW (PORTABLE) Stat Exams 08/14/20 04:28 Completed HEAD WITHOUT CONTRAST [CT] Stat Exams 08/14/20 08:13 Completed HIP UNI (2V) INCL PEL IF DONE Stat Exams 08/14/20 08:48 Completed KNEE (1 OR 2 VIEW) Stat Exams 08/14/20 09:04 Completed - Procedures and Test Procedures and Tests throughout Hospitalization: Therapy Orders & Screens 08/14/20 09:21 Respiratory Therapy Consult ROUTINE Comment: Reason For Exam: 08/14/20 11:09 Oxygen NASAL CANNULA 3 lpm Comment: Diagnosis: AMS, UTI 08/14/20 11:10 Respiratory Therapy Assessment DAILY Comment: Diagnosis: AMS, UTI 08/14/20 21:00 BiPap/CPAP ROUTINE Comment: HOME UNIT PER HOME SETTINGS Diagnosis: AMS, UTI Discharge Exam General Appearance: no apparent distress, alert Neurologic Exam: alert, oriented x 3, cooperative, normal mood/affect, nml cerebellar function, sensation nml, No motor deficits Eye Exam: PERRL, EOMI, eyes nml inspection Ears, Nose, Throat Exam: normal ENT inspection, pharynx normal, moist mucous membranes Neck Exam: normal inspection, non-tender, supple, full range of motion Respiratory Exam: normal breath sounds, lungs clear, No respiratory distress Cardiovascular Exam: regular rate/rhythm, normal heart sounds Gastrointestinal/Abdomen Exam: soft, No tenderness, No mass Male Genitalia Exam: deferred Rectal Exam: deferred Back Exam: normal inspection, normal range of motion, No CVA tenderness, No vertebral tenderness Extremity Exam: normal inspection, normal range of motion Skin Exam: normal color, warm, dry Final Diagnosis/Problem List - Final Discharge Diagnosis/Problem (1) Altered mental status Current Visit: Yes Status: Resolved Code(s): R41.82 - ALTERED MENTAL STATUS, UNSPECIFIED (2) Chest pain Current Visit: Yes Status: Resolved Code(s): R07.9 - CHEST PAIN, UNSPECIFIED (3) Shortness of breath Current Visit: Yes Status: Resolved Code(s): R06.02 - SHORTNESS OF BREATH (4) COPD (chronic obstructive pulmonary disease) Current Visit: Yes Status: Chronic (5) Coronary artery disease Current Visit: Yes Status: Chronic Code(s): I25.10 - ATHSCL HEART DISEASE OF [place] CORONARY ARTERY W/O ANG PCTRS (6) Diabetes Current Visit: Yes Status: Chronic Code(s): E11.9 - TYPE 2 DIABETES MELLITUS WITHOUT COMPLICATIONS (7) History of DVT (deep vein thrombosis) Current Visit: Yes Status: Chronic Code(s): Z86.718 - PERSONAL HISTORY OF OTHER VENOUS THROMBOSIS AND EMBOLISM (8) Pulmonary hypertension Current Visit: Yes Status: Chronic Code(s): I27.2 - OTHER SECONDARY PULMONARY HYPERTENSION * DO NOT USE * - Discharge Discharge Date: 08/15/20 Disposition: Home, Self-Care Condition: Stable Prescriptions: Continue Metformin HCl 500 mg [Glucophage 500 MG] 1,000 mg PO BIDAC Isosorbide Mononitrate 30 mg [Imdur 30 MG] 90 mg PO QAM Lisinopril 5 mg [Zestril 5 MG] 5 mg PO DAILY Tamsulosin HCl 0.4 mg [Flomax 0.4 MG] 0.4 mg PO 1800 Famotidine [Pepcid] 40 mg PO HS Amlodipine Besylate 5 mg [Norvasc 5 mg] 5 mg PO QAM Insulin Glargine [Lantus Insulin] 40 unit SQ BID Zolpidem Tartrate [Ambien] 10 mg PO HS PRN PRN PRN Reason: Insomnia Apixaban [Eliquis 2.5 mg Tablet] 5 mg PO BID Bumetanide 1 mg [Bumex 1 mg] 1 mg PO DAILY Magnesium Oxide [Magnesium] 400 mg PO BID Oxybutynin Chloride [Oxybutynin Chloride ER] 5 mg PO DAILY Fluticasone/Salmeterol Disc [Advair 250-50 Diskus 14 Dose] 1 each IH B ID #1 [email or web address] Gabapentin 800 mg PO TID Carvedilol 3.125 mg [Coreg 3.125 MG] 3.125 mg PO BIDWM Ergocalciferol (Vitamin D2) [Vitamin D2] 1 cap PO WEEKLY Atorvastatin Calcium [Lipitor] 80 mg PO HS Oxycodone HCl/Acetaminophen [Percocet 10-325 mg Tablet] 1 tab PO TIDPRN PRN PRN Reason: Pain predniSONE [Prednisone] 10 mg PO DAILY Follow up with: MONSE BRADSHAW MD [Primary Care Provider] - 7 Days
[2020-08-15] MEDS: Ditropan XL 5 MG PO SCH (09:03)
[2020-08-15] MEDS: Neurontin 400 MG PO SCH (09:03)
[2020-08-15] MEDS: MAG-OX 400 PO SCH (09:03)
[2020-08-15] MEDS: BUMEX 1 MG PO SCH (09:04)
[2020-08-15] MEDS: Zestril 5 MG PO SCH (09:04)
[2020-08-15] MEDS: Imdur 30 MG PO SCH (09:04)
[2020-08-15] MEDS: NORVASC 5 MG PO SCH (09:04)
[2020-08-15] MEDS: DELTASONE 10 MG PO SCH (09:04)
[2020-08-15] MEDS: ELIQUIS 2.5 MG TABLET PO SCH (09:04)
[2020-08-15] MEDS: Lantus Insulin SQ SCH (09:05)
[2020-08-15] MEDS ORDERED: OXYBUTYNIN CHLORIDE 5 MG PO SCH (10:00)
[2020-08-15] MEDS ORDERED: ROCEPHIN 1 Gm-D5w 50 ml Bag** 1 G/50 ML IVPB IV SCH (10:00)
[2020-08-15 11:07] LABS: ALBUMIN 3.1 g/dL (3.5-5.0); ALKALINE PHOSPHATASE 68 U/L (38-126); ANION GAP 7.9 MEQ/L (5-15); BLOOD UREA NITROGEN 19 mg/dL (9-20); CHLORIDE 105 mmol/L (98-107); Calcium 8.4 mg/dL (8.4-10.2); Carbon Dioxide 30 mmol/L (22-30); Creatinine 1 0.73 mg/dL (0.66-1.25); EST GLOMERULAR FILTRATION RATE > 60.0 ML/MIN; Glucose 143 mg/dL (74-106); Potassium 4.1 mmol/L (3.5-5.1); SGOT/AST 19 U/L (17-59); SGPT/ALT 15 U/L (0-50); SODIUM 139 mmol/L (137-145); Total Protein 5.5 g/dL (6.3-8.2)
[2020-08-16] MEDS ORDERED: VITAMIN D2 PO SCH (10:00)
== END 2020-08-15 10:06 | disposition home or self-care (01) ==
LOC: ED 04:11 → MED SURG 10:44
PROVIDERS: ADMIT General Practice; ATTEND General Practice
DX: R41.82 Altered mental status, unspecified (principal); R06.02 Shortness of breath; R53.1 Weakness; I27.20 Pulmonary hypertension, unspecified; R07.9 Chest pain, unspecified; Z86.718 Personal history of other venous thrombosis and embolism; I25.10 Atherosclerotic heart disease of native coronary artery without angina pectoris; J44.9 Chronic obstructive pulmonary disease, unspecified; Z79.899 Other long term (current) drug therapy; Z79.01 Long term (current) use of anticoagulants; E11.9 Type 2 diabetes mellitus without complications; M70.61 Trochanteric bursitis, right hip; Z95.0 Presence of cardiac pacemaker; E78.00 Pure hypercholesterolemia, unspecified; Z20.828 Contact with and (suspected) exposure to other viral communicable diseases
CPT/HCPCS: 0241U; 36000; 36415; 70450; 71045; 73502; 73560; 80053; 81001; 82947; 83036; 83735; 83880; 84484; 85025; 85379; 85610; 87086; 93005; 93041; 94640; 94760; 96365; 99285; G0378; J0696; J1817; J7609; A9270-GY

== ENCOUNTER 2020-10-02 03:25 | Emergency (ER) | payer MEDICARE, OTHER ==
[2020-10-02] MEDS ORDERED: Sodium Chloride 0.9% 1000 ML 1,000 ML ONE ×2 (03:27→03:45)
[2020-10-02] MEDS ORDERED: VERSED 5 MG/5 ML IV ONE ×2 (03:32→07:36)
--- NOTE | 2020-10-02 03:32 | ERPHSYRPT ---
- History of Present Illness Time Seen by Provider: 10/02/20 03:25 Source: EMS, old records Exam Limitations: clinical condition Physician History: This is a 75-year-old white male who presents via EMS in cardiac arrest/respiratory arrest. Patient was found by significant other in his recliner at 245 this morning. He was not rousable and not responding. It is unknown when this patient became in this state. He did not appear to be breathing. EMS was then notified and arrived and began CPR. The patient, on their examination, was agonal breathing and had an intermittent pulse. When the pulse was present, per EMS, he was approximately 20 bpm. Soon after CPR was started the pulse became strong at 75 bpm. Patient was intubated with an LMA. His oxygenation was 100% in route to the hospital. Patient arrives to the hospital at tn 3:15 AM unresponsive, intubated with an LMA and bag with the [id number] but with a strong pulse. History was obtained soon after the patient arrived to our emergency department. He has a history of diabetes, coronary artery disease, CABG, cardiac stents, pulmonary embolism, pulmonary hypertension, COPD, CHF and DVT. He is on Plavix. 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 Smith. Blood sugar in route to hospital was 278. Timing/Duration: today Activities at Onset: other (Unknown) Severity of Pain-Max: none Severity of Pain-Current: none Aspirin Treatment Today: no aspirin today, 81 mg x 1, provided at home (Less than 24 hours ago) Allergies/Adverse Reactions: gemfibrozil Allergy (Intermediate, Verified 10/02/20 05:10) Rash pineapple [Pineapple] Adverse Reaction (Intermediate, Verified 10/02/20 05:10) Nausea and Vomiting VOMITING Home Medications: Isosorbide Mononitrate 30 mg [Imdur 30 MG] 90 mg PO QAM 10/30/14 [History] Lisinopril 5 mg [Zestril 5 MG] 5 mg PO DAILY 10/29/15 [History] Amlodipine Besylate 5 mg [Norvasc 5 mg] 5 mg PO QAM 04/18/17 [History] Famotidine [Pepcid] 40 mg PO HS 04/18/17 [History] Tamsulosin HCl 0.4 mg [Flomax 0.4 MG] 0.4 mg PO 1800 04/18/17 [History] Insulin Glargine [Lantus Insulin] unit SQ BID 06/26/17 [History] Zolpidem Tartrate [Ambien] 10 mg PO HS PRN PRN 06/26/17 [History] Bumetanide 1 mg [Bumex 1 mg] 1 mg PO DAILY 08/06/18 [History] Oxybutynin Chloride [Oxybutynin Chloride ER] 5 mg PO DAILY 08/06/18 [History] Atorvastatin Calcium [Lipitor] 40 mg PO HS 08/14/20 [History] Carvedilol 3.125 mg [Coreg 3.125 MG] 3.125 mg PO BIDWM 08/14/20 [History] Ergocalciferol (Vitamin D2) [Vitamin D2] 1 cap PO WEEKLY 08/14/20 [History] Oxycodone HCl/Acetaminophen [Percocet 10-325 mg Tablet] 1 tab PO TIDPRN PRN 08/14/20 [History] Clopidogrel Bisulfate 75 mg [PLAVIX 75 MG Tablet] 75 mg PO DAILY 10/02/20 [History] Nitroglycerin 0.4 mg Tablet [Nitrostat 0.4 MG Tablet] 0.4 mg SL UD 10/02/20 [History] Spironolactone 25 mg [Aldactone 25 MG] 25 mg PO DAILY 10/02/20 [History] Hx Tetanus, Diphtheria Vaccination/Date Given: No Hx Influenza Vaccination/Date Given: No Hx Pneumococcal Vaccination/Date Given: Yes Travel Risk - International Travel Have you traveled outside of the country in past 3 weeks: No - Coronavirus Screening Are you exhibiting any of the following symptoms?: No Close contact with a COVID-19 positive Pt in past 14-21 Days: No - Vaccine Status Have you recieved a Covid-19 vaccination: No - Review of Systems Constitutional: No Symptoms Eyes: No Symptoms Ears, Nose, & Throat: No Symptoms Respiratory: No Symptoms Cardiac: No Symptoms Abdominal/Gastrointestinal: No Symptoms Genitourinary Symptoms: No Symptoms Musculoskeletal: No Symptoms Skin: No Symptoms Neurological: Other (Arrives unresponsive) Psychological: No Symptoms Endocrine: No Symptoms Hematologic/Lymphatic: No Symptoms Immunological/Allergic: No Symptoms All Other Systems: Reviewed and Negative - Past Medical History Pertinent Past Medical History: Yes Neurological History: No Pertinent History ENT History: No Pertinent History Cardiac History: Coronary Artery Disease, Deep Vein Thrombosis, High Cholesterol, Hypertension, Myocardial Infarction ([place]) Respiratory History: CHF, COPD, Pulmonary Embolism Endocrine Medical History: Diabetes Type II Musculoskeletal History: Osteoarthritis GI Medical History: No Pertinent History History: No Pertinent History Psycho-Social History: No Pertinent History Male Reproductive Disorders: No Pertinent History Other Medical History: HX CABG. Coronary Stenting. HX DVT - Past Surgical History Past Surgical History: Yes Neuro Surgical History: No Pertinent History Cardiac: CABG, Cardiac Catheterization, Cardiac Stent, Internal Defibrillator, Pacemaker Respiratory: No Pertinent History Gastrointestinal: Cholecystectomy Genitourinary: No Pertinent History Musculoskeletal: Joint Replacement, Orthopedic Surgery Male Surgical History: No Pertinent History Other Surgical History: LEFT HIP REPLACEMENT. LITTLE FINGER RIGHT HAND-STATES HAD SURGERY AND IT FROZE UP. 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 HX CABG and Coronary Stenting - Social History Smoking Status: Former smoker How long have you smoked: 10 yrs Exposure to second hand smoke: Yes Drug Use: none Patient Lives Alone: No - Nursing Vital Signs Nursing Vital Signs: Initial Vital Signs Temperature 96.4 F 10/02/20 03:26 Pulse Rate 99 H 10/02/20 03:26 Respiratory Rate 18 10/02/20 03:26 Blood Pressure 120/77 10/02/20 03:26 O2 Sat by Pulse Oximetry 98 10/02/20 03:26 Pain Scale Pain Intensity 0 - Physical Exam General Appearance: other (Unresponsive intubated with LMA) Eye Exam: other (Bilateral pupils are normal size and reactive) Ears, Nose, Throat Exam: other (Intubated with LMA) Neck Exam: normal inspection Respiratory Exam: other (Patient intubated with LMA. Breath sounds bilaterally coarse) Cardiovascular Exam: regular rate/rhythm, normal heart sounds, normal peripheral pulses Gastrointestinal/Abdomen Exam: soft, normal bowel sounds, No tenderness Rectal Exam: not done Back Exam: normal inspection Extremity Exam: normal inspection, other (Patient unresponsive. After intubation with an orotracheal tube, patient soon after began to move his bilateral upper extremities but without obvious purpose) Neurologic Exam: other (Unresponsive) Skin Exam: normal color, warm, dry Lymphatic Exam: No adenopathy SpO2 Interpretation: ABG ordered, airway management int. SpO2: 100 O2 Delivery: Ambu-Bag (With LMA upon arrival) Procedures - Intubation Time of Intubation: 03:21 Intubation Method: orotracheal, straight blade Tube Size (cm): 8.0 Medications: Midazolam (Versed) C-Spine: maintained Endotracheal Tube Confirmation: bilateral breath sounds, positive end tidal CO2, good rise & fall of chest Intubation Complications: no complications Performed By: Respiratory Therapy Post Intubation Xray: Yes - Course Nursing assessment & vital signs reviewed: Yes EKG Interpreted by Me: RATE (77), Sinus Rhythm, NORMAL INTERVALS, NORMAL QRS, Non-specific ST Changes, Other (There are no acute ischemic changes on today's EKG. When compared to EKG dated 08/14/2020, there is new left ventricular hypertrophy and new nonspecific T abnormalities present) Ordered Tests: Active Orders 24 hr Category Date Time Status Electrical Power Engineer STAT Care 10/02/20 03:33 Active Catheter-[place] STAT Care 10/02/20 03:32 Active EKG-ER Only STAT Care 10/02/20 03:32 Active IV Insertion STAT Care 10/02/20 03:32 Active Pulse Oximetry (ED) STAT Care 10/02/20 03:32 Active CHEST 1 VIEW (PORTABLE) Stat Exams 10/02/20 03:28 Taken CHEST WITH CONTRAST [CT] Stat Exams 10/02/20 04:59 Ordered HEAD WITHOUT CONTRAST [CT] Stat Exams 10/02/20 03:27 Taken ABG [ARTERIAL BLOOD GASES] Stat Lab 10/02/20 04:48 Completed ARTERIAL BLOOD GASES Urgent Lab 10/02/20 03:32 Completed CBC W DIFF Stat Lab 10/02/20 03:20 Completed CMP Stat Lab 10/02/20 03:20 Completed CULTURE,URINE Stat Lab 10/02/20 03:20 Received Lactic Acid Stat Lab 10/02/20 03:32 Completed Lactic Acid Stat Lab 10/02/20 05:48 Received MAGNESIUM Stat Lab 10/02/20 03:20 Completed NT PRO BNP Stat Lab 10/02/20 03:20 Completed POCT GLUCOSE Stat Lab 10/02/20 03:37 Completed PROTIME WITH INR Stat Lab 10/02/20 03:20 Completed TROPONIN Q3H Lab 10/02/20 03:20 Completed TROPONIN Q3H Lab 10/02/20 06:45 Ordered TROPONIN Q3H Lab 10/02/20 09:45 Ordered TROPONIN Q3H Lab 10/02/20 12:45 Ordered TROPONIN Q3H Lab 10/02/20 15:45 Ordered UA W/RFX UR CULTURE Stat Lab 10/02/20 03:20 Completed UA W/RFX UR CULTURE Stat Lab 10/02/20 05:48 Ordered Urine Triage Profile Stat Lab 10/02/20 05:48 Ordered Medication Summary Generic Name Dose Route Start Last Admin Trade Name Freq PRN Reason Stop Dose Admin Midazolam HCl 50 mg/ Sodium 250 mls @ 10 mls/hr 10/02/20 04:01 10/02/20 04:01 Chloride IV 11/01/20 04:00 3 mg/hr .Q24H PRN 15 mls/hr SEDATION Administration Protocol 2 MG/HR Sodium Chloride 1,000 mls @ 200 mls/hr 10/02/20 05:00 10/02/20 03:46 Sodium Chloride 0.9% 1000 Ml IV 11/01/20 04:59 200 mls/hr .Q5H BENJA Administration Discontinued Medications Generic Name Dose Route Start Last Admin Trade Name Freq PRN Reason Stop Dose Admin Sodium Chloride Confirm 10/02/20 03:45 Sodium Chloride 0.9% 1000 Ml Administered 10/02/20 03:46 Dose 1,000 mls @ ud .ROUTE .STK-MED ONE Sodium Chloride Confirm 10/02/20 03:48 Sodium Chloride 0.9% 250 Ml Administered 10/02/20 03:49 Dose 250 mls @ ud IV .STK-MED ONE Meropenem 1 g/ Sodium Chloride 100 mls @ 200 mls/hr 10/02/20 04:20 10/02/20 04:25 IV 10/02/20 04:49 200 mls/hr STAT ONE Administration Sodium Chloride Confirm 10/02/20 04:22 Sodium Chloride 100ml Mini-Bag Plus Administered 10/02/20 04:23 Dose 100 mls @ ud IV .STK-MED ONE Sodium Chloride 1,000 mls @ 999 mls/hr 10/02/20 04:47 10/02/20 04:50 Sodium Chloride 0.9% 1000 Ml IV 10/02/20 05:47 Not Given .Q1H1M STA Sodium Chloride 1,000 mls @ 999 mls/hr 10/02/20 04:47 10/02/20 03:29 Sodium Chloride 0.9% 1000 Ml IV 10/02/20 05:47 999 mls/hr .Q1H1M STA Administration Meropenem Confirm 10/02/20 04:22 Merrem 1 Gm Administered 10/02/20 04:23 Dose 1 g IV .STK-MED ONE Midazolam HCl 5 mg 10/02/20 03:32 10/02/20 03:25 Versed 5 Mg/5 Ml IV 10/02/20 03:33 5 mg STAT ONE Administration Midazolam HCl Confirm 10/02/20 03:48 Versed 50 Mg/ 10 Ml Mdv Administered 10/02/20 03:49 Dose 50 mg .ROUTE .STK-MED ONE Lab/Rad Data: Laboratory Result Diagrams 10/02/20 03:20 10/02/20 03:20 Laboratory Results 10/02/20 10/02/20 10/02/20 Range/Units 04:48 03:37 03:32 WBC (4.0-10.5) K/mm3 RBC (4.1-5.6) M/mm3 Hgb (12.5-18.0) gm/dl Hct (42-50) % MCV (78-100) fl MCH (26-32) pg MCHC (32-36) g/dl RDW (11.5-14.0) % Plt Count (150-450) K/mm3 MPV (7.5-11.0) fl Gran % (36.0-66.0) % Eos # (Auto) (0-0.5) Absolute Lymphs (auto) (1.0-4.6) Absolute Monos (auto) (0.0-1.3) Lymphocytes % (24.0-44.0) % Monocytes % (0.0-12.0) % Eosinophils % (0.00-5.0) % Basophils % (0.0-0.4) % Absolute Granulocytes (1.4-6.9) Basophils # (0-0.4) PT (8.83-12.87) SECONDS INR (0.8-3.0) Puncture Site lb LEFT BRACHIAL pCO2 58 H 71 H* (35-45) mmHg pO2 96 318 H* (75-100) mmHg Base Excess 3.2 H 0.2 (-2.0-2.0) O2 Saturation 96.6 98.6 (94-100) g/dF ABG pH 7.33 L 7.23 L* (7.35-7.45) ABG HCO3 30.6 H* 29.7 H* (22-28) ABG O2 Sat (Measured) 98.3 99.9 (95-100) % Winston Test y YES A-a Gradient 259 306 a/A Ratio 0.27 0.51 Hemoglobin 11.3 11.3 Carboxyhemoglobin 1.0 0.8 (0.0-6.9) % THgb Methemoglobin 0.7 L 0.5 L (1.4-1.5) % Temperature 37.0 37.0 C POC O2 Flow Rate 60 100 % Vent Mode ac Vent Rate 20 /MIN Tidal Volume 500 cc PEEP 5.0 cmH2O Sodium (137-145) mmol/L Potassium 4.9 4.3 (3.5-5.1) mmol/L Chloride (98-107) mmol/L Carbon Dioxide (22-30) mmol/L Anion Gap (5-15) MEQ/L BUN (9-20) mg/dL Creatinine (0.66-1.25) mg/dL Estimated GFR ML/MIN Glucose (74-106) mg/dL POC Glucometer 255 H (74 to 106) mg/dL Lactic Acid (0.4-2.0) Calcium (8.4-10.2) mg/dL Magnesium (1.6-2.3) mg/dL Total Bilirubin (0.2-1.3) mg/dL AST (17-59) U/L ALT (0-50) U/L Alkaline Phosphatase (38-126) U/L Troponin I (0.000-0.034) ng/mL NT-Pro-B Natriuret Pep (0-1800) pg/mL Serum Total Protein (6.3-8.2) g/dL Albumin (3.5-5.0) g/dL Urine Color (YELLOW) Urine Appearance (CLEAR) Urine pH (5-6) Ur Specific [place] (1.005-1.025) Urine Protein (Negative) Urine Ketones (NEGATIVE) Urine Blood (0-5) Miguel A/ul Urine Nitrite (NEGATIVE) Urine Bilirubin (NEGATIVE) Urine Urobilinogen (0-1) mg/dL Ur Leukocyte Esterase (NEGATIVE) Urine WBC (Auto) (0-5) /HPF Urine RBC (Auto) (0-2) /HPF U Hyaline Cast (Auto) (0-2) /LPF U Epithel Cells (Auto) (FEW) /HPF Urine Bacteria (Auto) (NEGATIVE) /HPF Urine Mucus (Auto) (NEGATIVE) /HPF Urine Culture Reflexed (NO) Urine Glucose (NEGATIVE) mg/dL 10/02/20 10/02/20 10/02/20 Range/Units 03:32 03:20 03:20 WBC (4.0-10.5) K/mm3 RBC (4.1-5.6) M/mm3 Hgb (12.5-18.0) gm/dl Hct (42-50) % MCV (78-100) fl MCH (26-32) pg MCHC (32-36) g/dl RDW (11.5-14.0) % Plt Count (150-450) K/mm3 MPV (7.5-11.0) fl Gran % (36.0-66.0) % Eos # (Auto) (0-0.5) Absolute Lymphs (auto) (1.0-4.6) Absolute Monos (auto) (0.0-1.3) Lymphocytes % (24.0-44.0) % Monocytes % (0.0-12.0) % Eosinophils % (0.00-5.0) % Basophils % (0.0-0.4) % Absolute Granulocytes (1.4-6.9) Basophils # (0-0.4) PT (8.83-12.87) SECONDS INR (0.8-3.0) Puncture Site pCO2 (35-45) mmHg pO2 (75-100) mmHg Base Excess (-2.0-2.0) O2 Saturation (94-100) g/dF ABG pH (7.35-7.45) ABG HCO3 (22-28) ABG O2 Sat (Measured) (95-100) % Winston Test A-a Gradient a/A Ratio Hemoglobin Carboxyhemoglobin (0.0-6.9) % THgb Methemoglobin (1.4-1.5) % Temperature C POC O2 Flow Rate % Vent Mode Vent Rate /MIN Tidal Volume cc PEEP cmH2O Sodium (137-145) mmol/L Potassium (3.5-5.1) mmol/L Chloride (98-107) mmol/L Carbon Dioxide (22-30) mmol/L Anion Gap (5-15) MEQ/L BUN (9-20) mg/dL Creatinine (0.66-1.25) mg/dL Estimated GFR ML/MIN Glucose (74-106) mg/dL POC Glucometer (74 to 106) mg/dL Lactic Acid 4.1 H (0.4-2.0) Calcium (8.4-10.2) mg/dL Magnesium (1.6-2.3) mg/dL Total Bilirubin (0.2-1.3) mg/dL AST (17-59) U/L ALT (0-50) U/L Alkaline Phosphatase (38-126) U/L Troponin I 0.042 H* (0.000-0.034) ng/mL NT-Pro-B Natriuret Pep (0-1800) pg/mL Serum Total Protein (6.3-8.2) g/dL Albumin (3.5-5.0) g/dL Urine Color YELLOW (YELLOW) Urine Appearance SLIGHTLY CLOUDY (CLEAR) Urine pH 5.0 (5-6) Ur Specific [place] 1.016 (1.005-1.025) Urine Protein >=500 (Negative) Urine Ketones NEGATIVE (NEGATIVE) Urine Blood NEGATIVE (0-5) Miguel A/ul Urine Nitrite NEGATIVE (NEGATIVE) Urine Bilirubin NEGATIVE (NEGATIVE) Urine Urobilinogen NEGATIVE (0-1) mg/dL Ur Leukocyte Esterase NEGATIVE (NEGATIVE) Urine WBC (Auto) 3-5 (0-5) /HPF Urine RBC (Auto) 3-5 (0-2) /HPF U Hyaline Cast (Auto) 0-2 (0-2) /LPF U Epithel Cells (Auto) NONE (FEW) /HPF Urine Bacteria (Auto) RARE (NEGATIVE) /HPF Urine Mucus (Auto) SLIGHT (NEGATIVE) /HPF Urine Culture Reflexed ORDERED SEPARATELY (NO) Urine Glucose >=500 (NEGATIVE) mg/dL 10/02/20 10/02/20 10/02/20 Range/Units 03:20 03:20 03:20 WBC 11.1 H (4.0-10.5) K/mm3 RBC 4.32 (4.1-5.6) M/mm3 Hgb 12.6 (12.5-18.0) gm/dl Hct 40.6 L (42-50) % MCV 94.0 (78-100) fl MCH 29.2 (26-32) pg MCHC 31.0 L (32-36) g/dl RDW 13.9 (11.5-14.0) % Plt Count 162 (150-450) K/mm3 MPV 10.3 (7.5-11.0) fl Gran % 65.7 (36.0-66.0) % Eos # (Auto) 0.02 (0-0.5) Absolute Lymphs (auto) 3.17 (1.0-4.6) Absolute Monos (auto) 0.60 (0.0-1.3) Lymphocytes % 28.5 (24.0-44.0) % Monocytes % 5.4 (0.0-12.0) % Eosinophils % 0.2 (0.00-5.0) % Basophils % 0.2 (0.0-0.4) % Absolute Granulocytes 7.31 H (1.4-6.9) Basophils # 0.02 (0-0.4) PT 16.1 H (8.83-12.87) SECONDS INR 1.42 (0.8-3.0) Puncture Site pCO2 (35-45) mmHg pO2 (75-100) mmHg Base Excess (-2.0-2.0) O2 Saturation (94-100) g/dF ABG pH (7.35-7.45) ABG HCO3 (22-28) ABG O2 Sat (Measured) (95-100) % Winston Test A-a Gradient a/A Ratio Hemoglobin Carboxyhemoglobin (0.0-6.9) % THgb Methemoglobin (1.4-1.5) % Temperature C POC O2 Flow Rate % Vent Mode Vent Rate /MIN Tidal Volume cc PEEP cmH2O Sodium 135 L (137-145) mmol/L Potassium 5.2 H (3.5-5.1) mmol/L Chloride 97 L (98-107) mmol/L Carbon Dioxide 32 H (22-30) mmol/L Anion Gap 11.5 (5-15) MEQ/L BUN 24 H (9-20) mg/dL Creatinine 0.87 (0.66-1.25) mg/dL Estimated GFR > 60.0 ML/MIN Glucose 297 H (74-106) mg/dL POC Glucometer (74 to 106) mg/dL Lactic Acid (0.4-2.0) Calcium 8.7 (8.4-10.2) mg/dL Magnesium 1.8 (1.6-2.3) mg/dL Total Bilirubin 0.40 (0.2-1.3) mg/dL AST 54 (17-59) U/L ALT 49 (0-50) U/L Alkaline Phosphatase 79 (38-126) U/L Troponin I (0.000-0.034) ng/mL NT-Pro-B Natriuret Pep 540 (0-1800) pg/mL Serum Total Protein 6.1 L (6.3-8.2) g/dL Albumin 3.7 (3.5-5.0) g/dL Urine Color (YELLOW) Urine Appearance (CLEAR) Urine pH (5-6) Ur Specific [place] (1.005-1.025) Urine Protein (Negative) Urine Ketones (NEGATIVE) Urine Blood (0-5) Miguel A/ul Urine Nitrite (NEGATIVE) Urine Bilirubin (NEGATIVE) Urine Urobilinogen (0-1) mg/dL Ur Leukocyte Esterase (NEGATIVE) Urine WBC (Auto) (0-5) /HPF Urine RBC (Auto) (0-2) /HPF U Hyaline Cast (Auto) (0-2) /LPF U Epithel Cells (Auto) (FEW) /HPF Urine Bacteria (Auto) (NEGATIVE) /HPF Urine Mucus (Auto) (NEGATIVE) /HPF Urine Culture Reflexed (NO) Urine Glucose (NEGATIVE) mg/dL - Progress Progress: improved, re-examined Air Movement: fair Progress Note: 10/02/20 04:22 Portable chest x-ray shows left lobe infiltrate versus fluid. ET tube is at the level of the bifurcation. Respiratory therapist was told to pull back endotracheal tube approximately 2 to 3 cm. We will then repeat the portable chest x-ray. 10/02/20 05:49 CAT scan of the head without contrast shows no acute intracranial abnormality 10/02/20 05:49 Medical decision making: This patient was reviewed with Dr. Dye, the emergency room physician at [facility]. He accepts the patient in transfer. I reviewed the results of the patient's work-up. Antibiotics given: Yes Counseled pt/family regarding: lab results, diagnosis, rad results - Departure Departure Disposition: Transfer Clinical Impression: Respiratory arrest, Cardiac arrest, Elevated troponin, Hypercarbia, Hyperglycemia, Leukocytosis, Sepsis Condition: Serious Critical Care Time: Yes Critical Care Time(excluding separately billable procedures): Critical 30-74 mins Referrals: MONSE BRADSHAW MD [Primary Care Provider] -
[2020-10-02 03:42] LABS: Absolute Neutrophil Ct (ANC) 7.31 (1.4-6.9); BASOPHIL % 0.2 % (0.0-0.4); Basophil (Absolute #) 0.02 (0-0.4); Eosinophil % 0.2 % (0.00-5.0); Eosinophil (Absolute #) 0.02 (0-0.5); Hematocrit 40.6 % (42-50); Hemoglobin 12.6 gm/dl (12.5-18.0); Lymphocyte (Absolute #) 3.17 (1.0-4.6); Lymphocytes % 28.5 % (24.0-44.0); Mean Corpuscular Hemoglobin 29.2 pg (26-32); Mean Platelet Volume 10.3 fl (7.5-11.0); Monocytes % 5.4 % (0.0-12.0); Neutrophil % 65.7 % (36.0-66.0); Platelet Count 162 K/mm3 (150-450); Red Blood Count 4.32 M/mm3 (4.1-5.6); Red Cell Distribution Width 13.9 % (11.5-14.0); White Blood Count 11.1 K/mm3 (4.0-10.5)
[2020-10-02 03:44] LABS: PROTIME 16.1 SECONDS (8.83-12.87)
[2020-10-02 03:45] LABS: INR 1.42 (0.8-3.0)
[2020-10-02 03:45] LABS: A-aADO2 306; ABG HEMOGLOBIN 11.3; ABG POTASSIUM 4.3 (3.5-5.1); ARTERIAL BLD GAS O2 SATURATION 99.9 % (95-100); ARTERIAL BLOOD GAS BASE EXCESS 0.2 (-2.0-2.0); ARTERIAL BLOOD GAS FIO2 100 %; ARTERIAL BLOOD GAS PO2 318 mmHg (75-100); CARBOXYHEMOGLOBIN 0.8 % THgb (0.0-6.9); HCO3- 29.7 (22-28); HGB O2 SAT 98.6 g/dF (94-100); Methhemoglobin 0.5 % (1.4-1.5)
[2020-10-02 03:46] LABS: ABG SITE LEFT BRACHIAL; ARTERIAL BLOOD GAS PCO2 71 mmHg (35-45); ARTERIAL BLOOD GAS pH 7.23 (7.35-7.45)
[2020-10-02 03:47] LABS: ALLEN TEST OK? YES
[2020-10-02] MEDS ORDERED: Versed 50 MG/ 10 Ml MDV ONE (03:48)
[2020-10-02] MEDS ORDERED: Sodium Chloride 0.9% 250 ML 250 ML IV ONE (03:48)
[2020-10-02 03:55] LABS: Appearance SLIGHTLY CLOUDY (CLEAR); Bacteria RARE /HPF (NEGATIVE); Bilirubin NEGATIVE (NEGATIVE); Blood NEGATIVE Ery/ul (0-5); Glucose >=500 mg/dL (NEGATIVE); Hyaline Casts 0-2 /LPF (0-2); Ketones NEGATIVE (NEGATIVE); Leukocyte Esterase NEGATIVE (NEGATIVE); Mucus SLIGHT /HPF (NEGATIVE); Nitrite NEGATIVE (NEGATIVE); Protein,Urine Dip >=500 (Negative); Specific Gravity 1.016 (1.005-1.025); Urobilinogen NEGATIVE mg/dL (0-1)
[2020-10-02 03:59] LABS: ALBUMIN 3.7 g/dL (3.5-5.0); ALKALINE PHOSPHATASE 79 U/L (38-126); ANION GAP 11.5 MEQ/L (5-15); BLOOD UREA NITROGEN 24 mg/dL (9-20); CHLORIDE 97 mmol/L (98-107); Calcium 8.7 mg/dL (8.4-10.2); Carbon Dioxide 32 mmol/L (22-30); Creatinine 1 0.87 mg/dL (0.66-1.25); EST GLOMERULAR FILTRATION RATE > 60.0 ML/MIN; Glucose 297 mg/dL (74-106); MAGNESIUM 1.8 mg/dL (1.6-2.3); NT PRO BNP 540 pg/mL (0-1800); Potassium 5.2 mmol/L (3.5-5.1); SGOT/AST 54 U/L (17-59); SGPT/ALT 49 U/L (0-50); SODIUM 135 mmol/L (137-145); Total Protein 6.1 g/dL (6.3-8.2)
[2020-10-02] MEDS ORDERED: Versed 50 MG/ 10 Ml MDV*** 50 MG in Sodium Chloride 0.9% 250 ML 240 ML IV PRN (04:01)
[2020-10-02] MEDS ORDERED: Merrem 1 GM 1 G in Sodium Chloride 100ML MINI-BAG PLUS 100 ML IV ONE (04:20)
[2020-10-02] MEDS ORDERED: Sodium Chloride 100ML MINI-BAG PLUS 100 ML IV ONE (04:22)
[2020-10-02] MEDS ORDERED: Merrem 1 GM IV ONE (04:22)
[2020-10-02] MEDS ORDERED: Sodium Chloride 0.9% 1000 ML 1,000 ML IV STA ×2 (04:47)
[2020-10-02] MEDS ORDERED: Sodium Chloride 0.9% 1000 ML 1,000 ML IV SCH (05:00)
[2020-10-02 05:20] LABS: A-aADO2 259; ABG HEMOGLOBIN 11.3; ABG POTASSIUM 4.9 (3.5-5.1); ARTERIAL BLD GAS O2 SATURATION 98.3 % (95-100); ARTERIAL BLD GAS TIDAL VOLUME 500 cc; ARTERIAL BLOOD GAS BASE EXCESS 3.2 (-2.0-2.0); ARTERIAL BLOOD GAS FIO2 60 %; ARTERIAL BLOOD GAS PCO2 58 mmHg (35-45); ARTERIAL BLOOD GAS PO2 96 mmHg (75-100); ARTERIAL BLOOD GAS pH 7.33 (7.35-7.45); HCO3- 30.6 (22-28); HGB O2 SAT 96.6 g/dF (94-100); Methhemoglobin 0.7 % (1.4-1.5)
[2020-10-02 05:21] LABS: ALLEN TEST OK? y; ARTERIAL BLOOD GAS VENT MODE ac; ARTERIAL BLOOD GAS VENT RATE 20 /MIN
[2020-10-02 06:01] VITALS: O2SAT 99
[2020-10-02 06:10] LABS: Amphetamine,Urine NEGATIVE (NEGATIVE); Barbiturate,Urine NEGATIVE (NEGATIVE); Benzodiazepine,Urine NEGATIVE (NEGATIVE); Cocaine,Urine NEGATIVE (NEGATIVE); Methadone,Urine NEGATIVE (NEGATIVE); Opiate,Urine POSITIVE (NEGATIVE); PCP,Urine NEGATIVE (NEGATIVE); THC,Urine NEGATIVE (NEGATIVE)
[2020-10-02 07:25] LABS: VBG BASE EXCESS 4.9 (-2.0-2.0); VBG HCO3- 31.4 meq/L (22-28); VBG HEMOGLOBIN 12.4; VBG O2 SATURATION 98.4 (95-100); VBG POTASSIUM 4.7 (3.5-5.1); VBG pH 7.38 (7.32-7.42)
[2020-10-02 07:26] LABS: VBG CARBOXYHEMOGLOBIN 7.2 % T HGB (0.0-6.9)
[2020-10-02] MEDS ORDERED: VERSED 5 MG/5 ML ONE (07:32)
[2020-10-02 07:45] VITALS: BP 142/94; PULSE 64
--- NOTE | 2020-10-02 09:18 | XRAY ---
Indication: Found unresponsive. Cardiac arrest. Multiple contiguous axial images obtained through the head without contrast. Comparison: August 14, 2020. There remains age-appropriate global atrophy, mild/moderate periventricular degenerative micro-ischemia, and remote left thalamic lacunar infarct. No acute intracranial hemorrhage, abnormal extra-axial fluid collection, or mass effect. Fourth ventricle is midline without hydrocephalus. Bony calvarium intact. Continued complete opacification left sphenoid sinus with now moderate mucosal thickening both ethmoid sinuses and lesser degree frontal sinuses. Mastoid air cells are clear. New incompletely visualized endotracheal tube. Impression: 1. Continued nonacute senile brain with old left thalamic lacunar infarct. 2. Worsening paranasal sinus disease. Comment: Preliminary interpretation was made by C. No critical discrepancy.
--- NOTE | 2020-10-02 09:28 | XRAY ---
Indication: Found unresponsive. Cardiac arrest. Multiple contiguous axial images obtained through the chest using 100 cc Isovue 370 contrast and PE protocol. Comparison: July 19, 2016. There is good opacification of the pulmonary arteries. However pulmonary embolus evaluation limited due to beam artifact from patient's arms and also respiration artifact. No obvious pulmonary embolus. Heart is now enlarged again with CABG surgery. New left single lead pacemaker. Aorta remains minimally arteriosclerotic without aneurysm/dissection. New endotracheal tube tip approximately 2 cm above the nito. No pathologic mediastinal/hilar lymphadenopathy. Lungs underinflated with new scattered bilateral subsegmental atelectasis greatest in the lower lobes. New tiny bilateral pleural effusions. Stable chronic right hemidiaphragm elevation, left upper lobe fibrosis/scarring, and tiny calcified granuloma. Bony thorax again demonstrates moderate degenerative changes throughout the spine and sternotomy wires. Limited upper abdomen again demonstrates fatty liver, tiny right adrenal adenoma, and cholecystectomy. Impression: 1. Pulmonary embolus evaluation limited as detailed above. No obvious central pulmonary embolus. 2. New cardiomegaly with tiny bilateral pleural effusions. Rule out cardiac decompensation versus fluid overload. 3. New endotracheal tube tip in good position and underinflated lungs with scattered subsegmental atelectasis. 4. Again incidental chronic right hemidiaphragm elevation, left lung fibrosis/scarring, fatty liver, tiny right adrenal adenoma, and chronic bony findings. Comment: Preliminary interpretation was made by [facility]. No critical discrepancy.
--- NOTE | 2020-10-02 09:32 | XRAY ---
Indication: Endotracheal tube placement. Comparison: August 14, 2020. Two portable chest exams are markedly underinflated with new endotracheal tube tip in right mainstem bronchus. Subsequent CT chest demonstrates tube tip 2 cm above nito. Worsening cardiomegaly and accentuated lung markings presumed from underinflation. Superimposed pneumonia/CHF not completely excluded.
== END 2020-10-02 07:40 | disposition short-term general hospital (02) ==
LOC: ED 03:25
DX: R09.2 Respiratory arrest (principal); I46.9 Cardiac arrest, cause unspecified; R74.8 Abnormal levels of other serum enzymes; R73.9 Hyperglycemia, unspecified; D72.829 Elevated white blood cell count, unspecified; Z79.899 Other long term (current) drug therapy; I10 Essential (primary) hypertension; I25.10 Atherosclerotic heart disease of native coronary artery without angina pectoris; Z86.718 Personal history of other venous thrombosis and embolism; J44.9 Chronic obstructive pulmonary disease, unspecified; E11.9 Type 2 diabetes mellitus without complications; I25.2 Old myocardial infarction
CPT/HCPCS: 31500; 36000; 36415; 36600; 51702; 70450; 71045; 71260; 80053; 80307; 81001; 82375; 82803; 82805; 82947; 83605; 83735; 83880; 84484; 85025; 85610; 87086; 93005; 93041; 94002; 94760; 94799; 96374; 96375; 96376; 99285; 99291; J2250

== ENCOUNTER 2021-04-18 10:27 | Emergency (ER) | payer MEDICARE, OTHER ==
[2021-04-18] MEDS ORDERED: PERCOCET TABLET 5/325MG PO ONE (11:05)
[2021-04-18] MEDS ORDERED: PERCOCET TABLET 5/325MG ONE (11:09)
--- NOTE | 2021-04-18 11:22 | ERPHSYRPT ---
- History of Present Illness Time Seen by Provider: 04/18/21 10:45 Source: patient Exam Limitations: no limitations Patient Subjective Stated Complaint: leg injury Triage Nursing Assessment: Patient brought back to ED via w/c and transferred self to bed. Patient A+O X3. Patient's skin pink, warm and dry. Patient complains of left lower leg pain. Patient states he was working on his walker when the brakes weren't locked causing him to fall and hurt his left lower leg. Patient complains of pain 08/19. Hematoma noted to left outer lower leg with swelling noted. Physician History: 75 years old male with multiple medical problems including chronic respiratory failure on oxygen, ambulates with walker, presented in the ER with left lateral upper leg swelling after he fell yesterday while working on his walker and hit the concrete. Did not hit his head or loss of consciousness/no other injuries. Patient reports dull aching to sharp mild to moderate intensity pain more with ambulation and palpation and a superficial abrasion. He is able to walk with his walker as usual. Patient noticed a small bump which he is worried about a blood clot. Method of Injury: fell Occurred: yesterday Quality: sharpness Severity of Pain-Max: moderate Severity of Pain-Current: moderate Lower Extremities Pain: leg: right, knee: right Modifying Factors: Improves With: immobilization, rest. Worsens With: movement Associated Symptoms: No unable to bear weight Allergies/Adverse Reactions: gemfibrozil Allergy (Intermediate, Verified 04/18/21 10:37) Rash pineapple [Pineapple] Adverse Reaction (Intermediate, Verified 04/18/21 10:37) Nausea and Vomiting VOMITING Home Medications: Isosorbide Mononitrate 30 mg [Imdur 30 MG] 90 mg PO QAM 10/30/14 [History] Lisinopril 5 mg [Zestril 5 MG] 5 mg PO DAILY 10/29/15 [History] Amlodipine Besylate 5 mg [Norvasc 5 mg] 5 mg PO QAM 04/18/17 [History] Famotidine [Pepcid] 40 mg PO HS 04/18/17 [History] Tamsulosin HCl 0.4 mg [Flomax 0.4 MG] 0.4 mg PO 1800 04/18/17 [History] Insulin Glargine [Lantus Insulin] unit SQ BID 06/26/17 [History] Zolpidem Tartrate [Ambien] 10 mg PO HS PRN PRN 06/26/17 [History] Bumetanide 1 mg [Bumex 1 mg] 1 mg PO DAILY 08/06/18 [History] Oxybutynin Chloride [Oxybutynin Chloride ER] 5 mg PO DAILY 08/06/18 [History] Atorvastatin Calcium [Lipitor] 40 mg PO HS 08/14/20 [History] Carvedilol 3.125 mg [Coreg 3.125 MG] 3.125 mg PO BIDWM 08/14/20 [History] Ergocalciferol (Vitamin D2) [Vitamin D2] 1 cap PO WEEKLY 08/14/20 [History] Oxycodone HCl/Acetaminophen [Percocet 10-325 mg Tablet] 1 tab PO TIDPRN PRN 08/14/20 [History] Clopidogrel Bisulfate 75 mg [PLAVIX 75 MG Tablet] 75 mg PO DAILY 10/02/20 [History] Nitroglycerin 0.4 mg Tablet [Nitrostat 0.4 MG Tablet] 0.4 mg SL UD 10/02/20 [History] Spironolactone 25 mg [Aldactone 25 MG] 25 mg PO DAILY 10/02/20 [History] Hx Tetanus, Diphtheria Vaccination/Date Given: No Hx Influenza Vaccination/Date Given: No Hx Pneumococcal Vaccination/Date Given: Yes Immunizations Up to Date: Yes Travel Risk - International Travel Have you traveled outside of the country in past 3 weeks: No - Coronavirus Screening Are you exhibiting any of the following symptoms?: No Close contact with a COVID-19 positive Pt in past 14-21 Days: No - Vaccine Status Have you recieved a Covid-19 vaccination: Yes 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: [employer] - Vaccination Dates Date of 2cond Vaccination (if applicable): 08/04/2020 Comment: booster 03/17/2021 - Review of Systems Constitutional: No Symptoms Ears, Nose, & Throat: No Symptoms Respiratory: No Symptoms Cardiac: No Symptoms Musculoskeletal: Injury Skin: Skin Lesions Neurological: No Symptoms Psychological: No Symptoms Immunological/Allergic: No Symptoms - Past Medical History Pertinent Past Medical History: Yes Neurological History: No Pertinent History ENT History: No Pertinent History Cardiac History: Coronary Artery Disease, Deep Vein Thrombosis, High Cholesterol, Hypertension, Myocardial Infarction ([place]) Respiratory History: CHF, COPD, Pulmonary Embolism Endocrine Medical History: Diabetes Type II Musculoskeletal History: Osteoarthritis GI Medical History: No Pertinent History History: No Pertinent History Psycho-Social History: No Pertinent History Male Reproductive Disorders: No Pertinent History Other Medical History: HX CABG. Coronary Stenting. HX DVT - Past Surgical History Past Surgical History: Yes Neuro Surgical History: No Pertinent History Cardiac: CABG, Cardiac Catheterization, Cardiac Stent, Internal Defibrillator, Pacemaker Respiratory: No Pertinent History Gastrointestinal: Cholecystectomy Genitourinary: No Pertinent History Musculoskeletal: Joint Replacement, Orthopedic Surgery Male Surgical History: No Pertinent History Other Surgical History: LEFT HIP REPLACEMENT. LITTLE FINGER RIGHT HAND-STATES HAD SURGERY AND IT FROZE UP. 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 HX CABG and Coronary Stenting - Social History Smoking Status: Former smoker How long have you smoked: 10 yrs Exposure to second hand smoke: No Drug Use: none Patient Lives Alone: No - Nursing Vital Signs Nursing Vital Signs: Initial Vital Signs Temperature 98.0 F 04/18/21 10:38 Pulse Rate 68 04/18/21 10:38 Respiratory Rate 18 04/18/21 10:38 Blood Pressure 115/67 04/18/21 10:38 O2 Sat by Pulse Oximetry 98 04/18/21 10:38 Pain Scale Pain Intensity 5 - Physical Exam General Appearance: no apparent distress, alert Eyes, Ears, Nose, Throat Exam: normal ENT inspection Neck Exam: normal inspection, supple, full range of motion Cardiovascular/Respiratory Exam: normal breath sounds, regular rate/rhythm Back Exam: normal inspection, normal range of motion Hips Exam: bilateral: non-tender, normal inspection, normal range of motion, no evidence of injury Legs Exam: right leg: non-tender, normal inspection, normal range of motion, no evidence of injury, left leg: pain, soft tissue tenderness (Left upper lateral/anterior leg abrasions with 2 x 2 cm hematoma, will tender to touch. Firm consistency.), swelling Knees Exam: bilateral knee: non-tender, normal inspection, normal range of motion Ankle Exam: bilateral ankle: non-tender, normal inspection, normal range of motion Neuro/Tendon Exam: normal sensation, normal motor functions, normal tendon functions Skin Exam: normal color SpO2 Interpretation: normal, O2 applied SpO2: 98 O2 Delivery: Nasal Cannula Ordered Tests: Active Orders 24 hr Category Date Time Status LOWER LEG Stat Exams 04/18/21 11:39 Taken Medication Summary Discontinued Medications Generic Name Dose Route Start Last Admin Trade Name Juan Pablo PRN Reason Stop Dose Admin Oxycodone/Acetaminophen 1 tab 04/18/21 11:05 04/18/21 11:10 Oxycodone Hcl/Apap 5 Mg/325 Mg Tablet PO 04/18/21 11:06 1 tab STAT ONE Administration Oxycodone/Acetaminophen Confirm 04/18/21 11:09 Oxycodone Hcl/Apap 5 Mg/325 Mg Tablet Administered 04/18/21 11:10 Dose 1 tab .ROUTE .STK-MED ONE - Progress Progress: improved, re-examined Progress Note: 04/18/21 11:57 Patient is up-to-date with tetanus. Patient does have a superficial hematoma. No obvious bony lesion noticed on x-rays reviewed by me, official report is pending. Boom wrap applied. Recommended Tylenol as needed for pain and outpatient follow-up for reevaluation. Counseled pt/family regarding: diagnosis, need for follow-up, rad results - Departure Departure Disposition: Home Clinical Impression: Leg hematoma Qualifiers: Encounter type: initial encounter Laterality: left Qualified Code(s): S80.12XA - Contusion of left lower leg, initial encounter Fall Qualifiers: Encounter type: initial encounter Qualified Code(s): W19.XXXA - Unspecified fall, initial encounter Condition: Stable Critical Care Time: No Referrals: MONSE BRADSHAW MD [Primary Care Provider] - Follow Up with PCP/3 days Instructions: Contusion (DC) Additional Instructions: Take Tylenol as needed. Follow-up with primary care for reevaluation. Avoid exertional activities. Return to ER for increasing pain swelling redness, discharge or fever chills etc.
--- NOTE | 2021-04-18 18:26 | XRAY ---
Indication: Pain following fall. Comparison: None 2 view left lower leg demonstrates mild osteopenia, mild/moderate tricompartmental degenerative changes, moderate scattered vascular calcifications, and medial knee vascular clips. No other bony, articular, or soft tissue abnormalities.
== END 2021-04-18 12:20 | disposition home or self-care (01) ==
LOC: ED 10:27
DX: S80.12XA Contusion of left lower leg, initial encounter (principal); W19.XXXA Unspecified fall, initial encounter
CPT/HCPCS: 73590; 99284; A9270-GY

== ENCOUNTER 2021-04-25 01:52 | Inpatient (IN) | payer MEDICARE, OTHER ==
[2021-04-25 02:46] LABS: Absolute Neutrophil Ct (ANC) 8.83 (1.4-6.9); BASOPHIL % 0.3 % (0.0-0.4); Basophil (Absolute #) 0.04 (0-0.4); Eosinophil % 1.1 % (0.00-5.0); Eosinophil (Absolute #) 0.13 (0-0.5); Hematocrit 39.2 % (42-50); Hemoglobin 11.7 gm/dl (12.5-18.0); Lymphocyte (Absolute #) 1.68 (1.0-4.6); Lymphocytes % 14.5 % (24.0-44.0); Mean Cell Volume 91.4 fl (78-100); Mean Corpuscular Hemoglobin 27.3 pg (26-32); Mean Corpuscular Hgb Concent. 29.8 g/dl (32-36); Mean Platelet Volume 10.5 fl (7.5-11.0); Monocyte (Absolute #) 0.88 (0.0-1.3); Monocytes % 7.6 % (0.0-12.0); Neutrophil % 76.5 % (36.0-66.0); Platelet Count 246 K/mm3 (150-450); Red Blood Count 4.29 M/mm3 (4.1-5.6); Red Cell Distribution Width 14.7 % (11.5-14.0); White Blood Count 11.6 K/mm3 (4.0-10.5)
[2021-04-25] MEDS ORDERED: DUONEB 0.5-3 MG/3 ml Neb IH ONE ×2 (02:47→02:55)
--- NOTE | 2021-04-25 02:47 | ERPHSYRPT ---
- History of Present Illness Time Seen by Provider: 04/25/21 02:44 Historian: patient Exam Limitations: no limitations Physician History: Patient is 75-year-old male with significant past medical history of pulmonary embolism end-stage COPD coronary artery disease congestive heart failure started having chest pain off and on for last 1 week. He was taking nitro off-and-on without any relief. His shortness of breath was also getting worse. He denies any fever chills nausea or vomiting. Patient has a chronic lung and heart problems. Patient is also on anticoagulation. Timing/Duration: day(s) Activities at Onset: activity Location: substernal Chest Pain Radiation: no radiation Severity of Pain-Max: mild Severity of Pain-Current: mild Modifying Factors: Improves With: nothing Associated Symptoms: shortness of breath Prior Chest Pain/Cardiac Workup: pulmonary embolism Nitro Today/Relief: 0.4 mg x 4, no relief Aspirin Treatment Today: 81 mg x 1 Allergies/Adverse Reactions: gemfibrozil Allergy (Intermediate, Verified 04/25/21 02:04) Rash pineapple [Pineapple] Adverse Reaction (Intermediate, Verified 04/25/21 02:04) Nausea and Vomiting VOMITING Home Medications: Isosorbide Mononitrate 30 mg [Imdur 30 MG] 90 mg PO QAM 10/30/14 [History] Lisinopril 5 mg [Zestril 5 MG] 5 mg PO DAILY 10/29/15 [History] Amlodipine Besylate 5 mg [Norvasc 5 mg] 5 mg PO QAM 04/18/17 [History] Famotidine [Pepcid] 40 mg PO HS 04/18/17 [History] Tamsulosin HCl 0.4 mg [Flomax 0.4 MG] 0.4 mg PO 1800 04/18/17 [History] Insulin Glargine [Lantus Insulin] unit SQ BID 06/26/17 [History] Zolpidem Tartrate [Ambien] 10 mg PO HS PRN PRN 06/26/17 [History] Bumetanide 1 mg [Bumex 1 mg] 1 mg PO DAILY 08/06/18 [History] Oxybutynin Chloride [Oxybutynin Chloride ER] 5 mg PO DAILY 08/06/18 [History] Atorvastatin Calcium [Lipitor] 40 mg PO HS 08/14/20 [History] Carvedilol 3.125 mg [Coreg 3.125 MG] 3.125 mg PO BIDWM 08/14/20 [History] Ergocalciferol (Vitamin D2) [Vitamin D2] 1 cap PO WEEKLY 08/14/20 [History] Oxycodone HCl/Acetaminophen [Percocet 10-325 mg Tablet] 1 tab PO TIDPRN PRN 08/14/20 [History] Clopidogrel Bisulfate 75 mg [PLAVIX 75 MG Tablet] 75 mg PO DAILY 10/02/20 [History] Nitroglycerin 0.4 mg Tablet [Nitrostat 0.4 MG Tablet] 0.4 mg SL UD 10/02/20 [History] Spironolactone 25 mg [Aldactone 25 MG] 25 mg PO DAILY 10/02/20 [History] Hx Tetanus, Diphtheria Vaccination/Date Given: No Hx Influenza Vaccination/Date Given: No Hx Pneumococcal Vaccination/Date Given: Yes Travel Risk - Vaccine Status Have you recieved a Covid-19 vaccination: No B[employer] Master: Unknown - Vaccination Dates Date of 2cond Vaccination (if applicable): 2020 - Review of Systems Constitutional: No Fever, No Chills Eyes: No Symptoms Ears, Nose, & Throat: No Symptoms Respiratory: Dyspnea, Dyspnea on Exertion (CLEARY), Wheezing, No Cough Cardiac: Chest Pain, Edema, Palpitations, Orthopnea, PND, No Syncope Abdominal/Gastrointestinal: No Abdominal Pain, No Nausea, No Vomiting, No Diarrhea Genitourinary Symptoms: No Dysuria Musculoskeletal: No Back Pain, No Neck Pain Skin: No Rash Neurological: No Dizziness, No Focal Weakness, No Sensory Changes Psychological: No Symptoms Endocrine: No Symptoms All Other Systems: Reviewed and Negative - Past Medical History Pertinent Past Medical History: Yes Neurological History: No Pertinent History ENT History: No Pertinent History Cardiac History: Coronary Artery Disease, Deep Vein Thrombosis, High Choles terol, Hypertension, Myocardial Infarction ([place]) Respiratory History: CHF, COPD, Pulmonary Embolism Endocrine Medical History: Diabetes Type II Musculoskeletal History: Osteoarthritis GI Medical History: No Pertinent History History: No Pertinent History Psycho-Social History: No Pertinent History Male Reproductive Disorders: No Pertinent History Other Medical History: HX CABG. Coronary Stenting. HX DVT - Past Surgical History Past Surgical History: Yes Neuro Surgical History: No Pertinent History Cardiac: CABG, Cardiac Catheterization, Cardiac Stent, Internal Defibrillator, Pacemaker Respiratory: No Pertinent History Gastrointestinal: Cholecystectomy Genitourinary: No Pertinent History Musculoskeletal: Joint Replacement, Orthopedic Surgery Male Surgical History: No Pertinent History Other Surgical History: LEFT HIP REPLACEMENT. LITTLE FINGER RIGHT HAND-STATES HAD SURGERY AND IT FROZE UP. 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 HX CABG and Coronary Stenting - Social History Smoking Status: Former smoker How long have you smoked: 10 yrs Exposure to second hand smoke: Yes Drug Use: none Patient Lives Alone: No - Nursing Vital Signs Nursing Vital Signs: Initial Vital Signs Temperature 97.6 F 04/25/21 01:53 Pulse Rate 90 04/25/21 01:53 Respiratory Rate 27 H 04/25/21 01:53 Blood Pressure 139/66 04/25/21 01:53 O2 Sat by Pulse Oximetry 97 04/25/21 01:53 Pain Scale Pain Intensity 4 - Physical Exam General Appearance: moderate distress, alert Eye Exam: PERRL/EOMI, eyes nml inspection Ears, Nose, Throat Exam: normal ENT inspection, moist mucous membranes Neck Exam: normal inspection, non-tender, supple, full range of motion Respiratory Exam: diminished breath sounds, crackles/rales, rhonchi, wheezing, No respiratory distress Cardiovascular Exam: tachycardia, irregular, capillary refill 2-3 sec Gastrointestinal/Abdomen Exam: soft, No tenderness, No mass Back Exam: normal inspection, No CVA tenderness, No vertebral tenderness Extremity Exam: normal inspection, normal range of motion Neurologic Exam: alert, oriented x 3, cooperative, normal mood/affect, sensation nml, No motor deficits Skin Exam: normal color, warm, dry - Course Nursing assessment & vital signs reviewed: Yes EKG Interpreted by Me: Sinus Rhythm, Non-specific ST Changes - Radiology Exams Chest X-ray Interpretation: Reviewed by me, No Pneumonia, No Pneumothorax, No Infiltrates Ordered Tests: Active Orders 24 hr Category Date Time Status Mixer And Scaler STAT Care 04/25/21 02:38 Active EKG-ER Only STAT Care 04/25/21 02:36 Active Oxygen-ED Only Nasal Cannula 3 lpm Care 04/25/21 02:36 Active CHEST 1 VIEW (PORTABLE) Stat Exams 04/25/21 02:37 Ordered CBC W DIFF Stat Lab 04/25/21 02:43 Completed CMP Stat Lab 04/25/21 02:43 Completed NT PRO BNP Stat Lab 04/25/21 02:43 Completed PROTIME WITH INR Stat Lab 04/25/21 02:43 Completed TROPONIN Q3H Lab 04/25/21 02:43 Completed TROPONIN Q3H Lab 04/25/21 05:45 Ordered TROPONIN Q3H Lab 04/25/21 08:45 Ordered TROPONIN Q3H Lab 04/25/21 11:45 Ordered TROPONIN Q3H Lab 04/25/21 14:45 Ordered Respiratory Therapy Assessment DAILY RT 04/25/21 03:02 Active Medication Summary Generic Name Dose Route Start Last Admin Trade Name Freq PRN Reason Stop Dose Admin Sodium Chloride 1,000 mls @ 50 mls/hr 04/25/21 02:45 Sodium Chloride 0.9% 1000 Ml IV 05/25/21 02:44 .Q20H BENJA Discontinued Medications Generic Name Dose Route Start Last Admin Trade Name Freq PRN Reason Stop Dose Admin Albuterol/Ipratropium 3 ml 04/25/21 02:47 04/25/21 03:00 Ipratropium/Albuterol Sulfate 3 Ml Ampul.Neb IH 04/25/21 02:48 3 ml STAT ONE Administration Albuterol/Ipratropium Confirm 04/25/21 02:55 Ipratropium/Albuterol Sulfate 3 Ml Ampul.Neb Administered 04/25/21 02:56 Dose 3 ml IH .STK-MED ONE Budesonide 0.5 mg 04/25/21 02:48 04/25/21 03:12 Budesonide 0.5 Mg/2 Ml Ampul.Neb. IH 04/25/21 02:49 0.5 mg ONCE ONE Administration Lab/Rad Data: Laboratory Result Diagrams 04/25/21 02:43 04/25/21 02:43 Laboratory Results 04/25/21 04/25/21 04/25/21 Range/Units 02:43 02:43 02:43 WBC (4.0-10.5) K/mm3 RBC (4.1-5.6) M/mm3 Hgb (12.5-18.0) gm/dl Hct (42-50) % MCV (78-100) fl MCH (26-32) pg MCHC (32-36) g/dl RDW (11.5-14.0) % Plt Count (150-450) K/mm3 MPV (7.5-11.0) fl Gran % (36.0-66.0) % Eos # (Auto) (0-0.5) Absolute Lymphs (auto) (1.0-4.6) Absolute Monos (auto) (0.0-1.3) Lymphocytes % (24.0-44.0) % Monocytes % (0.0-12.0) % Eosinophils % (0.00-5.0) % Basophils % (0.0-0.4) % Absolute Granulocytes (1.4-6.9) Basophils # (0-0.4) PT 14.2 H (9.4-12.5) SECONDS INR 1.20 (0.8-3.0) Sodium 142 (137-145) mmol/L Potassium 4.1 (3.5-5.1) mmol/L Chloride 99 (98-107) mmol/L Carbon Dioxide 32 H (22-30) mmol/L Anion Gap 14.3 (5-15) MEQ/L BUN 33 H (9-20) mg/dL Creatinine 1.14 (0.66-1.25) mg/dL Estimated GFR > 60.0 ML/MIN Glucose 113 H (74-106) mg/dL Calcium 9.1 (8.4-10.2) mg/dL Total Bilirubin 0.60 (0.2-1.3) mg/dL AST 25 (17-59) U/L ALT 23 (0-50) U/L Alkaline Phosphatase 75 (38-126) U/L Troponin I 0.071 H* (0.000-0.034) ng/mL NT-Pro-B Natriuret Pep 2350 H (0-1800) pg/mL Serum Total Protein 6.3 (6.3-8.2) g/dL Albumin 3.9 (3.5-5.0) g/dL 04/25/21 Range/Units 02:43 WBC 11.6 H (4.0-10.5) K/mm3 RBC 4.29 (4.1-5.6) M/mm3 Hgb 11.7 L (12.5-18.0) gm/dl Hct 39.2 L (42-50) % MCV 91.4 (78-100) fl MCH 27.3 (26-32) pg MCHC 29.8 L (32-36) g/dl RDW 14.7 H (11.5-14.0) % Plt Count 246 (150-450) K/mm3 MPV 10.5 (7.5-11.0) fl Gran % 76.5 H (36.0-66.0) % Eos # (Auto) 0.13 (0-0.5) Absolute Lymphs (auto) 1.68 (1.0-4.6) Absolute Monos (auto) 0.88 (0.0-1.3) Lymphocytes % 14.5 L (24.0-44.0) % Monocytes % 7.6 (0.0-12.0) % Eosinophils % 1.1 (0.00-5.0) % Basophils % 0.3 (0.0-0.4) % Absolute Granulocytes 8.83 H (1.4-6.9) Basophils # 0.04 (0-0.4) PT (9.4-12.5) SECONDS INR (0.8-3.0) Sodium (137-145) mmol/L Potassium (3.5-5.1) mmol/L Chloride (98-107) mmol/L Carbon Dioxide (22-30) mmol/L Anion Gap (5-15) MEQ/L BUN (9-20) mg/dL Creatinine (0.66-1.25) mg/dL Estimated GFR ML/MIN Glucose (74-106) mg/dL Calcium (8.4-10.2) mg/dL Total Bilirubin (0.2-1.3) mg/dL AST (17-59) U/L ALT (0-50) U/L Alkaline Phosphatase (38-126) U/L Troponin I (0.000-0.034) ng/mL NT-Pro-B Natriuret Pep (0-1800) pg/mL Serum Total Protein (6.3-8.2) g/dL Albumin (3.5-5.0) g/dL - Progress Progress: unchanged Air Movement: fair Blood Culture(s) Obtained: No Antibiotics given: No Discussed with DrCarmelo: Elenita Chery Will see patient in: hospital (observation) Counseled pt/family regarding: lab results, diagnosis, need for follow-up, rad results - Departure Departure Disposition: Observation Clinical Impression: Elevated troponin, COPD (chronic obstructive pulmonary disease) Coronary artery disease Qualifiers: Coronary Disease-Associated Artery/Lesion type: rosebud artery Circle vs. transplanted heart: rosebud heart Associated angina: with other forms of angina Qualified Code(s): I25.118 - Atherosclerotic heart disease of rosebud coronary artery with other forms of angina pectoris Condition: Fair Critical Care Time: Yes Critical Care Time(excluding separately billable procedures): Critical 30-74 mins Referrals: MONSE BRADSHAW MD [Primary Care Provider] - Follow up/PCP as directed Instructions: Chronic Obstructive Pulmonary Disease
[2021-04-25] MEDS ORDERED: PULMICORT 0.5 MG/2 ML RESPULES IH ONE ×2 (02:48→03:09)
[2021-04-25 02:53] LABS: INR 1.2 (0.8-3.0); PROTIME 14.2 SECONDS (9.4-12.5)
[2021-04-25 03:06] LABS: ALBUMIN 3.9 g/dL (3.5-5.0); ALKALINE PHOSPHATASE 75 U/L (38-126); ANION GAP 14.3 MEQ/L (5-15); BLOOD UREA NITROGEN 33 mg/dL (9-20); CHLORIDE 99 mmol/L (98-107); Calcium 9.1 mg/dL (8.4-10.2); Carbon Dioxide 32 mmol/L (22-30); Creatinine 1 1.14 mg/dL (0.66-1.25); EST GLOMERULAR FILTRATION RATE > 60.0 ML/MIN; Glucose 113 mg/dL (74-106); NT PRO BNP 2350 pg/mL (0-1800); Potassium 4.1 mmol/L (3.5-5.1); SGOT/AST 25 U/L (17-59); SGPT/ALT 23 U/L (0-50); SODIUM 142 mmol/L (137-145); Total Protein 6.3 g/dL (6.3-8.2)
[2021-04-25] MEDS ORDERED: Sodium Chloride 3 ML UD NEBULES IH ONE (03:09)
[2021-04-25] MEDS ORDERED: Senokot-S Tablet PO PRN (03:15)
[2021-04-25] MEDS ORDERED: Sodium Chloride 0.9% 500 ML 500 ML IV SCH (03:15)
[2021-04-25] MEDS ORDERED: MILK OF MAGNESIA 30 ML PO PRN (03:15)
[2021-04-25] MEDS ORDERED: TYLENOL 325 MG PO PRN (03:15)
[2021-04-25] MEDS ORDERED: Zofran 4 MG/2 ML VIAL IV PRN (03:15)
[2021-04-25] MEDS ORDERED: MAALOX ES 30 ML UNIT DOSE PO PRN (03:15)
[2021-04-25] MEDS ORDERED: Lasix 40 MG/4 ML ONE (03:22)
[2021-04-25] MEDS: Sodium Chloride 0.9% 1000 ML 1,000 ML IV SCH (03:24)
[2021-04-25] MEDS ORDERED: Lasix 40 MG/4 ML IV ONE (03:28)
[2021-04-25 04:14] LABS: Risk Ratio 4.3
[2021-04-25] MEDS ORDERED: Lasix 40 MG/4 ML IV SCH (06:45)
[2021-04-25] MEDS ORDERED: PROVENTIL Solution 2.5 MG/0.5 ML IH ONE (06:52)
[2021-04-25] MEDS ORDERED: Advair Hfa 115/21 Common canister IH SCH ×2 (07:00→19:00)
[2021-04-25] MEDS ORDERED: DUONEB 0.5-3 MG/3 ml Neb IH SCH (07:00)
[2021-04-25] MEDS: Nitrostat 0.4 MG Tablet SL PRN ×2 (08:17→08:31)
--- NOTE | 2021-04-25 08:22 | XRAY ---
Indication: Chest pain. Comparison: October 02, 2020. Portable chest remains markedly underinflated accentuating cardiopulmonary structures with again right hemidiaphragm elevation, right base subsegmental atelectasis/scarring, CABG surgery, left pacemaker, osteopenia, and bony degenerative changes. No new cardiopulmonary abnormalities.
[2021-04-25] MEDS ORDERED: MORPHINE SULFATE 2 MG INJ IV ONE (08:46)
[2021-04-25] MEDS ORDERED: Pepcid 20 MG VIAL IV SCH (10:00)
[2021-04-25] MEDS ORDERED: ENOXAPARIN SODIUM SQ SCH (12:00)
[2021-04-25 12:17] LABS: ALBUMIN 3.9 g/dL (3.5-5.0); ALKALINE PHOSPHATASE 72 U/L (38-126); ANION GAP 13.2 MEQ/L (5-15); BLOOD UREA NITROGEN 34 mg/dL (9-20); CHLORIDE 98 mmol/L (98-107); Calcium 9.1 mg/dL (8.4-10.2); Carbon Dioxide 31 mmol/L (22-30); Creatinine 1 1.03 mg/dL (0.66-1.25); EST GLOMERULAR FILTRATION RATE > 60.0 ML/MIN; Glucose 87 mg/dL (74-106); Potassium 3.7 mmol/L (3.5-5.1); SGOT/AST 27 U/L (17-59); SGPT/ALT 23 U/L (0-50); SODIUM 139 mmol/L (137-145); Total Protein 6.4 g/dL (6.3-8.2)
[2021-04-25] MEDS: Ditropan XL 5 MG PO SCH (14:47)
[2021-04-25] MEDS: Aldactone 25 MG PO SCH (14:47)
[2021-04-25] MEDS: Imdur 30 MG PO SCH (14:47)
[2021-04-25] MEDS: Imdur 60MG PO SCH (14:47)
[2021-04-25] MEDS: Neurontin 400 MG PO SCH ×2 (14:48→21:11)
[2021-04-25] MEDS: NORVASC 5 MG PO SCH (14:48)
[2021-04-25] MEDS: PLAVIX 75 MG Tablet PO SCH (14:48)
[2021-04-25] MEDS: Levofloxacin 250MG Tablet PO SCH (14:48)
[2021-04-25] MEDS: OXYCODONE-ACETAMINOPHEN 10-325 PO SCH ×2 (14:49→21:10)
[2021-04-25] MEDS ORDERED: NON-FORMULARY ITEM (Gabapentin [Gabapentin] 800 MG Tablet) PO SCH (15:00)
[2021-04-25] MEDS ORDERED: MEDICATION INTERVENTION PO SCH (15:15)
[2021-04-25] MEDS ORDERED: VITAMIN D2 PO SCH (16:00)
[2021-04-25] MEDS: Coreg 3.125 MG PO SCH (16:36)
[2021-04-25] MEDS: Lasix 40 MG/4 ML IV SCH (16:37)
--- NOTE | 2021-04-25 18:53 | XRAY ---
Indication: Short of breath. Status post fall. History pulmonary emboli. Current blood thinner therapy. Multiple contiguous axial images obtained through the chest using 80 cc Isovue 370 contrast and PE protocol. Comparison: October 02, 2020. There is suboptimal opacification of the pulmonary arteries limiting evaluation for pulmonary embolus. No obvious pulmonary embolus. Heart remains borderline enlarged again with CABG surgery and left pacemaker. Aorta minimally arteriosclerotic without aneurysm/dissection. No pathologic mediastinal/hilar lymphadenopathy. Lungs again demonstrate scattered subsegmental atelectasis/scarring bilaterally and chronic right hemidiaphragm elevation. There are now patchy diffuse bilateral airspace disease with tiny left effusion. Bony thorax intact again with osteopenia, degenerative changes throughout the spine, and sternotomy wires. Limited upper abdomen again demonstrates fatty liver, left renal cysts, and cholecystectomy clips. Impression: 1. Pulmonary embolus evaluation limited due to suboptimal contrast opacification. No obvious pulmonary embolus. 2. New diffuse bilateral patchy airspace disease and tiny left effusion. 3. Again chronic right hemidiaphragm elevation, scattered bilateral subsegmental atelectasis/scarring, borderline cardiomegaly, fatty liver, left renal cysts, and chronic bony findings. Comment: Preliminary interpretation made by [facility]. No critical discrepancy.
[2021-04-25] MEDS: HUMALOG SQ PRN (21:09)
[2021-04-25] MEDS: Lantus Insulin SQ SCH (21:10)
[2021-04-25] MEDS: Pepcid 20 MG PO SCH (21:10)
[2021-04-25] MEDS: Flomax 0.4 MG PO SCH (21:11)
[2021-04-25] MEDS: ZOCOR 20MG PO SCH (21:11)
[2021-04-25] MEDS ORDERED: NON-FORMULARY ITEM (Apixaban [Eliquis] 5 MG Tablet) PO SCH (22:00)
[2021-04-25] MEDS ORDERED: ADVAIR/WIXELLA 250-50 DISKUS 14 DOSE IH SCH (22:00)
[2021-04-25] MEDS ORDERED: NON-FORMULARY ITEM (Metformin Hcl [Metformin Er Gastric] 1,000 MG Tabergr24h) PO SCH (22:00)
[2021-04-25] MEDS ORDERED: NON-FORMULARY ITEM (Famotidine [Pepcid] 40 MG Tablet) PO SCH (22:00)
[2021-04-25] MEDS ORDERED: NON-FORMULARY ITEM (Atorvastatin Calcium [Lipitor] 80 MG Tablet) PO SCH (22:00)
[2021-04-26] MEDS: Sodium Chloride 0.9% 1000 ML 1,000 ML IV SCH (04:45)
[2021-04-26 05:46] LABS: Hemoglobin 10.9 gm/dl (12.5-18.0); Mean Cell Volume 91.4 fl (78-100); Mean Corpuscular Hemoglobin 26.9 pg (26-32); Mean Corpuscular Hgb Concent. 29.5 g/dl (32-36); Mean Platelet Volume 10.2 fl (7.5-11.0); Platelet Count 217 K/mm3 (150-450); Red Blood Count 4.05 M/mm3 (4.1-5.6); Red Cell Distribution Width 14.9 % (11.5-14.0); White Blood Count 6.8 K/mm3 (4.0-10.5)
[2021-04-26 06:04] LABS: BLOOD UREA NITROGEN 26 mg/dL (9-20); CHLORIDE 99 mmol/L (98-107); Calcium 8.6 mg/dL (8.4-10.2); Carbon Dioxide 32 mmol/L (22-30); Creatinine 1 1.08 mg/dL (0.66-1.25); EST GLOMERULAR FILTRATION RATE > 60.0 ML/MIN; Glucose 97 mg/dL (74-106); Potassium 3.5 mmol/L (3.5-5.1); SODIUM 141 mmol/L (137-145)
[2021-04-26] MEDS: Lasix 40 MG/4 ML IV SCH ×2 (06:18→17:39)
[2021-04-26] MEDS: OXYCODONE-ACETAMINOPHEN 10-325 PO SCH ×3 (07:37→21:02)
[2021-04-26] MEDS: Coreg 3.125 MG PO SCH ×2 (07:37→17:39)
[2021-04-26] MEDS ORDERED: Ntg 0.2MG/Ml in D5W GLASS*** 250 ML IV PRN (09:17)
[2021-04-26] MEDS ORDERED: NON-FORMULARY ITEM (Empagliflozin [Jardiance] 10 MG Tablet) PO SCH (10:00)
[2021-04-26] MEDS ORDERED: NON-FORMULARY ITEM (Oxybutynin Chloride [Oxybutynin Chloride Er] 10 MG Tab.Er.24) PO SCH (10:00)
[2021-04-26] MEDS ORDERED: BUMEX 1 MG PO SCH (10:00)
[2021-04-26] MEDS ORDERED: Klor Con 10 MEQ PO SCH (10:00)
[2021-04-26] MEDS: NORVASC 5 MG PO SCH (10:01)
[2021-04-26] MEDS: Ditropan XL 5 MG PO SCH (10:01)
[2021-04-26] MEDS: PLAVIX 75 MG Tablet PO SCH (10:01)
[2021-04-26] MEDS: Imdur 30 MG PO SCH (10:01)
[2021-04-26] MEDS: Aldactone 25 MG PO SCH (10:01)
[2021-04-26] MEDS: Levofloxacin 250MG Tablet PO SCH (10:01)
[2021-04-26] MEDS: Neurontin 400 MG PO SCH ×3 (10:01→21:01)
[2021-04-26] MEDS: ENOXAPARIN SODIUM SQ SCH (10:02)
[2021-04-26] MEDS: Lantus Insulin SQ SCH ×2 (10:03→21:03)
[2021-04-26] MEDS: Imdur 60MG PO SCH (10:05)
[2021-04-26] MEDS: HUMALOG SQ PRN ×2 (12:36→21:03)
--- NOTE | 2021-04-26 13:23 | PCM.HP ---
History of Present Illness - Chief Complaint Chief Complaint: Shortness of Breath and chest pain for 2 weeks History of Present Illness: is a 75 year old male.Patient with significant past medical history of pulmonary embolism end-stage COPD coronary artery disease congestive heart fail ure started having chest pain off and on for last 1 week. He was taking nitro off-and-on without any relief. His shortness of breath was also getting worse. He denies any fever chills nausea or vomiting. Patient has a chronic lung and heart problems. Patient is also on anticoagulation. Timing/Duration: day(s) Activities at Onset: activity Location: substernal Chest Pain Radiation: no radiation Severity of Pain-Max: mild Severity of Pain-Current: mild Modifying Factors: Improves With: nothing Associated Symptoms: shortness of breath Prior Chest Pain/Cardiac Workup: pulmonary embolism Nitro Today/Relief: 0.4 mg x 4, no relief Aspirin Treatment Today: 81 mg x 1 - Review of Systems Constitutional: Weakness, No Fever, No Chills Eyes: No Symptoms Ears, Nose, & Throat: No Symptoms Respiratory: Cough, Orthopnea, Short Of Breath, Wheezing Cardiac: Chest Pain, Edema, Palpitations, Orthopnea, PND, No Syncope Abdominal/Gastrointestinal: No Abdominal Pain, No Nausea, No Vomiting, No Diarrhea Genitourinary Symptoms: No Dysuria Musculoskeletal: No Back Pain, No Neck Pain Skin: No Rash Neurological: No Dizziness, No Focal Weakness, No Sensory Changes Psychological: No Symptoms Endocrine: No Symptoms Hematologic/Lymphatic: No Symptoms Immunological/Allergic: No Symptoms Medications & Allergies Home Medications: Home Medication List Isosorbide Mononitrate 30 mg [Imdur 30 MG] 90 mg PO [facility] 10/30/14 [History Confirmed 04/25/21] Amlodipine Besylate 5 mg [Norvasc 5 mg] 5 mg PO QA 04/18/17 [History Confirmed 04/25/21] Famotidine [Pepcid] 40 mg PO 04/18/17 [History Confirmed 04/25/21] Tamsulosin HCl 0.4 mg [Flomax 0.4 MG] 0.4 mg PO HS 04/18/17 [History Confirmed 04/25/21] Insulin Glargine [Lantus Insulin] 45 unit SQ BID 06/26/17 [History Confirmed 04/25/21] Bumetanide 1 mg [Bumex 1 mg] 1 mg PO UD 08/06/18 [History Confirmed 04/25/21] Oxybutynin Chloride [Oxybutynin Chloride ER] 5 mg PO DAILY 08/06/18 [History Confirmed 04/25/21] Fluticasone/Salmeterol Disc [Advair/Wixella 250-50 Diskus 14 Dose] 1 each IH BID #1 disk.w.dev 04/14/19 [Rx Confirmed 04/25/21] Atorvastatin Calcium [Lipitor] 80 mg PO HS 08/14/20 [History Confirmed 04/25/21] Carvedilol 3.125 mg [Coreg 3.125 MG] 3.125 mg PO BIDWM 08/14/20 [History Confirmed 04/25/21] Ergocalciferol (Vitamin D2) [Vitamin D2] 1 cap PO WEEKLY 08/14/20 [History Confirmed 04/25/21] Oxycodone HCl/Acetaminophen [Percocet 10-325 mg Tablet] 1 tab PO TIDPRN PRN 08/14/20 [History Confirmed 04/25/21] Clopidogrel Bisulfate 75 mg [PLAVIX 75 MG Tablet] 75 mg PO DAILY 10/02/20 [History Confirmed 04/25/21] Nitroglycerin 0.4 mg Tablet [Nitrostat 0.4 MG Tablet] 0.4 mg SL UD 10/02/20 [History Confirmed 04/25/21] Spironolactone 25 mg [Aldactone 25 MG] 25 mg PO DAILY 10/02/20 [History Confirmed 04/25/21] Apixaban [Eliquis] 5 mg PO BID 04/25/21 [History Confirmed 04/25/21] Empagliflozin [Jardiance] 10 mg PO DAILY 04/25/21 [History Confirmed 04/25/21] Gabapentin 800 mg PO TID 04/25/21 [History Confirmed 04/25/21] Levofloxacin [Levaquin] 250 mg PO DAILY 04/25/21 [History Confirmed 04/25/21] Metformin HCl [Metformin ER Gastric] 1,000 mg PO BID 04/25/21 [History Confirmed 04/25/21] Potassium Chloride [Klor-Con 10] 10 meq PO UD 04/25/21 [History Confirmed 04/25/21] Allergies/Adverse Reactions: Allergies Allergy/AdvReac Type Severity Reaction Status Date / Time gemfibrozil Allergy Intermediate Rash Verified 04/25/21 02:04 pineapple [Pineapple] AdvReac Intermediate Nausea and Verified 04/25/21 02:04 Vomiting - Past Medical History Past Medical History: Yes Neurological History: No Pertinent History ENT History: No Pertinent History Cardiac History: Congestive Heart Failure, Coronary Artery Disease, Deep Vein Thrombosis, High Cholesterol, Hypertension, Myocardial Infarction ([place]) Respiratory History: CHF, COPD, Pulmonary Embolism Endocrine Medical History: Diabetes Type II Musculoskelatal History: Osteoarthritis GI Medical History: No Pertinent History History: No Pertinent History Pyscho-Social History: No Pertinent History Male Reproductive Disorders: No Pertinent History Comment: HX CABG. Coronary Stenting. HX DVT - Past Surgical History Past Surgical History: Yes Neuro Surgical History: No Pertinent History Cardiac History: CABG, Cardiac Catheterization, Cardiac Stent, Internal Defibrillator Respiratory Surgery: Chest Surgery GI Surgical History: Cholecystectomy Genitourinary Surgical Hx: No Pertinent History Musculskeletal Surgical Hx: Joint Replacement Male Surgical History: No Pertinent History Other Surgical History: Left Hip replacement. - Social History Smoking Status: Former smoker How long have you smoked: 10 yrs Exposure to second hand smoke: Yes Alcohol: None Drug Use: none - Physical Exam Vital Signs: Vital Signs - 24 hr Temp Pulse Resp BP Pulse Ox 04/26/21 12:00 97.7 F 95 H 25 H 132/59 95 04/26/21 07:33 97.7 F 52 L 18 192/88 92 L 04/26/21 03:31 97.8 F 99 H 29 H 111/72 94 L 04/25/21 23:37 97.7 F 75 19 103/63 95 04/25/21 20:19 76 18 92 L 04/25/21 19:29 96.8 F 71 19 107/68 93 L 04/25/21 15:39 97.6 F 81 20 128/56 92 L General Appearance: moderate distress, alert Neurologic Exam: alert, oriented x 3, cooperative, normal mood/affect, nml cerebellar function, nml station & gait, sensation nml, No motor deficits Eye Exam: PERRL/EOMI, eyes nml inspection Ears, Nose, Throat Exam: normal ENT inspection, TMs normal, pharynx normal, moist mucous membranes Neck Exam: normal inspection, non-tender, supple, full range of motion Respiratory Exam: diminished breath sounds, accessory muscle use, crackles/rales, rhonchi, wheezing, No respiratory distress Cardiovascular Exam: irregular, capillary refill >3 sec Gastrointestinal/Abdomen Exam: soft, normal bowel sounds, No tenderness, No mass Back Exam: normal inspection, normal range of motion, No CVA tenderness, No vertebral tenderness Extremity Exam: normal inspection, normal range of motion, pelvis stable Skin Exam: normal color, warm, dry, No rash Lymphatic Exam: No adenopathy Results - Labs Lab/Micro Results: Lab Results-Last 24 Hours 04/25/21 04/25/21 04/25/21 Range/Units 14:48 16:43 20:22 WBC (4.0-10.5) K/mm3 RBC (4.1-5.6) M/mm3 Hgb (12.5-18.0) gm/dl Hct (42-50) % MCV (78-100) fl MCH (26-32) pg MCHC (32-36) g/dl RDW (11.5-14.0) % Plt Count (150-450) K/mm3 MPV (7.5-11.0) fl Sodium (137-145) mmol/L Potassium (3.5-5.1) mmol/L Chloride (98-107) mmol/L Carbon Dioxide (22-30) mmol/L Anion Gap (5-15) MEQ/L BUN (9-20) mg/dL Creatinine (0.66-1.25) mg/dL Estimated GFR ML/MIN Glucose (74-106) mg/dL POC Glucometer 84 232 H (74 to 106) mg/dL Calcium (8.4-10.2) mg/dL Magnesium (1.6-2.3) mg/dL Troponin I 0.092 H* (0.000-0.034) ng/mL 04/25/21 04/26/21 04/26/21 Range/Units 21:36 04:55 04:55 WBC 6.8 (4.0-10.5) K/mm3 RBC 4.05 L (4.1-5.6) M/mm3 Hgb 10.9 L (12.5-18.0) gm/dl Hct 37.0 L (42-50) % MCV 91.4 (78-100) fl MCH 26.9 (26-32) pg MCHC 29.5 L (32-36) g/dl RDW 14.9 H (11.5-14.0) % Plt Count 217 (150-450) K/mm3 MPV 10.2 (7.5-11.0) fl Sodium 141 (137-145) mmol/L Potassium 3.7 3.5 (3.5-5.1) mmol/L Chloride 99 (98-107) mmol/L Carbon Dioxide 32 H (22-30) mmol/L Anion Gap 13.0 (5-15) MEQ/L BUN 26 H (9-20) mg/dL Creatinine 1.08 (0.66-1.25) mg/dL Estimated GFR > 60.0 ML/MIN Glucose 97 (74-106) mg/dL POC Glucometer (74 to 106) mg/dL Calcium 8.6 (8.4-10.2) mg/dL Magnesium (1.6-2.3) mg/dL Troponin I (0.000-0.034) ng/mL 04/26/21 04/26/21 04/26/21 Range/Units 04:55 06:55 06:57 WBC (4.0-10.5) K/mm3 RBC (4.1-5.6) M/mm3 Hgb (12.5-18.0) gm/dl Hct (42-50) % MCV (78-100) fl MCH (26-32) pg MCHC (32-36) g/dl RDW (11.5-14.0) % Plt Count (150-450) K/mm3 MPV (7.5-11.0) fl Sodium (137-145) mmol/L Potassium (3.5-5.1) mmol/L Chloride (98-107) mmol/L Carbon Dioxide (22-30) mmol/L Anion Gap (5-15) MEQ/L BUN (9-20) mg/dL Creatinine (0.66-1.25) mg/dL Estimated GFR ML/MIN Glucose (74-106) mg/dL POC Glucometer 103 (74 to 106) mg/dL Calcium (8.4-10.2) mg/dL Magnesium 2.0 (1.6-2.3) mg/dL Troponin I 0.119 H* (0.000-0.034) ng/mL 04/26/21 Range/Units 11:13 WBC (4.0-10.5) K/mm3 RBC (4.1-5.6) M/mm3 Hgb (12.5-18.0) gm/dl Hct (42-50) % MCV (78-100) fl MCH (26-32) pg MCHC (32-36) g/dl RDW (11.5-14.0) % Plt Count (150-450) K/mm3 MPV (7.5-11.0) fl Sodium (137-145) mmol/L Potassium (3.5-5.1) mmol/L Chloride (98-107) mmol/L Carbon Dioxide (22-30) mmol/L Anion Gap (5-15) MEQ/L BUN (9-20) mg/dL Creatinine (0.66-1.25) mg/dL Estimated GFR ML/MIN Glucose (74-106) mg/dL POC Glucometer 259 H (74 to 106) mg/dL Calcium (8.4-10.2) mg/dL Magnesium (1.6-2.3) mg/dL Troponin I (0.000-0.034) ng/mL Accuchecks Date 04/26/21 Date 04/25/21 Time 07:34 Time 16:40 - Radiology Impressions Radiology Exams & Impressions: Radiology Procedures Category Date Time Status CHEST 1 VIEW (PORTABLE) Stat Exams 04/25/21 02:37 Completed CHEST WITH CONTRAST [CT] Routine Exams 04/25/21 12:26 Completed ECHO W/2D AND DOPPLER [US] Stat Exams 04/26/21 11:08 Taken - Other Procedures and Tests Respiratory Therapy 04/26/21 04:09 BiPap/CPAP ROUTINE 04/27/21 05:00 EKG DAILY 04/28/21 06:00 EKG ROUTINE Assessment/Plan (1) Chest pain Current Visit: Yes Status: Acute Qualifiers: Chest pain type: precordial pain Assessment & Plan: Chief Complaint Diagnosis Shortness of Breath Allergies Allergy/AdvReac Type Severity Reaction Status Date / Time gemfibrozil Allergy Intermediate Rash Verified 04/25/21 02:04 pineapple [Pineapple] AdvReac Intermediate Nausea and Verified 04/25/21 02:04 Vomiting Vital Signs (Last 24 hours) Temp Pulse Resp BP Pulse Ox 04/26/21 12:00 97.7 F 95 H 25 H 132/59 95 04/26/21 07:33 97.7 F 52 L 18 192/88 92 L 04/26/21 03:31 97.8 F 99 H 29 H 111/72 94 L 04/25/21 23:37 97.7 F 75 19 103/63 95 04/25/21 20:19 76 18 92 L 04/25/21 19:29 96.8 F 71 19 107/68 93 L 04/25/21 15:39 97.6 F 81 20 128/56 92 L Home Medications Medication Instructions Recorded Confirmed Last Taken Type Apixaban [Eliquis] 5 mg PO BID 04/25/21 04/25/21 Unknown History Empagliflozin [Jardiance] 10 mg PO DAILY 04/25/21 04/25/21 Unknown History Gabapentin 800 mg PO TID 04/25/21 04/25/21 Unknown History Levofloxacin [Levaquin] 250 mg PO DAILY 04/25/21 04/25/21 Unknown History Metformin HCl [Metformin ER 1,000 mg PO BID 04/25/21 04/25/21 Unknown History Gastric] Potassium Chloride [Klor-Con 10] 10 meq PO UD 04/25/21 04/25/21 04/24/21 History Current Medications Generic Name Dose Route Start Last Admin Trade Name Juan Pablo PRN Reason Stop Dose Admin Acetaminophen 650 mg 04/25/21 03:15 Acetaminophen 325 Mg Tablet PO 05/25/21 03:14 Q4H PRN PRN PAIN AND/OR FEVER Al Hydrox/Mg Hydrox/Simethicone 30 ml 04/25/21 03:15 Mag Hydrox/Al Hydrox/Simeth 30 Ml Udcup PO 05/25/21 03:14 Q4H PRN PRN INDIGESTION Amlodipine Besylate 5 mg 04/25/21 15:00 04/26/21 10:01 Amlodipine Besylate 5 Mg Tablet PO 05/25/21 14:59 5 mg QAM BENJA Administration Bumetanide 1 mg 04/26/21 10:00 04/26/21 10:01 Bumetanide 1 Mg Tablet PO 05/26/21 09:59 1 mg QOD BENJA Administration Carvedilol 3.125 mg 04/25/21 17:00 04/26/21 07:37 Carvedilol 3.125 Mg Tablet PO 05/25/21 16:59 3.125 mg BIDWM BENJA Administration Clopidogrel Bisulfate 75 mg 04/25/21 15:00 04/26/21 10:01 Clopidogrel Bisulfate 75 Mg Tablet PO 05/25/21 14:59 75 mg DAILY BENJA Administration Enoxaparin Sodium 40 mg 04/26/21 10:00 04/26/21 10:02 Enoxaparin Sodium 40 Mg/0.4 Ml Syringe SQ 05/26/21 09:59 40 mg DAILY BENJA Administration Ergocalciferol 50,000 unit 04/25/21 16:00 04/25/21 16:36 Ergocalciferol (Vitamin D2) 50,000 Unit Capsule PO 05/25/21 15:59 50,000 unit Q7D BENJA Administration Famotidine 40 mg 04/25/21 22:00 04/25/21 21:10 Famotidine 20 Mg Tablet PO 05/25/21 21:59 40 mg HS BENJA Administration Furosemide 40 mg 04/25/21 17:00 04/26/21 06:18 Furosemide 40 Mg/4 Ml Vial IV 05/25/21 16:59 40 mg Q12H BENJA Administration Gabapentin 800 mg 04/25/21 15:00 04/26/21 10:01 Gabapentin 400 Mg Capsule PO 05/25/21 14:59 800 mg TID BENJA Administration Sodium Chloride 1,000 mls @ 20 mls/hr 04/25/21 02:45 04/26/21 04:45 Sodium Chloride 0.9% 1000 Ml IV 05/25/21 02:44 20 mls/hr .Q24H BENJA Administration Nitroglycerin/Dextrose 250 mls @ 1.5 mls/hr 04/26/21 09:17 04/26/21 10:00 Ntg 0.2mg/Ml In D5w Glass IV 05/26/21 09:16 3 mcg/min .Q24H PRN 0.9 mls/hr CHEST PAIN Administration Protocol 5 MCG/MIN Insulin Glargine 45 unit 04/25/21 22:00 04/26/21 10:03 Insulin Glargine 1 Unit SQ 05/25/21 21:59 45 unit BID BENJA Administration Insulin Human Lispro 0 unit 04/25/21 03:15 04/26/21 12:36 Insulin Lispro 1 Unit SQ 05/25/21 03:14 4 unit UD PRN Administration HYPERGLYCEMIA Isosorbide Mononitrate 30 mg 04/25/21 15:00 04/26/21 10:01 Isosorbide Mononitrate 30 Mg Tab PO 05/25/21 14:59 30 mg QAM BENJA Administration Isosorbide Mononitrate 60 mg 04/25/21 15:00 04/26/21 10:05 Isosorbide Mononitrate 60 Mg Tab PO 05/25/21 14:59 60 mg DAILY BENJA Administration Levofloxacin 250 mg 04/25/21 15:00 04/26/21 10:01 Levofloxacin 250 Mg Tab PO 05/25/21 14:59 250 mg DAILY BENJA Administration Magnesium Hydroxide 30 - 60 ml 04/25/21 03:15 Magnesium Hydroxide 30 Ml Udcup PO 05/25/21 03:14 QDP PRN CONSTIPATION Metformin HCl 1,000 mg 04/27/21 17:00 Metformin Hcl Er 500 Mg Tab PO 05/27/21 16:59 BIDWM BENJA Miscellaneous Information 1 each 04/25/21 15:15 Medication Intervention 1 Each Each PO 05/25/21 15:14 .RN TO CHECK ON BENJA Nitroglycerin 0.4 mg 04/25/21 08:01 04/25/21 08:31 Nitroglycerin 0.4 Mg Tablet Bottle SL 05/25/21 08:00 0.4 mg Q5MIN PRN MR X 3 PRN Administration CHEST PAIN Ondansetron HCl 4 mg 04/25/21 03:15 04/25/21 08:53 Ondansetron Hcl 4 Mg/2 Ml Vial IV 05/25/21 03:14 4 mg Q4H PRN PRN Administration NAUSEA/VOMITING Oxybutynin Chloride 5 mg 04/25/21 15:00 04/26/21 10:01 Oxybutynin Chloride Xl 5 Mg Tab PO 05/25/21 14:59 5 mg DAILY BENJA Administration Oxycodone/Acetaminophen 1 tab 04/26/21 07:09 04/26/21 07:37 Oxycodone / Apap 10/325 Mg 1 Tablet PO 05/01/21 07:08 1 tab Q8HT BENJA Administration Potassium Chloride 10 meq 04/26/21 10:00 04/26/21 10:01 Potassium Chloride 10 Meq Tablet PO 05/26/21 09:59 10 meq QOD BENJA Administration Senna/Docusate Sodium 2 udtab 04/25/21 03:15 Senna/Docusate Sodium 1 Udtab Tablet PO 05/25/21 03:14 BID PRN PRN CONSTIPATION Simvastatin 40 mg 04/25/21 22:00 04/25/21 21:11 Simvastatin 20 Mg Tablet PO 05/25/21 21:59 40 mg HS BENJA Administration Spironolactone 25 mg 04/25/21 15:00 04/26/21 10:01 Spironolactone 25 Mg Tablet PO 05/25/21 14:59 25 mg DAILY BENJA Administration Tamsulosin HCl 0.4 mg 04/25/21 22:00 04/25/21 21:11 Tamsulosin Hcl 0.4 Mg Cap PO 05/25/21 21:59 0.4 mg HS BENJA Administration Discontinued Medications Generic Name Dose Route Start Last Admin Trade Name Freq PRN Reason Stop Dose Admin Albuterol Sulfate Confirm 04/25/21 06:52 Albuterol Solution 2.5 Mg/0.5 Ml Ud Solution Administered 04/25/21 06:53 Dose 2.5 mg IH .STK-MED ONE Albuterol/Ipratropium 3 ml 04/25/21 02:47 04/25/21 03:00 Ipratropium/Albuterol Sulfate 3 Ml Ampul.Neb 04/25/21 02:48 3 ml STAT ONE Administration Albuterol/Ipratropium Confirm 04/25/21 02:55 Ipratropium/Albuterol Sulfate 3 Ml Ampul.Neb Administered 04/25/21 02:56 Dose 3 ml IH .STK-MED ONE Albuterol/Ipratropium 3 ml 04/25/21 07:00 Ipratropium/Albuterol Sulfate 3 Ml Ampul.Neb 05/25/21 06:59 TIDRT BENJA Budesonide 0.5 mg 04/25/21 02:48 04/25/21 03:12 Budesonide 0.5 Mg/2 Ml Ampul.Neb. IH 04/25/21 02:49 0.5 mg ONCE ONE Administration Budesonide Confirm 04/25/21 03:09 Budesonide 0.5 Mg/2 Ml Ampul.Neb. Administered 04/25/21 03:10 Dose 0.5 mg IH .STK-MED ONE Enoxaparin Sodium 100 mg 04/25/21 12:00 04/25/21 12:08 Enoxaparin Sodium 100 Mg/Ml Syringe SQ 05/25/21 11:59 100 mg BID BENJA Administration Famotidine 20 mg 04/25/21 10:00 04/25/21 11:29 Famotidine 20 Mg/1 Vial IV 05/25/21 09:59 20 mg Q12HT BENJA Administration Furosemide Confirm 04/25/21 03:22 Furosemide 40 Mg/4 Ml Vial Administered 04/25/21 03:23 Dose 40 mg .ROUTE .STK-MED ONE Furosemide 40 mg 04/25/21 03:28 04/25/21 03:31 Furosemide 40 Mg/4 Ml Vial IV 04/25/21 03:29 40 mg STAT ONE Administration Furosemide 40 mg 04/25/21 06:45 Furosemide 40 Mg/4 Ml Vial IV 05/25/21 06:44 Q12H BENJA Sodium Chloride 500 mls @ 20 mls/hr 04/25/21 03:15 04/25/21 03:31 Sodium Chloride 0.9% 500 Ml IV 05/25/21 03:14 20 mls/hr .Q24H BENJA Administration Morphine Sulfate 2 mg 04/25/21 08:46 04/25/21 08:53 Morphine Sulfate 2 Mg/Ml Inj IV 04/25/21 08:47 2 mg STAT ONE Administration Oxycodone/Acetaminophen 1 tab 04/25/21 15:00 04/25/21 21:10 Oxycodone / Apap 10/325 Mg 1 Tablet PO 04/30/21 14:59 1 tab TID BENJA Administration Fluticasone/Salmeterol 2 puff 04/25/21 07:00 Fluticasone/Salmeterol 115/21 - 120 Puff Common Canister IH 05/25/21 06:59 BIDRT BENJA Fluticasone/Salmeterol 2 puff 04/25/21 19:00 04/26/21 05:48 Fluticasone/Salmeterol - 120 Puff Common Canister IH 05/25/21 18:59 Not Given BIDRT BENJA Sodium Chloride Confirm 04/25/21 03:09 Sodium Cl For Inhalation 3 Ml Ud Nebule Administered 04/25/21 03:10 Dose 3 ml IH .STK-MED ONE Intake & Output (Last 24 hours) 04/24/21 04/25/21 04/26/21 04/27/21 11:59 11:59 11:59 11:59 Intake Total 280 2551 580 Output Total 1250 5500 Balance -970 -2949 580 Weight 103.2 kg 103 kg Laboratory Results (Last 24 hours) 04/26/21 04/26/21 04/26/21 11:13 06:57 06:55 WBC RBC Hgb Hct MCV MCH MCHC RDW Plt Count MPV Sodium Potassium Chloride Carbon Dioxide Anion Gap BUN Creatinine Estimated GFR Glucose POC Glucometer 259 H 103 Calcium Magnesium Troponin I 0.119 H* 04/26/21 04/26/21 04/26/21 04:55 04:55 04:55 WBC 6.8 RBC 4.05 L Hgb 10.9 L Hct 37.0 L MCV 91.4 MCH 26.9 MCHC 29.5 L RDW 14.9 H Plt Count 217 MPV 10.2 Sodium 141 Potassium 3.5 Chloride 99 Carbon Dioxide 32 H Anion Gap 13.0 BUN 26 H Creatinine 1.08 Estimated GFR > 60.0 Glucose 97 POC Glucometer Calcium 8.6 Magnesium 2.0 Troponin I 04/25/21 04/25/21 04/25/21 21:36 20:22 16:43 WBC RBC Hgb Hct MCV MCH MCHC RDW Plt Count MPV Sodium Potassium 3.7 Chloride Carbon Dioxide Anion Gap BUN Creatinine Estimated GFR Glucose POC Glucometer 232 H 84 Calcium Magnesium Troponin I 04/25/21 14:48 WBC RBC Hgb Hct MCV MCH MCHC RDW Plt Count MPV Sodium Potassium Chloride Carbon Dioxide Anion Gap BUN Creatinine Estimated GFR Glucose POC Glucometer Calcium Magnesium Troponin I 0.092 H* Orders (Last 24 hours) Category Date Time Status Consult Cardiology ROUTINE Cons 04/26/21 09:27 Active Heart-Healthy Diet Diet 04/25/21 Dinner Active CHEST WITH CONTRAST [CT] Routine Exams 04/25/21 12:26 Completed ECHO W/2D AND DOPPLER [US] Stat Exams 04/26/21 11:08 Taken BMP AM.LAB Lab 04/26/21 04:55 Completed CBC AM.LAB Lab 04/26/21 04:55 Completed MAG [MAGNESIUM] Routine Lab 04/26/21 04:55 Completed POCT GLUCOSE Stat Lab 04/25/21 16:43 Completed POCT GLUCOSE Stat Lab 04/25/21 20:22 Completed POCT GLUCOSE Stat Lab 04/26/21 06:57 Completed POCT GLUCOSE Stat Lab 04/26/21 11:13 Completed Potassium Stat Lab 04/25/21 21:36 Completed TROPONIN Q3H Lab 04/25/21 14:48 Completed TROPONIN Routine Lab 04/26/21 06:55 Completed Amlodipine Besylate 5 mg [Norvasc 5 mg] Med 04/25/21 15:00 Active 5 mg PO QAM Bumetanide 1 mg [Bumex 1 mg] Med 04/26/21 10:00 Active 1 mg PO QOD Carvedilol 3.125 mg [Coreg 3.125 MG] Med 04/25/21 17:00 Active 3.125 mg PO BIDWM Clopidogrel Bisulfate 75 mg [PLAVIX 75 MG Tablet] Med 04/25/21 15:00 Active 75 mg PO DAILY Enoxaparin Sodium [Enoxaparin Sodium] Med 04/26/21 10:00 Active 40 mg SQ DAILY Ergocalciferol (Vitamin D2) [Vitamin D2] Med 04/25/21 16:00 Active 50,000 unit PO Q7D Famotidine 20 mg [Pepcid 20 MG] Med 04/25/21 22:00 Active 40 mg PO HS Fluticasone/Salmeterol / [Advair Hfa / Common Med 04/25/21 19:00 Discontinued canister*] 2 puff IH BIDRT Furosemide 40 mg/4 ml [Lasix 40 MG/4 ML] Med 04/25/21 17:00 Active 40 mg IV Q12H Gabapentin 400 mg [Neurontin 400 MG] Med 04/25/21 15:00 Active 800 mg PO TID Insulin Glargine [Lantus Insulin] Med 04/25/21 22:00 Active 45 unit SQ BID Isosorbide Mononitrate 30 mg [Imdur 30 MG] Med 04/25/21 15:00 Active 30 mg PO QAM Isosorbide Mononitrate 60 mg [Imdur 60MG] Med 04/25/21 15:00 Active 60 mg PO DAILY Levofloxacin [Levofloxacin 250MG Tablet] Med 04/25/21 15:00 Active 250 mg PO DAILY Medication Intervention Med 04/25/21 15:15 Active 1 each PO .RN TO CHECK ON Metformin HCl Xr 500 mg [Glucophage XR 500 MG] Med 04/27/21 17:00 Active 1,000 mg PO BIDWM Nitroglycerin/D5w 250 ml [Ntg 0.2MG/Ml in D5W GLASS Med 04/26/21 09:17 Active *] 250 ml IV 5 mcg/min Oxybutynin Chloride Xl 5 mg [Ditropan XL 5 MG] Med 04/25/21 15:00 Active 5 mg PO DAILY Oxycodone / APAP 10/325 mg [Oxycodone-Acetaminophen Med 04/26/21 07:09 Active 10-325] 1 tab PO Q8HT Oxycodone / APAP 10/325 mg [Oxycodone-Acetaminophen Med 04/25/21 15:00 Discontinued 10-325] 1 tab PO TID Potassium Chloride 10 Meq Tab* [Klor Con 10 MEQ] Med 04/26/21 10:00 Active 10 meq PO QOD Simvastatin 20Mg [Zocor 20Mg] Med 04/25/21 22:00 Active 40 mg PO HS Spironolactone 25 mg [Aldactone 25 MG] Med 04/25/21 15:00 Active 25 mg PO DAILY Tamsulosin HCl 0.4 mg [Flomax 0.4 MG] Med 04/25/21 22:00 Active 0.4 mg PO HS BiPap/CPAP ROUTINE RT 04/26/21 04:09 Active EKG DAILY RT 04/26/21 05:00 Completed EKG DAILY RT 04/27/21 05:00 Active EKG ROUTINE RT 04/28/21 06:00 Active EKG STAT RT 04/26/21 09:28 Completed Transfer Order Routine Transfer 04/26/21 Completed Patient Care Notes (Last 24 hours) 04/26/21 10:17 Case Management Note by Flavia Schwarz PATIENT CURRENTLY WAITING ON CARDIO CONSULT AND BEING PLACED ON A NITRO DRIP- WILL HOLD CASE MANAGEMENT ASSESS AT THIS TIME Initialized on 04/26/21 10:17 - END OF NOTE 04/26/21 08:40 Nursing Note by Starr Tolliver Dr. would like to transfer patient. Called Dr. Smith's office and [facility] [place] [facility] Initialized on 04/26/21 08:40 - END OF NOTE 04/26/21 08:09 Nursing Note by Starr Tolliver Called Dr. Miranda to report critical troponin level- no answer- left voicemail Initialized on 04/26/21 08:09 - END OF NOTE 04/25/21 21:20 (created 04/26/21 00:41) Nursing Note by Gale Giordano [address] Mederos with no answer, left a message to return call. [address] Mederos with no answer, left a message to return call. At 2119, Dr Mederos returned call, notified him that the patients, telemetry is showing bigeminy PVC's and multiple PAC's at this time. Patient have received 2 doses of 40mg IV Lasix, and had not received any replacement potassium today. Notified him that patient has had over 3,000mL in output. Order for a potassium level approved at this time. Also notified Dr Mederos that the troponins were trending up throughout the day and that there was not any orders for troponins in the patients chart. Order received to check troponins in the morning at 0700. Notified Dr Mederos that patient had 2 orders for fluids. Normal Saline at 50ml/hr or Normal Saline at 20ml/hr , order to keep the patient running at 20ml/hr at this time and to DC the 50ml/hr. Will place orders into the patient's chart and continue to monitor that patient. Initialized on 04/26/21 00:41 - END OF NOTE Code(s): R07.9 - CHEST PAIN, UNSPECIFIED (2) Elevated troponin Current Visit: Yes Status: Acute Code(s): R77.8 - OTHER SPECIFIED ABNORMALITIES OF PLASMA PROTEINS (3) COPD (chronic obstructive pulmonary disease) Current Visit: Yes Status: Chronic Qualifiers: COPD type: COPD with acute exacerbation Qualified Code(s): J44.1 - Chronic obstructive pulmonary disease with (acute) exacerbation (4) Coronary artery disease Current Visit: Yes Status: Chronic Qualifiers: Coronary Disease-Associated Artery/Lesion type: [place] artery [place] vs. transplanted heart: [place] heart Associated angina: with other forms of angina Qualified Code(s): I25.118 - Atherosclerotic heart disease of [place] coronary artery with other forms of angina pectoris Code(s): I25.10 - ATHSCL HEART DISEASE OF [place] CORONARY ARTERY W/O ANG PCTRS (5) Pulmonary hypertension Current Visit: Yes Status: Chronic Code(s): I27.2 - OTHER SECONDARY PULMONARY HYPERTENSION * DO NOT USE * (6) Shortness of breath Current Visit: No Status: Resolved Code(s): R06.02 - SHORTNESS OF BREATH
[2021-04-26] MEDS: ZOCOR 20MG PO SCH (21:02)
[2021-04-26] MEDS: Pepcid 20 MG PO SCH (21:02)
[2021-04-26] MEDS: Flomax 0.4 MG PO SCH (21:02)
[2021-04-27] MEDS: OXYCODONE-ACETAMINOPHEN 10-325 PO SCH ×2 (05:04→13:06)
[2021-04-27] MEDS: Lasix 40 MG/4 ML IV SCH (05:05)
[2021-04-27] MEDS: Coreg 3.125 MG PO SCH (07:58)
[2021-04-27] MEDS ORDERED: NON-FORMULARY ITEM PO SCH (10:00)
[2021-04-27] MEDS: Neurontin 400 MG PO SCH ×2 (10:12→15:20)
[2021-04-27] MEDS: ENOXAPARIN SODIUM SQ SCH (10:13)
[2021-04-27] MEDS: Lantus Insulin SQ SCH (10:13)
[2021-04-27] MEDS: Levofloxacin 250MG Tablet PO SCH (10:13)
[2021-04-27] MEDS: Aldactone 25 MG PO SCH (10:13)
[2021-04-27] MEDS: Imdur 60MG PO SCH (10:13)
[2021-04-27] MEDS: NORVASC 5 MG PO SCH (10:13)
[2021-04-27] MEDS: PLAVIX 75 MG Tablet PO SCH (10:13)
[2021-04-27] MEDS: Ditropan XL 5 MG PO SCH (10:13)
[2021-04-27] MEDS: Imdur 30 MG PO SCH (10:13)
[2021-04-27] MEDS: HUMALOG SQ PRN (11:42)
[2021-04-27] MEDS ORDERED: SUBLIMAZE 100 MCG/2 ML IV PRN (12:25)
[2021-04-27] MEDS ORDERED: HUMULIN R 100 UNIT in Sodium Chloride 0.9% 100 ML BAG 100 ML IV PRN (12:46)
[2021-04-27] MEDS ORDERED: Ranexa 500 MG PO SCH (13:00)
[2021-04-27] MEDS ORDERED: Ntg 0.2MG/Ml in D5W GLASS*** 250 ML IV PRN (13:16)
[2021-04-27] MEDS ORDERED: MORPHINE SULFATE 4 MG INJ IV PRN (14:05)
[2021-04-27] MEDS ORDERED: Glucophage XR 500 MG PO SCH (17:00)
--- NOTE | 2021-04-29 08:10 | PCM.DS ---
Discharge Summary Date of Admission: 04/26/21 09:16 Admitting Physician: MONSE BRADSHAW Consults: Consults on Case 04/26/21 09:27 Consult Cardiology ROUTINE Primary Care Provider: MONSE BRADSHAW Allergies Allergies gemfibrozil Allergy (Intermediate, Verified 04/25/21 02:04) Rash pineapple [Pineapple] Adverse Reaction (Intermediate, Verified 04/25/21 02:04) Nausea and Vomiting VOMITING Hospital Summary - Hospital Course Hospital Course: Chief Complaint Diagnosis Shortness of Breath and chest pain for 2 weeks Allergies Allergy/AdvReac Type Severity Reaction Status Date / Time gemfibrozil Allergy Intermediate Rash Verified 04/25/21 02:04 pineapple [Pineapple] AdvReac Intermediate Nausea and Verified 04/25/21 02:04 Vomiting Home Medications Medication Instructions Recorded Confirmed Last Taken Type Apixaban [Eliquis] 5 mg PO BID 04/25/21 04/25/21 Unknown History Empagliflozin [Jardiance] 10 mg PO DAILY 04/25/21 04/25/21 Unknown History Gabapentin 800 mg PO TID 04/25/21 04/25/21 Unknown History Levofloxacin [Levaquin] 250 mg PO DAILY 04/25/21 04/25/21 Unknown History Metformin HCl [Metformin ER 1,000 mg PO BID 04/25/21 04/25/21 Unknown History Gastric] Potassium Chloride [Klor-Con 10] 10 meq PO UD 04/25/21 04/25/21 04/24/21 History Current Medications Discontinued Medications Generic Name Dose Route Start Last Admin Trade Name Freq PRN Reason Stop Dose Admin Acetaminophen 650 mg 04/25/21 03:15 Acetaminophen 325 Mg Tablet PO 05/25/21 03:14 Q4H PRN PRN PAIN AND/OR FEVER Al Hydrox/Mg Hydrox/Simethicone 30 ml 04/25/21 03:15 Mag Hydrox/Al Hydrox/Simeth 30 Ml Udcup PO 05/25/21 03:14 Q4H PRN PRN INDIGESTION Albuterol Sulfate Confirm 04/25/21 06:52 Albuterol Solution 2.5 Mg/0.5 Ml Ud Solution Administered 04/25/21 06:53 Dose 2.5 mg IH .STK-MED ONE Albuterol/Ipratropium 3 ml 04/25/21 02:47 04/25/21 03:00 Ipratropium/Albuterol Sulfate 3 Ml Ampul.Neb IH 04/25/21 02:48 3 ml STAT ONE Administration Albuterol/Ipratropium Confirm 04/25/21 02:55 Ipratropium/Albuterol Sulfate 3 Ml Ampul.Neb Administered 04/25/21 02:56 Dose 3 ml IH .STK-MED ONE Albuterol/Ipratropium 3 ml 04/25/21 07:00 04/25/21 07:37 Ipratropium/Albuterol Sulfate 3 Ml Ampul.Neb IH 05/25/21 06:59 Not Given TIDRT BENJA Amlodipine Besylate 5 mg 04/25/21 15:00 04/27/21 10:13 Amlodipine Besylate 5 Mg Tablet PO 05/25/21 14:59 5 mg QAM BENJA Administration Budesonide 0.5 mg 04/25/21 02:48 04/25/21 03:12 Budesonide 0.5 Mg/2 Ml Ampul.Neb. IH 04/25/21 02:49 0.5 mg ONCE ONE Administration Budesonide Confirm 04/25/21 03:09 Budesonide 0.5 Mg/2 Ml Ampul.Neb. Administered 04/25/21 03:10 Dose 0.5 mg IH .STK-MED ONE Bumetanide 1 mg 04/26/21 10:00 04/26/21 10:01 Bumetanide 1 Mg Tablet PO 05/26/21 09:59 1 mg QOD BENJA Administration Carvedilol 3.125 mg 04/25/21 17:00 04/27/21 07:58 Carvedilol 3.125 Mg Tablet PO 05/25/21 16:59 3.125 mg BIDWM BENJA Administration Clopidogrel Bisulfate 75 mg 04/25/21 15:00 04/27/21 10:13 Clopidogrel Bisulfate 75 Mg Tablet PO 05/25/21 14:59 75 mg DAILY BENJA Administration Enoxaparin Sodium 100 mg 04/25/21 12:00 04/25/21 12:08 Enoxaparin Sodium 100 Mg/Ml Syringe SQ 05/25/21 11:59 100 mg BID BENJA Administration Enoxaparin Sodium 40 mg 04/26/21 10:00 04/27/21 10:13 Enoxaparin Sodium 40 Mg/0.4 Ml Syringe SQ 05/26/21 09:59 40 mg DAILY BENJA Administration Ergocalciferol 50,000 unit 04/25/21 16:00 04/25/21 16:36 Ergocalciferol (Vitamin D2) 50,000 Unit Capsule PO 05/25/21 15:59 50,000 unit Q7D BENJA Administration Famotidine 20 mg 04/25/21 10:00 04/25/21 11:29 Famotidine 20 Mg/1 Vial IV 05/25/21 09:59 20 mg Q12HT BENJA Administration Famotidine 40 mg 04/25/21 22:00 04/26/21 21:02 Famotidine 20 Mg Tablet PO 05/25/21 21:59 40 mg HS BENJA Administration Fentanyl Citrate 50 mcg 04/27/21 12:25 Fentanyl Citrate 100 Mcg/2 Ml* Vial IV 05/02/21 12:24 Q6HPRN PRN breakthrough pain Furosemide Confirm 04/25/21 03:22 Furosemide 40 Mg/4 Ml Vial Administered 04/25/21 03:23 Dose 40 mg .ROUTE .STK-MED ONE Furosemide 40 mg 04/25/21 03:28 04/25/21 03:31 Furosemide 40 Mg/4 Ml Vial IV 04/25/21 03:29 40 mg STAT ONE Administration Furosemide 40 mg 04/25/21 06:45 Furosemide 40 Mg/4 Ml Vial IV 05/25/21 06:44 Q12H BENJA Furosemide 40 mg 04/25/21 17:00 04/27/21 05:05 Furosemide 40 Mg/4 Ml Vial IV 05/25/21 16:59 40 mg Q12H BENJA Administration Gabapentin 800 mg 04/25/21 15:00 04/27/21 15:20 Gabapentin 400 Mg Capsule PO 05/25/21 14:59 800 mg TID BENJA Administration Sodium Chloride 1,000 mls @ 20 mls/hr 04/25/21 02:45 04/26/21 04:45 Sodium Chloride 0.9% 1000 Ml IV 05/25/21 02:44 20 mls/hr .Q24H BENJA Administration Sodium Chloride 500 mls @ 20 mls/hr 04/25/21 03:15 04/25/21 03:31 Sodium Chloride 0.9% 500 Ml IV 05/25/21 03:14 20 mls/hr .Q24H BENJA Administration Nitroglycerin/Dextrose 250 mls @ 1.5 mls/hr 04/26/21 09:17 04/26/21 10:00 Ntg 0.2mg/Ml In D5w Glass IV 05/26/21 09:16 3 mcg/min .Q24H PRN 0.9 mls/hr CHEST PAIN Administration Protocol 5 MCG/MIN Insulin Human Regular 100 unit 100 mls @ 0 mls/hr 04/27/21 12:46 / Sodium Chloride IV 05/27/21 12:45 .Q9H44M PRN DKA/HYPERGLYCEMIA Protocol 0.1 UNIT/KG/HR Nitroglycerin/Dextrose 250 mls @ 1.5 mls/hr 04/27/21 13:16 Ntg 0.2mg/Ml In D5w Glass IV 05/27/21 13:15 .Q24H PRN CHEST PAIN Protocol 5 MCG/MIN Insulin Glargine 45 unit 04/25/21 22:00 04/27/21 10:13 Insulin Glargine 1 Unit SQ 05/25/21 21:59 45 unit BID BENJA Administration Insulin Human Lispro 0 unit 04/25/21 03:15 04/27/21 11:42 Insulin Lispro 1 Unit SQ 05/25/21 03:14 6 unit UD PRN Administration HYPERGLYCEMIA Isosorbide Mononitrate 30 mg 04/25/21 15:00 04/27/21 10:13 Isosorbide Mononitrate 30 Mg Tab PO 05/25/21 14:59 30 mg QAM BENJA Administration Isosorbide Mononitrate 60 mg 04/25/21 15:00 04/27/21 10:13 Isosorbide Mononitrate 60 Mg Tab PO 05/25/21 14:59 60 mg DAILY BENJA Administration Levofloxacin 250 mg 04/25/21 15:00 04/27/21 10:13 Levofloxacin 250 Mg Tab PO 05/25/21 14:59 250 mg DAILY BENJA Administration Magnesium Hydroxide 30 - 60 ml 04/25/21 03:15 Magnesium Hydroxide 30 Ml Udcup PO 05/25/21 03:14 QDP PRN CONSTIPATION Metformin HCl 1,000 mg 04/27/21 17:00 Metformin Hcl Er 500 Mg Tab PO 05/27/21 16:59 BIDWM BENJA Miscellaneous Information 1 each 04/25/21 15:15 Medication Intervention 1 Each Each PO 05/25/21 15:14 .RN TO CHECK ON BENJA Morphine Sulfate 2 mg 04/25/21 08:46 04/25/21 08:53 Morphine Sulfate 2 Mg/Ml Inj IV 04/25/21 08:47 2 mg STAT ONE Administration Morphine Sulfate 4 mg 04/27/21 14:05 Morphine Sulfate 4 Mg/Ml Injection IV 05/02/21 14:04 Q4H PRN PRN PAIN Nitroglycerin 0.4 mg 04/25/21 08:01 04/25/21 08:31 Nitroglycerin 0.4 Mg Tablet Bottle SL 05/25/21 08:00 0.4 mg Q5MIN PRN MR X 3 PRN Administration CHEST PAIN Jardiance 10mg 1 each 04/27/21 10:00 04/27/21 10:14 Tablet PO 05/27/21 09:59 1 each DAILY BENJA Administration Ondansetron HCl 4 mg 04/25/21 03:15 04/25/21 08:53 Ondansetron Hcl 4 Mg/2 Ml Vial IV 05/25/21 03:14 4 mg Q4H PRN PRN Administration NAUSEA/VOMITING Oxybutynin Chloride 5 mg 04/25/21 15:00 04/27/21 10:13 Oxybutynin Chloride Xl 5 Mg Tab PO 05/25/21 14:59 5 mg DAILY BENJA Administration Oxycodone/Acetaminophen 1 tab 04/25/21 15:00 04/25/21 21:10 Oxycodone / Apap 10/325 Mg 1 Tablet PO 04/30/21 14:59 1 tab TID BENJA Administration Oxycodone/Acetaminophen 1 tab 04/26/21 07:09 04/27/21 13:06 Oxycodone / Apap 10/325 Mg 1 Tablet PO 05/01/21 07:08 1 tab Q8HT BENJA Administration Potassium Chloride 10 meq 04/26/21 10:00 04/26/21 10:01 Potassium Chloride 10 Meq Tablet PO 05/26/21 09:59 10 meq QOD BENJA Administration Ranolazine 500 mg 04/27/21 13:00 04/27/21 13:03 Ranolazine 500 Mg Tab.Sr.12h PO 05/27/21 12:59 500 mg Q12HT BENJA Administration Fluticasone/Salmeterol 2 puff 04/25/21 07:00 04/25/21 07:36 Fluticasone/Salmeterol 115/ - 120 Puff Common Canister IH 05/25/21 06:59 Not Given BIDRT BENJA Fluticasone/Salmeterol 2 puff 04/25/21 19:00 04/26/21 05:48 Fluticasone/Salmeterol 115/ - 120 Puff Common Canister IH 05/25/21 18:59 Not Given BIDRT BENJA Senna/Docusate Sodium 2 udtab 04/25/21 03:15 Senna/Docusate Sodium 1 Udtab Tablet PO 05/25/21 03:14 BID PRN PRN CONSTIPATION Simvastatin 40 mg 04/25/21 22:00 04/26/21 21:02 Simvastatin 20 Mg Tablet PO 05/25/21 21:59 40 mg HS BENJA Administration Sodium Chloride Confirm 04/25/21 03:09 Sodium Cl For Inhalation 3 Ml Ud Nebule Administered 04/25/21 03:10 Dose 3 ml IH .STK-MED ONE Spironolactone 25 mg 04/25/21 15:00 04/27/21 10:13 Spironolactone 25 Mg Tablet PO 05/25/21 14:59 25 mg DAILY BENJA Administration Tamsulosin HCl 0.4 mg 04/25/21 22:00 04/26/21 21:02 Tamsulosin Hcl 0.4 Mg Cap PO 05/25/21 21:59 0.4 mg HS BENJA Administration Intake & Output (Last 24 hours) 04/26/21 04/27/21 04/28/21 04/29/21 11:59 11:59 11:59 11:59 Intake Total 2551 2965 240 Output Total 5500 3100 500 Balance -2949 -135 -260 Weight 103 kg 102.8 kg - Vitals & Intake/Output Vital Signs: Vital Signs Temperature 97.8 F 04/27/21 16:00 Pulse Rate 97 H 04/27/21 16:00 Respiratory Rate 22 04/27/21 16:00 Blood Pressure 128/59 04/27/21 16:00 O2 Sat by Pulse Oximetry 98 04/27/21 15:00 Intake & Output: Intake & Output 04/26/21 04/27/21 04/28/21 04/29/21 11:59 11:59 11:59 11:59 Intake Total 2556 2965 240 Output Total 4681 9480 500 Balance -2949 -135 -260 Weight 103 kg 102.8 kg - Lab Result Diagrams: 04/26/21 04:55 04/26/21 04:55 - Procedures and Test Procedures and Tests throughout Hospitalization: Therapy Orders & Screens 04/25/21 03:02 Respiratory Therapy Assessment DAILY Comment: 04/25/21 03:15 EKG Q8HX2,QAMX3,PRN Comment: Oxygen Nasal Cannula 3 lpm Comment: 04/25/21 08:27 EKG STAT Comment: Diagnosis: Shortness of Breath 04/26/21 04:09 BiPap/CPAP ROUTINE Comment: PT OWN Diagnosis: Shortness of Breath 04/26/21 05:00 EKG DAILY Comment: Diagnosis: Shortness of Breath 04/26/21 09:28 EKG STAT Comment: Diagnosis: Shortness of Breath 04/27/21 05:00 EKG DAILY Comment: Diagnosis: Shortness of Breath 04/28/21 06:00 EKG ROUTINE Comment: Diagnosis: Shortness of Breath Discharge Exam General Appearance: no apparent distress, alert Neurologic Exam: alert, oriented x 3, cooperative, normal mood/affect, nml cerebellar function, sensation nml, No motor deficits Eye Exam: PERRL, EOMI, eyes nml inspection Ears, Nose, Throat Exam: normal ENT inspection, pharynx normal, moist mucous membranes Neck Exam: normal inspection, non-tender, supple, full range of motion Respiratory Exam: normal breath sounds, lungs clear, No respiratory distress Cardiovascular Exam: regular rate/rhythm, normal heart sounds Gastrointestinal/Abdomen Exam: soft, No tenderness, No mass Male Genitalia Exam: deferred Rectal Exam: deferred Back Exam: normal inspection, normal range of motion, No CVA tenderness, No vertebral tenderness Extremity Exam: normal inspection, normal range of motion Skin Exam: normal color, warm, dry Final Diagnosis/Problem List - Final Discharge Diagnosis/Problem (1) Non-ST elevation DC (NSTEMI) Status: Acute Assessment & Plan: Chief Complaint Diagnosis Shortness of Breath and chest pain for 2 weeks Allergies Allergy/AdvReac Type Severity Reaction Status Date / Time gemfibrozil Allergy Intermediate Rash Verified 04/25/21 02:04 pineapple [Pineapple] AdvReac Intermediate Nausea and Verified 04/25/21 02:04 Vomiting Home Medications Medication Instructions Recorded Confirmed Last Taken Type Apixaban [Eliquis] 5 mg PO BID 04/25/21 04/25/21 Unknown History Empagliflozin [Jardiance] 10 mg PO DAILY 04/25/21 04/25/21 Unknown History Gabapentin 800 mg PO TID 04/25/21 04/25/21 Unknown History Levofloxacin [Levaquin] 250 mg PO DAILY 04/25/21 04/25/21 Unknown History Metformin HCl [Metformin ER 1,000 mg PO BID 04/25/21 04/25/21 Unknown History Gastric] Potassium Chloride [Klor-Con 10] 10 meq PO UD 04/25/21 04/25/21 04/24/21 History Current Medications Discontinued Medications Generic Name Dose Route Start Last Admin Trade Name Freq PRN Reason Stop Dose Admin Acetaminophen 650 mg 04/25/21 03:15 Acetaminophen 325 Mg Tablet PO 05/25/21 03:14 Q4H PRN PRN PAIN AND/OR FEVER Al Hydrox/Mg Hydrox/Simethicone 30 ml 04/25/21 03:15 Mag Hydrox/Al Hydrox/Simeth 30 Ml Udcup PO 05/25/21 03:14 Q4H PRN PRN INDIGESTION Albuterol Sulfate Confirm 04/25/21 06:52 Albuterol Solution 2.5 Mg/0.5 Ml Ud Solution Administered 04/25/21 06:53 Dose 2.5 mg IH .STK-MED ONE Albuterol/Ipratropium 3 ml 04/25/21 02:47 04/25/21 03:00 Ipratropium/Albuterol Sulfate 3 Ml Ampul.Neb 04/25/21 02:48 3 ml STAT ONE Administration Albuterol/Ipratropium Confirm 04/25/21 02:55 Ipratropium/Albuterol Sulfate 3 Ml Ampul.Neb Administered 04/25/21 02:56 Dose 3 ml IH .STK-MED ONE Albuterol/Ipratropium 3 ml 04/25/21 07:00 04/25/21 07:37 Ipratropium/Albuterol Sulfate 3 Ml Ampul.Neb 05/25/21 06:59 Not Given TIDRT BENJA Amlodipine Besylate 5 mg 04/25/21 15:00 04/27/21 10:13 Amlodipine Besylate 5 Mg Tablet PO 05/25/21 14:59 5 mg QAM BENJA Administration Budesonide 0.5 mg 04/25/21 02:48 04/25/21 03:12 Budesonide 0.5 Mg/2 Ml Ampul.Neb. IH 04/25/21 02:49 0.5 mg ONCE ONE Administration Budesonide Confirm 04/25/21 03:09 Budesonide 0.5 Mg/2 Ml Ampul.Neb. Administered 04/25/21 03:10 Dose 0.5 mg IH .K-MED ONE Bumetanide 1 mg 04/26/21 10:00 04/26/21 10:01 Bumetanide 1 Mg Tablet PO 05/26/21 09:59 1 mg QOD BENJA Administration Carvedilol 3.125 mg 04/25/21 17:00 04/27/21 07:58 Carvedilol 3.125 Mg Tablet PO 05/25/21 16:59 3.125 mg BIDWM BENJA Administration Clopidogrel Bisulfate 75 mg 04/25/21 15:00 04/27/21 10:13 Clopidogrel Bisulfate 75 Mg Tablet PO 05/25/21 14:59 75 mg DAILY BENJA Administration Enoxaparin Sodium 100 mg 04/25/21 12:00 04/25/21 12:08 Enoxaparin Sodium 100 Mg/Ml Syringe SQ 05/25/21 11:59 100 mg BID BENJA Administration Enoxaparin Sodium 40 mg 04/26/21 10:00 04/27/21 10:13 Enoxaparin Sodium 40 Mg/0.4 Ml Syringe SQ 05/26/21 09:59 40 mg DAILY BENJA Administration Ergocalciferol 50,000 unit 04/25/21 16:00 04/25/21 16:36 Ergocalciferol (Vitamin D2) 50,000 Unit Capsule PO 05/25/21 15:59 50,000 unit Q7D BENJA Administration Famotidine 20 mg 04/25/21 10:00 04/25/21 11:29 Famotidine 20 Mg/1 Vial IV 05/25/21 09:59 20 mg Q12HT BENJA Administration Famotidine 40 mg 04/25/21 22:00 04/26/21 21:02 Famotidine 20 Mg Tablet PO 05/25/21 21:59 40 mg HS BENJA Administration Fentanyl Citrate 50 mcg 04/27/21 12:25 Fentanyl Citrate 100 Mcg/2 Ml* Vial IV 05/02/21 12:24 Q6HPRN PRN breakthrough pain Furosemide Confirm 04/25/21 03:22 Furosemide 40 Mg/4 Ml Vial Administered 04/25/21 03:23 Dose 40 mg .ROUTE .STK-MED ONE Furosemide 40 mg 04/25/21 03:28 04/25/21 03:31 Furosemide 40 Mg/4 Ml Vial IV 04/25/21 03:29 40 mg STAT ONE Administration Furosemide 40 mg 04/25/21 06:45 Furosemide 40 Mg/4 Ml Vial IV 05/25/21 06:44 Q12H BENJA Furosemide 40 mg 04/25/21 17:00 04/27/21 05:05 Furosemide 40 Mg/4 Ml Vial IV 05/25/21 16:59 40 mg Q12H BENJA Administration Gabapentin 800 mg 04/25/21 15:00 04/27/21 15:20 Gabapentin 400 Mg Capsule PO 05/25/21 14:59 800 mg TID BENJA Administration Sodium Chloride 1,000 mls @ 20 mls/hr 04/25/21 02:45 04/26/21 04:45 Sodium Chloride 0.9% 1000 Ml IV 05/25/21 02:44 20 mls/hr .Q24H BENJA Administration Sodium Chloride 500 mls @ 20 mls/hr 04/25/21 03:15 04/25/21 03:31 Sodium Chloride 0.9% 500 Ml IV 05/25/21 03:14 20 mls/hr .Q24H BENJA Administration Nitroglycerin/Dextrose 250 mls @ 1.5 mls/hr 04/26/21 09:17 04/26/21 10:00 Ntg 0.2mg/Ml In D5w Glass IV 05/26/21 09:16 3 mcg/min .Q24H PRN 0.9 mls/hr CHEST PAIN Administration Protocol 5 MCG/MIN Insulin Human Regular 100 unit 100 mls @ 0 mls/hr 04/27/21 12:46 / Sodium Chloride IV 05/27/21 12:45 .Q9H44M PRN DKA/HYPERGLYCEMIA Protocol 0.1 UNIT/KG/HR Nitroglycerin/Dextrose 250 mls @ 1.5 mls/hr 04/27/21 13:16 Ntg 0.2mg/Ml In D5w Glass IV 05/27/21 13:15 .Q24H PRN CHEST PAIN Protocol 5 MCG/MIN Insulin Glargine 45 unit 04/25/21 22:00 04/27/21 10:13 Insulin Glargine 1 Unit SQ 05/25/21 21:59 45 unit BID BENJA Administration Insulin Human Lispro 0 unit 04/25/21 03:15 04/27/21 11:42 Insulin Lispro 1 Unit SQ 05/25/21 03:14 6 unit UD PRN Administration HYPERGLYCEMIA Isosorbide Mononitrate 30 mg 04/25/21 15:00 04/27/21 10:13 Isosorbide Mononitrate 30 Mg Tab PO 05/25/21 14:59 30 mg QAM BENJA Administration Isosorbide Mononitrate 60 mg 04/25/21 15:00 04/27/21 10:13 Isosorbide Mononitrate 60 Mg Tab PO 05/25/21 14:59 60 mg DAILY BENJA Administration Levofloxacin 250 mg 04/25/21 15:00 04/27/21 10:13 Levofloxacin 250 Mg Tab PO 05/25/21 14:59 250 mg DAILY BENJA Administration Magnesium Hydroxide 30 - 60 ml 04/25/21 03:15 Magnesium Hydroxide 30 Ml Udcup PO 05/25/21 03:14 QDP PRN CONSTIPATION Metformin HCl 1,000 mg 04/27/21 17:00 Metformin Hcl Er 500 Mg Tab PO 05/27/21 16:59 BIDWM BENJA Miscellaneous Information 1 each 04/25/21 15:15 Medication Intervention 1 Each Each PO 05/25/21 15:14 .RN TO CHECK ON BENJA Morphine Sulfate 2 mg 04/25/21 08:46 04/25/21 08:53 Morphine Sulfate 2 Mg/Ml Inj IV 04/25/21 08:47 2 mg STAT ONE Administration Morphine Sulfate 4 mg 04/27/21 14:05 Morphine Sulfate 4 Mg/Ml Injection IV 05/02/21 14:04 Q4H PRN PRN PAIN Nitroglycerin 0.4 mg 04/25/21 08:01 04/25/21 08:31 Nitroglycerin 0.4 Mg Tablet Bottle SL 05/25/21 08:00 0.4 mg Q5MIN PRN MR X 3 PRN Administration CHEST PAIN Jardiance 10mg 1 each 04/27/21 10:00 04/27/21 10:14 Tablet PO 05/27/21 09:59 1 each DAILY BENJA Administration Ondansetron HCl 4 mg 04/25/21 03:15 04/25/21 08:53 Ondansetron Hcl 4 Mg/2 Ml Vial IV 05/25/21 03:14 4 mg Q4H PRN PRN Administration NAUSEA/VOMITING Oxybutynin Chloride 5 mg 04/25/21 15:00 04/27/21 10:13 Oxybutynin Chloride Xl 5 Mg Tab PO 05/25/21 14:59 5 mg DAILY BENJA Administration Oxycodone/Acetaminophen 1 tab 04/25/21 15:00 04/25/21 21:10 Oxycodone / Apap 10/325 Mg 1 Tablet PO 04/30/21 14:59 1 tab TID BENJA Administration Oxycodone/Acetaminophen 1 tab 04/26/21 07:09 04/27/21 13:06 Oxycodone / Apap 10/325 Mg 1 Tablet PO 05/01/21 07:08 1 tab Q8HT BNEJA Administration Potassium Chloride 10 meq 04/26/21 10:00 04/26/21 10:01 Potassium Chloride 10 Meq Tablet PO 05/26/21 09:59 10 meq QOD BENJA Administration Ranolazine 500 mg 04/27/21 13:00 04/27/21 13:03 Ranolazine 500 Mg Tab.Sr.12h PO 05/27/21 12:59 500 mg Q12HT BENJA Administration Fluticasone/Salmeterol 2 puff 04/25/21 07:00 04/25/21 07:36 Fluticasone/Salmeterol 115/21 - 120 Puff Common Canister IH 05/25/21 06:59 Not Given BIDRT BENJA Fluticasone/Salmeterol 2 puff 04/25/21 19:00 04/26/21 05:48 Fluticasone/Salmeterol 115/21 - 120 Puff Common Canister IH 05/25/21 18:59 Not Given BIDRT BENJA Senna/Docusate Sodium 2 udtab 04/25/21 03:15 Senna/Docusate Sodium 1 Udtab Tablet PO 05/25/21 03:14 BID PRN PRN CONSTIPATION Simvastatin 40 mg 04/25/21 22:00 04/26/21 21:02 Simvastatin 20 Mg Tablet PO 05/25/21 21:59 40 mg HS BENJA Administration Sodium Chloride Confirm 04/25/21 03:09 Sodium Cl For Inhalation 3 Ml Ud Nebule Administered 04/25/21 03:10 Dose 3 ml IH .STK-MED ONE Spironolactone 25 mg 04/25/21 15:00 04/27/21 10:13 Spironolactone 25 Mg Tablet PO 05/25/21 14:59 25 mg DAILY BENJA Administration Tamsulosin HCl 0.4 mg 04/25/21 22:00 04/26/21 21:02 Tamsulosin Hcl 0.4 Mg Cap PO 05/25/21 21:59 0.4 mg HS BENJA Administration Intake & Output (Last 24 hours) 04/26/21 04/27/21 04/28/21 04/29/21 11:59 11:59 11:59 11:59 Intake Total 2551 2965 240 Output Total 5500 3100 500 Balance -2949 -135 -260 Weight 103 kg 102.8 kg Code(s): I21.4 - NON-ST ELEVATION (NSTEMI) MYOCARDIAL INFARCTION (2) Chest pain Status: Acute Code(s): R07.9 - CHEST PAIN, UNSPECIFIED (3) Elevated troponin Status: Acute Code(s): R77.8 - OTHER SPECIFIED ABNORMALITIES OF PLASMA PROTEINS (4) COPD (chronic obstructive pulmonary disease) Status: Chronic (5) Coronary artery disease Status: Chronic Code(s): I25.10 - ATHSCL HEART DISEASE OF [place] CORONARY ARTERY W/O ANG PCTRS (6) Pulmonary hypertension Status: Chronic Code(s): I27.2 - OTHER SECONDARY PULMONARY HYPERTENSION * DO NOT USE * (7) Shortness of breath Status: Resolved Code(s): R06.02 - SHORTNESS OF BREATH - Discharge Discharge Date: 04/27/21 Disposition: DC TO [facility] Condition: Stable Prescriptions: No Action Isosorbide Mononitrate 30 mg [Imdur 30 MG] 90 mg PO QAM Tamsulosin HCl 0.4 mg [Flomax 0.4 MG] 0.4 mg PO HS Famotidine [Pepcid] 40 mg PO HS Amlodipine Besylate 5 mg [Norvasc 5 mg] 5 mg PO QAM Insulin Glargine [Lantus Insulin] 45 unit SQ BID Bumetanide 1 mg [Bumex 1 mg] 1 mg PO UD Oxybutynin Chloride [Oxybutynin Chloride ER] 5 mg PO DAILY Fluticasone/Salmeterol Disc [Advair/Wixella 250-50 Diskus 14 Dose] 1 each IH BID #1 disk.w.[email or web address] Carvedilol 3.125 mg [Coreg 3.125 MG] 3.125 mg PO BIDWM Ergocalciferol (Vitamin D2) [Vitamin D2] 1 cap PO WEEKLY Atorvastatin Calcium [Lipitor] 80 mg PO HS Oxycodone HCl/Acetaminophen [Percocet 10-325 mg Tablet] 1 tab PO TIDPRN PRN PRN Reason: Pain Clopidogrel Bisulfate 75 mg [PLAVIX 75 MG Tablet] 75 mg PO DAILY Nitroglycerin 0.4 mg Tablet [Nitrostat 0.4 MG Tablet] 0.4 mg SL UD Spironolactone 25 mg [Aldactone 25 MG] 25 mg PO DAILY Gabapentin 800 mg PO TID Metformin HCl [Metformin ER Gastric] 1,000 mg PO BID Potassium Chloride [Klor-Con 10] 10 meq PO UD Levofloxacin [Levaquin] 250 mg PO DAILY Empagliflozin [Jardiance] 10 mg PO DAILY Apixaban [Eliquis] 5 mg PO BID Follow up with: MONSE BRADSHAW MD [Primary Care Provider] - Forms: Ambulance Transport Record, Transfer Record Inter-Agency
== END 2021-04-27 17:02 | disposition home or self-care (01) | DRG 281 ==
LOC: ED 01:52 → OBSVTOIN 04:37 → INTOOBSV 04:37 → MED SURG 04:37 → ICU 04-26 09:16 → OBSVTOIN 04-26 09:16
PROVIDERS: ADMIT General Practice; ATTEND General Practice
DX: I21.4 Non-ST elevation (NSTEMI) myocardial infarction (principal); J44.1 Chronic obstructive pulmonary disease with (acute) exacerbation; R77.8 Other specified abnormalities of plasma proteins; I25.10 Atherosclerotic heart disease of native coronary artery without angina pectoris; R06.02 Shortness of breath; I25.118 Atherosclerotic heart disease of native coronary artery with other forms of angina pectoris; I11.0 Hypertensive heart disease with heart failure; E78.00 Pure hypercholesterolemia, unspecified; E11.9 Type 2 diabetes mellitus without complications; I25.2 Old myocardial infarction; Z79.01 Long term (current) use of anticoagulants; Z79.899 Other long term (current) drug therapy; Z20.828 Contact with and (suspected) exposure to other viral communicable diseases; R07.9 Chest pain, unspecified; I27.20 Pulmonary hypertension, unspecified
CPT/HCPCS: 36000; 36415; 51702; 71045; 71260; 80048; 80053; 80061; 82947; 83036; 83721; 83735; 83880; 84132; 84484; 85025; 85027; 85610; 93005; 93041; 93268; 93306; 94640; 94760; 94762; 96374; 99285; 99291; G0378; U0003; J1650; J1817; J1940; J2270; J2405; A9270-GY

== ENCOUNTER 2021-05-09 13:40 | Inpatient (IN) | payer MEDICARE, OTHER ==
[2021-05-09] MEDS ORDERED: Sodium Chloride 0.9% 1000 ML 1,000 ML IV STA (13:43)
[2021-05-09] MEDS ORDERED: solu-MEDROL 125 MG, Sterile H2O 10 ml 10 ML IV ONE ×2 (13:43)
[2021-05-09] MEDS ORDERED: Sodium Chloride 0.9% 1000 ML 1,000 ML ONE (14:03)
[2021-05-09] MEDS ORDERED: Sterile H2O 10 ml IJ ONE (14:03)
[2021-05-09] MEDS ORDERED: solu-MEDROL ONE (14:03)
[2021-05-09 14:04] LABS: A-aADO2 514; ABG HEMOGLOBIN 11.6; ABG POTASSIUM 5.4 (3.5-5.1); ARTERIAL BLD GAS O2 SATURATION 98.2 % (95-100); ARTERIAL BLOOD GAS FIO2 100 %; ARTERIAL BLOOD GAS PO2 120 mmHg (75-100); ARTERIAL BLOOD GAS pH 7.29 (7.35-7.45); CARBOXYHEMOGLOBIN 1.2 % THgb (0.0-6.9); HCO3- 30.3 (22-28); HGB O2 SAT 96.2 g/dF (94-100); Methhemoglobin 0.8 % (1.4-1.5)
[2021-05-09 14:05] LABS: ABG SITE RIGHT RADIAL; ALLEN TEST OK? YES; ARTERIAL BLOOD GAS PCO2 63 mmHg (35-45)
[2021-05-09 14:56] LABS: INFLUENZA A NEGATIVE (NEGATIVE); INFLUENZA B NEGATIVE (NEGATIVE); RESPIRATORY SYNCTIAL VIRUS NEGATIVE (Negative)
[2021-05-09 15:00] LABS: SARS-CoV-2 Xpert Express POSITIVE (NEGATIVE)
[2021-05-09 15:04] LABS: Absolute Neutrophil Ct (ANC) 8.25 (1.4-6.9); Basophil (Absolute #) 0.01 (0-0.4); Eosinophil (Absolute #) 0 (0-0.5); Hematocrit 40.3 % (42-50); Hemoglobin 11.2 gm/dl (12.5-18.0); Lymphocyte (Absolute #) 2.58 (1.0-4.6); Lymphocytes % 22.5 % (24.0-44.0); Mean Cell Volume 93.5 fl (78-100); Mean Corpuscular Hgb Concent. 27.8 g/dl (32-36); Mean Platelet Volume 9.6 fl (7.5-11.0); Monocyte (Absolute #) 0.65 (0.0-1.3); Monocytes % 5.7 % (0.0-12.0); Neutrophil % 71.7 % (36.0-66.0); Platelet Count 422 K/mm3 (150-450); Red Blood Count 4.31 M/mm3 (4.1-5.6); White Blood Count 11.5 K/mm3 (4.0-10.5)
[2021-05-09 15:13] LABS: INR 1.59 (0.8-3.0); PROTIME 18.8 SECONDS (9.4-12.5)
[2021-05-09 15:26] LABS: ALBUMIN 3.6 g/dL (3.5-5.0); ANION GAP 12.3 MEQ/L (5-15); BILIRUBIN,TOTAL 0.5 mg/dL (0.2-1.3); Creatinine 1 3.13 mg/dL (0.66-1.25); EST GLOMERULAR FILTRATION RATE 20.7 ML/MIN; MAGNESIUM 3.6 mg/dL (1.6-2.3); Potassium 5.4 mmol/L (3.5-5.1); Total Protein 6.9 g/dL (6.3-8.2)
--- NOTE | 2021-05-09 15:35 | ERPHSYRPT ---
- History of Present Illness Time Seen by Provider: 05/09/21 14:10 Source: EMS, senior care records Exam Limitations: clinical condition Patient Subjective Stated Complaint: EMS states "For the past houre he has had acute respiratory distress. He is from [facility]. We put him on CPAP right away, he has COPD and was positive for covid today." Triage Nursing Assessment: PT presented lethergic and will open eyes with loud verbal stimulus. Pt arrived with CPAP on and was immidiatly placed on BIPAP at 50% and his SpO2 was only 85%, BiPAP turned up to 100 % and SpO2 improved to 99%. Pt flinches with iv and will pull away. Physician History: Patient is a 74-year-old male resident of senior care who was found to be positive for Covid this morning and this afternoon about noon at least he dropped his O2 saturation EMS was called found him to have an O2 sat in the 60s put him on BiPAP and presented to the emergency room. Timing/Duration: today Cough Quality/Degree: dry cough Possible Cause: no prior episodes (Patient was reportedly tested for Covid at the senior care and was positive) Modifying Factors: Improves With: coughing Associated Symptoms: fever, cough, shortness of breath Allergies/Adverse Reactions: atorvastatin [From Lipitor] Allergy (Severe, Verified 05/09/21 14:07) Hives gemfibrozil Allergy (Intermediate, Verified 04/25/21 02:04) Rash pineapple [Pineapple] Adverse Reaction (Intermediate, Verified 04/25/21 02:04) Nausea and Vomiting VOMITING Home Medications: Isosorbide Mononitrate 30 mg [Imdur 30 MG] 90 mg PO QAM 10/30/14 [History] Insulin Glargine [Lantus Insulin] 45 unit SQ BID 06/26/17 [History] Bumetanide 1 mg [Bumex 1 mg] 1 mg PO BID 08/06/18 [History] Oxybutynin Chloride [Oxybutynin Chloride ER] 5 mg PO DAILY 08/06/18 [History] Atorvastatin Calcium [Lipitor] 80 mg PO HS 08/14/20 [History] Carvedilol 3.125 mg [Coreg 3.125 MG] 3.125 mg PO BIDWM 08/14/20 [History] Nitroglycerin 0.4 mg Tablet [Nitrostat 0.4 MG Tablet] 0.4 mg SL UD 10/02/20 [History] Spironolactone 25 mg [Aldactone 25 MG] 25 mg PO DAILY 10/02/20 [History] Apixaban [Eliquis] 5 mg PO BID 04/25/21 [History] Gabapentin 800 mg PO TID 04/25/21 [History] Metformin HCl [Metformin ER Gastric] 1,000 mg PO BID 04/25/21 [History] Aspirin EC 81 mg [Ecotrin 81 mg] 81 mg PO DAILY 05/09/21 [History] Celecoxib 100 mg [celeBREX 100 MG] 100 mg PO DAILY 05/09/21 [History] Fluticasone/Umeclidin/Vilanter [Trelegy Ellipta 100-62.5-25] 1 each IH DAILY 05/09/21 [History] Insulin Aspart [Novolog] 100 unit SQ UD 05/09/21 [History] Isosorbide Mononitrate 30 mg [Imdur 30 MG] 30 mg PO DAILY 05/09/21 [History] Levetiracetam [Keppra Xr] 500 mg PO BID 05/09/21 [History] Magnesium Oxide 400 mg [Mag-Ox 400] 400 mg PO BID 05/09/21 [History] Oxycodone HCl/Acetaminophen [Oxycodone-Acetaminophen 10-325] 1 each PO TID 05/09/21 [History] PANTOPRAZOLE 40 mg Tablet [Protonix 40MG Tablet] 40 mg PO DAILY 05/09/21 [History] Prednisolone [Millipred] 15 mg PO DAILY 05/09/21 [History] Roflumilast [Daliresp] 250 mcg PO DAILY 05/09/21 [History] Sacubitril/Valsartan [Entresto 49 mg-51 mg Tablet] 1 each PO DAILY 05/09/21 [History] Hx Tetanus, Diphtheria Vaccination/Date Given: No Hx Influenza Vaccination/Date Given: No Hx Pneumococcal Vaccination/Date Given: Yes Immunizations Up to Date: Yes Travel Risk - International Travel Have you traveled outside of the country in past 3 weeks: No - Coronavirus Screening Are you exhibiting any of the following symptoms?: Yes Symptoms: Cough: New Onset, Shortness of Breath Close contact with a COVID-19 positive Pt in past 14-21 Days: Yes - Vaccine Status Have you recieved a Covid-19 vaccination: Yes Folder Tier: Pfizer - Vaccination Dates Date of 2cond Vaccination (if applicable): unknown Dates if Unknown: unsure - Review of Systems All Other Systems: Unable due to condition - Past Medical History Pertinent Past Medical History: Yes Neurological History: No Pertinent History ENT History: No Pertinent History Cardiac History: Congestive Heart Failure, Coronary Artery Disease, Deep Vein Thrombosis, High Cholesterol, Hypertension, Myocardial Infarction (MT) Respiratory History: CHF, COPD, Pulmonary Embolism Endocrine Medical History: Diabetes Type II Musculoskeletal History: Osteoarthritis GI Medical History: No Pertinent History History: No Pertinent History Psycho-Social History: No Pertinent History Male Reproductive Disorders: No Pertinent History Other Medical History: HX CABG. Coronary Stenting. HX DVT - Past Surgical History Past Surgical History: Yes Neuro Surgical History: No Pertinent History Cardiac: CABG, Cardiac Catheterization, Cardiac Stent, Internal Defibrillator Respiratory: Chest Surgery Gastrointestinal: Cholecystectomy Genitourinary: No Pertinent History Musculoskeletal: Joint Replacement Male Surgical History: No Pertinent History Other Surgical History: Left Hip replacement. - Social History Smoking Status: Former smoker How long have you smoked: 10 yrs Exposure to second hand smoke: Yes Drug Use: none Patient Lives Alone: No - Nursing Vital Signs Nursing Vital Signs: Initial Vital Signs Pulse Rate 84 05/09/21 13:59 Respiratory Rate 24 05/09/21 13:59 Blood Pressure 91/62 05/09/21 13:59 O2 Sat by Pulse Oximetry 99 05/09/21 13:59 Pain Scale Pain Intensity 0 - Physical Exam General Appearance: severe distress, alert Eye Exam: PERRL/EOMI, eyes nml inspection Ears, Nose, Throat Exam: normal ENT inspection, TMs normal, pharynx normal, moist mucous membranes Neck Exam: normal inspection, non-tender, supple, full range of motion Respiratory Exam: respiratory distress, diminished breath sounds, cr ackles/rales, rhonchi, wheezing Cardiovascular Exam: regular rate/rhythm, normal heart sounds Gastrointestinal/Abdomen Exam: soft, No tenderness Back Exam: normal inspection, No CVA tenderness, No vertebral tenderness Extremity Exam: normal inspection, normal range of motion Neurologic Exam: alert, oriented x 3, cooperative, normal mood/affect, sensation nml, No motor deficits Skin Exam: normal color, warm, dry, No rash Lymphatic Exam: No adenopathy SpO2 Interpretation: normal SpO2: 100 O2 Delivery: Room Air - Course Nursing assessment & vital signs reviewed: Yes EKG Interpreted by Me: RATE, Sinus Rhythm (85), Left Raywick Deviation, NORMAL INTERVALS, Non-specific ST Changes - Radiology Exams Chest X-ray Interpretation: Teleradiologist Report Ordered Tests: Active Orders 24 hr Category Date Time Status EKG-ER Only STAT Care 05/09/21 13:43 Active Mckeon [Catheter-Alamo Mckeon] STAT Care 05/09/21 14:42 Active IV Insertion STAT Care 05/09/21 13:43 Active Pulse Oximetry (ED) STAT Care 05/09/21 13:43 Active CHEST 1 VIEW (PORTABLE) Stat Exams 05/09/21 14:31 Taken ABG [ARTERIAL BLOOD GASES] Stat Lab 05/09/21 14:03 Completed BLOOD CULTURE Stat Lab 05/09/21 14:47 Received CBC W DIFF Stat Lab 05/09/21 14:30 Completed CMP Stat Lab 05/09/21 14:35 Completed CULTURE,URINE Stat Lab 05/09/21 14:40 Ordered D-DIMER QUANTITATIVE Stat Lab 05/09/21 14:35 Completed Lactic Acid Stat Lab 05/09/21 14:04 Completed MAGNESIUM Stat Lab 05/09/21 14:35 Completed NT PRO BNP Stat Lab 05/09/21 14:35 Completed PROTIME WITH INR Stat Lab 05/09/21 14:35 Completed PTT Stat Lab 05/09/21 14:35 Completed TROPONIN Q3H Lab 05/09/21 14:35 Received TROPONIN Q3H Lab 05/09/21 17:00 Ordered TROPONIN Q3H Lab 05/09/21 20:00 Ordered TROPONIN Q3H Lab 05/09/21 23:00 Ordered TROPONIN Q3H Lab 05/10/21 02:00 Ordered UA W/RFX UR CULTURE Stat Lab 05/09/21 14:40 Ordered BiPap/CPAP STAT RT 05/09/21 13:43 Active Medication Summary Discontinued Medications Generic Name Dose Route Start Last Admin Trade Name Freq PRN Reason Stop Dose Admin Methylprednisolone Sodium 0 mg 05/09/21 13:43 05/09/21 14:05 Succinate 125 mg/ Sterile IV 05/09/21 13:44 125 mg Water 10 ml STAT ONE Administration Sodium Chloride 1,000 mls @ 999 mls/hr 05/09/21 13:43 05/09/21 14:06 Sodium Chloride 0.9% 1000 Ml IV 05/09/21 14:43 999 mls/hr .Q1H1M STA Administration Sodium Chloride Confirm 05/09/21 14:03 Sodium Chloride 0.9% 1000 Ml Administered 05/09/21 14:04 Dose 1,000 mls @ ud .ROUTE .STK-MED ONE Methylprednisolone Sodium Succinate Confirm 05/09/21 14:03 Methylprednis Sod Succ 125 Mg/2 Ml Vial Administered 05/09/21 14:04 Dose 125 mg .ROUTE .STK-MED ONE Sterile Water Confirm 05/09/21 14:03 Water For Injection,Sterile 10 Ml Vial Administered 05/09/21 14:04 Dose 10 ml IJ .STK-MED ONE Lab/Rad Data: Laboratory Result Diagrams 05/09/21 14:30 05/09/21 14:35 Laboratory Results 05/09/21 05/09/21 05/09/21 Range/Units 14:35 14:35 14:30 WBC 11.5 H (4.0-10.5) K/mm3 RBC 4.31 (4.1-5.6) M/mm3 Hgb 11.2 L (12.5-18.0) gm/dl Hct 40.3 L (42-50) % MCV 93.5 (78-100) fl MCH 26.0 (26-32) pg MCHC 27.8 L (32-36) g/dl RDW 15.0 H (11.5-14.0) % Plt Count 422 (150-450) K/mm3 MPV 9.6 (7.5-11.0) fl Gran % 71.7 H (36.0-66.0) % Eos # (Auto) 0 (0-0.5) Absolute Lymphs (auto) 2.58 (1.0-4.6) Absolute Monos (auto) 0.65 (0.0-1.3) Lymphocytes % 22.5 L (24.0-44.0) % Monocytes % 5.7 (0.0-12.0) % Eosinophils % 0.0 (0.00-5.0) % Basophils % 0.1 (0.0-0.4) % Absolute Granulocytes 8.25 H (1.4-6.9) Basophils # 0.01 (0-0.4) PT 18.8 H (9.4-12.5) SECONDS INR 1.59 (0.8-3.0) APTT 38.0 H (25.1-36.5) SECONDS D-Dimer 1110 H* (215-500) ng/mL Puncture Site pCO2 (35-45) mmHg pO2 (75-100) mmHg Base Excess (-2.0-2.0) O2 Saturation (94-100) g/dF ABG pH (7.35-7.45) ABG HCO3 (22-28) ABG O2 Sat (Measured) (95-100) % Winston Test A-a Gradient a/A Ratio Hemoglobin Carboxyhemoglobin (0.0-6.9) % THgb Methemoglobin (1.4-1.5) % Potassium 5.4 H (3.5-5.1) Temperature C POC O2 Flow Rate % Sodium 143 (137-145) mmol/L Chloride 103 (98-107) mmol/L Carbon Dioxide 33 H (22-30) mmol/L Anion Gap 12.3 (5-15) MEQ/L BUN 88 H (9-20) mg/dL Creatinine 3.13 H (0.66-1.25) mg/dL Estimated GFR 20.7 ML/MIN Glucose 89 (74-106) mg/dL Lactic Acid (0.4-2.0) Calcium 8.0 L (8.4-10.2) mg/dL Magnesium 3.6 H (1.6-2.3) mg/dL Total Bilirubin 0.50 (0.2-1.3) mg/dL AST 132 H (17-59) U/L ALT 43 (0-50) U/L Alkaline Phosphatase 85 (38-126) U/L NT-Pro-B Natriuret Pep 1030 (0-1800) pg/mL Serum Total Protein 6.9 (6.3-8.2) g/dL Albumin 3.6 (3.5-5.0) g/dL Influenza Type A Ag (NEGATIVE) Influenza Type B Ag (NEGATIVE) RSV (PCR) (Negative) SARS-CoV-2 (PCR) (NEGATIVE) 05/09/21 05/09/21 05/09/21 Range/Units 14:11 14:04 14:03 WBC (4.0-10.5) K/mm3 RBC (4.1-5.6) M/mm3 Hgb (12.5-18.0) gm/dl Hct (42-50) % MCV (78-100) fl MCH (26-32) pg MCHC (32-36) g/dl RDW (11.5-14.0) % Plt Count (150-450) K/mm3 MPV (7.5-11.0) fl Gran % (36.0-66.0) % Eos # (Auto) (0-0.5) Absolute Lymphs (auto) (1.0-4.6) Absolute Monos (auto) (0.0-1.3) Lymphocytes % (24.0-44.0) % Monocytes % (0.0-12.0) % Eosinophils % (0.00-5.0) % Basophils % (0.0-0.4) % Absolute Granulocytes (1.4-6.9) Basophils # (0-0.4) PT (9.4-12.5) SECONDS INR (0.8-3.0) APTT (25.1-36.5) SECONDS D-Dimer (215-500) ng/mL Puncture Site RIGHT RADIAL pCO2 63 H* (35-45) mmHg pO2 120 H (75-100) mmHg Base Excess 2.0 (-2.0-2.0) O2 Saturation 96.2 (94-100) g/dF ABG pH 7.29 L (7.35-7.45) ABG HCO3 30.3 H* (22-28) ABG O2 Sat (Measured) 98.2 (95-100) % Winston Test YES A-a Gradient 514 a/A Ratio 0.19 Hemoglobin 11.6 Carboxyhemoglobin 1.2 (0.0-6.9) % THgb Methemoglobin 0.8 L (1.4-1.5) % Potassium 5.4 H (3.5-5.1) Temperature 37.0 C POC O2 Flow Rate 100 % Sodium (137-145) mmol/L Chloride (98-107) mmol/L Carbon Dioxide (22-30) mmol/L Anion Gap (5-15) MEQ/L BUN (9-20) mg/dL Creatinine (0.66-1.25) mg/dL Estimated GFR ML/MIN Glucose (74-106) mg/dL Lactic Acid 0.8 (0.4-2.0) Calcium (8.4-10.2) mg/dL Magnesium (1.6-2.3) mg/dL Total Bilirubin (0.2-1.3) mg/dL AST (17-59) U/L ALT (0-50) U/L Alkaline Phosphatase (38-126) U/L NT-Pro-B Natriuret Pep (0-1800) pg/mL Serum Total Protein (6.3-8.2) g/dL Albumin (3.5-5.0) g/dL Influenza Type A Ag NEGATIVE (NEGATIVE) Influenza Type B Ag NEGATIVE (NEGATIVE) RSV (PCR) NEGATIVE (Negative) SARS-CoV-2 (PCR) POSITIVE A (NEGATIVE) - Progress Progress: improved Air Movement: poor Blood Culture(s) Obtained: Yes Antibiotics given: No Discussed with Dr.: Other (Dr Cooley) Will see patient in: hospital (full admit) - Departure Departure Disposition: In-patient Admission Clinical Impression: Pneumonia due to COVID-19 virus, Elevated troponin Condition: Critical Critical Care Time: Yes Critical Care Time(excluding separately billable procedures): Critical 30-74 mins (55) Referrals: MONSE BRADSHAW MD [Primary Care Provider] - Follow up/PCP as directed
[2021-05-09 15:58] LABS: Slide Review 1 YES
[2021-05-09 16:00] LABS: Appearance SLIGHTLY CLOUDY (CLEAR); Bacteria MODERATE /HPF (NEGATIVE); Bilirubin NEGATIVE (NEGATIVE); Blood SMALL Ery/ul (0-5); Glucose 50 mg/dL (NEGATIVE); Hyaline Casts 0-2 /LPF (0-2); Ketones NEGATIVE (NEGATIVE); Leukocyte Esterase TRACE (NEGATIVE); Mucus SLIGHT /HPF (NEGATIVE); Nitrite NEGATIVE (NEGATIVE); Protein,Urine Dip 100 (Negative); Specific Gravity 1.016 (1.005-1.025); Urobilinogen NEGATIVE mg/dL (0-1)
[2021-05-09 16:01] LABS: Budding Yeast Few /HPF (NEGATIVE)
--- NOTE | 2021-05-09 18:54 | XRAY ---
Indication: Short of breath. Positive Covid 19. Comparison: April 25, 2021. Portable chest remains underinflated and now rotated right. Grossly stable cardiomegaly with CABG/left pacemaker, prominent bilateral perihilar interstitial opacities, and right hemidiaphragm elevation with right base atelectasis. No new cardiopulmonary abnormalities. Comment: Preliminary interpretation made by C. No critical discrepancy.
[2021-05-09] MEDS ORDERED: REMDESIVIR 200 MG in Sodium Chloride 0.9% 250 ML 250 ML IV ONE (20:02)
[2021-05-09] MEDS ORDERED: Ativan 1 MG PO PRN (20:06)
[2021-05-09] MEDS ORDERED: Zofran 4 MG/2 ML VIAL IV PRN (20:08)
[2021-05-09] MEDS ORDERED: HYDROCODONE-CHLORPHEN ER SUSP PO PRN (20:09)
[2021-05-09] MEDS ORDERED: REMDESIVIR IV ONE (20:15)
[2021-05-09] MEDS ORDERED: Sodium Chloride 0.9% 250 ML 250 ML IV ONE (20:15)
[2021-05-09] MEDS ORDERED: Lasix 20 MG/2 ML ONE (20:57)
[2021-05-09] MEDS: Sodium Chloride 0.9% 1000 ML 1,000 ML IV SCH (21:09)
[2021-05-09] MEDS: ENOXAPARIN SODIUM SQ SCH (21:10)
[2021-05-09] MEDS ORDERED: OLUMIANT PO SCH (22:00)
[2021-05-09] MEDS ORDERED: Decadron 4 MG INJ IV SCH (22:00)
[2021-05-10] MEDS: MORPHINE SULFATE 4 MG INJ IV PRN ×5 (00:57→21:11)
[2021-05-10] MEDS ORDERED: MORPHINE SULFATE 4 MG INJ ONE (00:57)
[2021-05-10 06:00] LABS: Hematocrit 39.9 % (42-50); Hemoglobin 10.9 gm/dl (12.5-18.0); Mean Cell Volume 95.5 fl (78-100); Mean Corpuscular Hemoglobin 26.1 pg (26-32); Mean Corpuscular Hgb Concent. 27.3 g/dl (32-36); Mean Platelet Volume 9.4 fl (7.5-11.0); Platelet Count 440 K/mm3 (150-450); Red Blood Count 4.18 M/mm3 (4.1-5.6); Red Cell Distribution Width 14.8 % (11.5-14.0); White Blood Count 12.7 K/mm3 (4.0-10.5)
[2021-05-10 07:50] LABS: ALBUMIN 3.2 g/dL (3.5-5.0); ANION GAP 15.2 MEQ/L (5-15); BILIRUBIN,TOTAL 0.3 mg/dL (0.2-1.3); Calcium 7.8 mg/dL (8.4-10.2); Creatinine 1 2.15 mg/dL (0.66-1.25); Total Protein 5.8 g/dL (6.3-8.2)
[2021-05-10 07:52] LABS: Potassium 7.1 mmol/L (3.5-5.1)
[2021-05-10 08:10] LABS: Slide Review YES
[2021-05-10] MEDS ORDERED: Phenergan 25 MG INJ*** 25 MG in Sodium Chloride 0.9% 100 ML BAG 100 ML IV ONE (09:15)
[2021-05-10] MEDS: OLUMIANT PO SCH (10:01)
[2021-05-10] MEDS: ENOXAPARIN SODIUM SQ SCH (11:11)
[2021-05-10] MEDS: DECADRON 10MG INJ. IV SCH (11:11)
--- NOTE | 2021-05-10 11:22 | HP ---
CHIEF COMPLAINT: Hypoxia, new onset COVID, congestive heart failure, cardiomyopathy, chronic obstructive pulmonary disease requiring CPAP, possible [employer] TRACK damage. HISTORY OF PRESENT ILLNESS: The patient came from [facility] when they found his O2 at 60% and he was unresponsive. They put him on CPAP and of course that did not help. He was markedly hypoxic and he ended up on BiPAP in the ambulance. There his O2 was only 50% and finally up to 85% to 100% while he was being treated in the emergency room. He flinched from IV and pulled away but he was nonverbal. He looks severely and chronically ill. He apparently had been admitted to [facility] for congestive heart failure and has a long history of coronary artery disease, congestive heart failure and he was sent to [facility] for perhaps improvement. We do not have any notes. I think he is just chronically severely ill. He has no history of COVID. No one knew that he had COVID. They found out at the [facility] that it came back positive. TRAVEL RISK: None. CORONAVIRUS SCREENING: The patient received the test when he got to [facility]. I think that is when he tested positive. He was noted to be short of breath. He had maybe a new cough. His girlfriend had been seeing him at both the hospital and [facility] and noticed that he did have a new cough, she stated. She has not had COVID nor are there any other cases at [facility] that I know of and I usually hear. All of his history is taken from his girlfriend and the nursing notes. HOME MEDICATIONS: Imdur 30 mg, Lantus 45 b.i.d., Bumex 1 mg q.d., oxybutynin 5 mg b.i.d., Lipitor 80 mg a day, Coreg 3.125 b.i.d., Nitro PRN, Aldactone 25 mg, Eliquis 5 b.i.d., gabapentin 800 mg t.i.d., Metformin 1,000 b.i.d., aspirin 81 q.d., Celebrex 100 q.d., Trelegy Ellipta 1 inhalation daily, NovoLog coverage, Keppra XR 50 b.i.d., Mag-Ox 400 b.i.d., Tylox 10 mg t.i.d. for leg pain, Protonix 40 mg q.d., prednisone 15 q.d., Daliresp 250 q.d., Entresto 49-51 mg 1 q.d. ALLERGIES: ATORVASTATIN. GEMFIBROZIL. PINEAPPLE. PAST MEDICAL HISTORY: He has had deep vein thrombosis, high cholesterol, hypertension, multiple myocardial infarctions. He has congestive heart failure, chronic obstructive pulmonary disease, history of pulmonary emboli. Long standing diabetes type II. Osteoarthritis back and knees. PAST SURGICAL HISTORY: Coronary artery bypass graft, coronary stenting, joint replacement of the left hip. REVIEW OF SYSTEMS: HEENT: No problems. CVS: Congestive heart failure chronic. He has a pacemaker in. GI: No problems but he does take Protonix so he must have reflux. : No history. PSYCH: None. MUSCULOSKELETAL: Osteoarthritis back and knees. SOCIAL HISTORY: He quit smoking ten years ago. He has had vaccine twice and even a booster, I think, according to the girlfriend. He does have a form filled out and he stated apparently numerous times that he did not want to be placed on the ventilator if anything should happen to him. PHYSICAL EXAMINATION: Physical examination done in the emergency room by myself, the patient was not alert, nonverbal, responded to pain. VITAL SIGNS: Pulse about 80, respiratory rate 30, blood pressure 100/70. O2 saturation was 99%. HEENT: Pupils equal and reactive to light. NECK: Supple without adenopathy. CHEST: Few crackles. CVS: Heart sounds are regular. ABDOMEN: The patient has some type of pacemaker placed in. EXTREMITIES: Slightly cyanotic toes. No edema. No rashes. IMPRESSION: Respiratory failure secondary to COVID, chronic chronic obstructive pulmonary disease, chronic congestive heart failure with recent exacerbation. He apparently may have some neurological damage from acute stroke, anoxia as he is still not responding on the morning after admitting him. PLAN: The patient will be treated with the usual COVID drugs, oxygen. He needs to be anticoagulated as he apparently was in the past. They told us his D-dimer is 1,110. Electrolytes were normal.
--- NOTE | 2021-05-10 11:52 | PROG NOTE ---
DATE: 05/10/2021 HISTORY: The patient was admitted with severe hypoxia, respiratory arrest from a local [facility]. He had just been discharged from [facility] with congestive heart failure. Apparently, he tested positive on admission to [facility] and just became hypoxic today. He was found unresponsive. His EKG showed no acute changes. Overnight he has changed that he is now moving and in fact, he keeps removing his mask. He is not verbalizing anything. His movements pretty well not effective except for removing his mask. His creatinine has gone up to 3, BUN 88. His potassium has gone up also. His blood gas last night with CO2 63, pO2 120, O2 saturation 96%, pH was 7.29 that was done after he was in the emergency room after he had been bagged and treated with oxygen for probably at least an hour if not two hours. His troponins were slightly elevated. His chest x-ray showed stable cardiomyopathy with a left pacemaker, prominent bilateral perihilar interstitial opacities. No new cardiac abnormalities. IMPRESSION: The patient probably has chronic congestive heart failure in the past, coronary artery disease, new onset COVID, acute severe dementia probably due to hypoxia less likely perhaps a stroke. Not able to do a CT or MRI at this time due to his inability to cooperate and he was anticoagulated at [facility] with two anticoagulants. Congestive heart failure, severe cardiomyopathy. He unfortunately has contracted COVID despite being vaccinated; he has been in the hospital, less likely [facility]. His creatinine has gone up. His potassium has gone up to 7.1. Secondary renal failure from his heart failure and diuresis perhaps. His O2 saturations are staying okay with the BiPAP however keeping the BiPAP on is quite a problem. He is moving around somewhat better than last night. PROGNOSIS: Guarded.
[2021-05-10] MEDS: PROTONIX 40 MG IV IV SCH (17:36)
[2021-05-10] MEDS: Phenergan 25 MG INJ*** 25 MG in Sodium Chloride 0.9% 100 ML BAG 100 ML IV PRN ×2 (18:14→22:30)
[2021-05-10] MEDS ORDERED: Ativan 2 MG/1 ML VIAL IV ONE (18:56)
[2021-05-10] MEDS ORDERED: Haldol 5 MG IM ONE (19:13)
[2021-05-10] MEDS ORDERED: Lasix 20 MG/2 ML IV ONE (21:00)
[2021-05-10] MEDS: REMDESIVIR 100 MG in Sodium Chloride 0.9% 100 ML BAG 100 ML IV SCH (21:11)
[2021-05-10] MEDS ORDERED: Lanoxin 0.5 MG/2 ML INJECTION IV ONE (23:17)
[2021-05-11] MEDS: Ativan 2 MG/1 ML VIAL IV PRN ×5 (02:55→22:27)
[2021-05-11] MEDS: MORPHINE SULFATE 4 MG INJ IV PRN ×4 (05:07→19:34)
[2021-05-11 07:07] LABS: Hematocrit 37.6 % (42-50); Hemoglobin 10.4 gm/dl (12.5-18.0); Mean Cell Volume 93.1 fl (78-100); Mean Corpuscular Hemoglobin 25.7 pg (26-32); Mean Corpuscular Hgb Concent. 27.7 g/dl (32-36); Mean Platelet Volume 9.2 fl (7.5-11.0); Platelet Count 374 K/mm3 (150-450); Red Blood Count 4.04 M/mm3 (4.1-5.6); Red Cell Distribution Width 14.7 % (11.5-14.0); White Blood Count 9.8 K/mm3 (4.0-10.5)
[2021-05-11 07:34] LABS: ALBUMIN 2.8 g/dL (3.5-5.0); ANION GAP 13.7 MEQ/L (5-15); BILIRUBIN,TOTAL 0.4 mg/dL (0.2-1.3); Calcium 7.9 mg/dL (8.4-10.2); Creatinine 1 1.3 mg/dL (0.66-1.25); EST GLOMERULAR FILTRATION RATE 57.2 ML/MIN; Potassium 5.7 mmol/L (3.5-5.1); Total Protein 5.3 g/dL (6.3-8.2)
[2021-05-11] MEDS: Sodium Chloride 0.9% 1000 ML 1,000 ML IV SCH (07:53)
[2021-05-11] MEDS: DECADRON 10MG INJ. IV SCH (10:36)
[2021-05-11 10:37] LABS: Slide Review YES
[2021-05-11] MEDS: ENOXAPARIN SODIUM SQ SCH (10:38)
[2021-05-11] MEDS: OLUMIANT PO SCH (10:42)
--- NOTE | 2021-05-11 11:25 | XRAY ---
Indication: Positive Covid 19. Comparison: May 09, 2021. Portable chest slightly better inflated on the right with diminished right base subsegmental atelectasis and diminished cardiomegaly. Remaining chest unchanged with grossly stable bilateral interstitial alveolar opacities without consolidation/large effusion. Again incidental CABG, left pacemaker, and right hemidiaphragm elevation.
[2021-05-11] MEDS: SODIUM CHLORIDE 0.9% W/ 40 mEq KCL 1000ML 1,000 ML IV SCH (12:24)
[2021-05-11] MEDS: PROTONIX 40 MG IV IV SCH (15:54)
[2021-05-11] MEDS: REMDESIVIR 100 MG in Sodium Chloride 0.9% 100 ML BAG 100 ML IV SCH (19:34)
[2021-05-12] MEDS: Ativan 2 MG/1 ML VIAL IV PRN ×4 (00:55→11:53)
[2021-05-12] MEDS: SODIUM CHLORIDE 0.9% W/ 40 mEq KCL 1000ML 1,000 ML IV SCH (02:52)
[2021-05-12] MEDS: ENOXAPARIN SODIUM SQ SCH (09:34)
[2021-05-12] MEDS: DECADRON 10MG INJ. IV SCH (09:35)
[2021-05-12] MEDS ORDERED: Sodium Chloride 0.9% 1000 ML 1,000 ML IV SCH (09:45)
[2021-05-12] MEDS ORDERED: Sodium Chloride 0.9% 1000 ML 1,000 ML ONE (09:49)
--- NOTE | 2021-05-12 12:43 | XRAY ---
Indication: CVA. Hypoxia. Bleed. Multiple contiguous images obtained through the head without contrast. Comparison: October 02, 2020. Study degraded by motion artifact throughout. There is also beam artifact due to manual fixation of patient's head during scan. 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 No gross acute intracranial hemorrhage, abnormal extra-axial fluid collection, or mass effect. Fourth ventricle is midline without hydrocephalus. Bony calvarium is grossly intact. There remains complete opacification of the left sphenoid sinus. Remaining paranasal sinuses and mastoid air cells are clear. Impression: 1. Limited exam due to motion and beam artifact. 2. 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 3. Incidental left sphenoid sinus disease.
[2021-05-12] MEDS ORDERED: FEVERALL 650 MG ONE (12:47)
[2021-05-12] MEDS: FEVERALL 650 MG PR PRN ×2 (12:50→19:48)
[2021-05-12] MEDS: PROTONIX 40 MG IV IV SCH (16:25)
[2021-05-12] MEDS: REMDESIVIR 100 MG in Sodium Chloride 0.9% 100 ML BAG 100 ML IV SCH (19:38)
[2021-05-13] MEDS: FEVERALL 650 MG PR PRN (01:17)
[2021-05-13 03:10] VITALS: O2SAT 91
[2021-05-13 04:10] VITALS: BP 46/29; PULSE 71
--- NOTE | 2021-06-18 08:30 | DS ---
ADMISSION DIAGNOSIS: COVID pneumonia. FINAL DIAGNOSES/CAUSE OF : 1) COVID PNEUMONIA. 2) CONGESTIVE HEART FAILURE. HOSPITAL COURSE: The patient on 05/13/2021 from COVID pneumonia and heart failure. The patient was a No Code. He was 75 years old who came in with shortness of breath, cough. His chest x-ray showed multiple infiltrates consistent with panlobar pneumonia and he had recent heart surgery it looks like. He came in as a No Code. O2 levels dropped progressively during his stay despite being on high flow oxygen. He did not want to be intubated. He coded. He came from [facility]. 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 His O2 saturation dropped and he arrested as expected shortly after being admitted.
== END 2021-05-13 05:53 | disposition expired | DRG 177 ==
LOC: ED 13:40 → INTOOBSV 18:25 → MED SURG 18:25 → OBSVTOIN 18:25 → UNDOADMOB 18:25 → ED 18:33
PROVIDERS: ADMIT Family Medicine; ATTEND Family Medicine
DX: U07.1 COVID-19 (principal); J12.82 Pneumonia due to coronavirus disease 2019; J96.90 Respiratory failure, unspecified, unspecified whether with hypoxia or hypercapnia; N39.0 Urinary tract infection, site not specified; R77.8 Other specified abnormalities of plasma proteins; E11.9 Type 2 diabetes mellitus without complications; J44.9 Chronic obstructive pulmonary disease, unspecified; I11.0 Hypertensive heart disease with heart failure; E78.00 Pure hypercholesterolemia, unspecified; I25.10 Atherosclerotic heart disease of native coronary artery without angina pectoris; I25.2 Old myocardial infarction; Z79.899 Other long term (current) drug therapy; Z79.01 Long term (current) use of anticoagulants; Z20.828 Contact with and (suspected) exposure to other viral communicable diseases
CPT/HCPCS: 0241U; 36415; 36600; 51702; 70450; 71045; 80053; 81001; 82375; 82803; 82947; 83605; 83735; 83880; 84484; 85025; 85027; 85379; 85610; 85730; 87040; 87077; 87086; 87186; 93005; 94002; 94003; 94760; 94762; 96360; 96374; 99285; J1100; J1160; J1650; J1940; J2060; J2270; J2550; J2930; A9270-GY